=== PATIENT | female | born 1980 | race Hispanic/Latino ===

== ENCOUNTER 2019-08-31 03:28 | Emergency (ER) | payer SELFPAY ==
[2019-08-31] MEDS ORDERED: DiphenhydrAMINE HCL 50 MG/ML VIAL ONE (03:57)
[2019-08-31] MEDS ORDERED: KETOROLAC TROMETHAMINE 30MG/ML ONE (03:58)
[2019-08-31] MEDS ORDERED: ORPHENADRINE CITRATE 30 MG/ML ML ONE (03:58)
== END 2019-08-31 05:41 | disposition home or self-care (01) ==
LOC: EDH 03:28
DX: F45.8 Other somatoform disorders (principal); R25.2 Cramp and spasm; I10 Essential (primary) hypertension; F41.9 Anxiety disorder, unspecified; F32.9 Major depressive disorder, single episode, unspecified; Z88.1 Allergy status to other antibiotic agents; Z90.710 Acquired absence of both cervix and uterus
CPT/HCPCS: 96374; 96375; 99284; J1200; J1885; J2360

== ENCOUNTER 2021-02-21 10:03 | Inpatient (IN) | payer OTHER ==
[~2021-02-21] VITALS: Ht 157.5 cm; Wt 135.0 kg
[2021-02-21] MEDS ORDERED: 0.9%NACL 1000ML 1,000 ML IV SCH (10:30)
[2021-02-21 10:52] LABS: ALANINE AMINOTRANSFERASE 68 U/L (12-78); ALBUMIN 2.8 g/dL (3.5-5.0); ALCOHOL, BLOOD 6 mg/dL (0-10); ASPARTATE AMINOTRANSFERASE 100 U/L (10-37); BASOPHILS % (AUTO) 0.3 % (0.0-5.0); BILIRUBIN,TOTAL 0.2 mg/dL (0.2-1.0); CARBON DIOXIDE 29 mmol/L (21-32); CHLORIDE 95 mmol/L (101-111); CREATININE 1.6 mg/dL (0.5-1.5); GLOMERULAR FILTR. RATE CALC 38 mL/min (>60); GLUCOSE,RANDOM 124 mg/dL (70-105); HEMATOCRIT 43.2 % (36-48); LYMPHOCYTES % (AUTO) 9.7 % (21.0-51.0); MEAN CORPUSCULAR HEMOGLOBIN 25.7 pg (27.0-33.0); MEAN CORPUSCULAR HGB CONC 31.5 g/dL (32.0-36.0); MEAN CORPUSCULAR VOLUME 81.5 fL (79-99); MONOCYTES % (AUTO) 4.4 % (3.0-13.0); PLATELET COUNT (AUTO) 230 K/uL (130-400); RED CELL DISTRIBUTION WIDTH 20.2 % (11.0-15.5); SODIUM SERUM 135 mmol/L (136-145); TOTAL PROTEIN, SERUM 8.1 g/dL (6.0-8.3); UREA NITROGEN, BLOOD 27 mg/dL (7-18); WHITE BLOOD COUNT (AUTO) 8.6 K/uL (4.8-10.8)
[2021-02-21 10:55] LABS: AMMONIA < 10 umol/L (11-32)
[2021-02-21 10:56] LABS: ACETAMINOPHEN < 1 mcg/mL (10-30)
[2021-02-21] MEDS ORDERED: POTASSIUM CHLORIDE 10MEQ/100ML 10 MEQ/100 ML ML IV SCH (11:00)
[2021-02-21 11:05] LABS: ABG BASE EXCESS 1.7 mmol/L (-2.0-3.0); ABG HCO3 23.6 mmol/L (21.0-28.0); ABG OXYGEN SATURATION 96.1 % (95.0-99.0); ABG PCO2 30 mmHg (32-45)
[2021-02-21] MEDS ORDERED: FAMOTIDINE 20MG VIAL IV STA (11:33)
[2021-02-21] MEDS ORDERED: LORAZEPAM 2 MG/ML 1 ML VIAL ONE (11:34)
[2021-02-21 11:37] LABS: INR 1.05 (0.85-1.15); PROTHROMBIN TIME 11.4 SEC (9.6-11.6)
[2021-02-21 11:39] LABS: PARTIAL THROMBOPLASTIN TIME 29.9 SEC (26.3-35.5)
[2021-02-21 11:43] LABS: APPEARANCE,URINE Cloudy (CLEAR); BILIRUBIN,URINE Small (NEGATIVE); COLOR,URINE Dark Yellow (YELLOW); GLUCOSE, URINE (UA) Negative (NEGATIVE); KETONES,URINE Negative (NEGATIVE); LEUKOCYTE ESTERASE ,URINE Small (NEGATIVE); NITRATE,URINE Negative (NEGATIVE); OCCULT BLOOD,URINE Negative (NEGATIVE); PROTEIN,URINE POS 1+ mg/dL (NEGATIVE)
[2021-02-21 11:50] LABS: AMPHET/METH SCREEN,URINE NEGATIVE (NEGATIVE); BARBITURATE SCREEN, URINE NEGATIVE (NEGATIVE); BENZODIAZEPINES SCREEN,URINE NEGATIVE (NEGATIVE); CANNABINOID SCREEN,URINE NEGATIVE (NEGATIVE); COCAINE SCREEN,URINE NEGATIVE (NEGATIVE); OPIATE SCREEN,URINE NEGATIVE (NEGATIVE); PHENCYCLIDINE SCREEN,URINE NEGATIVE (NEGATIVE)
[2021-02-21] MEDS ORDERED: LORAZEPAM 2 MG/ML 1 ML VIAL IVP ONE (12:00)
[2021-02-21] MEDS ORDERED: SOLU-MEDROL 125MG VIAL IVP SCH (12:00)
[2021-02-21] MEDS ORDERED: AZITHROMYCIN 500MG+NS 250ML 250 ML IV ONE (12:00)
[2021-02-21] MEDS ORDERED: ALBUTEROL INHALER 90MCG/INH IH SCH (12:00)
[2021-02-21] MEDS ORDERED: CEFTRIAXONE 2GM VIAL IVP ONE (12:00)
[2021-02-21 12:09] LABS: RBC,URINE 0-1 /HPF (0-1)
[2021-02-21 12:10] LABS: BACTERIA,URINE Many /HPF (None Seen); MUCUS,URINE Few LPF (None Seen); SQUAMOUS EPITHELIAL CELL,UR Rare /HPF (0-2)
[2021-02-21] MEDS ORDERED: PROPOFOL 1000 MG/100 ML 100 ML IV ONE (12:22)
[2021-02-21] MEDS ORDERED: CACL 1GM SYG IVP ONE (12:42)
[2021-02-21] MEDS ORDERED: SODIUM BICARB 8.4% 50ML SYRINGE IVP ONE (12:42)
[2021-02-21] MEDS ORDERED: ATROPINE 1MG SYG IVP ONE ×2 (12:42→15:38)
[2021-02-21] MEDS ORDERED: EPINEPHRINE 1MG SYG 10ML IVP ONE (12:42)
[2021-02-21] MEDS ORDERED: FENTANYL 2500MCG+NS 250ML 250 ML IV ONE (12:49)
[2021-02-21 12:59] LABS: CRP QUANTITATIVE 343.6 mg/L (0.00-9.0)
[2021-02-21] MEDS ORDERED: DOXYCYCLINE 100MG+NS 250ML IV SCH (13:00)
[2021-02-21] MEDS ORDERED: VANCOMYCIN PROTOCOL PER PHARMACY IV SCH (13:00)
[2021-02-21] MEDS ORDERED: PROPOFOL 1000 MG/100 ML 100 ML IV SCH (13:00)
[2021-02-21] MEDS ORDERED: FENTANYL 2500MCG+NS 250ML IV.SOLN IV SCH (13:00)
[2021-02-21 13:03] LABS: CREATININE,URINE RANDOM 284 mg/dL (30-135); SODIUM,URINE RANDOM < 14 mmol/l (40-220)
[2021-02-21] MEDS ORDERED: NOREPINEPHRIN 4MG/NS 250ML 250 ML IV ONE ×2 (13:13→14:05)
[2021-02-21 13:16] LABS: CREATININE 1.5 mg/dL (0.5-1.5)
[2021-02-21 13:22] LABS: CRP QUANTITATIVE 290.3 mg/L (0.00-9.0); POTASSIUM 2.8 mmol/L (3.5-5.1)
[2021-02-21] MEDS ORDERED: MIDAZOLAM 50MG-0.9% NS 50ML 50 ML BAG IV SCH (13:30)
[2021-02-21] MEDS ORDERED: PHARMACY COMMUNICATION MISC SCH (13:30)
[2021-02-21] MEDS ORDERED: NOREPINEPHRIN 4MG/NS 250ML 250 ML IV SCH (13:30)
[2021-02-21] MEDS ORDERED: POTASSIUM CHLORIDE 10MEQ/100ML 100 ML IV SCH (13:30)
[2021-02-21 14:06] LABS: ABG HCO3 21.6 mmol/L (21.0-28.0); ABG OXYGEN SATURATION 95.8 % (95.0-99.0); ABG PCO2 38 mmHg (32-45)
[2021-02-21] MEDS ORDERED: COMPOUND IV REFRIGERATED 1 EACH IVSOLN MISC PRN ×2 (15:30→17:00)
[2021-02-21] MEDS ORDERED: VANCOMYCIN 2GM/500ML NS IV ONE ×2 (16:00)
[2021-02-21] MEDS: DEXAMETHASONE SOD PHOSPHATE 4 MG/ML 1ML VIAL IVP SCH ×2 (16:01→20:54)
[2021-02-21] MEDS ORDERED: IBUPROFEN 400 MG TABLET ONE (16:03)
[2021-02-21] MEDS ORDERED: REMDESIVIR (EUA) 520 200 MG in 0.9% NACL 250ML 250 ML IV ONE (17:00)
[2021-02-21] MEDS ORDERED: ACETYLCYSTEINE IV ONE ×5 (17:30→18:45)
[2021-02-21] MEDS ORDERED: DEXTROSE 5% IV ONE ×5 (17:30→18:45)
[2021-02-21] MEDS ORDERED: WATER IV ONE ×5 (17:30→18:45)
[2021-02-21] MEDS ORDERED: POTASSIUM CHLORIDE 10MEQ/100ML 100 ML IV ONE (18:33)
[2021-02-21 18:35] LABS: ALBUMIN 2.7 g/dL (3.5-5.0); BILIRUBIN,DIRECT 0.1 mg/dL (0.0-0.3); BILIRUBIN,TOTAL 0.3 mg/dL (0.2-1.0); TOTAL PROTEIN, SERUM 7.8 g/dL (6.0-8.3)
[2021-02-21 19:00] VITALS: BP 108/66
[2021-02-21] MEDS ORDERED: NOREPINEPHRINE BITARTRATE 1 MG/1 ML ML IV ONE (19:55)
[2021-02-21 20:00] VITALS: BP 108/78
[2021-02-21] MEDS: MIDAZOLAM 100MG-0.9% NS 100ML 100 ML IV SCH (20:26)
[2021-02-21] MEDS: VECURONIUM 10MG/10ML 50 MG in 0.9%NACL 50ML 50 ML IV SCH (20:39)
[2021-02-21 21:00] VITALS: BP 102/70
[2021-02-21] MEDS ORDERED: ENOXAPARIN SODIUM 40 MG/0.4 ML SYRINGE SQ SCH (21:00)
[2021-02-21] MEDS: HEPARIN 5,000 UNIT VIAL SQ SCH (21:00)
[2021-02-21] MEDS ORDERED: DOXYCYCLINE 100MG+NS 250ML 250 ML IV SCH (21:00)
[2021-02-21] MEDS: PHARMACY COMMUNICATION MISC SCH ×2 (21:30→21:35)
[2021-02-21 22:00] VITALS: BP 116/77
[2021-02-21 23:00] VITALS: BP 127/74
[2021-02-22] VITALS (21 sets, daily range): BP systolic 113–159; BP diastolic 59–97
[2021-02-22 04:12] LABS: ABG BASE EXCESS -10.9 mmol/L (-2.0-3.0); ABG HCO3 20.7 mmol/L (21.0-28.0); ABG OXYGEN SATURATION 87.1 % (95.0-99.0); ABG PCO2 76 mmHg (32-45)
[2021-02-22] MEDS ORDERED: SODIUM BICARB 50MEQ 50ML VIAL 150 ML ONE (04:45)
[2021-02-22] MEDS ORDERED: SODIUM BICARB 8.4% 50ML SYRINGE IVP SCH ×2 (05:00)
[2021-02-22] MEDS ORDERED: SODIUM BICARB 8.4% 50ML SYRING 150 MEQ in DEXTROSE 5%-WATER 1,000 ML IVP SCH (05:00)
[2021-02-22] MEDS: HEPARIN 5,000 UNIT VIAL SQ SCH ×3 (05:03→19:49)
[2021-02-22] MEDS ORDERED: REMDESIVIR LABS MISC SCH (06:00)
[2021-02-22] MEDS ORDERED: SODIUM BICARB 50MEQ 50ML VIAL 100 ML ONE (06:35)
[2021-02-22] MEDS ORDERED: SODIUM BICARB 50MEQ 50ML VIAL IV SCH (06:44)
[2021-02-22 07:33] LABS: ABG HCO3 20.5 mmol/L (21.0-28.0); ABG PCO2 49 mmHg (32-45)
[2021-02-22 07:44] LABS: BASOPHILS % (AUTO) 0.2 % (0.0-5.0); HEMATOCRIT 42.3 % (36-48); LYMPHOCYTES % (AUTO) 4.6 % (21.0-51.0); MEAN CORPUSCULAR HEMOGLOBIN 25.6 pg (27.0-33.0); MEAN CORPUSCULAR HGB CONC 30.3 g/dL (32.0-36.0); MEAN CORPUSCULAR VOLUME 84.6 fL (79-99); MONOCYTES % (AUTO) 2.2 % (3.0-13.0); NEUTROPHILS % (AUTO) 91.9 % (40.0-77.0); PLATELET COUNT (AUTO) 195 K/uL (130-400); RED CELL DISTRIBUTION WIDTH 20.2 % (11.0-15.5); WHITE BLOOD COUNT (AUTO) 10.1 K/uL (4.8-10.8)
[2021-02-22] MEDS: FUROSEMIDE 20MG VIAL IV SCH ×2 (07:51→07:59)
[2021-02-22 08:13] LABS: ALBUMIN 2.1 g/dL (3.5-5.0); BILIRUBIN,TOTAL 0.2 mg/dL (0.2-1.0); CREATININE 2.1 mg/dL (0.5-1.5); POTASSIUM 3.2 mmol/L (3.5-5.1); TOTAL PROTEIN, SERUM 7.2 g/dL (6.0-8.3)
[2021-02-22 08:37] LABS: CRP QUANTITATIVE 340.2 mg/L (0.00-9.0)
[2021-02-22] MEDS ORDERED: PHARMACY COMMUNICATION MISC SCH ×3 (09:00→09:30)
[2021-02-22] MEDS ORDERED: THIAMINE HCL 100 MG/ML 2ML VIAL IV SCH (09:00)
[2021-02-22 09:52] LABS: ABG BASE EXCESS -2.3 mmol/L (-2.0-3.0); ABG HCO3 25.3 mmol/L (21.0-28.0); ABG OXYGEN SATURATION 89.5 % (95.0-99.0); ABG PCO2 56 mmHg (32-45)
[2021-02-22 10:27] LABS: TRIGLYCERIDES 186 mg/dL (30-200)
[2021-02-22 10:28] LABS: AMMONIA < 10 umol/L (11-32)
[2021-02-22] MEDS: CEFEPIME HCL 2 GM VIAL IVP SCH (10:49)
[2021-02-22 10:51] LABS: ALANINE AMINOTRANSFERASE 64 U/L (12-78); ASPARTATE AMINOTRANSFERASE 78 U/L (10-37); BILIRUBIN,DIRECT 0.1 mg/dL (0.0-0.3); BILIRUBIN,TOTAL 0.2 mg/dL (0.2-1.0); TOTAL PROTEIN, SERUM 6.9 g/dL (6.0-8.3)
[2021-02-22 10:52] LABS: ACETAMINOPHEN < 1 mcg/mL (10-30)
[2021-02-22] MEDS: INSULIN HUMULIN R 100 UNIT/ML 3ML SQ SCH ×3 (12:00→23:46)
[2021-02-22] MEDS: METOPROLOL TARTRATE 25 MG TAB PO SCH ×2 (13:00→20:09)
[2021-02-22] MEDS ORDERED: DOXYCYCLINE 100MG+NS 250ML IV SCH (15:30)
[2021-02-22] MEDS ORDERED: DOXYCYCLINE 100MG+NS 250ML 250 ML IV SCH ×2 (15:30→20:00)
[2021-02-22] MEDS ORDERED: TOCILIZUMAB IV ONE (16:00)
[2021-02-22] MEDS ORDERED: [UNRECOGNIZED DRUG - OTHER] IV ONE (16:00)
[2021-02-22] MEDS ORDERED: VANCOMYCIN 1.25GM/NS 250ML IVPB SCH ×2 (16:00)
[2021-02-22] MEDS ORDERED: ALTEPLASE 2MG VIAL 2 MG/VIAL VIAL IVCATH ONE (17:00)
[2021-02-22] MEDS: VECURONIUM 10MG/10ML 50 MG in 0.9%NACL 50ML 50 ML IV SCH (17:13)
[2021-02-22] MEDS ORDERED: METHYLPREDNISOLONE SUCC IVP SCH (17:30)
[2021-02-22] MEDS ORDERED: [UNRECOGNIZED DRUG - OTHER] IVP SCH (17:30)
[2021-02-22] MEDS ORDERED: COMPOUND IV MISC 1 EACH IVSOLN MISC PRN (18:00)
[2021-02-22] MEDS: REMDESIVIR (EUA) 520 100 MG in 0.9% NACL 250ML 250 ML IV SCH (18:01)
[2021-02-22] MEDS: METHYLPREDNISOLONE SUCC IVP SCH (19:49)
[2021-02-22] MEDS: [UNRECOGNIZED DRUG - OTHER] IVP SCH (19:49)
[2021-02-22] MEDS: PROPOFOL 1000 MG/100 ML 100 ML IV PRN ×2 (19:55→23:37)
[2021-02-22] MEDS: ARTIFICIAL TEARS 3.5 GM OINTMENT OU SCH (20:10)
[2021-02-22 20:57] LABS: HEPATITIS A IGM ANTIBODY SEE SEPARATE REPORT (Negative); HEPATITIS B CORE IGM ANTIBODY SEE SEPARATE RESULT (Negative); HEPATITIS B SURFACE ANTIGEN SEE SEPARATE REPORT (Negative); HEPATITIS C ANTIBODY SEE SEPARATE REPORT (NEGATIVE)
[2021-02-23] VITALS (22 sets, daily range): BP systolic 124–175; BP diastolic 75–108
[2021-02-23] MEDS: HEPARIN 5,000 UNIT VIAL SQ SCH ×3 (03:18→20:06)
[2021-02-23] MEDS: PROPOFOL 1000 MG/100 ML 100 ML IV PRN ×7 (03:19→23:37)
[2021-02-23] MEDS: VECURONIUM 10MG/10ML 50 MG in 0.9%NACL 50ML 50 ML IV SCH ×2 (03:35→18:44)
[2021-02-23 04:22] LABS: ABG BASE EXCESS -0.2 mmol/L (-2.0-3.0); ABG HCO3 25.7 mmol/L (21.0-28.0); ABG OXYGEN SATURATION 91.1 % (95.0-99.0); ABG PCO2 47 mmHg (32-45)
[2021-02-23] MEDS: INSULIN HUMULIN R 100 UNIT/ML 3ML SQ SCH ×3 (05:23→17:58)
[2021-02-23 05:34] LABS: HEMATOCRIT 36.9 % (36-48); MEAN CORPUSCULAR HEMOGLOBIN 24.7 pg (27.0-33.0); MEAN CORPUSCULAR HGB CONC 30.9 g/dL (32.0-36.0); MEAN CORPUSCULAR VOLUME 79.9 fL (79-99); RED BLOOD CELL COUNT(AUTO) 4.62 MIL/uL (4.00-5.50); WHITE BLOOD COUNT (AUTO) 8.7 K/uL (4.8-10.8)
[2021-02-23 05:46] LABS: CARBON DIOXIDE 24 mmol/L (21-32); CHLORIDE 105 mmol/L (101-111); CREATINE KINASE, TOTAL 281 U/L (21-232); CREATININE 2.4 mg/dL (0.5-1.5); GLOMERULAR FILTR. RATE CALC 24 mL/min (>60); GLUCOSE,RANDOM 152 mg/dL (70-105); PHOSPHORUS 5.5 mg/dL (2.5-4.9); SODIUM SERUM 147 mmol/L (136-145); TRIGLYCERIDES 206 mg/dL (30-200); UREA NITROGEN, BLOOD 49 mg/dL (7-18)
[2021-02-23] MEDS ORDERED: DOXYCYCLINE 100MG+NS 250ML 250 ML IV SCH (06:00)
[2021-02-23 06:27] LABS: AMMONIA < 10 umol/L (11-32)
[2021-02-23 06:29] LABS: POTASSIUM 2.8 mmol/L (3.5-5.1)
[2021-02-23] MEDS ORDERED: MAGNESIUM 2GM PREMIX 50ML 50 ML IV SCH (08:30)
[2021-02-23] MEDS: POTASSIUM CHLORIDE 10MEQ/100ML 10 MEQ/100 ML ML IV SCH (09:06)
[2021-02-23] MEDS: CEFEPIME HCL 2 GM VIAL IVP SCH (09:08)
[2021-02-23] MEDS: POTASSIUM CHLORIDE 20MEQ/100ML 100 ML IV PRN (11:10)
[2021-02-23] MEDS: METHYLPREDNISOLONE SUCC IVP SCH (13:14)
[2021-02-23] MEDS: [UNRECOGNIZED DRUG - OTHER] IVP SCH (13:14)
[2021-02-23] MEDS: FENTANYL 2500MCG+NS 250ML 250 ML IV SCH (18:41)
[2021-02-23] MEDS ORDERED: SODIUM CHLORIDE IV SCH ×2 (19:30)
[2021-02-23] MEDS ORDERED: VECURONIUM IV SCH ×2 (19:30)
[2021-02-23] MEDS: ARTIFICIAL TEARS 3.5 GM OINTMENT OU SCH (20:07)
[2021-02-24] VITALS (57 sets, daily range): BP systolic 138–194; BP diastolic 82–119
[2021-02-24] MEDS: PROPOFOL 1000 MG/100 ML 100 ML IV PRN ×8 (02:43→23:45)
[2021-02-24] MEDS: HEPARIN 5,000 UNIT VIAL SQ SCH ×3 (04:26→21:04)
[2021-02-24 04:31] LABS: BASOPHILS % (AUTO) 0.1 % (0.0-5.0); HEMATOCRIT 36.6 % (36-48); LYMPHOCYTES % (AUTO) 5.3 % (21.0-51.0); MEAN CORPUSCULAR HEMOGLOBIN 25.3 pg (27.0-33.0); MEAN CORPUSCULAR HGB CONC 31.4 g/dL (32.0-36.0); MEAN CORPUSCULAR VOLUME 80.4 fL (79-99); MONOCYTES % (AUTO) 4.1 % (3.0-13.0); NEUTROPHILS % (AUTO) 89.6 % (40.0-77.0); PLATELET COUNT (AUTO) 247 K/uL (130-400); RED BLOOD CELL COUNT(AUTO) 4.55 MIL/uL (4.00-5.50); RED CELL DISTRIBUTION WIDTH 20.3 % (11.0-15.5); WHITE BLOOD COUNT (AUTO) 9.3 K/uL (4.8-10.8)
[2021-02-24 04:58] LABS: ALBUMIN 2.1 g/dL (3.5-5.0); BILIRUBIN,TOTAL 0.2 mg/dL (0.2-1.0); CREATININE 2.8 mg/dL (0.5-1.5); MAGNESIUM 2.6 mg/dL (1.80-2.40); POTASSIUM 3.1 mmol/L (3.5-5.1); TOTAL PROTEIN, SERUM 6.5 g/dL (6.0-8.3)
[2021-02-24] MEDS: INSULIN HUMULIN R 100 UNIT/ML 3ML SQ SCH ×5 (06:00→23:47)
[2021-02-24 08:24] LABS: ABG BASE EXCESS -0.3 mmol/L (-2.0-3.0); ABG HCO3 25.3 mmol/L (21.0-28.0); ABG OXYGEN SATURATION 90.8 % (95.0-99.0); ABG PCO2 45 mmHg (32-45)
[2021-02-24] MEDS: CEFEPIME HCL 2 GM VIAL IVP SCH (08:26)
[2021-02-24] MEDS: POTASSIUM CHLORIDE 10MEQ/100ML 10 MEQ/100 ML ML IV SCH (08:26)
[2021-02-24] MEDS: MIDAZOLAM 100MG-0.9% NS 100ML 100 ML IV SCH (08:30)
[2021-02-24] MEDS ORDERED: POTASSIUM CHLORIDE 10MEQ/100ML 10 MEQ/100 ML ML IV SCH (08:30)
[2021-02-24] MEDS ORDERED: POTASSIUM CHLORIDE 10MEQ/100ML 100 ML IV SCH (10:00)
[2021-02-24] MEDS: [UNRECOGNIZED DRUG - OTHER] IVP SCH (10:19)
[2021-02-24] MEDS: METHYLPREDNISOLONE SUCC IVP SCH (10:19)
[2021-02-24] MEDS: ARTIFICIAL TEARS 3.5 GM OINTMENT OU SCH (21:00)
[2021-02-25] VITALS (80 sets, daily range): BP systolic 110–184; BP diastolic 62–114
[2021-02-25] MEDS: PROPOFOL 1000 MG/100 ML 100 ML IV PRN ×8 (01:52→21:05)
[2021-02-25 04:18] LABS: BASOPHILS % (AUTO) 0.3 % (0.0-5.0); EOSINOPHILS % (AUTO) 0.1 % (0.0-8.0); HEMATOCRIT 37.3 % (36-48); LYMPHOCYTES % (AUTO) 6.5 % (21.0-51.0); MEAN CORPUSCULAR HGB CONC 30.8 g/dL (32.0-36.0); MEAN CORPUSCULAR VOLUME 81.1 fL (79-99); MONOCYTES % (AUTO) 5.1 % (3.0-13.0); NEUTROPHILS % (AUTO) 85.8 % (40.0-77.0); PLATELET COUNT (AUTO) 264 K/uL (130-400); RED CELL DISTRIBUTION WIDTH 20.3 % (11.0-15.5); WHITE BLOOD COUNT (AUTO) 10.9 K/uL (4.8-10.8)
[2021-02-25] MEDS: HEPARIN 5,000 UNIT VIAL SQ SCH ×3 (04:28→20:00)
[2021-02-25] MEDS: MIDAZOLAM 100MG-0.9% NS 100ML 100 ML IV SCH (05:14)
[2021-02-25 05:17] LABS: ALBUMIN 2.2 g/dL (3.5-5.0); BILIRUBIN,TOTAL 0.3 mg/dL (0.2-1.0); CREATININE 3.4 mg/dL (0.5-1.5); POTASSIUM 3.5 mmol/L (3.5-5.1); TOTAL PROTEIN, SERUM 6.6 g/dL (6.0-8.3)
[2021-02-25] MEDS: INSULIN HUMULIN R 100 UNIT/ML 3ML SQ SCH ×4 (05:23→23:39)
[2021-02-25 06:59] LABS: ABG BASE EXCESS -3.4 mmol/L (-2.0-3.0); ABG HCO3 22.8 mmol/L (21.0-28.0); ABG PCO2 45 mmHg (32-45)
[2021-02-25] MEDS ORDERED: ALTEPLASE 2MG VIAL 2 MG/VIAL VIAL IVCATH ONE (07:30)
[2021-02-25] MEDS: CEFEPIME HCL 2 GM VIAL IVP SCH (08:13)
[2021-02-25 11:41] LABS: ABG BASE EXCESS -5.1 mmol/L (-2.0-3.0); ABG HCO3 22.7 mmol/L (21.0-28.0); ABG OXYGEN SATURATION 96.2 % (95.0-99.0); ABG PCO2 54 mmHg (32-45)
[2021-02-25 14:10] LABS: ABG HCO3 23.1 mmol/L (21.0-28.0); ABG OXYGEN SATURATION 97.6 % (95.0-99.0); ABG PCO2 56 mmHg (32-45)
[2021-02-25 15:34] LABS: HEMATOCRIT 40.1 % (36-48)
[2021-02-25 15:42] LABS: ALBUMIN 2.3 g/dL (3.5-5.0); CREATININE 3.9 mg/dL (0.5-1.5)
[2021-02-25 15:46] LABS: HEMOGLOBIN A1C 6.1 % (4.0-6.0)
[2021-02-25 16:00] LABS: % IRON SATURATION 27.5 % (22-44)
[2021-02-25] MEDS: METHYLPREDNISOLONE SUCC IVP SCH (18:30)
[2021-02-25] MEDS: [UNRECOGNIZED DRUG - OTHER] IVP SCH (18:30)
[2021-02-25] MEDS: ARTIFICIAL TEARS 3.5 GM OINTMENT OU SCH (21:00)
[2021-02-26] VITALS (67 sets, daily range): BP systolic 85–163; BP diastolic 47–101
[2021-02-26 00:13] LABS: HEPATITIS B SURFACE ANTIGEN Non-Reactive (Negative)
[2021-02-26] MEDS: PROPOFOL 1000 MG/100 ML 100 ML IV PRN ×9 (00:30→23:58)
[2021-02-26] MEDS: MIDAZOLAM 100MG-0.9% NS 100ML 100 ML IV SCH ×2 (00:30→19:00)
[2021-02-26] MEDS: HEPARIN 5,000 UNIT VIAL SQ SCH ×3 (04:00→20:00)
[2021-02-26 04:54] LABS: BASOPHILS % (AUTO) 0.4 % (0.0-5.0); EOSINOPHILS % (AUTO) 0.1 % (0.0-8.0); HEMATOCRIT 39.3 % (36-48); LYMPHOCYTES % (AUTO) 6.5 % (21.0-51.0); MEAN CORPUSCULAR HEMOGLOBIN 25.2 pg (27.0-33.0); MEAN CORPUSCULAR HGB CONC 30.3 g/dL (32.0-36.0); MEAN CORPUSCULAR VOLUME 83.1 fL (79-99); MONOCYTES % (AUTO) 5.8 % (3.0-13.0); NEUTROPHILS % (AUTO) 80.8 % (40.0-77.0); NUCLEATED RED BLOOD CELLS 0.2 % (0.0-0.19); PLATELET COUNT (AUTO) 247 K/uL (130-400); RED BLOOD CELL COUNT(AUTO) 4.73 MIL/uL (4.00-5.50); RED CELL DISTRIBUTION WIDTH 20.2 % (11.0-15.5); WHITE BLOOD COUNT (AUTO) 14.5 K/uL (4.8-10.8)
[2021-02-26 05:14] LABS: ABG BASE EXCESS -4.6 mmol/L (-2.0-3.0); ABG HCO3 22.5 mmol/L (21.0-28.0); ABG OXYGEN SATURATION 95.7 % (95.0-99.0); ABG PCO2 50 mmHg (32-45)
[2021-02-26 05:17] LABS: ALBUMIN 2.3 g/dL (3.5-5.0); BILIRUBIN,TOTAL 0.3 mg/dL (0.2-1.0); CRP QUANTITATIVE 61.4 mg/L (0.00-9.0); MAGNESIUM 2.3 mg/dL (1.80-2.40); PHOSPHORUS 10.8 mg/dL (2.5-4.9); POTASSIUM 4.5 mmol/L (3.5-5.1); TOTAL PROTEIN, SERUM 6.8 g/dL (6.0-8.3)
[2021-02-26] MEDS: INSULIN HUMULIN R 100 UNIT/ML 3ML SQ SCH ×3 (06:00→17:17)
[2021-02-26] MEDS: FENTANYL 2500MCG+NS 250ML 250 ML IV SCH (06:35)
[2021-02-26 06:41] LABS: CREATININE 3.8 mg/dL (0.5-1.5)
[2021-02-26] MEDS: CEFEPIME HCL 2 GM VIAL IVP SCH (07:47)
[2021-02-26] MEDS ORDERED: TOCILIZUMAB 200MG VIAL 600 MG in 0.9%NACL 100ML 100 ML IV ONE (16:00)
[2021-02-26] MEDS: PHARMACY COMMUNICATION MISC SCH (17:00)
[2021-02-26] MEDS: METHYLPREDNISOLONE SUCC IVP SCH (18:30)
[2021-02-26] MEDS: [UNRECOGNIZED DRUG - OTHER] IVP SCH (18:30)
[2021-02-26] MEDS: ARTIFICIAL TEARS 3.5 GM OINTMENT OU SCH (20:18)
[2021-02-27] VITALS (39 sets, daily range): BP systolic 97–130; BP diastolic 46–78
[2021-02-27] MEDS: HEPARIN 5,000 UNIT VIAL SQ SCH ×3 (03:23→20:12)
[2021-02-27] MEDS: PROPOFOL 1000 MG/100 ML 100 ML IV PRN ×6 (03:23→20:44)
[2021-02-27 04:10] LABS: BASOPHILS % (AUTO) 0.8 % (0.0-5.0); EOSINOPHILS % (AUTO) 0.2 % (0.0-8.0); HEMATOCRIT 39.1 % (36-48); LYMPHOCYTES % (AUTO) 9.1 % (21.0-51.0); MEAN CORPUSCULAR HEMOGLOBIN 25.1 pg (27.0-33.0); MEAN CORPUSCULAR HGB CONC 30.7 g/dL (32.0-36.0); MEAN CORPUSCULAR VOLUME 81.6 fL (79-99); MONOCYTES % (AUTO) 6.4 % (3.0-13.0); NEUTROPHILS % (AUTO) 68.9 % (40.0-77.0); NUCLEATED RED BLOOD CELLS 0.3 % (0.0-0.19); PLATELET COUNT (AUTO) 278 K/uL (130-400); RED BLOOD CELL COUNT(AUTO) 4.79 MIL/uL (4.00-5.50); RED CELL DISTRIBUTION WIDTH 20.1 % (11.0-15.5); WHITE BLOOD COUNT (AUTO) 18.2 K/uL (4.8-10.8)
[2021-02-27 04:29] LABS: ALBUMIN 2.5 g/dL (3.5-5.0); BILIRUBIN,TOTAL 0.4 mg/dL (0.2-1.0); CREATININE 3.6 mg/dL (0.5-1.5); MAGNESIUM 2.3 mg/dL (1.80-2.40); PHOSPHORUS 8.5 mg/dL (2.5-4.9); POTASSIUM 4.1 mmol/L (3.5-5.1); TOTAL PROTEIN, SERUM 7.1 g/dL (6.0-8.3)
[2021-02-27] MEDS: INSULIN HUMULIN R 100 UNIT/ML 3ML SQ SCH ×4 (06:00→16:32)
[2021-02-27] MEDS: PHARMACY COMMUNICATION MISC SCH ×7 (07:00→22:30)
[2021-02-27] MEDS: CEFEPIME HCL 2 GM VIAL IVP SCH (08:28)
[2021-02-27] MEDS ORDERED: PANTOPRAZOLE 40 MG/VIAL IVP SCH (09:00)
[2021-02-27] MEDS: MIDAZOLAM 100MG-0.9% NS 100ML 100 ML IV SCH (13:02)
[2021-02-27] MEDS: METHYLPREDNISOLONE SUCC IVP SCH (15:51)
[2021-02-27] MEDS: [UNRECOGNIZED DRUG - OTHER] IVP SCH (15:51)
[2021-02-27] MEDS: REMDESIVIR (EUA) 520 100 MG in 0.9% NACL 250ML 250 ML IV SCH (17:00)
[2021-02-27] MEDS: DOCUSATE NA 100MG/10ML UDCUP PO SCH (20:11)
[2021-02-27] MEDS: ARTIFICIAL TEARS 3.5 GM OINTMENT OU SCH (20:20)
[2021-02-27] MEDS: FENTANYL 2500MCG+NS 250ML IV.SOLN IV SCH (23:21)
[2021-02-28] VITALS (36 sets, daily range): BP systolic 85–150; BP diastolic 48–99
[2021-02-28] MEDS: PROPOFOL 1000 MG/100 ML 100 ML IV PRN ×9 (00:17→20:47)
[2021-02-28] MEDS: PHARMACY COMMUNICATION MISC SCH (02:30)
[2021-02-28] MEDS: HEPARIN 5,000 UNIT VIAL SQ SCH ×3 (03:15→20:48)
[2021-02-28] MEDS: MIDAZOLAM 100MG-0.9% NS 100ML 100 ML IV SCH ×2 (03:16→12:12)
[2021-02-28 04:16] LABS: HEMATOCRIT 36.1 % (36-48); MEAN CORPUSCULAR HEMOGLOBIN 25.1 pg (27.0-33.0); MEAN CORPUSCULAR HGB CONC 31.3 g/dL (32.0-36.0); MEAN CORPUSCULAR VOLUME 80.2 fL (79-99); NUCLEATED RED BLOOD CELLS 0.3 % (0.0-0.19); RED BLOOD CELL COUNT(AUTO) 4.5 MIL/uL (4.00-5.50); RED CELL DISTRIBUTION WIDTH 20.2 % (11.0-15.5); WHITE BLOOD COUNT (AUTO) 17.2 K/uL (4.8-10.8)
[2021-02-28 04:39] LABS: ALBUMIN 2.4 g/dL (3.5-5.0); BILIRUBIN,TOTAL 0.4 mg/dL (0.2-1.0); CREATININE 5.2 mg/dL (0.5-1.5); CRP QUANTITATIVE 24.2 mg/L (0.00-9.0); PHOSPHORUS 11.6 mg/dL (2.5-4.9); POTASSIUM 4.7 mmol/L (3.5-5.1); TOTAL PROTEIN, SERUM 6.5 g/dL (6.0-8.3)
[2021-02-28] MEDS: INSULIN HUMULIN R 100 UNIT/ML 3ML SQ SCH ×4 (05:49→17:44)
[2021-02-28] MEDS: DOCUSATE NA 100MG/10ML UDCUP PO SCH ×2 (08:27→20:49)
[2021-02-28] MEDS: POLYETHYLENE GLYCOL 3350 17 GM POWD.PACK PO SCH (08:27)
[2021-02-28] MEDS: CEFEPIME HCL 2 GM VIAL IVP SCH (08:28)
[2021-02-28] MEDS: FAMOTIDINE 20MG VIAL IV SCH (08:28)
[2021-02-28] MEDS ORDERED: NOREPINEPHRIN 4MG/NS 250ML 250 ML IV ONE ×2 (11:06→17:39)
[2021-02-28] MEDS: HEPARIN 5,000 UNIT VIAL IV SCH (12:26)
[2021-02-28] MEDS: LACTULOSE 20 GM/30 ML UDCUP PO SCH ×2 (14:13→21:46)
[2021-02-28] MEDS: FENTANYL 2500MCG+NS 250ML IV.SOLN IV SCH (15:54)
[2021-02-28] MEDS: METHYLPREDNISOLONE SUCC IVP SCH (16:35)
[2021-02-28] MEDS: [UNRECOGNIZED DRUG - OTHER] IVP SCH (16:35)
[2021-02-28] MEDS: ARTIFICIAL TEARS 3.5 GM OINTMENT OU SCH (20:50)
[2021-03-01] VITALS (22 sets, daily range): BP systolic 112–158; BP diastolic 65–118
[2021-03-01] MEDS: MIDAZOLAM 100MG-0.9% NS 100ML 100 ML IV SCH ×2 (01:49→13:30)
[2021-03-01] MEDS: PROPOFOL 1000 MG/100 ML 100 ML IV PRN ×5 (01:51→22:00)
[2021-03-01 04:13] LABS: HEMATOCRIT 36.4 % (36-48); MEAN CORPUSCULAR HEMOGLOBIN 25.2 pg (27.0-33.0); MEAN CORPUSCULAR HGB CONC 31.3 g/dL (32.0-36.0); MEAN CORPUSCULAR VOLUME 80.5 fL (79-99); NUCLEATED RED BLOOD CELLS 0.4 % (0.0-0.19); PLATELET COUNT (AUTO) 272 K/uL (130-400); RED BLOOD CELL COUNT(AUTO) 4.52 MIL/uL (4.00-5.50); RED CELL DISTRIBUTION WIDTH 20.1 % (11.0-15.5); WHITE BLOOD COUNT (AUTO) 20.2 K/uL (4.8-10.8)
[2021-03-01 04:29] LABS: ALBUMIN 2.6 g/dL (3.5-5.0); BILIRUBIN,TOTAL 0.4 mg/dL (0.2-1.0); CREATININE 4.2 mg/dL (0.5-1.5); MAGNESIUM 2.5 mg/dL (1.80-2.40); PHOSPHORUS 8.7 mg/dL (2.5-4.9); POTASSIUM 3.9 mmol/L (3.5-5.1); TOTAL PROTEIN, SERUM 6.8 g/dL (6.0-8.3)
[2021-03-01] MEDS: HEPARIN 5,000 UNIT VIAL SQ SCH ×3 (04:47→20:22)
[2021-03-01] MEDS: INSULIN HUMULIN R 100 UNIT/ML 3ML SQ SCH ×4 (05:38→18:00)
[2021-03-01] MEDS: LACTULOSE 20 GM/30 ML UDCUP PO SCH (05:40)
[2021-03-01] MEDS: FAMOTIDINE 20MG VIAL IV SCH (08:47)
[2021-03-01] MEDS: DOCUSATE NA 100MG/10ML UDCUP PO SCH (08:47)
[2021-03-01] MEDS: CEFEPIME HCL 2 GM VIAL IVP SCH (08:47)
[2021-03-01] MEDS: POLYETHYLENE GLYCOL 3350 17 GM POWD.PACK PO SCH (08:48)
[2021-03-01] MEDS: FENTANYL 2500MCG+NS 250ML IV.SOLN IV SCH (13:31)
[2021-03-01] MEDS: SOLU-MEDROL 40MG VIAL IVP SCH (20:20)
[2021-03-01] MEDS: ARTIFICIAL TEARS 3.5 GM OINTMENT OU SCH (21:00)
[2021-03-02] VITALS (42 sets, daily range): BP systolic 81–140; BP diastolic 42–95
[2021-03-02] MEDS: PROPOFOL 1000 MG/100 ML 100 ML IV PRN ×2 (03:03→07:26)
[2021-03-02] MEDS: HEPARIN 5,000 UNIT VIAL SQ SCH ×3 (04:01→20:10)
[2021-03-02] MEDS: MIDAZOLAM 100MG-0.9% NS 100ML 100 ML IV SCH ×2 (04:06→14:44)
[2021-03-02] MEDS: INSULIN HUMULIN R 100 UNIT/ML 3ML SQ SCH ×4 (05:10→18:00)
[2021-03-02 06:34] LABS: BASOPHILS % (AUTO) 0.7 % (0.0-5.0); EOSINOPHILS % (AUTO) 0.6 % (0.0-8.0); HEMATOCRIT 35.6 % (36-48); LYMPHOCYTES % (AUTO) 9.3 % (21.0-51.0); MEAN CORPUSCULAR HEMOGLOBIN 25.1 pg (27.0-33.0); MEAN CORPUSCULAR HGB CONC 31.7 g/dL (32.0-36.0); MEAN CORPUSCULAR VOLUME 79.1 fL (79-99); MONOCYTES % (AUTO) 4.6 % (3.0-13.0); NEUTROPHILS % (AUTO) 61.6 % (40.0-77.0); NUCLEATED RED BLOOD CELLS 0.3 % (0.0-0.19); PLATELET COUNT (AUTO) 288 K/uL (130-400); RED CELL DISTRIBUTION WIDTH 21.1 % (11.0-15.5); WHITE BLOOD COUNT (AUTO) 22.4 K/uL (4.8-10.8)
[2021-03-02 06:57] LABS: ALBUMIN 2.6 g/dL (3.5-5.0); BILIRUBIN,TOTAL 0.4 mg/dL (0.2-1.0); CREATININE 5.6 mg/dL (0.5-1.5); MAGNESIUM 2.9 mg/dL (1.80-2.40); PHOSPHORUS 8.3 mg/dL (2.5-4.9); TOTAL PROTEIN, SERUM 6.7 g/dL (6.0-8.3)
[2021-03-02] MEDS ORDERED: DEXMEDETOMIDINE HCL 400 MCG in 0.9%NACL 100ML 96 ML IV PRN (09:30)
[2021-03-02] MEDS: FAMOTIDINE 20MG VIAL IV SCH (09:45)
[2021-03-02] MEDS: CEFEPIME HCL 2 GM VIAL IVP SCH (09:45)
[2021-03-02] MEDS: SOLU-MEDROL 40MG VIAL IVP SCH ×2 (09:45→20:10)
[2021-03-02] MEDS ORDERED: DEXMEDETOMIDINE 400MCG/NS100ML IV ONE (09:46)
[2021-03-02] MEDS: FENTANYL 2500MCG+NS 250ML IV.SOLN IV SCH (14:46)
[2021-03-02] MEDS: DEXMEDETOMIDINE 400MCG/NS100ML IV SCH ×2 (14:51→23:36)
[2021-03-02] MEDS ORDERED: ALBUMIN (HUMAN) 25% 100 ML IV ONE (14:53)
[2021-03-02] MEDS: ARTIFICIAL TEARS 3.5 GM OINTMENT OU SCH (20:11)
[2021-03-03] VITALS (29 sets, daily range): BP systolic 92–146; BP diastolic 48–96
[2021-03-03] MEDS: HEPARIN 5,000 UNIT VIAL SQ SCH ×3 (04:13→23:03)
[2021-03-03] MEDS: INSULIN HUMULIN R 100 UNIT/ML 3ML SQ SCH ×4 (06:00→17:24)
[2021-03-03 06:25] LABS: BASOPHILS % (AUTO) 0.1 % (0.0-5.0); EOSINOPHILS % (AUTO) 0.8 % (0.0-8.0); HEMATOCRIT 34.3 % (36-48); LYMPHOCYTES % (AUTO) 10.2 % (21.0-51.0); MEAN CORPUSCULAR HGB CONC 31.8 g/dL (32.0-36.0); MEAN CORPUSCULAR VOLUME 81.7 fL (79-99); MONOCYTES % (AUTO) 3.7 % (3.0-13.0); NEUTROPHILS % (AUTO) 68.6 % (40.0-77.0); NUCLEATED RED BLOOD CELLS 0.2 % (0.0-0.19); PLATELET COUNT (AUTO) 257 K/uL (130-400); RED CELL DISTRIBUTION WIDTH 21.3 % (11.0-15.5); WHITE BLOOD COUNT (AUTO) 19.9 K/uL (4.8-10.8)
[2021-03-03 06:44] LABS: BILIRUBIN,TOTAL 0.4 mg/dL (0.2-1.0); CREATININE 4.5 mg/dL (0.5-1.5); CRP QUANTITATIVE 11.3 mg/L (0.00-9.0); MAGNESIUM 2.6 mg/dL (1.80-2.40); POTASSIUM 3.3 mmol/L (3.5-5.1); TOTAL PROTEIN, SERUM 6.8 g/dL (6.0-8.3)
[2021-03-03] MEDS: SOLU-MEDROL 40MG VIAL IVP SCH ×2 (08:19→23:00)
[2021-03-03] MEDS: FAMOTIDINE 20MG VIAL IV SCH (08:19)
[2021-03-03] MEDS: CEFEPIME HCL 2 GM VIAL IVP SCH (08:19)
[2021-03-03] MEDS: DEXMEDETOMIDINE 400MCG/NS100ML IV SCH ×2 (08:20→16:25)
[2021-03-03] MEDS: FENTANYL 2500MCG+NS 250ML IV.SOLN IV SCH (12:59)
[2021-03-03] MEDS: MIDAZOLAM 100MG-0.9% NS 100ML 100 ML IV SCH (12:59)
[2021-03-03] MEDS: ARTIFICIAL TEARS 3.5 GM OINTMENT OU SCH (21:00)
[2021-03-04] VITALS (31 sets, daily range): BP systolic 87–144; BP diastolic 47–92
[2021-03-04] MEDS: DEXMEDETOMIDINE 400MCG/NS100ML IV SCH ×4 (00:41→22:53)
[2021-03-04 03:53] LABS: HEMATOCRIT 35.5 % (36-48); MEAN CORPUSCULAR HEMOGLOBIN 25.2 pg (27.0-33.0); MEAN CORPUSCULAR HGB CONC 32.1 g/dL (32.0-36.0); MEAN CORPUSCULAR VOLUME 78.5 fL (79-99); NUCLEATED RED BLOOD CELLS 0.2 % (0.0-0.19); RED BLOOD CELL COUNT(AUTO) 4.52 MIL/uL (4.00-5.50); RED CELL DISTRIBUTION WIDTH 21.4 % (11.0-15.5); WHITE BLOOD COUNT (AUTO) 18.7 K/uL (4.8-10.8)
[2021-03-04 04:09] LABS: BILIRUBIN,TOTAL 0.4 mg/dL (0.2-1.0); CREATININE 5.7 mg/dL (0.5-1.5); POTASSIUM 4.3 mmol/L (3.5-5.1); TOTAL PROTEIN, SERUM 7.2 g/dL (6.0-8.3)
[2021-03-04 04:17] LABS: ABG BASE EXCESS -3.8 mmol/L (-2.0-3.0); ABG HCO3 20.9 mmol/L (21.0-28.0); ABG OXYGEN SATURATION 94.9 % (95.0-99.0); ABG PCO2 36 mmHg (32-45)
[2021-03-04] MEDS: HEPARIN 5,000 UNIT VIAL SQ SCH ×3 (04:59→21:26)
[2021-03-04] MEDS: INSULIN HUMULIN R 100 UNIT/ML 3ML SQ SCH ×4 (05:28→17:46)
[2021-03-04 07:17] LABS: ABG BASE EXCESS -5.3 mmol/L (-2.0-3.0); ABG HCO3 22.1 mmol/L (21.0-28.0); ABG OXYGEN SATURATION 96.1 % (95.0-99.0); ABG PCO2 50 mmHg (32-45)
[2021-03-04 07:18] LABS: ABG BASE EXCESS -6.1 mmol/L (-2.0-3.0); ABG HCO3 19.1 mmol/L (21.0-28.0); ABG OXYGEN SATURATION 90.4 % (95.0-99.0); ABG PCO2 37 mmHg (32-45)
[2021-03-04] MEDS: CEFEPIME HCL 2 GM VIAL IVP SCH (08:15)
[2021-03-04] MEDS: FAMOTIDINE 20MG VIAL IV SCH (08:15)
[2021-03-04] MEDS: SOLU-MEDROL 40MG VIAL IVP SCH ×2 (08:15→21:23)
[2021-03-04] MEDS: MIDAZOLAM 100MG-0.9% NS 100ML 100 ML IV SCH (12:09)
[2021-03-04] MEDS: FENTANYL 2500MCG+NS 250ML IV.SOLN IV SCH (12:10)
[2021-03-04] MEDS ORDERED: PHARMACY COMMUNICATION MISC SCH (16:00)
[2021-03-04] MEDS: INSULIN REGULAR, HUMAN 3ML 100 UNIT in 0.9%NACL 100ML 99 ML IV PRN ×2 (17:37)
[2021-03-04] MEDS: DEXTROSE 10%-WATER 1,000 ML IV SCH (17:51)
[2021-03-04] MEDS: FENOFIBRATE NANOCRYSTALLIZED 145 MG TAB PO SCH (21:23)
[2021-03-04] MEDS: ARTIFICIAL TEARS 3.5 GM OINTMENT OU SCH (21:23)
[2021-03-05] VITALS (56 sets, daily range): BP systolic 81–185; BP diastolic 51–103
[2021-03-05] MEDS: HEPARIN 5,000 UNIT VIAL SQ SCH ×3 (04:00→18:36)
[2021-03-05 04:19] LABS: HEMATOCRIT 33.3 % (36-48); MEAN CORPUSCULAR HEMOGLOBIN 25.2 pg (27.0-33.0); MEAN CORPUSCULAR HGB CONC 32.1 g/dL (32.0-36.0); MEAN CORPUSCULAR VOLUME 78.5 fL (79-99); RED BLOOD CELL COUNT(AUTO) 4.24 MIL/uL (4.00-5.50); RED CELL DISTRIBUTION WIDTH 21.2 % (11.0-15.5); WHITE BLOOD COUNT (AUTO) 17.6 K/uL (4.8-10.8)
[2021-03-05 04:38] LABS: ALBUMIN 2.7 g/dL (3.5-5.0); BILIRUBIN,TOTAL 0.3 mg/dL (0.2-1.0); CREATININE 4.6 mg/dL (0.5-1.5); MAGNESIUM 2.6 mg/dL (1.80-2.40); PHOSPHORUS 7.2 mg/dL (2.5-4.9); POTASSIUM 3.8 mmol/L (3.5-5.1); TOTAL PROTEIN, SERUM 6.5 g/dL (6.0-8.3)
[2021-03-05] MEDS: DEXMEDETOMIDINE 400MCG/NS100ML IV SCH ×2 (05:55→12:28)
[2021-03-05] MEDS: INSULIN HUMULIN R 100 UNIT/ML 3ML SQ SCH ×4 (06:00→18:00)
[2021-03-05] MEDS: FENTANYL 2500MCG+NS 250ML IV.SOLN IV SCH (08:33)
[2021-03-05] MEDS: MIDAZOLAM 100MG-0.9% NS 100ML 100 ML IV SCH (09:36)
[2021-03-05] MEDS: CEFEPIME HCL 2 GM VIAL IVP SCH (10:07)
[2021-03-05] MEDS: SOLU-MEDROL 40MG VIAL IVP SCH ×2 (10:07→20:17)
[2021-03-05] MEDS: FAMOTIDINE 20MG VIAL IV SCH (10:07)
[2021-03-05] MEDS ORDERED: 0.9%NACL 1000ML 2,000 ML IV ONE (15:17)
[2021-03-05] MEDS ORDERED: PHARMACY COMMUNICATION MISC SCH (15:30)
[2021-03-05] MEDS: DEXTROSE 10%-WATER 1,000 ML IV SCH (17:59)
[2021-03-05] MEDS: FENOFIBRATE NANOCRYSTALLIZED 145 MG TAB PO SCH (20:17)
[2021-03-05] MEDS: BALSAM PERU/CASTOR OIL 60 GM TUBE TP SCH (20:19)
[2021-03-05] MEDS: ARTIFICIAL TEARS 3.5 GM OINTMENT OU SCH (20:20)
[2021-03-06] VITALS (24 sets, daily range): BP systolic 96–143; BP diastolic 53–93
[2021-03-06] MEDS: INSULIN REGULAR, HUMAN 3ML 100 UNIT in 0.9%NACL 100ML 99 ML IV PRN ×2
[2021-03-06] MEDS: DEXTROSE 10%-WATER 1,000 ML IV SCH (01:00)
[2021-03-06] MEDS: FENTANYL 2500MCG+NS 250ML IV.SOLN IV SCH ×2 (01:00→13:14)
[2021-03-06] MEDS: MIDAZOLAM 100MG-0.9% NS 100ML 100 ML IV SCH ×2 (02:00→13:14)
[2021-03-06] MEDS: HEPARIN 5,000 UNIT VIAL SQ SCH (03:18)
[2021-03-06 04:22] LABS: BASOPHILS % (AUTO) 0.4 % (0.0-5.0); EOSINOPHILS % (AUTO) 0.1 % (0.0-8.0); HEMATOCRIT 34.4 % (36-48); MEAN CORPUSCULAR HEMOGLOBIN 25.3 pg (27.0-33.0); MEAN CORPUSCULAR VOLUME 79.3 fL (79-99); MONOCYTES % (AUTO) 5.6 % (3.0-13.0); NEUTROPHILS % (AUTO) 80.8 % (40.0-77.0); PLATELET COUNT (AUTO) 223 K/uL (130-400); RED BLOOD CELL COUNT(AUTO) 4.34 MIL/uL (4.00-5.50); RED CELL DISTRIBUTION WIDTH 21.1 % (11.0-15.5); WHITE BLOOD COUNT (AUTO) 19.4 K/uL (4.8-10.8)
[2021-03-06 04:40] LABS: ALBUMIN 2.7 g/dL (3.5-5.0); BILIRUBIN,TOTAL 0.3 mg/dL (0.2-1.0); CREATININE 3.9 mg/dL (0.5-1.5); POTASSIUM 3.6 mmol/L (3.5-5.1); TOTAL PROTEIN, SERUM 6.7 g/dL (6.0-8.3)
[2021-03-06] MEDS: INSULIN HUMULIN R 100 UNIT/ML 3ML SQ SCH ×7 (05:35→23:38)
[2021-03-06] MEDS ORDERED: PHARMACY COMMUNICATION MISC SCH ×3 (09:00→12:30)
[2021-03-06] MEDS: LACTULOSE 20 GM/30 ML UDCUP PO SCH ×2 (09:00→10:26)
[2021-03-06] MEDS: CEFEPIME HCL 2 GM VIAL IVP SCH (10:26)
[2021-03-06] MEDS: FENOFIBRATE NANOCRYSTALLIZED 145 MG TAB PO SCH ×2 (10:27→20:01)
[2021-03-06] MEDS: FAMOTIDINE 20MG VIAL IV SCH (10:27)
[2021-03-06] MEDS: APIXABAN 2.5 MG TABLET PO SCH ×2 (10:27→20:00)
[2021-03-06] MEDS: METOPROLOL TARTRATE 25 MG TAB PO SCH ×3 (10:27→20:01)
[2021-03-06] MEDS: SOLU-MEDROL 40MG VIAL IVP SCH ×2 (10:27→20:00)
[2021-03-06] MEDS: BALSAM PERU/CASTOR OIL 60 GM TUBE TP SCH ×2 (10:28→20:01)
[2021-03-06] MEDS: INSULIN GLARGINE 100 UNITS/ML 10 ML VIAL SQ SCH (10:28)
[2021-03-06] MEDS ORDERED: INSULIN HUMULIN R 100 UNIT/ML 3ML SQ SCH (11:30)
[2021-03-06] MEDS: FISH OIL 1000 MG/CAP PO SCH ×2 (12:28→17:14)
[2021-03-06] MEDS: ARTIFICIAL TEARS 3.5 GM OINTMENT OU SCH (20:00)
[2021-03-07] VITALS (40 sets, daily range): BP systolic 113–168; BP diastolic 67–116
[2021-03-07] MEDS: MIDAZOLAM 100MG-0.9% NS 100ML 100 ML IV SCH ×2 (01:00→16:54)
[2021-03-07 04:28] LABS: BASOPHILS % (AUTO) 0.6 % (0.0-5.0); HEMATOCRIT 35.6 % (36-48); LYMPHOCYTES % (AUTO) 6.1 % (21.0-51.0); MEAN CORPUSCULAR HEMOGLOBIN 25.6 pg (27.0-33.0); MEAN CORPUSCULAR HGB CONC 31.7 g/dL (32.0-36.0); MEAN CORPUSCULAR VOLUME 80.7 fL (79-99); MONOCYTES % (AUTO) 6.5 % (3.0-13.0); PLATELET COUNT (AUTO) 224 K/uL (130-400); RED BLOOD CELL COUNT(AUTO) 4.41 MIL/uL (4.00-5.50); WHITE BLOOD COUNT (AUTO) 20.5 K/uL (4.8-10.8)
[2021-03-07] MEDS: INSULIN HUMULIN R 100 UNIT/ML 3ML SQ SCH ×6 (04:30→23:55)
[2021-03-07 04:47] LABS: ALBUMIN 2.8 g/dL (3.5-5.0); BILIRUBIN,DIRECT 0.1 mg/dL (0.0-0.3); BILIRUBIN,TOTAL 0.4 mg/dL (0.2-1.0); MAGNESIUM 2.6 mg/dL (1.80-2.40); PHOSPHORUS 8.5 mg/dL (2.5-4.9); POTASSIUM 3.9 mmol/L (3.5-5.1); TOTAL PROTEIN, SERUM 6.8 g/dL (6.0-8.3)
[2021-03-07] MEDS: FENTANYL 2500MCG+NS 250ML IV.SOLN IV SCH ×2 (06:30→22:00)
[2021-03-07] MEDS: LACTULOSE 20 GM/30 ML UDCUP PO SCH ×2 (07:16→09:46)
[2021-03-07] MEDS: METOPROLOL TARTRATE 25 MG TAB PO SCH ×3 (09:00→20:21)
[2021-03-07] MEDS: FAMOTIDINE 20MG VIAL IV SCH (09:46)
[2021-03-07] MEDS: SOLU-MEDROL 40MG VIAL IVP SCH ×2 (09:46→20:21)
[2021-03-07] MEDS: FISH OIL 1000 MG/CAP PO SCH ×3 (09:46→16:52)
[2021-03-07] MEDS: FENOFIBRATE NANOCRYSTALLIZED 145 MG TAB PO SCH ×2 (09:47→20:22)
[2021-03-07] MEDS: APIXABAN 2.5 MG TABLET PO SCH ×2 (09:47→20:21)
[2021-03-07] MEDS: CEFEPIME HCL 2 GM VIAL IVP SCH (09:47)
[2021-03-07] MEDS: BALSAM PERU/CASTOR OIL 60 GM TUBE TP SCH ×2 (09:48→20:22)
[2021-03-07] MEDS: INSULIN GLARGINE 100 UNITS/ML 10 ML VIAL SQ SCH (09:53)
[2021-03-07] MEDS: HEPARIN 5,000 UNIT VIAL IV SCH (15:23)
[2021-03-07] MEDS: ARTIFICIAL TEARS 3.5 GM OINTMENT OU SCH (20:20)
[2021-03-08] VITALS (28 sets, daily range): BP systolic 106–177; BP diastolic 60–112
[2021-03-08] MEDS: MIDAZOLAM 100MG-0.9% NS 100ML 100 ML IV SCH ×3 (02:53→22:01)
[2021-03-08] MEDS: INSULIN HUMULIN R 100 UNIT/ML 3ML SQ SCH ×6 (04:30→23:50)
[2021-03-08 04:31] LABS: HEMATOCRIT 35.3 % (36-48); MEAN CORPUSCULAR HEMOGLOBIN 25.9 pg (27.0-33.0); MEAN CORPUSCULAR HGB CONC 31.2 g/dL (32.0-36.0); MEAN CORPUSCULAR VOLUME 83.1 fL (79-99); PLATELET COUNT (AUTO) 220 K/uL (130-400); RED BLOOD CELL COUNT(AUTO) 4.25 MIL/uL (4.00-5.50); RED CELL DISTRIBUTION WIDTH 20.9 % (11.0-15.5); WHITE BLOOD COUNT (AUTO) 19.7 K/uL (4.8-10.8)
[2021-03-08 04:48] LABS: CREATININE 4.1 mg/dL (0.5-1.5); POTASSIUM 4.6 mmol/L (3.5-5.1)
[2021-03-08 04:56] LABS: LYMPHOCYTES % (MANUAL) 4 % (22-44); MAN.DIFF COMMENT-IMPRESSION MANUAL DIFFERENTIAL; MONOCYTES % (MANUAL) 7 % (2-9); SEGMENTED NEUTROPHILS % 89 % (40-70)
[2021-03-08] MEDS: FENTANYL 2500MCG+NS 250ML IV.SOLN IV SCH ×2 (06:58→22:03)
[2021-03-08] MEDS: FAMOTIDINE 20MG VIAL IV SCH (07:22)
[2021-03-08] MEDS: SOLU-MEDROL 40MG VIAL IVP SCH ×2 (07:22→19:54)
[2021-03-08] MEDS: METOPROLOL TARTRATE 25 MG TAB PO SCH ×3 (07:23→19:54)
[2021-03-08] MEDS: FENOFIBRATE NANOCRYSTALLIZED 145 MG TAB PO SCH ×2 (07:23→19:55)
[2021-03-08] MEDS: FISH OIL 1000 MG/CAP PO SCH ×3 (07:23→16:53)
[2021-03-08] MEDS: APIXABAN 2.5 MG TABLET PO SCH ×2 (07:23→19:54)
[2021-03-08] MEDS: LACTULOSE 20 GM/30 ML UDCUP PO SCH ×2 (07:24)
[2021-03-08] MEDS: BALSAM PERU/CASTOR OIL 60 GM TUBE TP SCH ×2 (07:25→19:56)
[2021-03-08] MEDS: INSULIN GLARGINE 100 UNITS/ML 10 ML VIAL SQ SCH (07:25)
[2021-03-08 09:01] LABS: ABG BASE EXCESS -4.8 mmol/L (-2.0-3.0); ABG HCO3 20.9 mmol/L (21.0-28.0); ABG OXYGEN SATURATION 93.5 % (95.0-99.0); ABG PCO2 41 mmHg (32-45)
[2021-03-08] MEDS ORDERED: LACTULOSE 20 GM/30 ML UDCUP PO PRN (09:30)
[2021-03-08] MEDS: DEXMEDETOMIDINE 400MCG/NS100ML IV SCH ×4 (16:53→23:53)
[2021-03-08] MEDS: ARTIFICIAL TEARS 3.5 GM OINTMENT OU SCH (20:01)
[2021-03-09] VITALS (63 sets, daily range): BP systolic 94–154; BP diastolic 47–107
[2021-03-09] MEDS: DEXMEDETOMIDINE 400MCG/NS100ML IV SCH ×5 (02:33→23:48)
[2021-03-09 04:02] LABS: HEMATOCRIT 32.1 % (36-48); MEAN CORPUSCULAR HEMOGLOBIN 25.9 pg (27.0-33.0); MEAN CORPUSCULAR HGB CONC 31.2 g/dL (32.0-36.0); MEAN CORPUSCULAR VOLUME 83.2 fL (79-99); RED BLOOD CELL COUNT(AUTO) 3.86 MIL/uL (4.00-5.50); RED CELL DISTRIBUTION WIDTH 20.4 % (11.0-15.5); WHITE BLOOD COUNT (AUTO) 12.5 K/uL (4.8-10.8)
[2021-03-09 04:30] LABS: ALBUMIN 2.7 g/dL (3.5-5.0); BILIRUBIN,TOTAL 0.3 mg/dL (0.2-1.0); CREATININE 4.8 mg/dL (0.5-1.5); MAGNESIUM 2.7 mg/dL (1.80-2.40); POTASSIUM 5.2 mmol/L (3.5-5.1); TOTAL PROTEIN, SERUM 6.4 g/dL (6.0-8.3)
[2021-03-09] MEDS: INSULIN HUMULIN R 100 UNIT/ML 3ML SQ SCH ×6 (04:30→23:43)
[2021-03-09] MEDS: FENOFIBRATE NANOCRYSTALLIZED 145 MG TAB PO SCH ×2 (08:19→20:37)
[2021-03-09] MEDS: FISH OIL 1000 MG/CAP PO SCH ×3 (08:19→17:50)
[2021-03-09] MEDS: FAMOTIDINE 20MG VIAL IV SCH (08:19)
[2021-03-09] MEDS: SOLU-MEDROL 40MG VIAL IVP SCH ×2 (08:19→20:38)
[2021-03-09] MEDS: SENNOSIDES 8.6 MG TABLET PO SCH (08:20)
[2021-03-09] MEDS: DOCUSATE SODIUM 100 MG CAP PO SCH ×2 (08:20→20:03)
[2021-03-09] MEDS: APIXABAN 2.5 MG TABLET PO SCH ×2 (08:20→20:38)
[2021-03-09] MEDS: METOPROLOL TARTRATE 25 MG TAB PO SCH ×3 (08:20→20:38)
[2021-03-09] MEDS: BALSAM PERU/CASTOR OIL 60 GM TUBE TP SCH ×2 (08:22→20:57)
[2021-03-09] MEDS: INSULIN GLARGINE 100 UNITS/ML 10 ML VIAL SQ SCH (08:22)
[2021-03-09] MEDS ORDERED: ATROPINE 1MG SYG IVP ONE (09:24)
[2021-03-09] MEDS: HEPARIN 5,000 UNIT VIAL IV SCH (11:53)
[2021-03-09] MEDS: MIDAZOLAM 100MG-0.9% NS 100ML 100 ML IV SCH (12:28)
[2021-03-09] MEDS: ARTIFICIAL TEARS 3.5 GM OINTMENT OU SCH (20:39)
[2021-03-10] VITALS (25 sets, daily range): BP systolic 92–162; BP diastolic 50–97
[2021-03-10] MEDS: DEXMEDETOMIDINE 400MCG/NS100ML IV SCH ×5 (03:43→22:16)
[2021-03-10] MEDS: MIDAZOLAM 100MG-0.9% NS 100ML 100 ML IV SCH (03:45)
[2021-03-10] MEDS: INSULIN HUMULIN R 100 UNIT/ML 3ML SQ SCH ×5 (04:30→20:30)
[2021-03-10 05:13] LABS: BASOPHILS % (AUTO) 0.3 % (0.0-5.0); EOSINOPHILS % (AUTO) 0.1 % (0.0-8.0); HEMATOCRIT 33.3 % (36-48); LYMPHOCYTES % (AUTO) 9.7 % (21.0-51.0); MEAN CORPUSCULAR HEMOGLOBIN 25.8 pg (27.0-33.0); MEAN CORPUSCULAR HGB CONC 31.5 g/dL (32.0-36.0); MEAN CORPUSCULAR VOLUME 81.8 fL (79-99); MONOCYTES % (AUTO) 6.1 % (3.0-13.0); NEUTROPHILS % (AUTO) 79.3 % (40.0-77.0); PLATELET COUNT (AUTO) 217 K/uL (130-400); RED BLOOD CELL COUNT(AUTO) 4.07 MIL/uL (4.00-5.50); RED CELL DISTRIBUTION WIDTH 20.4 % (11.0-15.5); WHITE BLOOD COUNT (AUTO) 12.3 K/uL (4.8-10.8)
[2021-03-10 05:26] LABS: ALBUMIN 2.9 g/dL (3.5-5.0); BILIRUBIN,TOTAL 0.3 mg/dL (0.2-1.0); CREATININE 4.1 mg/dL (0.5-1.5); POTASSIUM 4.6 mmol/L (3.5-5.1); TOTAL PROTEIN, SERUM 6.7 g/dL (6.0-8.3)
[2021-03-10 05:49] LABS: MAGNESIUM 2.4 mg/dL (1.80-2.40)
[2021-03-10] MEDS: FENOFIBRATE NANOCRYSTALLIZED 145 MG TAB PO SCH ×2 (08:17→20:13)
[2021-03-10] MEDS: DOCUSATE SODIUM 100 MG CAP PO SCH ×2 (08:18→20:11)
[2021-03-10] MEDS: FISH OIL 1000 MG/CAP PO SCH ×3 (08:18→16:55)
[2021-03-10] MEDS: APIXABAN 2.5 MG TABLET PO SCH ×2 (08:18→21:00)
[2021-03-10] MEDS: SENNOSIDES 8.6 MG TABLET PO SCH (08:18)
[2021-03-10] MEDS: FAMOTIDINE 20MG VIAL IV SCH (08:18)
[2021-03-10] MEDS: METOPROLOL TARTRATE 25 MG TAB PO SCH ×3 (08:18→20:13)
[2021-03-10] MEDS: INSULIN GLARGINE 100 UNITS/ML 10 ML VIAL SQ SCH (08:20)
[2021-03-10] MEDS ORDERED: PREDNISONE 20 MG TABLET PO SCH (09:00)
[2021-03-10] MEDS: BALSAM PERU/CASTOR OIL 60 GM TUBE TP SCH ×2 (09:01→20:14)
[2021-03-10] MEDS: METOCLOPRAMIDE 10MG/10ML UDCUP PO SCH ×2 (14:14→20:13)
[2021-03-10] MEDS ORDERED: FENTANYL 2500MCG+NS 250ML 250 ML IV ONE (19:24)
[2021-03-10] MEDS: ARTIFICIAL TEARS 3.5 GM OINTMENT OU SCH (20:14)
[2021-03-11] VITALS (25 sets, daily range): BP systolic 92–181; BP diastolic 47–110
[2021-03-11] MEDS: INSULIN HUMULIN R 100 UNIT/ML 3ML SQ SCH ×7 (00:30→23:51)
[2021-03-11] MEDS: DEXMEDETOMIDINE 400MCG/NS100ML IV SCH ×6 (03:30→21:58)
[2021-03-11 04:37] LABS: HEMATOCRIT 34.7 % (36-48); MEAN CORPUSCULAR HEMOGLOBIN 25.9 pg (27.0-33.0); MEAN CORPUSCULAR HGB CONC 31.4 g/dL (32.0-36.0); MEAN CORPUSCULAR VOLUME 82.4 fL (79-99); RED BLOOD CELL COUNT(AUTO) 4.21 MIL/uL (4.00-5.50); RED CELL DISTRIBUTION WIDTH 20.5 % (11.0-15.5); WHITE BLOOD COUNT (AUTO) 11.5 K/uL (4.8-10.8)
[2021-03-11 04:52] LABS: INR 1.04 (0.85-1.15); PROTHROMBIN TIME 11.3 SEC (9.6-11.6)
[2021-03-11 04:53] LABS: PARTIAL THROMBOPLASTIN TIME 22.5 SEC (26.3-35.5)
[2021-03-11 04:58] LABS: ALBUMIN 2.8 g/dL (3.5-5.0); BILIRUBIN,TOTAL 0.3 mg/dL (0.2-1.0); CREATININE 4.9 mg/dL (0.5-1.5); MAGNESIUM 2.6 mg/dL (1.80-2.40); PHOSPHORUS 9.3 mg/dL (2.5-4.9); POTASSIUM 4.7 mmol/L (3.5-5.1); TOTAL PROTEIN, SERUM 6.5 g/dL (6.0-8.3)
[2021-03-11] MEDS ORDERED: PREDNISONE 20 MG TABLET PO ONE ×2 (05:00)
[2021-03-11] MEDS: PREDNISONE 20 MG TABLET PO SCH (05:00)
[2021-03-11] MEDS ORDERED: DEXTROSE 50%-WATER 50 ML DISP.SYRIN IV ONE (06:57)
[2021-03-11] MEDS ORDERED: GLUCAGON 1MG KIT 1 MG ML IM PRN (07:00)
[2021-03-11] MEDS: MIDAZOLAM 100MG-0.9% NS 100ML 100 ML IV SCH (08:15)
[2021-03-11] MEDS: METOPROLOL TARTRATE 25 MG TAB PO SCH ×3 (09:00→19:53)
[2021-03-11] MEDS: INSULIN GLARGINE 100 UNITS/ML 10 ML VIAL SQ SCH (09:00)
[2021-03-11] MEDS: DOCUSATE SODIUM 100 MG CAP PO SCH ×2 (09:00→21:00)
[2021-03-11] MEDS: APIXABAN 2.5 MG TABLET PO SCH ×2 (09:00→21:00)
[2021-03-11] MEDS: FAMOTIDINE 20MG VIAL IV SCH (09:40)
[2021-03-11] MEDS: METOCLOPRAMIDE 10MG/10ML UDCUP PO SCH ×3 (09:42→19:53)
[2021-03-11] MEDS: FENOFIBRATE NANOCRYSTALLIZED 145 MG TAB PO SCH ×2 (09:42→19:53)
[2021-03-11] MEDS: SENNOSIDES 8.6 MG TABLET PO SCH (09:42)
[2021-03-11] MEDS: FISH OIL 1000 MG/CAP PO SCH ×3 (09:43→17:48)
[2021-03-11] MEDS: BALSAM PERU/CASTOR OIL 60 GM TUBE TP SCH ×2 (09:43→22:03)
[2021-03-11] MEDS: DEXTROSE 50%-WATER 50 ML DISP.SYRIN IV PRN (11:57)
[2021-03-11] MEDS: ARTIFICIAL TEARS 3.5 GM OINTMENT OU SCH (22:03)
[2021-03-12] VITALS (42 sets, daily range): BP systolic 91–148; BP diastolic 34–100
[2021-03-12] MEDS: DEXMEDETOMIDINE 400MCG/NS100ML IV SCH ×8 (01:54→23:38)
[2021-03-12] MEDS: INSULIN HUMULIN R 100 UNIT/ML 3ML SQ SCH ×5 (04:30→20:30)
[2021-03-12] MEDS ORDERED: FENTANYL 2500MCG+NS 250ML 250 ML IV ONE (04:44)
[2021-03-12] MEDS: MIDAZOLAM 100MG-0.9% NS 100ML 100 ML IV SCH ×2 (04:56→23:38)
[2021-03-12] MEDS: PREDNISONE 20 MG TABLET PO SCH (05:26)
[2021-03-12 05:44] LABS: BASOPHILS % (AUTO) 0.2 % (0.0-5.0); HEMATOCRIT 32.4 % (36-48); LYMPHOCYTES % (AUTO) 12.2 % (21.0-51.0); MEAN CORPUSCULAR HEMOGLOBIN 25.6 pg (27.0-33.0); MEAN CORPUSCULAR HGB CONC 31.2 g/dL (32.0-36.0); MONOCYTES % (AUTO) 6.7 % (3.0-13.0); NEUTROPHILS % (AUTO) 78.2 % (40.0-77.0); PLATELET COUNT (AUTO) 208 K/uL (130-400); RED BLOOD CELL COUNT(AUTO) 3.95 MIL/uL (4.00-5.50); WHITE BLOOD COUNT (AUTO) 12.1 K/uL (4.8-10.8)
[2021-03-12 05:57] LABS: INR 1.07 (0.85-1.15); PROTHROMBIN TIME 11.6 SEC (9.6-11.6)
[2021-03-12 06:17] LABS: ALBUMIN 2.6 g/dL (3.5-5.0); BILIRUBIN,TOTAL 0.3 mg/dL (0.2-1.0); CREATININE 5.7 mg/dL (0.5-1.5); POTASSIUM 5.2 mmol/L (3.5-5.1); TOTAL PROTEIN, SERUM 6.2 g/dL (6.0-8.3)
[2021-03-12] MEDS: BALSAM PERU/CASTOR OIL 60 GM TUBE TP SCH ×2 (07:56→20:55)
[2021-03-12] MEDS: INSULIN GLARGINE 100 UNITS/ML 10 ML VIAL SQ SCH (07:56)
[2021-03-12] MEDS: METOPROLOL TARTRATE 25 MG TAB PO SCH ×3 (07:56→20:53)
[2021-03-12] MEDS: FISH OIL 1000 MG/CAP PO SCH ×3 (07:59→17:00)
[2021-03-12] MEDS: SENNOSIDES 8.6 MG TABLET PO SCH (07:59)
[2021-03-12] MEDS: APIXABAN 2.5 MG TABLET PO SCH ×2 (07:59→20:52)
[2021-03-12] MEDS: FENOFIBRATE NANOCRYSTALLIZED 145 MG TAB PO SCH ×2 (07:59→20:54)
[2021-03-12] MEDS: METOCLOPRAMIDE 10MG/10ML UDCUP PO SCH ×3 (07:59→20:53)
[2021-03-12] MEDS: DOCUSATE SODIUM 100 MG CAP PO SCH ×2 (07:59→20:52)
[2021-03-12] MEDS: FAMOTIDINE 20MG VIAL IV SCH (08:06)
[2021-03-12] MEDS ORDERED: ROCURONIUM 10MG/1ML SYR 10 MG/ML ML ONE ×2 (10:22→11:57)
[2021-03-12] MEDS ORDERED: LIDOCAINE 1%-EPI 1:100,000 20 ML VIAL IJ ONE (10:39)
[2021-03-12] MEDS ORDERED: EPHEDRINE SULFATE 50 MG/ML AMPULE ONE (11:20)
[2021-03-12] MEDS ORDERED: FENTANYL CITRATE PF 50 MCG/1 ML 2ML VIAL ONE (11:21)
[2021-03-12] MEDS ORDERED: CEFTRIAXONE 1G VIAL IVP ONE (16:45)
[2021-03-12] MEDS: DEXTROSE 50%-WATER 50 ML DISP.SYRIN IV PRN ×2 (17:54→23:57)
[2021-03-12] MEDS: ARTIFICIAL TEARS 3.5 GM OINTMENT OU SCH (20:55)
[2021-03-12] MEDS ORDERED: DEXTROSE 10%-WATER 1,000 ML IV ONE (23:56)
[2021-03-13] VITALS (54 sets, daily range): BP systolic 62–200; BP diastolic 31–114
[2021-03-13] MEDS: INSULIN HUMULIN R 100 UNIT/ML 3ML SQ SCH ×7 (00:17→23:15)
[2021-03-13] MEDS: DEXMEDETOMIDINE 400MCG/NS100ML IV SCH ×4 (02:40→23:05)
[2021-03-13 05:48] LABS: BASOPHILS % (AUTO) 0.5 % (0.0-5.0); EOSINOPHILS % (AUTO) 1.3 % (0.0-8.0); LYMPHOCYTES % (AUTO) 13.3 % (21.0-51.0); MEAN CORPUSCULAR HEMOGLOBIN 26.4 pg (27.0-33.0); MEAN CORPUSCULAR HGB CONC 31.3 g/dL (32.0-36.0); MEAN CORPUSCULAR VOLUME 84.2 fL (79-99); MONOCYTES % (AUTO) 5.2 % (3.0-13.0); NEUTROPHILS % (AUTO) 78.2 % (40.0-77.0); PLATELET COUNT (AUTO) 174 K/uL (130-400); RED BLOOD CELL COUNT(AUTO) 3.68 MIL/uL (4.00-5.50); RED CELL DISTRIBUTION WIDTH 20.5 % (11.0-15.5)
[2021-03-13] MEDS: PREDNISONE 20 MG TABLET PO SCH (06:01)
[2021-03-13] MEDS ORDERED: NOREPINEPHRIN 4MG/NS 250ML 0 ML IV ONE (06:08)
[2021-03-13 06:16] LABS: ALBUMIN 2.3 g/dL (3.5-5.0); BILIRUBIN,TOTAL 0.3 mg/dL (0.2-1.0); CREATININE 4.6 mg/dL (0.5-1.5); MAGNESIUM 2.4 mg/dL (1.80-2.40); PHOSPHORUS 9.7 mg/dL (2.5-4.9); POTASSIUM 4.7 mmol/L (3.5-5.1); TOTAL PROTEIN, SERUM 5.8 g/dL (6.0-8.3)
[2021-03-13] MEDS: NOREPINEPHRINE BITARTRATE 32 MG in 0.9% NACL 250ML 250 ML IV SCH ×2 (07:27→22:10)
[2021-03-13] MEDS: INSULIN GLARGINE 100 UNITS/ML 10 ML VIAL SQ SCH (09:00)
[2021-03-13] MEDS: SENNOSIDES 8.6 MG TABLET PO SCH (09:18)
[2021-03-13] MEDS: METOCLOPRAMIDE 10MG/10ML UDCUP PO SCH ×3 (09:18→20:04)
[2021-03-13] MEDS: DOCUSATE SODIUM 100 MG CAP PO SCH (09:18)
[2021-03-13] MEDS: METOPROLOL TARTRATE 25 MG TAB PO SCH ×3 (09:18→20:04)
[2021-03-13] MEDS: FENOFIBRATE NANOCRYSTALLIZED 145 MG TAB PO SCH (09:18)
[2021-03-13] MEDS: FAMOTIDINE 20MG VIAL IV SCH (09:19)
[2021-03-13] MEDS: BALSAM PERU/CASTOR OIL 60 GM TUBE TP SCH ×2 (09:19→20:05)
[2021-03-13] MEDS: APIXABAN 2.5 MG TABLET PO SCH ×2 (09:19→20:04)
[2021-03-13] MEDS: FISH OIL 1000 MG/CAP PO SCH ×3 (09:30→17:33)
[2021-03-13] MEDS ORDERED: DIAZEPAM 2 MG TAB PO SCH (10:00)
[2021-03-13] MEDS ORDERED: PHARMACY COMMUNICATION MISC SCH (10:30)
[2021-03-13] MEDS ORDERED: FENTANYL 2500MCG+NS 250ML 250 ML IV ONE (10:58)
[2021-03-13] MEDS: CLONAZEPAM 1MG TAB PEG SCH ×2 (10:59→20:04)
[2021-03-13] MEDS: LINEZOLID 600 MG/ISO-OSM 300 ML IV SCH ×2 (10:59→23:04)
[2021-03-13] MEDS: ACETAMINOPHEN 325 MG TAB PO PRN (12:00)
[2021-03-13] MEDS ORDERED: CLONIDINE HCL 0.1 MG TABLET ONE (12:53)
[2021-03-13] MEDS ORDERED: CLONIDINE HCL 0.1 MG TABLET PEG SCH ×2 (13:00→21:00)
[2021-03-13] MEDS ORDERED: IBUPROFEN 600 MG TABLET PO PRN (13:30)
[2021-03-13] MEDS: ALBUTEROL 0.083% 2.5 MG/3 ML INH IH SCH ×2 (18:00→19:28)
[2021-03-13] MEDS: SODIUM CHLORIDE 3% FOR INHALATION 4 ML/AMP VIAL.NEB IH SCH ×2 (18:00→19:27)
[2021-03-13] MEDS: MIDAZOLAM 100MG-0.9% NS 100ML 100 ML IV SCH (18:35)
[2021-03-13] MEDS: FENOFIBRATE NANOCRYSTALLIZED 145 MG TAB PEG SCH (20:04)
[2021-03-13] MEDS: ARTIFICIAL TEARS 3.5 GM OINTMENT OU SCH (20:05)
[2021-03-13] MEDS ORDERED: CLONAZEPAM 1MG TAB PEG SCH (21:00)
[2021-03-13] MEDS: CLONIDINE HCL 0.2 MG TABLET PO SCH (21:00)
[2021-03-14] VITALS (93 sets, daily range): BP systolic 63–198; BP diastolic 39–127
[2021-03-14 04:13] LABS: ABG BASE EXCESS -6.1 mmol/L (-2.0-3.0); ABG HCO3 18.1 mmol/L (21.0-28.0); ABG OXYGEN SATURATION 97.6 % (95.0-99.0); ABG PCO2 32 mmHg (32-45)
[2021-03-14] MEDS: INSULIN HUMULIN R 100 UNIT/ML 3ML SQ SCH ×5 (04:30→20:30)
[2021-03-14 05:03] LABS: BASOPHILS % (AUTO) 0.6 % (0.0-5.0); HEMATOCRIT 33.7 % (36-48); MEAN CORPUSCULAR HEMOGLOBIN 25.7 pg (27.0-33.0); MEAN CORPUSCULAR HGB CONC 30.3 g/dL (32.0-36.0); MEAN CORPUSCULAR VOLUME 84.9 fL (79-99); MONOCYTES % (AUTO) 7.5 % (3.0-13.0); NEUTROPHILS % (AUTO) 75.5 % (40.0-77.0); PLATELET COUNT (AUTO) 205 K/uL (130-400); RED BLOOD CELL COUNT(AUTO) 3.97 MIL/uL (4.00-5.50); RED CELL DISTRIBUTION WIDTH 19.9 % (11.0-15.5); WHITE BLOOD COUNT (AUTO) 12.3 K/uL (4.8-10.8)
[2021-03-14] MEDS: DEXMEDETOMIDINE 400MCG/NS100ML IV SCH ×3 (05:24→15:30)
[2021-03-14] MEDS: PREDNISONE 20 MG TABLET PO SCH (05:25)
[2021-03-14 05:30] LABS: ALBUMIN 2.6 g/dL (3.5-5.0); BILIRUBIN,TOTAL 0.3 mg/dL (0.2-1.0); CREATININE 4.6 mg/dL (0.5-1.5); MAGNESIUM 2.4 mg/dL (1.80-2.40); PHOSPHORUS 8.9 mg/dL (2.5-4.9); POTASSIUM 4.5 mmol/L (3.5-5.1); THYROID STIMULATING HORMONE 0.42 uIU/mL (0.36-3.74); TOTAL PROTEIN, SERUM 5.8 g/dL (6.0-8.3)
[2021-03-14] MEDS: ALBUTEROL 0.083% 2.5 MG/3 ML INH IH SCH ×3 (06:40→18:57)
[2021-03-14] MEDS: APIXABAN 2.5 MG TABLET PO SCH ×2 (08:14→20:23)
[2021-03-14] MEDS: CLONAZEPAM 1MG TAB PEG SCH ×2 (08:14→20:23)
[2021-03-14] MEDS: METOCLOPRAMIDE 10MG/10ML UDCUP PO SCH ×3 (08:15→20:23)
[2021-03-14] MEDS: FAMOTIDINE 20MG VIAL IV SCH (08:15)
[2021-03-14] MEDS: FISH OIL 1000 MG/CAP PO SCH ×3 (08:15→18:09)
[2021-03-14] MEDS: SENNOSIDES 8.6 MG TABLET PO SCH (08:15)
[2021-03-14] MEDS: INSULIN GLARGINE 100 UNITS/ML 10 ML VIAL SQ SCH (08:19)
[2021-03-14] MEDS: BALSAM PERU/CASTOR OIL 60 GM TUBE TP SCH ×2 (08:19→20:24)
[2021-03-14] MEDS: CLONIDINE HCL 0.2 MG TABLET PO SCH ×2 (08:20→21:00)
[2021-03-14] MEDS: LINEZOLID 600 MG/ISO-OSM 300 ML IV SCH ×2 (08:37→20:24)
[2021-03-14] MEDS: METOPROLOL TARTRATE 25 MG TAB PO SCH ×4 (09:00→20:23)
[2021-03-14] MEDS ORDERED: 0.9%NACL 1000ML 2,000 ML IV ONE (10:17)
[2021-03-14] MEDS: MIDAZOLAM 100MG-0.9% NS 100ML 100 ML IV SCH (15:27)
[2021-03-14] MEDS: FENTANYL 2500MCG+NS 250ML IV.SOLN IV SCH (15:29)
[2021-03-14] MEDS: SODIUM CHLORIDE 3% FOR INHALATION 4 ML/AMP VIAL.NEB IH SCH ×2 (18:00)
[2021-03-14] MEDS: FENOFIBRATE NANOCRYSTALLIZED 145 MG TAB PEG SCH (20:23)
[2021-03-14] MEDS: ARTIFICIAL TEARS 3.5 GM OINTMENT OU SCH (20:24)
[2021-03-14] MEDS: ACETAMINOPHEN 325 MG TAB PO PRN (23:50)
[2021-03-15] VITALS (75 sets, daily range): BP systolic 62–183; BP diastolic 33–132
[2021-03-15] MEDS: INSULIN HUMULIN R 100 UNIT/ML 3ML SQ SCH ×6 (00:30→20:30)
[2021-03-15] MEDS: ALBUTEROL 0.083% 2.5 MG/3 ML INH IH SCH ×3 (00:54→23:47)
[2021-03-15] MEDS: PREDNISONE 20 MG TABLET PO SCH (05:32)
[2021-03-15] MEDS: SODIUM CHLORIDE 3% FOR INHALATION 4 ML/AMP VIAL.NEB IH SCH ×2 (06:00)
[2021-03-15 06:38] LABS: BASOPHILS % (AUTO) 0.7 % (0.0-5.0); EOSINOPHILS % (AUTO) 2.9 % (0.0-8.0); HEMATOCRIT 30.3 % (36-48); LYMPHOCYTES % (AUTO) 19.8 % (21.0-51.0); MEAN CORPUSCULAR HEMOGLOBIN 26.7 pg (27.0-33.0); MEAN CORPUSCULAR VOLUME 83.5 fL (79-99); MONOCYTES % (AUTO) 8.4 % (3.0-13.0); NEUTROPHILS % (AUTO) 66.7 % (40.0-77.0); PLATELET COUNT (AUTO) 174 K/uL (130-400); RED BLOOD CELL COUNT(AUTO) 3.63 MIL/uL (4.00-5.50); RED CELL DISTRIBUTION WIDTH 19.3 % (11.0-15.5); WHITE BLOOD COUNT (AUTO) 8.6 K/uL (4.8-10.8)
[2021-03-15] MEDS: DEXMEDETOMIDINE 400MCG/NS100ML IV SCH ×3 (07:07→22:14)
[2021-03-15 07:13] LABS: ALBUMIN 2.6 g/dL (3.5-5.0); BILIRUBIN,TOTAL 0.3 mg/dL (0.2-1.0); CREATININE 3.5 mg/dL (0.5-1.5); POTASSIUM 3.2 mmol/L (3.5-5.1); TOTAL PROTEIN, SERUM 6.1 g/dL (6.0-8.3)
[2021-03-15] MEDS: INSULIN GLARGINE 100 UNITS/ML 10 ML VIAL SQ SCH (09:00)
[2021-03-15] MEDS ORDERED: FENTANYL 75 MCG/HR PATCH TD SCH (09:00)
[2021-03-15] MEDS: FAMOTIDINE 20MG VIAL IV SCH (09:18)
[2021-03-15] MEDS: METOCLOPRAMIDE 10MG/10ML UDCUP PO SCH ×3 (09:18→20:10)
[2021-03-15] MEDS: SENNOSIDES 8.6 MG TABLET PO SCH (09:18)
[2021-03-15] MEDS: BUSPIRONE HCL 5 MG TABLET PO SCH ×2 (09:18→20:10)
[2021-03-15] MEDS: METOPROLOL TARTRATE 25 MG TAB PO SCH ×3 (09:19→20:10)
[2021-03-15] MEDS: CLONAZEPAM 1MG TAB PEG SCH ×2 (09:19→20:10)
[2021-03-15] MEDS: APIXABAN 2.5 MG TABLET PO SCH ×2 (09:19→20:10)
[2021-03-15] MEDS: LINEZOLID 600 MG/ISO-OSM 300 ML IV SCH ×2 (09:20→22:14)
[2021-03-15] MEDS: BALSAM PERU/CASTOR OIL 60 GM TUBE TP SCH ×2 (09:20→20:17)
[2021-03-15] MEDS: FISH OIL 1000 MG/CAP PO SCH ×3 (09:25→17:11)
[2021-03-15] MEDS: CLONIDINE HCL 0.2 MG TABLET PO SCH ×2 (09:38→20:17)
[2021-03-15] MEDS: MIDAZOLAM 100MG-0.9% NS 100ML 100 ML IV SCH (11:44)
[2021-03-15] MEDS: FENOFIBRATE NANOCRYSTALLIZED 145 MG TAB PEG SCH (20:10)
[2021-03-15] MEDS: ARTIFICIAL TEARS 3.5 GM OINTMENT OU SCH (20:18)
[2021-03-16] VITALS (49 sets, daily range): BP systolic 85–170; BP diastolic 31–134
[2021-03-16] MEDS: INSULIN HUMULIN R 100 UNIT/ML 3ML SQ SCH ×6 (00:30→20:27)
[2021-03-16] MEDS: FENTANYL 2500MCG+NS 250ML IV.SOLN IV SCH (00:39)
[2021-03-16] MEDS: PREDNISONE 20 MG TABLET PO SCH (05:11)
[2021-03-16] MEDS: ALBUTEROL 0.083% 2.5 MG/3 ML INH IH SCH (06:00)
[2021-03-16 06:46] LABS: BASOPHILS % (AUTO) 0.3 % (0.0-5.0); EOSINOPHILS % (AUTO) 7.8 % (0.0-8.0); HEMATOCRIT 30.2 % (36-48); LYMPHOCYTES % (AUTO) 16.6 % (21.0-51.0); MEAN CORPUSCULAR HEMOGLOBIN 26.6 pg (27.0-33.0); MEAN CORPUSCULAR HGB CONC 32.1 g/dL (32.0-36.0); MONOCYTES % (AUTO) 8.3 % (3.0-13.0); NEUTROPHILS % (AUTO) 66.1 % (40.0-77.0); PLATELET COUNT (AUTO) 164 K/uL (130-400); RED BLOOD CELL COUNT(AUTO) 3.64 MIL/uL (4.00-5.50); RED CELL DISTRIBUTION WIDTH 18.6 % (11.0-15.5); WHITE BLOOD COUNT (AUTO) 8.7 K/uL (4.8-10.8)
[2021-03-16 06:59] LABS: ALBUMIN 2.9 g/dL (3.5-5.0); BILIRUBIN,TOTAL 0.3 mg/dL (0.2-1.0); CREATININE 3.5 mg/dL (0.5-1.5); POTASSIUM 3.2 mmol/L (3.5-5.1); TOTAL PROTEIN, SERUM 6.2 g/dL (6.0-8.3)
[2021-03-16] MEDS: DEXMEDETOMIDINE 400MCG/NS100ML IV SCH (07:41)
[2021-03-16] MEDS: INSULIN GLARGINE 100 UNITS/ML 10 ML VIAL SQ SCH (08:10)
[2021-03-16] MEDS: FAMOTIDINE 20MG VIAL IV SCH (08:12)
[2021-03-16] MEDS: FISH OIL 1000 MG/CAP PO SCH ×3 (08:12→16:57)
[2021-03-16] MEDS: CLONAZEPAM 1MG TAB PEG SCH ×2 (08:13→19:59)
[2021-03-16] MEDS: SENNOSIDES 8.6 MG TABLET PO SCH (08:13)
[2021-03-16] MEDS: APIXABAN 2.5 MG TABLET PO SCH ×2 (08:13→19:58)
[2021-03-16] MEDS: BALSAM PERU/CASTOR OIL 60 GM TUBE TP SCH ×2 (08:14→20:06)
[2021-03-16] MEDS: METOCLOPRAMIDE 10MG/10ML UDCUP PO SCH ×3 (08:30→20:27)
[2021-03-16] MEDS: METOPROLOL TARTRATE 25 MG TAB PO SCH ×2 (08:30→19:58)
[2021-03-16] MEDS: LINEZOLID 600 MG/ISO-OSM 300 ML IV SCH ×2 (08:30→20:03)
[2021-03-16] MEDS: BUSPIRONE HCL 5 MG TABLET PO SCH ×2 (08:31→19:58)
[2021-03-16] MEDS: CLONIDINE HCL 0.2 MG TABLET PO SCH ×2 (08:35→20:04)
[2021-03-16] MEDS ORDERED: GABA300S PO (12:01)
[2021-03-16] MEDS ORDERED: ESCI20TA38 PO (12:01)
[2021-03-16] MEDS ORDERED: DULO60CA45 PO (12:01)
[2021-03-16] MEDS ORDERED: LISI30TA4 PO (12:01)
[2021-03-16] MEDS: METOPROLOL TARTRATE 1 MG/ML 5ML VIAL IV PRN ×2 (13:23→18:28)
[2021-03-16] MEDS ORDERED: 0.9%NACL 1000ML 1,000 ML IV ONE (15:25)
[2021-03-16] MEDS: LORAZEPAM 2 MG/ML 1 ML VIAL IVP PRN ×2 (16:57→18:28)
[2021-03-16] MEDS ORDERED: ALBUTEROL 0.083% 2.5 MG/3 ML INH IH SCH (18:00)
[2021-03-16] MEDS: ACETAMINOPHEN 325 MG TAB PO PRN (18:27)
[2021-03-16] MEDS: FENOFIBRATE NANOCRYSTALLIZED 145 MG TAB PEG SCH (19:58)
[2021-03-16] MEDS: ARTIFICIAL TEARS 3.5 GM OINTMENT OU SCH (20:05)
[2021-03-16] MEDS: ALBUTEROL 0.042% 1.25MG/3ML IH SCH ×2 (20:21→23:25)
[2021-03-16] MEDS: SODIUM CHLORIDE 3% FOR INHALATION 4 ML/AMP VIAL.NEB IH SCH ×2 (20:21→23:25)
[2021-03-16] MEDS: FUROSEMIDE 40MG VIAL IV SCH (20:26)
[2021-03-17] VITALS (30 sets, daily range): BP systolic 93–188; BP diastolic 47–124
[2021-03-17] MEDS: INSULIN HUMULIN R 100 UNIT/ML 3ML SQ SCH ×5 (00:01→16:30)
[2021-03-17] MEDS: LORAZEPAM 2 MG/ML 1 ML VIAL IVP PRN ×4 (00:06→13:30)
[2021-03-17] MEDS: METOPROLOL TARTRATE 1 MG/ML 5ML VIAL IV PRN ×3 (01:28→13:31)
[2021-03-17] MEDS: ACETAMINOPHEN 325 MG TAB PO PRN (01:29)
[2021-03-17] MEDS: PREDNISONE 20 MG TABLET PO SCH (05:39)
[2021-03-17] MEDS: ALBUTEROL 0.042% 1.25MG/3ML IH SCH ×3 (06:00→19:30)
[2021-03-17 06:11] LABS: CREATININE 2.4 mg/dL (0.5-1.5)
[2021-03-17 06:18] LABS: POTASSIUM 2.7 mmol/L (3.5-5.1)
[2021-03-17] MEDS: POTASSIUM CHLORIDE 20MEQ/100ML 100 ML IV PRN (06:24)
[2021-03-17] MEDS: SODIUM CHLORIDE 3% FOR INHALATION 4 ML/AMP VIAL.NEB IH SCH ×3 (07:34→19:36)
[2021-03-17] MEDS: FISH OIL 1000 MG/CAP PO SCH (08:17)
[2021-03-17] MEDS: CLONIDINE HCL 0.2 MG TABLET PO SCH ×2 (08:17→21:26)
[2021-03-17] MEDS: LINEZOLID 600 MG/ISO-OSM 300 ML IV SCH ×2 (08:18→20:23)
[2021-03-17] MEDS: APIXABAN 2.5 MG TABLET PO SCH ×2 (08:18→20:22)
[2021-03-17] MEDS: BUSPIRONE HCL 5 MG TABLET PO SCH ×2 (08:18→20:21)
[2021-03-17] MEDS: SENNOSIDES 8.6 MG TABLET PO SCH (08:18)
[2021-03-17] MEDS: METOPROLOL TARTRATE 25 MG TAB PO SCH (08:19)
[2021-03-17] MEDS: CLONAZEPAM 1MG TAB PEG SCH ×2 (08:19→20:21)
[2021-03-17] MEDS: FAMOTIDINE 20MG VIAL IV SCH (08:19)
[2021-03-17] MEDS: INSULIN GLARGINE 100 UNITS/ML 10 ML VIAL SQ SCH (08:22)
[2021-03-17] MEDS: BALSAM PERU/CASTOR OIL 60 GM TUBE TP SCH ×2 (08:23→20:24)
[2021-03-17] MEDS: METOCLOPRAMIDE 10MG/10ML UDCUP PO SCH ×3 (08:23→21:00)
[2021-03-17] MEDS: FUROSEMIDE 40MG VIAL IV SCH (09:00)
[2021-03-17] MEDS: MIDAZOLAM 100MG-0.9% NS 100ML 100 ML IV SCH (13:07)
[2021-03-17] MEDS: FENTANYL 2500MCG+NS 250ML IV.SOLN IV SCH (13:08)
[2021-03-17] MEDS: GABAPENTIN 300 MG CAPSULE PO SCH ×2 (13:30→20:22)
[2021-03-17] MEDS: FENOFIBRATE NANOCRYSTALLIZED 145 MG TAB PEG SCH (20:21)
[2021-03-17] MEDS: METOPROLOL TARTRATE 50 MG TAB PO SCH (20:22)
[2021-03-17] MEDS: ARTIFICIAL TEARS 3.5 GM OINTMENT OU SCH (20:23)
[2021-03-18] VITALS (65 sets, daily range): BP systolic 79–188; BP diastolic 37–110
[2021-03-18] MEDS: ALBUTEROL 0.042% 1.25MG/3ML IH SCH ×4 (01:34→18:41)
[2021-03-18] MEDS: SODIUM CHLORIDE 3% FOR INHALATION 4 ML/AMP VIAL.NEB IH SCH ×4 (01:35→18:43)
[2021-03-18 04:15] LABS: HEMATOCRIT 34.6 % (36-48); MEAN CORPUSCULAR HEMOGLOBIN 26.6 pg (27.0-33.0); MEAN CORPUSCULAR HGB CONC 31.2 g/dL (32.0-36.0); MEAN CORPUSCULAR VOLUME 85.2 fL (79-99); RED BLOOD CELL COUNT(AUTO) 4.06 MIL/uL (4.00-5.50); RED CELL DISTRIBUTION WIDTH 18.2 % (11.0-15.5); WHITE BLOOD COUNT (AUTO) 9.4 K/uL (4.8-10.8)
[2021-03-18 04:31] LABS: ALBUMIN 2.8 g/dL (3.5-5.0); BILIRUBIN,TOTAL 0.3 mg/dL (0.2-1.0); CREATININE 2.3 mg/dL (0.5-1.5); POTASSIUM 3.1 mmol/L (3.5-5.1); TOTAL PROTEIN, SERUM 5.9 g/dL (6.0-8.3)
[2021-03-18] MEDS: PREDNISONE 20 MG TABLET PO SCH (04:49)
[2021-03-18] MEDS: INSULIN HUMULIN R 100 UNIT/ML 3ML SQ SCH ×4 (06:00→17:35)
[2021-03-18] MEDS: BALSAM PERU/CASTOR OIL 60 GM TUBE TP SCH ×2 (07:57→23:00)
[2021-03-18] MEDS: GABAPENTIN 300 MG CAPSULE PO SCH ×3 (09:00→21:00)
[2021-03-18] MEDS: METOPROLOL TARTRATE 50 MG TAB PO SCH ×2 (09:00→21:00)
[2021-03-18] MEDS: APIXABAN 2.5 MG TABLET PO SCH ×2 (09:00→21:00)
[2021-03-18] MEDS: BUSPIRONE HCL 5 MG TABLET PO SCH ×2 (09:00→21:00)
[2021-03-18] MEDS: FENTANYL 50 MCG/HR PATCH TD SCH (09:00)
[2021-03-18] MEDS: CLONAZEPAM 1MG TAB PEG SCH ×2 (09:00→21:00)
[2021-03-18] MEDS ORDERED: NOREPINEPHRIN 4MG/NS 250ML 0 ML IV ONE (09:08)
[2021-03-18] MEDS ORDERED: ROCURONIUM BROMIDE 10MG/1ML 5ML VL ONE (09:15)
[2021-03-18] MEDS ORDERED: LIDOCAINE HCL-MPF 1% 2ML VIAL IV PRN (10:00)
[2021-03-18 11:12] LABS: ABG BASE EXCESS -23.9 mmol/L (-2.0-3.0); ABG HCO3 13.6 mmol/L (21.0-28.0); ABG OXYGEN SATURATION 88.3 % (95.0-99.0); ABG PCO2 115 mmHg (32-45)
[2021-03-18] MEDS ORDERED: SODIUM BICARB 50MEQ 50ML VIAL 150 ML ONE (11:13)
[2021-03-18 11:55] LABS: ABG BASE EXCESS 13.6 mmol/L (-2.0-3.0); ABG HCO3 45.9 mmol/L (21.0-28.0); ABG OXYGEN SATURATION 92.6 % (95.0-99.0); ABG PCO2 103 mmHg (32-45)
[2021-03-18] MEDS ORDERED: ROCURONIUM BROMIDE 10MG/1ML 5ML VL IV ONE (12:00)
[2021-03-18] MEDS ORDERED: SUCCINYLCHOLINE CHLORIDE 20 MG/ML 10 ML VIAL IVP ONE (12:00)
[2021-03-18] MEDS ORDERED: PHENYLEPHRINE 100 MG/NS 250ML IV SCH ×2 (12:00)
[2021-03-18] MEDS ORDERED: ETOMIDATE 20MG VIAL IVP ONE (12:00)
[2021-03-18] MEDS ORDERED: PHARMACY COMMUNICATION MISC SCH (12:00)
[2021-03-18] MEDS ORDERED: FENTANYL 2500MCG+NS 250ML 250 ML IV ONE (13:49)
[2021-03-18] MEDS: CLONIDINE HCL 0.2 MG TABLET PO SCH (13:58)
[2021-03-18] MEDS: METOCLOPRAMIDE 10MG/10ML UDCUP PO SCH ×3 (13:59→21:00)
[2021-03-18] MEDS: SENNOSIDES 8.6 MG TABLET PO SCH (13:59)
[2021-03-18] MEDS: LINEZOLID 600 MG/ISO-OSM 300 ML IV SCH ×2 (14:04→22:59)
[2021-03-18] MEDS: FAMOTIDINE 20MG VIAL IV SCH (14:04)
[2021-03-18] MEDS: MIDAZOLAM 100MG-0.9% NS 100ML 100 ML IV SCH (14:25)
[2021-03-18] MEDS ORDERED: SODIUM BICARB 50MEQ 50ML VIAL IV SCH (14:30)
[2021-03-18 17:17] LABS: ABG OXYGEN SATURATION 98.9 % (95.0-99.0); ABG PCO2 60 mmHg (32-45)
[2021-03-18] MEDS: FENOFIBRATE NANOCRYSTALLIZED 145 MG TAB PEG SCH (21:00)
[2021-03-18] MEDS: ARTIFICIAL TEARS 3.5 GM OINTMENT OU SCH (21:00)
[2021-03-18] MEDS: DEXTROSE 50%-WATER 50 ML DISP.SYRIN IV PRN (23:54)
[2021-03-19] VITALS (80 sets, daily range): BP systolic 90–136; BP diastolic 49–90
[2021-03-19] MEDS: SODIUM CHLORIDE 3% FOR INHALATION 4 ML/AMP VIAL.NEB IH SCH
[2021-03-19] MEDS ORDERED: FENTANYL 2500MCG+NS 250ML 250 ML IV ONE ×2 (01:23→14:45)
[2021-03-19 04:32] LABS: BASOPHILS % (AUTO) 0.5 % (0.0-5.0); EOSINOPHILS % (AUTO) 10.6 % (0.0-8.0); HEMATOCRIT 34.3 % (36-48); LYMPHOCYTES % (AUTO) 13.9 % (21.0-51.0); MEAN CORPUSCULAR HEMOGLOBIN 26.7 pg (27.0-33.0); MEAN CORPUSCULAR HGB CONC 30.6 g/dL (32.0-36.0); MEAN CORPUSCULAR VOLUME 87.3 fL (79-99); MONOCYTES % (AUTO) 4.6 % (3.0-13.0); NEUTROPHILS % (AUTO) 69.5 % (40.0-77.0); PLATELET COUNT (AUTO) 159 K/uL (130-400); RED BLOOD CELL COUNT(AUTO) 3.93 MIL/uL (4.00-5.50); RED CELL DISTRIBUTION WIDTH 17.9 % (11.0-15.5); WHITE BLOOD COUNT (AUTO) 10.9 K/uL (4.8-10.8)
[2021-03-19 04:43] LABS: INR 1.12 (0.85-1.15); PROTHROMBIN TIME 12.1 SEC (9.6-11.6)
[2021-03-19 04:45] LABS: PARTIAL THROMBOPLASTIN TIME 20.5 SEC (26.3-35.5)
[2021-03-19 04:57] LABS: ALBUMIN 2.9 g/dL (3.5-5.0); BILIRUBIN,TOTAL 0.3 mg/dL (0.2-1.0); CREATININE 3.1 mg/dL (0.5-1.5); PHOSPHORUS 6.8 mg/dL (2.5-4.9); POTASSIUM 3.3 mmol/L (3.5-5.1); TOTAL PROTEIN, SERUM 6.1 g/dL (6.0-8.3)
[2021-03-19] MEDS: INSULIN HUMULIN R 100 UNIT/ML 3ML SQ SCH ×4 (05:51→18:00)
[2021-03-19] MEDS: POTASSIUM CHLORIDE 20MEQ/100ML 100 ML IV PRN (06:49)
[2021-03-19] MEDS: ALBUTEROL 0.042% 1.25MG/3ML IH SCH ×4 (06:55→18:27)
[2021-03-19 07:45] LABS: ABG BASE EXCESS 6.4 mmol/L (-2.0-3.0); ABG HCO3 33.9 mmol/L (21.0-28.0); ABG OXYGEN SATURATION 92.4 % (95.0-99.0); ABG PCO2 61 mmHg (32-45)
[2021-03-19] MEDS: METOPROLOL TARTRATE 50 MG TAB PO SCH ×3 (09:00→21:27)
[2021-03-19] MEDS: FAMOTIDINE 20MG VIAL IV SCH (09:50)
[2021-03-19] MEDS: SENNOSIDES 8.6 MG TABLET PO SCH (09:50)
[2021-03-19] MEDS: APIXABAN 2.5 MG TABLET PO SCH ×2 (09:50→21:00)
[2021-03-19] MEDS: CLONAZEPAM 1MG TAB PEG SCH ×2 (09:50→20:33)
[2021-03-19] MEDS: GABAPENTIN 300 MG CAPSULE PO SCH ×3 (09:50→20:32)
[2021-03-19] MEDS: DEXAMETHASONE 4 MG TAB PO SCH (09:50)
[2021-03-19] MEDS: METOCLOPRAMIDE 10MG/10ML UDCUP PO SCH ×3 (09:50→21:00)
[2021-03-19] MEDS: BUSPIRONE HCL 5 MG TABLET PO SCH ×2 (09:50→20:33)
[2021-03-19] MEDS: LINEZOLID 600 MG/ISO-OSM 300 ML IV SCH ×2 (09:51→20:37)
[2021-03-19] MEDS: BALSAM PERU/CASTOR OIL 60 GM TUBE TP SCH ×2 (09:51→20:34)
[2021-03-19] MEDS: MIDAZOLAM 100MG-0.9% NS 100ML 100 ML IV SCH ×2 (09:52→21:47)
[2021-03-19] MEDS ORDERED: SODIUM CHLORIDE 7% INHALATION 4 ML VIAL.NEB IH ONE (11:46)
[2021-03-19] MEDS: SODIUM CHLORIDE 7% INHALATION 4 ML VIAL.NEB IH SCH ×2 (11:52→18:28)
[2021-03-19] MEDS: FENOFIBRATE NANOCRYSTALLIZED 145 MG TAB PEG SCH (20:32)
[2021-03-19] MEDS: ARTIFICIAL TEARS 3.5 GM OINTMENT OU SCH (20:34)
[2021-03-20] VITALS (34 sets, daily range): BP systolic 91–139; BP diastolic 49–69
[2021-03-20] MEDS: ALBUTEROL 0.042% 1.25MG/3ML IH SCH ×3 (00:41→18:36)
[2021-03-20] MEDS: SODIUM CHLORIDE 7% INHALATION 4 ML VIAL.NEB IH SCH ×3 (00:43→18:30)
[2021-03-20 03:59] LABS: ABG BASE EXCESS 4.5 mmol/L (-2.0-3.0); ABG HCO3 32.1 mmol/L (21.0-28.0); ABG OXYGEN SATURATION 96.4 % (95.0-99.0); ABG PCO2 60 mmHg (32-45)
[2021-03-20] MEDS ORDERED: FENTANYL 2500MCG+NS 250ML 250 ML IV ONE ×2 (04:42→21:24)
[2021-03-20 05:37] LABS: BASOPHILS % (AUTO) 0.3 % (0.0-5.0); EOSINOPHILS % (AUTO) 4.7 % (0.0-8.0); HEMATOCRIT 32.3 % (36-48); LYMPHOCYTES % (AUTO) 4.8 % (21.0-51.0); MEAN CORPUSCULAR HEMOGLOBIN 26.2 pg (27.0-33.0); MEAN CORPUSCULAR HGB CONC 29.4 g/dL (32.0-36.0); MEAN CORPUSCULAR VOLUME 89.2 fL (79-99); MONOCYTES % (AUTO) 3.6 % (3.0-13.0); NEUTROPHILS % (AUTO) 85.8 % (40.0-77.0); PLATELET COUNT (AUTO) 173 K/uL (130-400); RED BLOOD CELL COUNT(AUTO) 3.62 MIL/uL (4.00-5.50); RED CELL DISTRIBUTION WIDTH 18.6 % (11.0-15.5); WHITE BLOOD COUNT (AUTO) 10.2 K/uL (4.8-10.8)
[2021-03-20 05:52] LABS: ALBUMIN 2.6 g/dL (3.5-5.0); BILIRUBIN,TOTAL 0.3 mg/dL (0.2-1.0); CREATININE 3.6 mg/dL (0.5-1.5); POTASSIUM 4.1 mmol/L (3.5-5.1); TOTAL PROTEIN, SERUM 6.1 g/dL (6.0-8.3)
[2021-03-20] MEDS: INSULIN HUMULIN R 100 UNIT/ML 3ML SQ SCH ×5 (06:00→23:38)
[2021-03-20] MEDS: METOPROLOL TARTRATE 50 MG TAB PO SCH ×2 (08:54→21:10)
[2021-03-20] MEDS: FAMOTIDINE 20MG VIAL IV SCH (08:54)
[2021-03-20] MEDS: LINEZOLID 600 MG/ISO-OSM 300 ML IV SCH ×2 (08:54→21:10)
[2021-03-20] MEDS: DEXAMETHASONE 4 MG TAB PO SCH (08:54)
[2021-03-20] MEDS: BUSPIRONE HCL 5 MG TABLET PO SCH ×2 (08:54→21:09)
[2021-03-20] MEDS: GABAPENTIN 300 MG CAPSULE PO SCH ×3 (08:54→21:08)
[2021-03-20] MEDS: BALSAM PERU/CASTOR OIL 60 GM TUBE TP SCH ×2 (08:55→21:10)
[2021-03-20] MEDS: METOCLOPRAMIDE 10MG/10ML UDCUP PO SCH ×3 (08:55→21:10)
[2021-03-20] MEDS: CLONAZEPAM 1MG TAB PEG SCH ×2 (08:55→21:09)
[2021-03-20] MEDS: SENNOSIDES 8.6 MG TABLET PO SCH (08:55)
[2021-03-20] MEDS: APIXABAN 2.5 MG TABLET PO SCH ×3 (09:00→21:09)
[2021-03-20] MEDS: MIDAZOLAM 100MG-0.9% NS 100ML 100 ML IV SCH (10:21)
[2021-03-20] MEDS ORDERED: RENAL DOSE IV PRN (19:00)
[2021-03-20] MEDS: ARTIFICIAL TEARS 3.5 GM OINTMENT OU SCH (21:08)
[2021-03-20] MEDS: FENOFIBRATE NANOCRYSTALLIZED 145 MG TAB PEG SCH (21:09)
[2021-03-21] VITALS (25 sets, daily range): BP systolic 99–133; BP diastolic 50–92
[2021-03-21] MEDS: ALBUTEROL 0.042% 1.25MG/3ML IH SCH ×5 (00:50→23:54)
[2021-03-21] MEDS: SODIUM CHLORIDE 7% INHALATION 4 ML VIAL.NEB IH SCH ×5 (00:50→23:59)
[2021-03-21 04:05] LABS: ABG BASE EXCESS 6.5 mmol/L (-2.0-3.0); ABG HCO3 33.1 mmol/L (21.0-28.0); ABG PCO2 55 mmHg (32-45)
[2021-03-21 04:18] LABS: BASOPHILS % (AUTO) 0.4 % (0.0-5.0); EOSINOPHILS % (AUTO) 1.3 % (0.0-8.0); HEMATOCRIT 29.9 % (36-48); LYMPHOCYTES % (AUTO) 8.1 % (21.0-51.0); MEAN CORPUSCULAR HEMOGLOBIN 26.7 pg (27.0-33.0); MEAN CORPUSCULAR HGB CONC 30.1 g/dL (32.0-36.0); MEAN CORPUSCULAR VOLUME 88.7 fL (79-99); MONOCYTES % (AUTO) 5.7 % (3.0-13.0); NEUTROPHILS % (AUTO) 83.7 % (40.0-77.0); NUCLEATED RED BLOOD CELLS 0.4 % (0.0-0.19); PLATELET COUNT (AUTO) 219 K/uL (130-400); RED BLOOD CELL COUNT(AUTO) 3.37 MIL/uL (4.00-5.50); RED CELL DISTRIBUTION WIDTH 18.7 % (11.0-15.5); WHITE BLOOD COUNT (AUTO) 7.7 K/uL (4.8-10.8)
[2021-03-21 04:31] LABS: INR 1.06 (0.85-1.15); PROTHROMBIN TIME 11.5 SEC (9.6-11.6)
[2021-03-21 04:32] LABS: PARTIAL THROMBOPLASTIN TIME 21.9 SEC (26.3-35.5)
[2021-03-21 04:45] LABS: ALBUMIN 2.9 g/dL (3.5-5.0); BILIRUBIN,TOTAL 0.3 mg/dL (0.2-1.0); CREATININE 3.9 mg/dL (0.5-1.5); MAGNESIUM 2.2 mg/dL (1.80-2.40); PHOSPHORUS 4.2 mg/dL (2.5-4.9); POTASSIUM 4.1 mmol/L (3.5-5.1); TOTAL PROTEIN, SERUM 6.4 g/dL (6.0-8.3)
[2021-03-21] MEDS: MIDAZOLAM 100MG-0.9% NS 100ML 100 ML IV SCH ×2 (04:48→23:34)
[2021-03-21] MEDS: INSULIN HUMULIN R 100 UNIT/ML 3ML SQ SCH ×3 (05:19→17:40)
[2021-03-21] MEDS: SENNOSIDES 8.6 MG TABLET PO SCH (08:21)
[2021-03-21] MEDS: DEXAMETHASONE 4 MG TAB PO SCH (08:21)
[2021-03-21] MEDS: CLONAZEPAM 1MG TAB PEG SCH ×2 (08:21→21:32)
[2021-03-21] MEDS: METOCLOPRAMIDE 10MG/10ML UDCUP PO SCH ×3 (08:21→21:27)
[2021-03-21] MEDS: FAMOTIDINE 20MG VIAL IV SCH (08:22)
[2021-03-21] MEDS: GABAPENTIN 300 MG CAPSULE PO SCH ×3 (08:22→21:32)
[2021-03-21] MEDS: METOPROLOL TARTRATE 50 MG TAB PO SCH ×2 (08:22→21:33)
[2021-03-21] MEDS: BUSPIRONE HCL 5 MG TABLET PO SCH ×2 (08:22→21:32)
[2021-03-21] MEDS: LINEZOLID 600 MG/ISO-OSM 300 ML IV SCH ×2 (08:24→21:33)
[2021-03-21] MEDS: BALSAM PERU/CASTOR OIL 60 GM TUBE TP SCH ×2 (08:25→21:33)
[2021-03-21] MEDS: FENTANYL 50 MCG/HR PATCH TD SCH (08:25)
[2021-03-21] MEDS: APIXABAN 2.5 MG TABLET PO SCH ×2 (09:00→21:33)
[2021-03-21] MEDS ORDERED: PHARMACY COMMUNICATION MISC SCH ×3 (13:20→18:00)
[2021-03-21] MEDS: CEFAZOLIN SODIUM 1 GM VIAL IVP SCH (15:32)
[2021-03-21] MEDS ORDERED: FENTANYL 2500MCG+NS 250ML 250 ML IV ONE (17:47)
[2021-03-21] MEDS: FENTANYL 2500MCG+NS 250ML 250 ML IV SCH (18:18)
[2021-03-21] MEDS: ARTIFICIAL TEARS 3.5 GM OINTMENT OU SCH (21:26)
[2021-03-21] MEDS: FENOFIBRATE NANOCRYSTALLIZED 145 MG TAB PEG SCH (21:32)
[2021-03-22] VITALS (47 sets, daily range): BP systolic 99–168; BP diastolic 52–117
[2021-03-22] MEDS: CEFAZOLIN SODIUM 1 GM VIAL IVP SCH ×2 (03:10→13:54)
[2021-03-22 03:17] LABS: ABG HCO3 33.8 mmol/L (21.0-28.0); ABG OXYGEN SATURATION 94.3 % (95.0-99.0); ABG PCO2 47 mmHg (32-45)
[2021-03-22] MEDS: INSULIN HUMULIN R 100 UNIT/ML 3ML SQ SCH ×4 (06:00→16:21)
[2021-03-22 06:42] LABS: HEMATOCRIT 27.8 % (36-48); MEAN CORPUSCULAR HEMOGLOBIN 26.4 pg (27.0-33.0); MEAN CORPUSCULAR HGB CONC 30.2 g/dL (32.0-36.0); MEAN CORPUSCULAR VOLUME 87.4 fL (79-99); NUCLEATED RED BLOOD CELLS 0.2 % (0.0-0.19); PLATELET COUNT (AUTO) 199 K/uL (130-400); RED BLOOD CELL COUNT(AUTO) 3.18 MIL/uL (4.00-5.50); RED CELL DISTRIBUTION WIDTH 18.8 % (11.0-15.5); WHITE BLOOD COUNT (AUTO) 8.2 K/uL (4.8-10.8)
[2021-03-22] MEDS: SODIUM CHLORIDE 7% INHALATION 4 ML VIAL.NEB IH SCH ×3 (06:49→19:21)
[2021-03-22] MEDS: ALBUTEROL 0.042% 1.25MG/3ML IH SCH ×3 (06:50→19:20)
[2021-03-22 06:57] LABS: ALBUMIN 2.6 g/dL (3.5-5.0); BILIRUBIN,TOTAL 0.3 mg/dL (0.2-1.0); CREATININE 3.6 mg/dL (0.5-1.5); MAGNESIUM 2.1 mg/dL (1.80-2.40); PHOSPHORUS 3.6 mg/dL (2.5-4.9); POTASSIUM 4.1 mmol/L (3.5-5.1); TOTAL PROTEIN, SERUM 6.1 g/dL (6.0-8.3)
[2021-03-22 07:34] LABS: BAND NEUTROPHILS % (MANUAL) 4 % (0-2); EOSINOPHILS % (MANUAL) 2 % (1-6); LYMPHOCYTES % (MANUAL) 9 % (22-44); MAN.DIFF COMMENT-IMPRESSION MANUAL DIFFERENTIAL; MONOCYTES % (MANUAL) 6 % (2-9); PLATELET MORPHOLOGY COMMENT ADEQUATE; SEGMENTED NEUTROPHILS % 79 % (40-70)
[2021-03-22] MEDS: DEXAMETHASONE 4 MG TAB PO SCH (08:02)
[2021-03-22] MEDS: APIXABAN 2.5 MG TABLET PO SCH ×2 (08:03→20:45)
[2021-03-22] MEDS: BUSPIRONE HCL 5 MG TABLET PO SCH ×2 (08:03→20:44)
[2021-03-22] MEDS: CLONAZEPAM 1MG TAB PEG SCH ×2 (08:03→20:44)
[2021-03-22] MEDS: FAMOTIDINE 20MG VIAL IV SCH (08:03)
[2021-03-22] MEDS: SENNOSIDES 8.6 MG TABLET PO SCH (08:03)
[2021-03-22] MEDS: METOPROLOL TARTRATE 50 MG TAB PO SCH ×2 (08:03→20:44)
[2021-03-22] MEDS: LINEZOLID 600 MG/ISO-OSM 300 ML IV SCH ×2 (08:04→20:45)
[2021-03-22] MEDS: BALSAM PERU/CASTOR OIL 60 GM TUBE TP SCH ×2 (08:04→20:45)
[2021-03-22] MEDS: GABAPENTIN 300 MG CAPSULE PO SCH ×3 (08:05→20:45)
[2021-03-22] MEDS: METOCLOPRAMIDE 10MG/10ML UDCUP PO SCH ×3 (08:05→20:45)
[2021-03-22] MEDS: FENTANYL 2500MCG+NS 250ML 250 ML IV SCH (13:55)
[2021-03-22] MEDS: HEPARIN 5,000 UNIT VIAL IV SCH (17:12)
[2021-03-22] MEDS: FENOFIBRATE NANOCRYSTALLIZED 145 MG TAB PEG SCH (20:44)
[2021-03-22] MEDS: ARTIFICIAL TEARS 3.5 GM OINTMENT OU SCH (20:44)
[2021-03-22] MEDS: MIDAZOLAM 100MG-0.9% NS 100ML 100 ML IV SCH (20:49)
[2021-03-23] VITALS (57 sets, daily range): BP systolic 110–149; BP diastolic 64–105
[2021-03-23] MEDS: ALBUTEROL 0.042% 1.25MG/3ML IH SCH ×3 (00:51→11:29)
[2021-03-23] MEDS: SODIUM CHLORIDE 7% INHALATION 4 ML VIAL.NEB IH SCH ×4 (00:52→23:28)
[2021-03-23] MEDS: CEFAZOLIN SODIUM 1 GM VIAL IVP SCH ×2 (03:34→13:56)
[2021-03-23 04:26] LABS: ABG BASE EXCESS 7.6 mmol/L (-2.0-3.0); ABG HCO3 32.2 mmol/L (21.0-28.0); ABG OXYGEN SATURATION 97.2 % (95.0-99.0); ABG PCO2 45 mmHg (32-45)
[2021-03-23] MEDS: INSULIN HUMULIN R 100 UNIT/ML 3ML SQ SCH ×4 (05:46→18:00)
[2021-03-23 06:23] LABS: BASOPHILS % (AUTO) 0.5 % (0.0-5.0); EOSINOPHILS % (AUTO) 8.2 % (0.0-8.0); HEMATOCRIT 31.9 % (36-48); LYMPHOCYTES % (AUTO) 17.2 % (21.0-51.0); MEAN CORPUSCULAR HEMOGLOBIN 26.4 pg (27.0-33.0); MEAN CORPUSCULAR HGB CONC 30.4 g/dL (32.0-36.0); MEAN CORPUSCULAR VOLUME 86.9 fL (79-99); NEUTROPHILS % (AUTO) 62.2 % (40.0-77.0); NUCLEATED RED BLOOD CELLS 0.3 % (0.0-0.19); PLATELET COUNT (AUTO) 223 K/uL (130-400); RED BLOOD CELL COUNT(AUTO) 3.67 MIL/uL (4.00-5.50); RED CELL DISTRIBUTION WIDTH 18.6 % (11.0-15.5); WHITE BLOOD COUNT (AUTO) 10.3 K/uL (4.8-10.8)
[2021-03-23 06:50] LABS: ALBUMIN 2.8 g/dL (3.5-5.0); BILIRUBIN,TOTAL 0.3 mg/dL (0.2-1.0); CREATININE 1.9 mg/dL (0.5-1.5); POTASSIUM 3.2 mmol/L (3.5-5.1); TOTAL PROTEIN, SERUM 6.5 g/dL (6.0-8.3)
[2021-03-23] MEDS: BUSPIRONE HCL 5 MG TABLET PO SCH ×2 (08:39→20:13)
[2021-03-23] MEDS: FAMOTIDINE 20MG VIAL IV SCH (08:40)
[2021-03-23] MEDS: APIXABAN 2.5 MG TABLET PO SCH ×2 (08:40→20:14)
[2021-03-23] MEDS: GABAPENTIN 300 MG CAPSULE PO SCH ×3 (08:40→20:12)
[2021-03-23] MEDS: CLONAZEPAM 1MG TAB PEG SCH ×2 (08:40→20:10)
[2021-03-23] MEDS: METOPROLOL TARTRATE 50 MG TAB PO SCH ×2 (08:40→20:14)
[2021-03-23] MEDS: BALSAM PERU/CASTOR OIL 60 GM TUBE TP SCH ×2 (08:41→20:13)
[2021-03-23] MEDS: METOCLOPRAMIDE 10MG/10ML UDCUP PO SCH ×3 (08:41→20:13)
[2021-03-23] MEDS: SENNOSIDES 8.6 MG TABLET PO SCH (08:41)
[2021-03-23] MEDS: DEXAMETHASONE 4 MG TAB PO SCH (08:41)
[2021-03-23] MEDS ORDERED: SODIUM CHLORIDE 3% FOR INHALATION 4 ML/AMP VIAL.NEB IH SCH (12:00)
[2021-03-23] MEDS: ARTIFICIAL TEARS 3.5 GM OINTMENT OU SCH (20:11)
[2021-03-23] MEDS: FENOFIBRATE NANOCRYSTALLIZED 145 MG TAB PEG SCH (20:11)
[2021-03-23] MEDS: FENTANYL 2500MCG+NS 250ML 250 ML IV SCH (23:02)
[2021-03-24] VITALS (58 sets, daily range): BP systolic 106–163; BP diastolic 55–114
[2021-03-24] MEDS: CEFAZOLIN SODIUM 1 GM VIAL IVP SCH ×2 (03:33→14:42)
[2021-03-24] MEDS: INSULIN HUMULIN R 100 UNIT/ML 3ML SQ SCH ×4 (05:23→17:17)
[2021-03-24 05:36] LABS: ALBUMIN 2.8 g/dL (3.5-5.0); BILIRUBIN,TOTAL 0.3 mg/dL (0.2-1.0); CREATININE 1.5 mg/dL (0.5-1.5); MAGNESIUM 1.8 mg/dL (1.80-2.40); PHOSPHORUS 2.3 mg/dL (2.5-4.9); POTASSIUM 3.3 mmol/L (3.5-5.1); TOTAL PROTEIN, SERUM 6.6 g/dL (6.0-8.3)
[2021-03-24 05:37] LABS: BASOPHILS % (AUTO) 1.1 % (0.0-5.0); EOSINOPHILS % (AUTO) 6.5 % (0.0-8.0); HEMATOCRIT 35.6 % (36-48); LYMPHOCYTES % (AUTO) 21.3 % (21.0-51.0); MEAN CORPUSCULAR HEMOGLOBIN 26.9 pg (27.0-33.0); MEAN CORPUSCULAR HGB CONC 30.6 g/dL (32.0-36.0); MEAN CORPUSCULAR VOLUME 87.9 fL (79-99); MONOCYTES % (AUTO) 8.6 % (3.0-13.0); NEUTROPHILS % (AUTO) 56.6 % (40.0-77.0); NUCLEATED RED BLOOD CELLS 0.4 % (0.0-0.19); PLATELET COUNT (AUTO) 278 K/uL (130-400); RED BLOOD CELL COUNT(AUTO) 4.05 MIL/uL (4.00-5.50); RED CELL DISTRIBUTION WIDTH 19.3 % (11.0-15.5); WHITE BLOOD COUNT (AUTO) 13.9 K/uL (4.8-10.8)
[2021-03-24] MEDS: SODIUM CHLORIDE 7% INHALATION 4 ML VIAL.NEB IH SCH (07:00)
[2021-03-24] MEDS: BUSPIRONE HCL 5 MG TABLET PO SCH ×2 (09:28→21:33)
[2021-03-24] MEDS: SENNOSIDES 8.6 MG TABLET PO SCH (09:28)
[2021-03-24] MEDS: METOCLOPRAMIDE 10MG/10ML UDCUP PO SCH ×3 (09:28→21:33)
[2021-03-24] MEDS: GABAPENTIN 300 MG CAPSULE PO SCH ×3 (09:28→21:34)
[2021-03-24] MEDS: METOPROLOL TARTRATE 50 MG TAB PO SCH ×2 (09:29→21:33)
[2021-03-24] MEDS: DEXAMETHASONE 4 MG TAB PO SCH (09:29)
[2021-03-24] MEDS: APIXABAN 2.5 MG TABLET PO SCH ×2 (09:29→21:33)
[2021-03-24] MEDS: FAMOTIDINE 20MG VIAL IV SCH (09:29)
[2021-03-24] MEDS: BALSAM PERU/CASTOR OIL 60 GM TUBE TP SCH ×2 (09:30→21:34)
[2021-03-24] MEDS: FENOFIBRATE NANOCRYSTALLIZED 145 MG TAB PEG SCH (21:34)
[2021-03-25] VITALS (81 sets, daily range): BP systolic 84–176; BP diastolic 50–114
[2021-03-25] MEDS: METOPROLOL TARTRATE 1 MG/ML 5ML VIAL IV PRN ×2 (00:30→18:47)
[2021-03-25] MEDS: CEFAZOLIN SODIUM 1 GM VIAL IVP SCH (03:12)
[2021-03-25 03:17] LABS: ABG BASE EXCESS 8.6 mmol/L (-2.0-3.0); ABG HCO3 31.8 mmol/L (21.0-28.0); ABG OXYGEN SATURATION 96.2 % (95.0-99.0); ABG PCO2 39 mmHg (32-45)
[2021-03-25 04:14] LABS: BASOPHILS % (AUTO) 0.6 % (0.0-5.0); EOSINOPHILS % (AUTO) 3.7 % (0.0-8.0); MEAN CORPUSCULAR HEMOGLOBIN 26.3 pg (27.0-33.0); MEAN CORPUSCULAR VOLUME 87.7 fL (79-99); MONOCYTES % (AUTO) 7.3 % (3.0-13.0); NEUTROPHILS % (AUTO) 62.2 % (40.0-77.0); NUCLEATED RED BLOOD CELLS 0.4 % (0.0-0.19); PLATELET COUNT (AUTO) 234 K/uL (130-400); RED BLOOD CELL COUNT(AUTO) 3.65 MIL/uL (4.00-5.50); RED CELL DISTRIBUTION WIDTH 18.9 % (11.0-15.5)
[2021-03-25 04:26] LABS: ALBUMIN 2.5 g/dL (3.5-5.0); BILIRUBIN,TOTAL 0.3 mg/dL (0.2-1.0); CREATININE 1.1 mg/dL (0.5-1.5); PHOSPHORUS 2.2 mg/dL (2.5-4.9); POTASSIUM 3.2 mmol/L (3.5-5.1); TOTAL PROTEIN, SERUM 6.1 g/dL (6.0-8.3)
[2021-03-25] MEDS: INSULIN HUMULIN R 100 UNIT/ML 3ML SQ SCH ×5 (05:34→23:19)
[2021-03-25] MEDS: METOPROLOL TARTRATE 50 MG TAB PO SCH ×2 (08:01→21:20)
[2021-03-25] MEDS: FAMOTIDINE 20MG VIAL IV SCH (08:05)
[2021-03-25] MEDS: DEXAMETHASONE 4 MG TAB PO SCH (08:05)
[2021-03-25] MEDS: GABAPENTIN 300 MG CAPSULE PO SCH ×3 (08:06→21:19)
[2021-03-25] MEDS: BUSPIRONE HCL 5 MG TABLET PO SCH ×2 (08:06→21:19)
[2021-03-25] MEDS: SENNOSIDES 8.6 MG TABLET PO SCH (08:06)
[2021-03-25] MEDS: METOCLOPRAMIDE 10MG/10ML UDCUP PO SCH ×3 (08:07→21:19)
[2021-03-25] MEDS: APIXABAN 2.5 MG TABLET PO SCH ×2 (08:07→21:20)
[2021-03-25] MEDS: BALSAM PERU/CASTOR OIL 60 GM TUBE TP SCH ×2 (08:08→21:20)
[2021-03-25] MEDS: CEFTAZIDIME PENTAHYDRATE 1 GM/VIAL IVP SCH (13:30)
[2021-03-25] MEDS: HEPARIN 5,000 UNIT VIAL IV SCH (17:07)
[2021-03-25] MEDS: FENOFIBRATE NANOCRYSTALLIZED 145 MG TAB PEG SCH (21:19)
[2021-03-25] MEDS: FENTANYL 2500MCG+NS 250ML 250 ML IV SCH (21:24)
[2021-03-26] VITALS (87 sets, daily range): BP systolic 95–144; BP diastolic 50–95
[2021-03-26 05:24] LABS: BASOPHILS % (AUTO) 0.9 % (0.0-5.0); EOSINOPHILS % (AUTO) 5.6 % (0.0-8.0); HEMATOCRIT 31.8 % (36-48); LYMPHOCYTES % (AUTO) 20.8 % (21.0-51.0); MEAN CORPUSCULAR HEMOGLOBIN 27.1 pg (27.0-33.0); MEAN CORPUSCULAR HGB CONC 30.5 g/dL (32.0-36.0); MEAN CORPUSCULAR VOLUME 88.8 fL (79-99); MONOCYTES % (AUTO) 6.7 % (3.0-13.0); NEUTROPHILS % (AUTO) 54.9 % (40.0-77.0); NUCLEATED RED BLOOD CELLS 0.3 % (0.0-0.19); PLATELET COUNT (AUTO) 256 K/uL (130-400); RED BLOOD CELL COUNT(AUTO) 3.58 MIL/uL (4.00-5.50); RED CELL DISTRIBUTION WIDTH 18.7 % (11.0-15.5); WHITE BLOOD COUNT (AUTO) 13.9 K/uL (4.8-10.8)
[2021-03-26] MEDS: INSULIN HUMULIN R 100 UNIT/ML 3ML SQ SCH ×3 (05:32→17:18)
[2021-03-26 05:41] LABS: ALBUMIN 2.7 g/dL (3.5-5.0); BILIRUBIN,TOTAL 0.3 mg/dL (0.2-1.0); CREATININE 0.8 mg/dL (0.5-1.5); MAGNESIUM 1.8 mg/dL (1.80-2.40); PHOSPHORUS 2.3 mg/dL (2.5-4.9); TOTAL PROTEIN, SERUM 6.3 g/dL (6.0-8.3)
[2021-03-26] MEDS: GABAPENTIN 300 MG CAPSULE PO SCH ×3 (09:03→21:07)
[2021-03-26] MEDS: FAMOTIDINE 20MG VIAL IV SCH (09:03)
[2021-03-26] MEDS: SENNOSIDES 8.6 MG TABLET PO SCH (09:03)
[2021-03-26] MEDS: BUSPIRONE HCL 5 MG TABLET PO SCH ×2 (09:04→21:07)
[2021-03-26] MEDS: METOPROLOL TARTRATE 50 MG TAB PO SCH ×2 (09:04→21:08)
[2021-03-26] MEDS: APIXABAN 2.5 MG TABLET PO SCH ×2 (09:05→21:07)
[2021-03-26] MEDS: DEXAMETHASONE 4 MG TAB PO SCH (09:05)
[2021-03-26] MEDS: METOCLOPRAMIDE 10MG/10ML UDCUP PO SCH ×3 (09:05→21:07)
[2021-03-26] MEDS: BALSAM PERU/CASTOR OIL 60 GM TUBE TP SCH ×2 (09:06→21:09)
[2021-03-26] MEDS: CEFTAZIDIME PENTAHYDRATE 1 GM/VIAL IVP SCH (12:40)
[2021-03-26] MEDS: POTASSIUM CHLORIDE 10MEQ/100ML 100 ML IV PRN ×2 (12:40→13:47)
[2021-03-26 17:13] LABS: CREATININE 0.8 mg/dL (0.5-1.5); PHOSPHORUS 2.7 mg/dL (2.5-4.9)
[2021-03-26] MEDS: FENOFIBRATE NANOCRYSTALLIZED 145 MG TAB PEG SCH (21:07)
[2021-03-27] VITALS (57 sets, daily range): BP systolic 103–162; BP diastolic 47–104
[2021-03-27 03:56] LABS: HEMATOCRIT 31.7 % (36-48); MEAN CORPUSCULAR HGB CONC 30.3 g/dL (32.0-36.0); MEAN CORPUSCULAR VOLUME 89.3 fL (79-99); NUCLEATED RED BLOOD CELLS 0.2 % (0.0-0.19); RED BLOOD CELL COUNT(AUTO) 3.55 MIL/uL (4.00-5.50); WHITE BLOOD COUNT (AUTO) 12.4 K/uL (4.8-10.8)
[2021-03-27 04:15] LABS: ALBUMIN 2.7 g/dL (3.5-5.0); BILIRUBIN,TOTAL 0.3 mg/dL (0.2-1.0); CREATININE 0.8 mg/dL (0.5-1.5); POTASSIUM 3.5 mmol/L (3.5-5.1); TOTAL PROTEIN, SERUM 6.3 g/dL (6.0-8.3)
[2021-03-27] MEDS: MAGNESIUM 2GM PREMIX 50ML 50 ML IV PRN (05:50)
[2021-03-27] MEDS: INSULIN HUMULIN R 100 UNIT/ML 3ML SQ SCH ×4 (05:58→18:00)
[2021-03-27] MEDS ORDERED: FENTANYL 2500MCG+NS 250ML 250 ML IV ONE (08:16)
[2021-03-27] MEDS: METOCLOPRAMIDE 10MG/10ML UDCUP PO SCH ×3 (08:18→20:28)
[2021-03-27] MEDS: GABAPENTIN 300 MG CAPSULE PO SCH ×3 (08:19→20:29)
[2021-03-27] MEDS: METOPROLOL TARTRATE 50 MG TAB PO SCH ×2 (08:19→20:28)
[2021-03-27] MEDS: SENNOSIDES 8.6 MG TABLET PO SCH (08:20)
[2021-03-27] MEDS: APIXABAN 2.5 MG TABLET PO SCH ×2 (08:20→20:29)
[2021-03-27] MEDS: BUSPIRONE HCL 5 MG TABLET PO SCH ×2 (08:20→20:29)
[2021-03-27] MEDS: FAMOTIDINE 20MG VIAL IV SCH (08:21)
[2021-03-27] MEDS: DEXAMETHASONE 4 MG TAB PO SCH (08:21)
[2021-03-27] MEDS: BALSAM PERU/CASTOR OIL 60 GM TUBE TP SCH ×2 (09:03→20:30)
[2021-03-27] MEDS: CEFTAZIDIME PENTAHYDRATE 1 GM/VIAL IVP SCH (13:36)
[2021-03-27] MEDS: ACETAMINOPHEN 650 MG/20.3 ML UDCUP PEG PRN (13:39)
[2021-03-27] MEDS ORDERED: FENTANYL CITRATE PF 50 MCG/1 ML 2ML VIAL IVP ONE (17:30)
[2021-03-27] MEDS: HEPARIN 5,000 UNIT VIAL IV SCH (18:50)
[2021-03-27] MEDS: QUETIAPINE FUMARATE 25 MG TAB PO SCH (20:28)
[2021-03-27] MEDS: FENOFIBRATE NANOCRYSTALLIZED 145 MG TAB PEG SCH (20:29)
[2021-03-28] VITALS (24 sets, daily range): BP systolic 99–161; BP diastolic 59–108
[2021-03-28 04:22] LABS: BASOPHILS % (AUTO) 0.6 % (0.0-5.0); EOSINOPHILS % (AUTO) 5.6 % (0.0-8.0); HEMATOCRIT 32.5 % (36-48); MEAN CORPUSCULAR HEMOGLOBIN 26.7 pg (27.0-33.0); MEAN CORPUSCULAR HGB CONC 30.2 g/dL (32.0-36.0); MEAN CORPUSCULAR VOLUME 88.6 fL (79-99); MONOCYTES % (AUTO) 9.4 % (3.0-13.0); NEUTROPHILS % (AUTO) 53.8 % (40.0-77.0); PLATELET COUNT (AUTO) 277 K/uL (130-400); RED BLOOD CELL COUNT(AUTO) 3.67 MIL/uL (4.00-5.50); WHITE BLOOD COUNT (AUTO) 12.8 K/uL (4.8-10.8)
[2021-03-28 04:46] LABS: ALBUMIN 2.9 g/dL (3.5-5.0); BILIRUBIN,TOTAL 0.3 mg/dL (0.2-1.0); CREATININE 0.7 mg/dL (0.5-1.5); MAGNESIUM 1.9 mg/dL (1.80-2.40); PHOSPHORUS 2.7 mg/dL (2.5-4.9); POTASSIUM 3.8 mmol/L (3.5-5.1); TOTAL PROTEIN, SERUM 6.5 g/dL (6.0-8.3)
[2021-03-28] MEDS: INSULIN HUMULIN R 100 UNIT/ML 3ML SQ SCH ×3 (05:23→12:00)
[2021-03-28] MEDS: QUETIAPINE FUMARATE 25 MG TAB PO SCH ×2 (08:37→21:26)
[2021-03-28] MEDS: SENNOSIDES 8.6 MG TABLET PO SCH (08:37)
[2021-03-28] MEDS: APIXABAN 2.5 MG TABLET PO SCH ×2 (08:37→21:26)
[2021-03-28] MEDS: METOPROLOL TARTRATE 50 MG TAB PO SCH ×2 (08:37→21:26)
[2021-03-28] MEDS: BUSPIRONE HCL 5 MG TABLET PO SCH ×2 (08:38→21:37)
[2021-03-28] MEDS: GABAPENTIN 300 MG CAPSULE PO SCH ×3 (08:38→21:26)
[2021-03-28] MEDS: METOCLOPRAMIDE 10MG/10ML UDCUP PO SCH ×3 (08:39→21:26)
[2021-03-28] MEDS: DEXAMETHASONE 4 MG TAB PO SCH (08:41)
[2021-03-28] MEDS: FAMOTIDINE 20MG VIAL IV SCH (08:42)
[2021-03-28] MEDS: TRAMADOL /APAP 37.5MG/325MG TAB PO PRN ×2 (09:04→21:37)
[2021-03-28] MEDS: BALSAM PERU/CASTOR OIL 60 GM TUBE TP SCH ×2 (11:16→21:27)
[2021-03-28] MEDS: CEFTAZIDIME PENTAHYDRATE 1 GM/VIAL IVP SCH (13:10)
[2021-03-28] MEDS: FENTANYL CITRATE PF 50 MCG/1 ML 2ML VIAL IVP PRN (13:11)
[2021-03-28] MEDS ORDERED: POTASSIUM CHLORIDE 10% ELIXIR 20 MEQ/15 ML UDCUP PO ONE (18:00)
[2021-03-28] MEDS: ACETYLCYSTEINE 20% 200MG/ML 4ML VIAL IH SCH (19:26)
[2021-03-28] MEDS: IPRATROPIUM 0.5 MG/2.5 ML INH IH SCH (19:26)
[2021-03-28] MEDS: FENOFIBRATE NANOCRYSTALLIZED 145 MG TAB PEG SCH (21:26)
[2021-03-29] VITALS (11 sets, daily range): BP systolic 117–156; BP diastolic 64–114
[2021-03-29] MEDS: ACETYLCYSTEINE 20% 200MG/ML 4ML VIAL IH SCH ×6 (00:03→21:16)
[2021-03-29] MEDS: IPRATROPIUM 0.5 MG/2.5 ML INH IH SCH ×7 (00:03→21:16)
[2021-03-29 05:44] LABS: HEMATOCRIT 32.2 % (36-48); MEAN CORPUSCULAR HEMOGLOBIN 26.9 pg (27.0-33.0); MEAN CORPUSCULAR HGB CONC 30.1 g/dL (32.0-36.0); MEAN CORPUSCULAR VOLUME 89.2 fL (79-99); RED BLOOD CELL COUNT(AUTO) 3.61 MIL/uL (4.00-5.50); RED CELL DISTRIBUTION WIDTH 19.4 % (11.0-15.5); WHITE BLOOD COUNT (AUTO) 14.4 K/uL (4.8-10.8)
[2021-03-29 05:54] LABS: CREATININE 0.7 mg/dL (0.5-1.5); POTASSIUM 3.6 mmol/L (3.5-5.1)
[2021-03-29] MEDS: FAMOTIDINE 20MG VIAL IV SCH (08:27)
[2021-03-29] MEDS: DEXAMETHASONE 4 MG TAB PO SCH (08:28)
[2021-03-29] MEDS: BUSPIRONE HCL 5 MG TABLET PO SCH ×2 (08:28→20:57)
[2021-03-29] MEDS: APIXABAN 2.5 MG TABLET PO SCH ×2 (08:28→20:58)
[2021-03-29] MEDS: METOPROLOL TARTRATE 50 MG TAB PO SCH ×2 (08:28→20:57)
[2021-03-29] MEDS: GABAPENTIN 300 MG CAPSULE PO SCH ×3 (08:29→20:58)
[2021-03-29] MEDS: SENNOSIDES 8.6 MG TABLET PO SCH (09:00)
[2021-03-29] MEDS: QUETIAPINE FUMARATE 25 MG TAB PO SCH ×2 (09:20→21:02)
[2021-03-29] MEDS: METOCLOPRAMIDE 10MG/10ML UDCUP PO SCH ×3 (10:37→21:00)
[2021-03-29] MEDS: FENTANYL CITRATE PF 50 MCG/1 ML 2ML VIAL IVP PRN (12:15)
[2021-03-29] MEDS: BALSAM PERU/CASTOR OIL 60 GM TUBE TP SCH ×2 (12:27→21:03)
[2021-03-29] MEDS: CEFTAZIDIME PENTAHYDRATE 1 GM/VIAL IVP SCH (14:11)
[2021-03-29] MEDS ORDERED: POTASSIUM CHLORIDE 10% ELIXIR 20 MEQ/15 ML UDCUP PO ONE (15:30)
[2021-03-29] MEDS ORDERED: POTASSIUM CHLORIDE 10% ELIXIR 20 MEQ/15 ML UDCUP ONE (15:30)
[2021-03-29] MEDS: ZOLPIDEM TARTRATE 5 MG TAB PO SCH (20:57)
[2021-03-29] MEDS: TRAMADOL /APAP 37.5MG/325MG TAB PO PRN (20:58)
[2021-03-29] MEDS: FENOFIBRATE NANOCRYSTALLIZED 145 MG TAB PEG SCH (20:58)
[2021-03-30] VITALS (9 sets, daily range): BP systolic 100–135; BP diastolic 63–91
[2021-03-30] MEDS: IPRATROPIUM 0.5 MG/2.5 ML INH IH SCH ×6 (01:45→22:04)
[2021-03-30] MEDS: ACETYLCYSTEINE 20% 200MG/ML 4ML VIAL IH SCH ×6 (01:45→22:04)
[2021-03-30 06:38] LABS: HEMATOCRIT 32.1 % (36-48); MEAN CORPUSCULAR HGB CONC 29.9 g/dL (32.0-36.0); MEAN CORPUSCULAR VOLUME 90.4 fL (79-99); PLATELET COUNT (AUTO) 313 K/uL (130-400); RED BLOOD CELL COUNT(AUTO) 3.55 MIL/uL (4.00-5.50); RED CELL DISTRIBUTION WIDTH 19.9 % (11.0-15.5); WHITE BLOOD COUNT (AUTO) 13.3 K/uL (4.8-10.8)
[2021-03-30 07:01] LABS: CREATININE 0.6 mg/dL (0.5-1.5); MAGNESIUM 1.8 mg/dL (1.80-2.40); PHOSPHORUS 3.2 mg/dL (2.5-4.9); POTASSIUM 3.9 mmol/L (3.5-5.1)
[2021-03-30] MEDS: BUSPIRONE HCL 5 MG TABLET PO SCH ×2 (08:04→20:56)
[2021-03-30] MEDS: CITALOPRAM 20 MG TABLET PO SCH (08:05)
[2021-03-30] MEDS: QUETIAPINE FUMARATE 25 MG TAB PO SCH ×2 (08:05→20:56)
[2021-03-30] MEDS: SENNOSIDES 8.6 MG TABLET PO SCH (08:05)
[2021-03-30] MEDS: DEXAMETHASONE 4 MG TAB PO SCH (08:06)
[2021-03-30] MEDS: METOPROLOL TARTRATE 50 MG TAB PO SCH ×2 (08:07→20:57)
[2021-03-30] MEDS: APIXABAN 2.5 MG TABLET PO SCH ×2 (08:07→20:57)
[2021-03-30] MEDS: METOCLOPRAMIDE 10MG/10ML UDCUP PO SCH ×3 (08:08→21:00)
[2021-03-30] MEDS: BALSAM PERU/CASTOR OIL 60 GM TUBE TP SCH ×2 (08:08→21:05)
[2021-03-30] MEDS: GABAPENTIN 300 MG CAPSULE PO SCH ×3 (08:10→20:58)
[2021-03-30] MEDS: FENTANYL CITRATE PF 50 MCG/1 ML 2ML VIAL IVP PRN (10:28)
[2021-03-30] MEDS: CEFTAZIDIME PENTAHYDRATE 1 GM/VIAL IVP SCH (14:41)
[2021-03-30] MEDS: ZOLPIDEM TARTRATE 5 MG TAB PO SCH (20:56)
[2021-03-30] MEDS: FENOFIBRATE NANOCRYSTALLIZED 145 MG TAB PEG SCH (20:56)
[2021-03-31] MEDS: IPRATROPIUM 0.5 MG/2.5 ML INH IH SCH ×6 (02:22→20:59)
[2021-03-31] MEDS: ACETYLCYSTEINE 20% 200MG/ML 4ML VIAL IH SCH ×6 (02:22→20:59)
[2021-03-31 03:58] VITALS: BP 135/71
[2021-03-31 06:58] LABS: CREATININE 0.6 mg/dL (0.5-1.5); POTASSIUM 3.4 mmol/L (3.5-5.1)
[2021-03-31 07:00] VITALS: BP 135/85
[2021-03-31] MEDS: QUETIAPINE FUMARATE 25 MG TAB PO SCH ×2 (07:57→20:54)
[2021-03-31] MEDS: BUSPIRONE HCL 5 MG TABLET PO SCH ×2 (07:58→20:54)
[2021-03-31] MEDS: DEXAMETHASONE 4 MG TAB PO SCH (07:58)
[2021-03-31] MEDS: METOPROLOL TARTRATE 50 MG TAB PO SCH ×2 (07:59→20:54)
[2021-03-31] MEDS: APIXABAN 2.5 MG TABLET PO SCH ×2 (07:59→20:54)
[2021-03-31] MEDS: BALSAM PERU/CASTOR OIL 60 GM TUBE TP SCH ×2 (07:59→21:02)
[2021-03-31] MEDS: SENNOSIDES 8.6 MG TABLET PO SCH (07:59)
[2021-03-31] MEDS: CITALOPRAM 20 MG TABLET PO SCH (07:59)
[2021-03-31] MEDS: GABAPENTIN 300 MG CAPSULE PO SCH ×3 (08:03→20:54)
[2021-03-31] MEDS: METOCLOPRAMIDE 10MG/10ML UDCUP PO SCH ×3 (08:03→20:55)
[2021-03-31] MEDS ORDERED: DEXTROSE 5%-WATER 1,000 ML IV SCH (11:30)
[2021-03-31] MEDS ORDERED: POTASSIUM CHLORIDE 10% ELIXIR 20 MEQ/15 ML UDCUP PEG SCH (11:30)
[2021-03-31 11:46] VITALS: BP 127/93
[2021-03-31] MEDS: TRAMADOL /APAP 37.5MG/325MG TAB PO PRN (12:56)
[2021-03-31] MEDS: CEFTAZIDIME PENTAHYDRATE 1 GM/VIAL IVP SCH (12:56)
[2021-03-31 16:00] VITALS: BP 131/99
[2021-03-31 18:16] LABS: CREATININE 0.5 mg/dL (0.5-1.5)
[2021-03-31 19:32] VITALS: BP 119/72
[2021-03-31] MEDS: ZOLPIDEM TARTRATE 5 MG TAB PO SCH (20:55)
[2021-03-31] MEDS: FENOFIBRATE NANOCRYSTALLIZED 145 MG TAB PEG SCH (20:55)
[2021-03-31 23:38] VITALS: BP 118/59
[2021-04-01] MEDS: TRAMADOL /APAP 37.5MG/325MG TAB PO PRN ×2 (00:29→13:34)
[2021-04-01] MEDS: ACETYLCYSTEINE 20% 200MG/ML 4ML VIAL IH SCH ×6 (01:45→22:09)
[2021-04-01] MEDS: IPRATROPIUM 0.5 MG/2.5 ML INH IH SCH ×6 (01:45→22:09)
[2021-04-01 03:21] VITALS: BP 128/92
[2021-04-01 03:57] LABS: BASOPHILS % (AUTO) 0.8 % (0.0-5.0); EOSINOPHILS % (AUTO) 3.4 % (0.0-8.0); HEMATOCRIT 30.9 % (36-48); LYMPHOCYTES % (AUTO) 28.4 % (21.0-51.0); MEAN CORPUSCULAR HEMOGLOBIN 27.4 pg (27.0-33.0); MEAN CORPUSCULAR HGB CONC 30.1 g/dL (32.0-36.0); MEAN CORPUSCULAR VOLUME 90.9 fL (79-99); MONOCYTES % (AUTO) 8.6 % (3.0-13.0); NEUTROPHILS % (AUTO) 54.9 % (40.0-77.0); PLATELET COUNT (AUTO) 329 K/uL (130-400); RED CELL DISTRIBUTION WIDTH 19.9 % (11.0-15.5); WHITE BLOOD COUNT (AUTO) 10.6 K/uL (4.8-10.8)
[2021-04-01 04:13] LABS: CREATININE 0.5 mg/dL (0.5-1.5); POTASSIUM 3.3 mmol/L (3.5-5.1)
[2021-04-01] MEDS: METOPROLOL TARTRATE 50 MG TAB PO SCH ×2 (08:36→20:55)
[2021-04-01] MEDS: GABAPENTIN 300 MG CAPSULE PO SCH ×3 (08:36→20:54)
[2021-04-01] MEDS: BUSPIRONE HCL 5 MG TABLET PO SCH ×2 (08:36→20:55)
[2021-04-01] MEDS: CITALOPRAM 20 MG TABLET PO SCH (08:36)
[2021-04-01] MEDS: SENNOSIDES 8.6 MG TABLET PO SCH (08:36)
[2021-04-01] MEDS: DEXAMETHASONE 4 MG TAB PO SCH (08:37)
[2021-04-01] MEDS: QUETIAPINE FUMARATE 25 MG TAB PO SCH ×2 (08:37→20:55)
[2021-04-01] MEDS: APIXABAN 2.5 MG TABLET PO SCH ×2 (08:37→20:54)
[2021-04-01] MEDS: METOCLOPRAMIDE 10MG/10ML UDCUP PO SCH ×3 (08:40→20:54)
[2021-04-01] MEDS: BALSAM PERU/CASTOR OIL 60 GM TUBE TP SCH ×2 (08:41→20:57)
[2021-04-01 08:45] VITALS: BP 116/64
[2021-04-01 12:52] VITALS: BP 140/92
[2021-04-01] MEDS: CEFTAZIDIME PENTAHYDRATE 1 GM/VIAL IVP SCH (13:30)
[2021-04-01 16:54] VITALS: BP 146/85
[2021-04-01 20:00] VITALS: BP 137/78
[2021-04-01] MEDS: FENOFIBRATE NANOCRYSTALLIZED 145 MG TAB PEG SCH (20:54)
[2021-04-01] MEDS: ZOLPIDEM TARTRATE 5 MG TAB PO SCH (20:55)
[2021-04-02] VITALS: BP 134/91
[2021-04-02] MEDS: ACETYLCYSTEINE 20% 200MG/ML 4ML VIAL IH SCH ×6 (01:21→22:28)
[2021-04-02] MEDS: IPRATROPIUM 0.5 MG/2.5 ML INH IH SCH ×6 (01:21→22:28)
[2021-04-02] MEDS: ONDANSETRON 4MG INJ IVP PRN (03:42)
[2021-04-02 04:00] VITALS: BP 133/96
[2021-04-02 04:54] LABS: HEMATOCRIT 30.4 % (36-48); MEAN CORPUSCULAR HEMOGLOBIN 26.6 pg (27.0-33.0); MEAN CORPUSCULAR HGB CONC 29.6 g/dL (32.0-36.0); MEAN CORPUSCULAR VOLUME 89.9 fL (79-99); RED BLOOD CELL COUNT(AUTO) 3.38 MIL/uL (4.00-5.50); RED CELL DISTRIBUTION WIDTH 19.6 % (11.0-15.5); WHITE BLOOD COUNT (AUTO) 10.9 K/uL (4.8-10.8)
[2021-04-02 05:04] LABS: CREATININE 0.5 mg/dL (0.5-1.5); POTASSIUM 3.2 mmol/L (3.5-5.1)
[2021-04-02 07:44] VITALS: BP 130/77
[2021-04-02] MEDS: METOCLOPRAMIDE 10MG/10ML UDCUP PO SCH ×3 (08:06→20:57)
[2021-04-02] MEDS: APIXABAN 2.5 MG TABLET PO SCH ×2 (08:06→20:59)
[2021-04-02] MEDS: GABAPENTIN 300 MG CAPSULE PO SCH ×3 (08:06→20:58)
[2021-04-02] MEDS: BUSPIRONE HCL 5 MG TABLET PO SCH ×2 (08:06→20:59)
[2021-04-02] MEDS: QUETIAPINE FUMARATE 25 MG TAB PO SCH ×2 (08:07→20:59)
[2021-04-02] MEDS: SENNOSIDES 8.6 MG TABLET PO SCH (08:07)
[2021-04-02] MEDS: DEXAMETHASONE 4 MG TAB PO SCH (08:07)
[2021-04-02] MEDS: METOPROLOL TARTRATE 50 MG TAB PO SCH ×2 (08:19→20:58)
[2021-04-02] MEDS: BALSAM PERU/CASTOR OIL 60 GM TUBE TP SCH ×2 (08:20→21:22)
[2021-04-02] MEDS: CITALOPRAM 20 MG TABLET PO SCH (08:20)
[2021-04-02] MEDS: TRAMADOL /APAP 37.5MG/325MG TAB PO PRN ×2 (09:27→20:58)
[2021-04-02 12:00] VITALS: BP 126/86
[2021-04-02] MEDS: CEFTAZIDIME PENTAHYDRATE 1 GM/VIAL IVP SCH (13:11)
[2021-04-02] MEDS: POTASSIUM CHLORIDE 10% ELIXIR 20 MEQ/15 ML UDCUP PEG SCH ×2 (13:12→16:12)
[2021-04-02] MEDS: LANSOPRAZOLE 15 MG SOLU TAB PEG SCH (13:18)
[2021-04-02 16:00] VITALS: BP 141/91
[2021-04-02 20:00] VITALS: BP 129/98
[2021-04-02] MEDS ORDERED: POTASSIUM CHLORIDE 10% ELIXIR 20 MEQ/15 ML UDCUP PO ONE (20:00)
[2021-04-02] MEDS: FENOFIBRATE NANOCRYSTALLIZED 145 MG TAB PEG SCH (20:59)
[2021-04-02] MEDS: ZOLPIDEM TARTRATE 5 MG TAB PO SCH (21:01)
[2021-04-03] VITALS: BP 128/65
[2021-04-03] MEDS: ACETYLCYSTEINE 20% 200MG/ML 4ML VIAL IH SCH ×6 (03:06→22:01)
[2021-04-03] MEDS: IPRATROPIUM 0.5 MG/2.5 ML INH IH SCH ×6 (03:06→22:01)
[2021-04-03 04:00] VITALS: BP 125/78
[2021-04-03] MEDS: ACETAMINOPHEN 650 MG/20.3 ML UDCUP PEG PRN ×2 (04:42→18:00)
[2021-04-03 05:28] LABS: HEMATOCRIT 33.5 % (36-48); MEAN CORPUSCULAR HEMOGLOBIN 27.7 pg (27.0-33.0); MEAN CORPUSCULAR HGB CONC 29.6 g/dL (32.0-36.0); MEAN CORPUSCULAR VOLUME 93.8 fL (79-99); RED BLOOD CELL COUNT(AUTO) 3.57 MIL/uL (4.00-5.50); RED CELL DISTRIBUTION WIDTH 19.9 % (11.0-15.5); RETICULOCYTE % (AUTO) 3.07 % (0.42-2.23); WHITE BLOOD COUNT (AUTO) 11.8 K/uL (4.8-10.8)
[2021-04-03 05:50] LABS: ALANINE AMINOTRANSFERASE 31 U/L (12-78); ALBUMIN 3.1 g/dL (3.5-5.0); ASPARTATE AMINOTRANSFERASE 17 U/L (10-37); BILIRUBIN,TOTAL 0.3 mg/dL (0.2-1.0); CARBON DIOXIDE 29 mmol/L (21-32); CHLORIDE 107 mmol/L (101-111); CREATININE 0.6 mg/dL (0.5-1.5); GLOMERULAR FILTR. RATE CALC 117 mL/min (>60); GLUCOSE,RANDOM 88 mg/dL (70-105); PHOSPHORUS 3.6 mg/dL (2.5-4.9); POTASSIUM 3.5 mmol/L (3.5-5.1); SODIUM SERUM 143 mmol/L (136-145); TOTAL PROTEIN, SERUM 6.7 g/dL (6.0-8.3); UREA NITROGEN, BLOOD 21 mg/dL (7-18)
[2021-04-03 05:52] LABS: CRP QUANTITATIVE < 2.00 mg/L (0.00-9.0)
[2021-04-03 05:59] LABS: % IRON SATURATION 19.5 % (22-44)
[2021-04-03 07:27] LABS: THYROID STIMULATING HORMONE 3.13 uIU/mL (0.36-3.74)
[2021-04-03 08:00] VITALS: BP 138/81
[2021-04-03] MEDS ORDERED: TAMSULOSIN HCL 0.4 MG CAP.ER.24H PO SCH (09:00)
[2021-04-03] MEDS: ZINC SULFATE 220 CAPSULE PO SCH (09:48)
[2021-04-03] MEDS: QUETIAPINE FUMARATE 25 MG TAB PO SCH ×2 (09:49→20:01)
[2021-04-03] MEDS: METOPROLOL TARTRATE 50 MG TAB PO SCH ×2 (09:49→20:01)
[2021-04-03] MEDS: CITALOPRAM 20 MG TABLET PO SCH (09:49)
[2021-04-03] MEDS: SENNOSIDES 8.6 MG TABLET PO SCH (09:49)
[2021-04-03] MEDS: METOCLOPRAMIDE 10MG/10ML UDCUP PO SCH ×3 (09:50→20:01)
[2021-04-03] MEDS: GABAPENTIN 300 MG CAPSULE PO SCH ×3 (09:50→20:01)
[2021-04-03] MEDS: DEXAMETHASONE 4 MG TAB PO SCH (09:50)
[2021-04-03] MEDS: LANSOPRAZOLE 15 MG SOLU TAB PEG SCH (09:50)
[2021-04-03] MEDS: APIXABAN 2.5 MG TABLET PO SCH ×2 (09:50→20:01)
[2021-04-03] MEDS: BUSPIRONE HCL 5 MG TABLET PO SCH ×2 (09:51→20:01)
[2021-04-03] MEDS: BALSAM PERU/CASTOR OIL 60 GM TUBE TP SCH ×2 (09:51→20:01)
[2021-04-03] MEDS: ASCORBIC ACID 500 MG TAB PO SCH (09:51)
[2021-04-03] MEDS: MAGNESIUM 2GM PREMIX 50ML 50 ML IV PRN (09:51)
[2021-04-03] MEDS: TRAMADOL /APAP 37.5MG/325MG TAB PO PRN ×2 (10:04→20:01)
[2021-04-03 11:21] VITALS: BP 123/85
[2021-04-03] MEDS: CEFTAZIDIME PENTAHYDRATE 1 GM/VIAL IVP SCH (13:33)
[2021-04-03 16:00] VITALS: BP 137/92
[2021-04-03 20:00] VITALS: BP 128/74
[2021-04-03] MEDS: FENOFIBRATE NANOCRYSTALLIZED 145 MG TAB PEG SCH (20:01)
[2021-04-03] MEDS: ZOLPIDEM TARTRATE 5 MG TAB PO SCH (20:01)
[2021-04-04] VITALS: BP 136/79
[2021-04-04] MEDS: IPRATROPIUM 0.5 MG/2.5 ML INH IH SCH ×5 (03:07→18:34)
[2021-04-04] MEDS: ACETYLCYSTEINE 20% 200MG/ML 4ML VIAL IH SCH ×5 (03:07→18:33)
[2021-04-04 04:00] VITALS: BP 152/100
[2021-04-04] MEDS: TRAMADOL /APAP 37.5MG/325MG TAB PO PRN ×2 (05:00→20:00)
[2021-04-04 08:00] VITALS: BP 148/87
[2021-04-04] MEDS: GABAPENTIN 300 MG CAPSULE PO SCH ×2 (09:30→19:59)
[2021-04-04] MEDS: ZINC SULFATE 220 CAPSULE PO SCH (09:30)
[2021-04-04] MEDS: ASCORBIC ACID 500 MG TAB PO SCH (09:30)
[2021-04-04] MEDS: SENNOSIDES 8.6 MG TABLET PO SCH (09:30)
[2021-04-04] MEDS: LANSOPRAZOLE 15 MG SOLU TAB PEG SCH (09:30)
[2021-04-04] MEDS: METOPROLOL TARTRATE 50 MG TAB PO SCH ×2 (09:30→19:59)
[2021-04-04] MEDS: DEXAMETHASONE 4 MG TAB PO SCH (09:31)
[2021-04-04] MEDS: METOCLOPRAMIDE 10MG/10ML UDCUP PO SCH (09:31)
[2021-04-04] MEDS: BUSPIRONE HCL 5 MG TABLET PO SCH ×2 (09:31→19:59)
[2021-04-04] MEDS: QUETIAPINE FUMARATE 25 MG TAB PO SCH ×2 (09:31→19:58)
[2021-04-04] MEDS: CITALOPRAM 20 MG TABLET PO SCH (09:32)
[2021-04-04] MEDS: BALSAM PERU/CASTOR OIL 60 GM TUBE TP SCH (09:32)
[2021-04-04] MEDS: APIXABAN 2.5 MG TABLET PO SCH ×2 (09:32→19:59)
[2021-04-04] MEDS ORDERED: ERGOCALCIFEROL (VITAMIN D2) 50,000 UNIT CAPSULE PO SCH (10:00)
[2021-04-04 10:31] LABS: BASOPHILS % (AUTO) 0.8 % (0.0-5.0); LYMPHOCYTES % (AUTO) 20.8 % (21.0-51.0); MEAN CORPUSCULAR HEMOGLOBIN 28.2 pg (27.0-33.0); MEAN CORPUSCULAR VOLUME 91.2 fL (79-99); MONOCYTES % (AUTO) 7.6 % (3.0-13.0); NEUTROPHILS % (AUTO) 65.3 % (40.0-77.0); PLATELET COUNT (AUTO) 335 K/uL (130-400); RED CELL DISTRIBUTION WIDTH 19.7 % (11.0-15.5)
[2021-04-04 10:44] LABS: CREATININE 0.5 mg/dL (0.5-1.5); PHOSPHORUS 3.3 mg/dL (2.5-4.9); POTASSIUM 3.2 mmol/L (3.5-5.1)
[2021-04-04 10:46] LABS: BILIRUBIN,TOTAL 0.2 mg/dL (0.2-1.0); MAGNESIUM 1.7 mg/dL (1.80-2.40); TOTAL PROTEIN, SERUM 6.5 g/dL (6.0-8.3)
[2021-04-04] MEDS: ERGOCALCIFEROL (VITAMIN D2) 50,000 UNIT CAPSULE PO SCH (10:55)
[2021-04-04] MEDS: ACETAMINOPHEN 650 MG/20.3 ML UDCUP PEG PRN (11:05)
[2021-04-04] MEDS ORDERED: POTASSIUM CHLORIDE 10% ELIXIR 20 MEQ/15 ML UDCUP ONE (11:11)
[2021-04-04] MEDS: MAGNESIUM 2GM PREMIX 50ML 50 ML IV PRN (11:13)
[2021-04-04] MEDS ORDERED: POTASSIUM CHLORIDE 10% ELIXIR 20 MEQ/15 ML UDCUP PO PRN (11:30)
[2021-04-04 11:40] LABS: ERYTHROCYTE SEDIMENTATION RATE 23 MM/HR (0-20)
[2021-04-04 12:00] VITALS: BP 139/89
[2021-04-04] MEDS: ONDANSETRON 4MG INJ IVP PRN (12:44)
[2021-04-04] MEDS: CEFTAZIDIME PENTAHYDRATE 1 GM/VIAL IVP SCH (12:44)
[2021-04-04 16:24] VITALS: BP 140/93
[2021-04-04] MEDS: NIFEDIPINE 10 MG CAP PO SCH (19:58)
[2021-04-04] MEDS: FENOFIBRATE NANOCRYSTALLIZED 145 MG TAB PEG SCH (19:59)
[2021-04-04] MEDS: TAMSULOSIN HCL 0.4 MG CAP.ER.24H PO SCH (19:59)
[2021-04-04 20:00] VITALS: BP 144/101
[2021-04-04] MEDS ORDERED: MAGNESIUM OXIDE 400 MG TABLET PO SCH (21:00)
[2021-04-04] MEDS: TRAZODONE HCL 50 MG TAB PO SCH (21:00)
[2021-04-04] MEDS: CALCIUM CARBONATE 500 MG/5 ML PEG SCH (21:22)
[2021-04-04] MEDS: FAMOTIDINE 20MG TAB PO SCH (21:22)
[2021-04-04] MEDS: MAGNESIUM OXIDE 400 MG TABLET PO SCH (21:22)
[2021-04-05] VITALS: BP 120/76
[2021-04-05 04:00] VITALS: BP 148/97
[2021-04-05] MEDS: ACETAMINOPHEN 650 MG/20.3 ML UDCUP PEG PRN (05:27)
[2021-04-05 05:39] LABS: HEMATOCRIT 30.5 % (36-48); MEAN CORPUSCULAR HEMOGLOBIN 27.2 pg (27.0-33.0); MEAN CORPUSCULAR HGB CONC 29.8 g/dL (32.0-36.0); PLATELET COUNT (AUTO) 318 K/uL (130-400); RED BLOOD CELL COUNT(AUTO) 3.35 MIL/uL (4.00-5.50); RED CELL DISTRIBUTION WIDTH 19.4 % (11.0-15.5); WHITE BLOOD COUNT (AUTO) 12.1 K/uL (4.8-10.8)
[2021-04-05 06:00] LABS: BAND NEUTROPHILS % (MANUAL) 1 % (0-2); BASOPHILS % (MANUAL) 3 % (0-2); EOSINOPHILS % (MANUAL) 2 % (1-6); LYMPHOCYTES % (MANUAL) 37 % (22-44); MAN.DIFF COMMENT-IMPRESSION MANUAL DIFFERENTIAL; MONOCYTES % (MANUAL) 7 % (2-9); SEGMENTED NEUTROPHILS % 50 % (40-70)
[2021-04-05 06:03] LABS: ALBUMIN 2.9 g/dL (3.5-5.0); BILIRUBIN,TOTAL 0.3 mg/dL (0.2-1.0); CREATININE 0.5 mg/dL (0.5-1.5); MAGNESIUM 1.6 mg/dL (1.80-2.40); PHOSPHORUS 3.4 mg/dL (2.5-4.9); POTASSIUM 3.3 mmol/L (3.5-5.1); TOTAL PROTEIN, SERUM 6.3 g/dL (6.0-8.3)
[2021-04-05] MEDS: MAGNESIUM 2GM PREMIX 50ML 50 ML IV PRN (07:38)
[2021-04-05 08:00] VITALS: BP 141/96
[2021-04-05] MEDS: IPRATROPIUM 0.5 MG/2.5 ML INH IH PRN ×2 (10:31→18:46)
[2021-04-05] MEDS: NIFEDIPINE 10 MG CAP PO SCH ×3 (11:04→20:44)
[2021-04-05] MEDS: QUETIAPINE FUMARATE 25 MG TAB PO SCH ×2 (11:05→20:44)
[2021-04-05] MEDS: FAMOTIDINE 20MG TAB PO SCH ×2 (11:05→20:45)
[2021-04-05] MEDS: CITALOPRAM 20 MG TABLET PO SCH (11:06)
[2021-04-05] MEDS: MAGNESIUM OXIDE 400 MG TABLET PO SCH ×2 (11:06→20:44)
[2021-04-05] MEDS: DEXAMETHASONE 4 MG TAB PO SCH (11:07)
[2021-04-05 11:08] VITALS: BP 148/59
[2021-04-05] MEDS: ZINC SULFATE 220 CAPSULE PO SCH (11:08)
[2021-04-05] MEDS: CYANOCOBALAMIN (VITAMIN B-12) 1,000 MCG TABLET PO SCH (11:08)
[2021-04-05] MEDS: METOPROLOL TARTRATE 50 MG TAB PO SCH ×2 (11:09→20:45)
[2021-04-05] MEDS: SENNOSIDES 8.6 MG TABLET PO SCH (11:09)
[2021-04-05] MEDS: GABAPENTIN 300 MG CAPSULE PO SCH ×3 (11:10→20:45)
[2021-04-05] MEDS: BUSPIRONE HCL 5 MG TABLET PO SCH ×2 (11:10→20:44)
[2021-04-05] MEDS: TRAMADOL /APAP 37.5MG/325MG TAB PO PRN ×2 (11:11→20:46)
[2021-04-05] MEDS: CALCIUM CARBONATE 500 MG/5 ML PEG SCH (11:21)
[2021-04-05] MEDS: ASCORBIC ACID 500 MG TAB PO SCH (11:22)
[2021-04-05] MEDS: CEFTAZIDIME PENTAHYDRATE 1 GM/VIAL IVP SCH (13:15)
[2021-04-05] MEDS: METOCLOPRAMIDE 10MG/10ML UDCUP PO SCH (15:34)
[2021-04-05 15:58] VITALS: BP 136/93
[2021-04-05] MEDS: ALBUTEROL 0.042% 1.25MG/3ML IH PRN (18:46)
[2021-04-05 20:34] VITALS: BP 152/86
[2021-04-05] MEDS: TRAZODONE HCL 50 MG TAB PO SCH (20:44)
[2021-04-05] MEDS: TAMSULOSIN HCL 0.4 MG CAP.ER.24H PO SCH (20:44)
[2021-04-05] MEDS: FENOFIBRATE NANOCRYSTALLIZED 145 MG TAB PEG SCH (20:45)
[2021-04-06] MEDS: IPRATROPIUM 0.5 MG/2.5 ML INH IH PRN ×4 (00:48→18:53)
[2021-04-06] MEDS ORDERED: ONDANSETRON 4MG INJ ONE (01:18)
[2021-04-06] MEDS: ONDANSETRON 4MG INJ IVP PRN ×2 (01:40→10:40)
[2021-04-06 04:01] VITALS: BP 146/76
[2021-04-06] MEDS: ALBUTEROL 0.042% 1.25MG/3ML IH PRN ×3 (06:15→18:53)
[2021-04-06] MEDS: ACETAMINOPHEN 650 MG/20.3 ML UDCUP PEG PRN ×2 (06:56→17:09)
[2021-04-06 08:00] VITALS: BP 135/96
[2021-04-06] MEDS: FAMOTIDINE 20MG TAB PO SCH ×2 (10:25→21:02)
[2021-04-06] MEDS: METOPROLOL TARTRATE 50 MG TAB PO SCH ×2 (10:25→21:01)
[2021-04-06] MEDS: QUETIAPINE FUMARATE 25 MG TAB PO SCH ×2 (10:25→21:02)
[2021-04-06] MEDS: BUSPIRONE HCL 5 MG TABLET PO SCH ×2 (10:25→21:01)
[2021-04-06] MEDS: CITALOPRAM 20 MG TABLET PO SCH (10:26)
[2021-04-06] MEDS: CYANOCOBALAMIN (VITAMIN B-12) 1,000 MCG TABLET PO SCH (10:26)
[2021-04-06] MEDS: CALCIUM CARBONATE 500 MG/5 ML PEG SCH (10:26)
[2021-04-06] MEDS: ZINC SULFATE 220 CAPSULE PO SCH (10:26)
[2021-04-06] MEDS: MAGNESIUM OXIDE 400 MG TABLET PO SCH ×2 (10:26→21:00)
[2021-04-06] MEDS: NIFEDIPINE 10 MG CAP PO SCH ×3 (10:26→21:00)
[2021-04-06] MEDS: DEXAMETHASONE 4 MG TAB PO SCH (10:26)
[2021-04-06] MEDS: ASCORBIC ACID 500 MG TAB PO SCH (10:27)
[2021-04-06] MEDS: SENNOSIDES 8.6 MG TABLET PO SCH (10:27)
[2021-04-06] MEDS: METOCLOPRAMIDE 10MG/10ML UDCUP PO SCH ×2 (10:27→16:53)
[2021-04-06] MEDS: GABAPENTIN 300 MG CAPSULE PO SCH ×3 (10:29→21:01)
[2021-04-06] MEDS: TRAMADOL /APAP 37.5MG/325MG TAB PO PRN ×2 (10:40→21:02)
[2021-04-06 12:00] VITALS: BP 135/91
[2021-04-06] MEDS: CEFTAZIDIME PENTAHYDRATE 1 GM/VIAL IVP SCH (13:46)
[2021-04-06 16:00] VITALS: BP 124/71
[2021-04-06 20:12] VITALS: BP 126/84
[2021-04-06] MEDS: FENOFIBRATE NANOCRYSTALLIZED 145 MG TAB PEG SCH (21:00)
[2021-04-06] MEDS: TRAZODONE HCL 50 MG TAB PO SCH (21:01)
[2021-04-06] MEDS: TAMSULOSIN HCL 0.4 MG CAP.ER.24H PO SCH (21:01)
[2021-04-07] VITALS (7 sets, daily range): BP systolic 108–144; BP diastolic 67–94
[2021-04-07] MEDS: IPRATROPIUM 0.5 MG/2.5 ML INH IH PRN (00:10)
[2021-04-07] MEDS: ALBUTEROL 0.042% 1.25MG/3ML IH PRN (00:10)
[2021-04-07 09:03] LABS: HEMATOCRIT 32.3 % (36-48); MEAN CORPUSCULAR HEMOGLOBIN 27.9 pg (27.0-33.0); MEAN CORPUSCULAR HGB CONC 30.7 g/dL (32.0-36.0); PLATELET COUNT (AUTO) 334 K/uL (130-400); RED BLOOD CELL COUNT(AUTO) 3.55 MIL/uL (4.00-5.50); RED CELL DISTRIBUTION WIDTH 18.4 % (11.0-15.5); WHITE BLOOD COUNT (AUTO) 13.9 K/uL (4.8-10.8)
[2021-04-07 09:12] LABS: CREATININE 0.7 mg/dL (0.5-1.5)
[2021-04-07] MEDS: QUETIAPINE FUMARATE 25 MG TAB PO SCH ×2 (09:18→21:49)
[2021-04-07] MEDS: BUSPIRONE HCL 5 MG TABLET PO SCH ×2 (09:18→21:48)
[2021-04-07] MEDS: CALCIUM CARBONATE 500 MG/5 ML PEG SCH (09:18)
[2021-04-07] MEDS: NIFEDIPINE 10 MG CAP PO SCH ×3 (09:19→21:49)
[2021-04-07] MEDS: MAGNESIUM OXIDE 400 MG TABLET PO SCH ×2 (09:19→21:49)
[2021-04-07] MEDS: CITALOPRAM 20 MG TABLET PO SCH (09:19)
[2021-04-07] MEDS: DEXAMETHASONE 4 MG TAB PO SCH (09:19)
[2021-04-07] MEDS: SENNOSIDES 8.6 MG TABLET PO SCH (09:19)
[2021-04-07] MEDS: ASCORBIC ACID 500 MG TAB PO SCH (09:20)
[2021-04-07] MEDS: CYANOCOBALAMIN (VITAMIN B-12) 1,000 MCG TABLET PO SCH (09:20)
[2021-04-07] MEDS: METOPROLOL TARTRATE 50 MG TAB PO SCH ×2 (09:20→21:48)
[2021-04-07] MEDS: ZINC SULFATE 220 CAPSULE PO SCH (09:20)
[2021-04-07] MEDS: ACETAMINOPHEN 650 MG/20.3 ML UDCUP PEG PRN (09:22)
[2021-04-07] MEDS: GABAPENTIN 300 MG CAPSULE PO SCH ×3 (09:23→21:49)
[2021-04-07] MEDS: FAMOTIDINE 20MG TAB PO SCH ×2 (09:24→21:49)
[2021-04-07 09:51] LABS: LYMPHOCYTES % (MANUAL) 14 % (22-44); MAN.DIFF COMMENT-IMPRESSION MANUAL DIFFERENTIAL; MONOCYTES % (MANUAL) 7 % (2-9); PLATELET MORPHOLOGY COMMENT ADEQUATE; SEGMENTED NEUTROPHILS % 79 % (40-70)
[2021-04-07] MEDS: MAGNESIUM 2GM PREMIX 50ML 50 ML IV PRN (10:42)
[2021-04-07] MEDS: TRAMADOL /APAP 37.5MG/325MG TAB PO PRN ×2 (12:48→21:58)
[2021-04-07] MEDS: KCL 20 MEQ ERTAB PO PRN ×3 (13:02→21:50)
[2021-04-07] MEDS: METOCLOPRAMIDE 10MG/10ML UDCUP PO SCH (16:21)
[2021-04-07] MEDS: TRAZODONE HCL 50 MG TAB PO SCH (21:48)
[2021-04-07] MEDS: FENOFIBRATE NANOCRYSTALLIZED 145 MG TAB PEG SCH (21:48)
[2021-04-07] MEDS: TAMSULOSIN HCL 0.4 MG CAP.ER.24H PO SCH (21:48)
[2021-04-08] MEDS: ACETAMINOPHEN 650 MG/20.3 ML UDCUP PEG PRN (03:28)
[2021-04-08 04:32] VITALS: BP 119/85
[2021-04-08 05:25] LABS: BASOPHILS % (AUTO) 0.3 % (0.0-5.0); EOSINOPHILS % (AUTO) 2.3 % (0.0-8.0); HEMATOCRIT 29.3 % (36-48); LYMPHOCYTES % (AUTO) 14.6 % (21.0-51.0); MEAN CORPUSCULAR HEMOGLOBIN 27.2 pg (27.0-33.0); MEAN CORPUSCULAR VOLUME 90.4 fL (79-99); MONOCYTES % (AUTO) 8.6 % (3.0-13.0); NEUTROPHILS % (AUTO) 69.5 % (40.0-77.0); PLATELET COUNT (AUTO) 309 K/uL (130-400); RED BLOOD CELL COUNT(AUTO) 3.24 MIL/uL (4.00-5.50); RED CELL DISTRIBUTION WIDTH 18.6 % (11.0-15.5); WHITE BLOOD COUNT (AUTO) 9.8 K/uL (4.8-10.8)
[2021-04-08 05:33] LABS: ALBUMIN 2.7 g/dL (3.5-5.0)
[2021-04-08] MEDS: METOCLOPRAMIDE 10MG/10ML UDCUP PO SCH ×2 (07:02→15:14)
[2021-04-08 07:45] VITALS: BP 123/76
[2021-04-08] MEDS: CALCIUM CARBONATE 500 MG/5 ML PEG SCH (08:55)
[2021-04-08] MEDS: BUSPIRONE HCL 5 MG TABLET PO SCH ×2 (08:55→20:53)
[2021-04-08] MEDS: NIFEDIPINE 10 MG CAP PO SCH ×3 (08:55→20:53)
[2021-04-08] MEDS: ZINC SULFATE 220 CAPSULE PO SCH (08:55)
[2021-04-08] MEDS: ALBUTEROL 0.042% 1.25MG/3ML IH PRN (08:55)
[2021-04-08] MEDS: FAMOTIDINE 20MG TAB PO SCH ×2 (08:55→20:53)
[2021-04-08] MEDS: GABAPENTIN 300 MG CAPSULE PO SCH ×3 (08:55→21:17)
[2021-04-08] MEDS: METOPROLOL TARTRATE 50 MG TAB PO SCH ×2 (08:56→20:53)
[2021-04-08] MEDS: ASCORBIC ACID 500 MG TAB PO SCH (08:56)
[2021-04-08] MEDS: CYANOCOBALAMIN (VITAMIN B-12) 1,000 MCG TABLET PO SCH (08:56)
[2021-04-08] MEDS: MAGNESIUM OXIDE 400 MG TABLET PO SCH ×2 (08:56→20:53)
[2021-04-08] MEDS: QUETIAPINE FUMARATE 25 MG TAB PO SCH ×2 (08:56→20:53)
[2021-04-08] MEDS: BALSAM PERU/CASTOR OIL 60 GM TUBE TP SCH ×2 (08:56→20:54)
[2021-04-08] MEDS: CITALOPRAM 20 MG TABLET PO SCH (08:56)
[2021-04-08] MEDS: TRAMADOL /APAP 37.5MG/325MG TAB PO PRN ×2 (09:04→20:54)
[2021-04-08] MEDS: MAGNESIUM 2GM PREMIX 50ML 50 ML IV PRN (10:29)
[2021-04-08 11:15] VITALS: BP 107/69
[2021-04-08] MEDS: ONDANSETRON 4MG INJ IVP PRN (11:25)
[2021-04-08] MEDS: ENOXAPARIN SODIUM 40 MG/0.4 ML SYRINGE SQ SCH (15:15)
[2021-04-08 15:40] VITALS: BP 132/68
[2021-04-08 20:20] VITALS: BP 119/69
[2021-04-08] MEDS: TAMSULOSIN HCL 0.4 MG CAP.ER.24H PO SCH (20:53)
[2021-04-08] MEDS: TRAZODONE HCL 50 MG TAB PO SCH (20:53)
[2021-04-08] MEDS: FENOFIBRATE NANOCRYSTALLIZED 145 MG TAB PEG SCH (20:53)
[2021-04-08] MEDS ORDERED: GENTAMICIN 15 GM CREAM TP ONE (21:00)
[2021-04-08 23:49] VITALS: BP 119/75
[2021-04-09 04:20] VITALS: BP 118/66
[2021-04-09] MEDS: ACETAMINOPHEN 650 MG/20.3 ML UDCUP PEG PRN (05:44)
[2021-04-09] MEDS: ALBUTEROL 0.042% 1.25MG/3ML IH PRN ×4 (06:07→23:38)
[2021-04-09] MEDS: METOCLOPRAMIDE 10MG/10ML UDCUP PO SCH (06:35)
[2021-04-09 07:51] VITALS: BP 115/69
[2021-04-09 08:07] LABS: BASOPHILS % (AUTO) 0.6 % (0.0-5.0); EOSINOPHILS % (AUTO) 5.8 % (0.0-8.0); HEMATOCRIT 30.1 % (36-48); LYMPHOCYTES % (AUTO) 18.8 % (21.0-51.0); MEAN CORPUSCULAR HEMOGLOBIN 27.7 pg (27.0-33.0); MEAN CORPUSCULAR HGB CONC 30.2 g/dL (32.0-36.0); MEAN CORPUSCULAR VOLUME 91.5 fL (79-99); MONOCYTES % (AUTO) 7.9 % (3.0-13.0); NEUTROPHILS % (AUTO) 61.8 % (40.0-77.0); PLATELET COUNT (AUTO) 284 K/uL (130-400); RED BLOOD CELL COUNT(AUTO) 3.29 MIL/uL (4.00-5.50); RED CELL DISTRIBUTION WIDTH 18.6 % (11.0-15.5); WHITE BLOOD COUNT (AUTO) 8.5 K/uL (4.8-10.8)
[2021-04-09 08:27] LABS: % IRON SATURATION 6.3 % (22-44)
[2021-04-09] MEDS: GABAPENTIN 300 MG CAPSULE PO SCH ×3 (08:44→20:41)
[2021-04-09] MEDS: MAGNESIUM OXIDE 400 MG TABLET PO SCH ×2 (08:44→20:42)
[2021-04-09] MEDS: ASCORBIC ACID 500 MG TAB PO SCH (08:44)
[2021-04-09] MEDS: NIFEDIPINE ER 30 MG TAB PO SCH (08:44)
[2021-04-09] MEDS: BUSPIRONE HCL 5 MG TABLET PO SCH ×2 (08:45→20:40)
[2021-04-09] MEDS: ZINC SULFATE 220 CAPSULE PO SCH (08:45)
[2021-04-09] MEDS: FAMOTIDINE 20MG TAB PO SCH ×2 (08:45→20:41)
[2021-04-09 08:46] LABS: PHOSPHORUS 3.2 mg/dL (2.5-4.9)
[2021-04-09] MEDS: CITALOPRAM 20 MG TABLET PO SCH (08:46)
[2021-04-09] MEDS: QUETIAPINE FUMARATE 25 MG TAB PO SCH ×2 (08:46→20:42)
[2021-04-09] MEDS: CYANOCOBALAMIN (VITAMIN B-12) 1,000 MCG TABLET PO SCH (08:46)
[2021-04-09] MEDS: CALCIUM CARBONATE 500 MG/5 ML PEG SCH (08:47)
[2021-04-09] MEDS: METOPROLOL TARTRATE 50 MG TAB PO SCH ×2 (08:47→20:42)
[2021-04-09] MEDS: ENOXAPARIN SODIUM 40 MG/0.4 ML SYRINGE SQ SCH (08:47)
[2021-04-09 08:48] LABS: B-TYPE NATRIURETIC PEPTIDE 10 pg/mL (0-100)
[2021-04-09] MEDS: TRAMADOL /APAP 37.5MG/325MG TAB PO PRN ×2 (09:09→20:48)
[2021-04-09] MEDS: BALSAM PERU/CASTOR OIL 60 GM TUBE TP SCH ×2 (09:23→20:43)
[2021-04-09 10:31] VITALS: BP 124/66
[2021-04-09 16:21] VITALS: BP 115/70
[2021-04-09 20:12] VITALS: BP 114/74
[2021-04-09] MEDS: FENOFIBRATE NANOCRYSTALLIZED 145 MG TAB PEG SCH (20:40)
[2021-04-09] MEDS: TAMSULOSIN HCL 0.4 MG CAP.ER.24H PO SCH (20:41)
[2021-04-09] MEDS: TRAZODONE HCL 50 MG TAB PO SCH (20:42)
[2021-04-10 00:16] VITALS: BP 109/57
[2021-04-10 04:16] VITALS: BP 97/51
[2021-04-10] MEDS: ACETAMINOPHEN 650 MG/20.3 ML UDCUP PEG PRN (04:40)
[2021-04-10 05:09] LABS: HEMATOCRIT 28.7 % (36-48); MEAN CORPUSCULAR HEMOGLOBIN 27.9 pg (27.0-33.0); MEAN CORPUSCULAR HGB CONC 30.3 g/dL (32.0-36.0); RED BLOOD CELL COUNT(AUTO) 3.12 MIL/uL (4.00-5.50); RED CELL DISTRIBUTION WIDTH 18.6 % (11.0-15.5); WHITE BLOOD COUNT (AUTO) 8.7 K/uL (4.8-10.8)
[2021-04-10 05:20] LABS: INR 1.06 (0.85-1.15); PROTHROMBIN TIME 11.5 SEC (9.6-11.6)
[2021-04-10 05:21] LABS: PARTIAL THROMBOPLASTIN TIME 28.1 SEC (26.3-35.5)
[2021-04-10 05:32] LABS: CREATININE 0.8 mg/dL (0.5-1.5); POTASSIUM 4.2 mmol/L (3.5-5.1)
[2021-04-10] MEDS: ALBUTEROL 0.042% 1.25MG/3ML IH PRN ×3 (06:11→18:18)
[2021-04-10] MEDS: IPRATROPIUM 0.5 MG/2.5 ML INH IH PRN ×3 (06:11→18:18)
[2021-04-10 08:00] VITALS: BP 105/67
[2021-04-10] MEDS: ASCORBIC ACID 500 MG TAB PO SCH (09:42)
[2021-04-10] MEDS: QUETIAPINE FUMARATE 25 MG TAB PO SCH ×2 (09:42→21:28)
[2021-04-10] MEDS: ZINC SULFATE 220 CAPSULE PO SCH (09:43)
[2021-04-10] MEDS: CYANOCOBALAMIN (VITAMIN B-12) 1,000 MCG TABLET PO SCH (09:43)
[2021-04-10] MEDS: CALCIUM CARBONATE 500 MG/5 ML PEG SCH (09:43)
[2021-04-10] MEDS: METOPROLOL TARTRATE 50 MG TAB PO SCH ×3 (09:43→21:27)
[2021-04-10] MEDS: MAGNESIUM OXIDE 400 MG TABLET PO SCH (09:43)
[2021-04-10] MEDS: BUSPIRONE HCL 5 MG TABLET PO SCH ×2 (09:43→21:28)
[2021-04-10] MEDS: TRAMADOL /APAP 37.5MG/325MG TAB PO PRN ×2 (09:43→21:30)
[2021-04-10] MEDS: FAMOTIDINE 20MG TAB PO SCH ×2 (09:43→21:27)
[2021-04-10] MEDS: NIFEDIPINE ER 30 MG TAB PO SCH (09:44)
[2021-04-10] MEDS: GABAPENTIN 300 MG CAPSULE PO SCH ×3 (09:44→21:29)
[2021-04-10] MEDS: ENOXAPARIN SODIUM 40 MG/0.4 ML SYRINGE SQ SCH (09:45)
[2021-04-10] MEDS: CITALOPRAM 20 MG TABLET PO SCH (09:45)
[2021-04-10] MEDS: BALSAM PERU/CASTOR OIL 60 GM TUBE TP SCH ×2 (09:49→21:29)
[2021-04-10] MEDS ORDERED: COMPOUND IV MISC 1 EACH IVSOLN MISC PRN (12:00)
[2021-04-10] MEDS: IRON SUCROSE COMPLEX 300 MG in 0.9%NACL 50ML 50 ML IV SCH (12:42)
[2021-04-10 16:00] VITALS: BP 88/53
[2021-04-10 19:52] VITALS: BP 108/61
[2021-04-10] MEDS: TRAZODONE HCL 50 MG TAB PO SCH (21:27)
[2021-04-10] MEDS: FENOFIBRATE NANOCRYSTALLIZED 145 MG TAB PEG SCH (21:29)
[2021-04-10] MEDS: TAMSULOSIN HCL 0.4 MG CAP.ER.24H PO SCH (21:29)
[2021-04-10 23:39] VITALS: BP 93/52
[2021-04-11] MEDS: IPRATROPIUM 0.5 MG/2.5 ML INH IH PRN (00:03)
[2021-04-11] MEDS: ALBUTEROL 0.042% 1.25MG/3ML IH PRN (00:03)
[2021-04-11 04:54] VITALS: BP 122/61
[2021-04-11] MEDS: ACETAMINOPHEN 650 MG/20.3 ML UDCUP PEG PRN (06:19)
[2021-04-11 08:00] VITALS: BP 100/76
[2021-04-11] MEDS: CITALOPRAM 20 MG TABLET PO SCH (09:33)
[2021-04-11] MEDS: FAMOTIDINE 20MG TAB PO SCH ×2 (09:33→20:44)
[2021-04-11] MEDS: METOPROLOL TARTRATE 50 MG TAB PO SCH ×3 (09:34→20:44)
[2021-04-11] MEDS: GABAPENTIN 300 MG CAPSULE PO SCH ×3 (09:34→20:46)
[2021-04-11] MEDS: CALCIUM CARBONATE 500 MG/5 ML PEG SCH (09:34)
[2021-04-11] MEDS: CYANOCOBALAMIN (VITAMIN B-12) 1,000 MCG TABLET PO SCH (09:34)
[2021-04-11] MEDS: BUSPIRONE HCL 5 MG TABLET PO SCH ×2 (09:34→20:45)
[2021-04-11] MEDS: ASCORBIC ACID 500 MG TAB PO SCH (09:34)
[2021-04-11] MEDS: QUETIAPINE FUMARATE 25 MG TAB PO SCH ×2 (09:34→20:46)
[2021-04-11] MEDS: ZINC SULFATE 220 CAPSULE PO SCH (09:34)
[2021-04-11] MEDS: ENOXAPARIN SODIUM 40 MG/0.4 ML SYRINGE SQ SCH (09:35)
[2021-04-11] MEDS: TRAMADOL /APAP 37.5MG/325MG TAB PO PRN ×2 (09:35→20:45)
[2021-04-11] MEDS: IRON SUCROSE COMPLEX 300 MG in 0.9%NACL 50ML 50 ML IV SCH (09:35)
[2021-04-11] MEDS: BALSAM PERU/CASTOR OIL 60 GM TUBE TP SCH ×2 (09:36→20:47)
[2021-04-11] MEDS ORDERED: EPOETIN ALFA-EPBX (NON-ESRD) 10,000 UNIT/ML VIAL SQ SCH (10:00)
[2021-04-11 12:00] VITALS: BP 98/54
[2021-04-11] MEDS: ERGOCALCIFEROL (VITAMIN D2) 50,000 UNIT CAPSULE PO SCH (13:49)
[2021-04-11 16:00] VITALS: BP 112/69
[2021-04-11 20:16] VITALS: BP 106/66
[2021-04-11] MEDS: TAMSULOSIN HCL 0.4 MG CAP.ER.24H PO SCH (20:45)
[2021-04-11] MEDS: TRAZODONE HCL 50 MG TAB PO SCH (20:45)
[2021-04-11] MEDS: FENOFIBRATE NANOCRYSTALLIZED 145 MG TAB PEG SCH (20:46)
[2021-04-11 23:47] VITALS: BP 113/65
[2021-04-12 03:41] LABS: HEMATOCRIT 29.8 % (36-48); MEAN CORPUSCULAR HEMOGLOBIN 27.9 pg (27.0-33.0); MEAN CORPUSCULAR HGB CONC 30.2 g/dL (32.0-36.0); MEAN CORPUSCULAR VOLUME 92.3 fL (79-99); NUCLEATED RED BLOOD CELLS 0.3 % (0.0-0.19); RED BLOOD CELL COUNT(AUTO) 3.23 MIL/uL (4.00-5.50); RED CELL DISTRIBUTION WIDTH 18.5 % (11.0-15.5); WHITE BLOOD COUNT (AUTO) 9.4 K/uL (4.8-10.8)
[2021-04-12 04:01] LABS: CREATININE 0.6 mg/dL (0.5-1.5); MAGNESIUM 1.6 mg/dL (1.80-2.40); PHOSPHORUS 3.9 mg/dL (2.5-4.9)
[2021-04-12 04:05] LABS: % IRON SATURATION 44.6 % (22-44)
[2021-04-12 04:14] VITALS: BP 115/68
[2021-04-12 07:26] VITALS: BP 113/62
[2021-04-12] MEDS: FAMOTIDINE 20MG TAB PO SCH ×2 (08:20→21:10)
[2021-04-12] MEDS: ZINC SULFATE 220 CAPSULE PO SCH (08:20)
[2021-04-12] MEDS: QUETIAPINE FUMARATE 25 MG TAB PO SCH ×2 (08:20→21:10)
[2021-04-12] MEDS: GABAPENTIN 300 MG CAPSULE PO SCH ×3 (08:21→21:10)
[2021-04-12] MEDS: CYANOCOBALAMIN (VITAMIN B-12) 1,000 MCG TABLET PO SCH (08:21)
[2021-04-12] MEDS: BUSPIRONE HCL 5 MG TABLET PO SCH ×2 (08:21→21:09)
[2021-04-12] MEDS: METOPROLOL TARTRATE 50 MG TAB PO SCH ×3 (08:22→21:10)
[2021-04-12] MEDS: TRAMADOL /APAP 37.5MG/325MG TAB PO PRN (08:22)
[2021-04-12] MEDS: ASCORBIC ACID 500 MG TAB PO SCH (08:24)
[2021-04-12] MEDS: CITALOPRAM 20 MG TABLET PO SCH (08:24)
[2021-04-12] MEDS: ENOXAPARIN SODIUM 40 MG/0.4 ML SYRINGE SQ SCH (08:24)
[2021-04-12] MEDS: IRON SUCROSE COMPLEX 300 MG in 0.9%NACL 50ML 50 ML IV SCH (08:25)
[2021-04-12] MEDS: MAGNESIUM 2GM PREMIX 50ML 50 ML IV PRN (08:27)
[2021-04-12] MEDS: CALCIUM CARBONATE 500 MG/5 ML PEG SCH (08:32)
[2021-04-12] MEDS: BALSAM PERU/CASTOR OIL 60 GM TUBE TP SCH ×2 (08:36→21:12)
[2021-04-12 11:09] VITALS: BP 115/67
[2021-04-12] MEDS ORDERED: MAG/ALUM/SIMETH 30 ML UDCUP ONE (15:10)
[2021-04-12] MEDS: ONDANSETRON 4MG INJ IVP PRN (15:17)
[2021-04-12] MEDS: MAGNESIUM HYDROXIDE 30 ML/UDCUP PO SCH (15:29)
[2021-04-12 16:35] VITALS: BP 112/68
[2021-04-12 20:30] VITALS: BP 105/52
[2021-04-12] MEDS: TAMSULOSIN HCL 0.4 MG CAP.ER.24H PO SCH (21:09)
[2021-04-12] MEDS: TRAZODONE HCL 50 MG TAB PO SCH (21:09)
[2021-04-12 23:52] VITALS: BP 106/57
[2021-04-13] MEDS: ACETAMINOPHEN 650 MG/20.3 ML UDCUP PEG PRN (02:32)
[2021-04-13] MEDS: ALBUTEROL 0.042% 1.25MG/3ML IH PRN ×2 (02:33→23:48)
[2021-04-13 03:59] VITALS: BP 106/54
[2021-04-13 04:12] LABS: HEMATOCRIT 28.3 % (36-48); MEAN CORPUSCULAR HEMOGLOBIN 27.1 pg (27.0-33.0); MEAN CORPUSCULAR HGB CONC 29.7 g/dL (32.0-36.0); MEAN CORPUSCULAR VOLUME 91.3 fL (79-99); NUCLEATED RED BLOOD CELLS 0.4 % (0.0-0.19); RED BLOOD CELL COUNT(AUTO) 3.1 MIL/uL (4.00-5.50); RED CELL DISTRIBUTION WIDTH 18.6 % (11.0-15.5); WHITE BLOOD COUNT (AUTO) 9.8 K/uL (4.8-10.8)
[2021-04-13 04:32] LABS: ALBUMIN 2.1 g/dL (3.5-5.0); BILIRUBIN,TOTAL 0.3 mg/dL (0.2-1.0); CREATININE 0.7 mg/dL (0.5-1.5); POTASSIUM 3.8 mmol/L (3.5-5.1); TOTAL PROTEIN, SERUM 5.4 g/dL (6.0-8.3)
[2021-04-13] MEDS: MAGNESIUM 2GM PREMIX 50ML 50 ML IV PRN (05:12)
[2021-04-13 08:02] VITALS: BP 108/59
[2021-04-13] MEDS: BALSAM PERU/CASTOR OIL 60 GM TUBE TP SCH ×2 (09:00→21:11)
[2021-04-13] MEDS: FAMOTIDINE 20MG TAB PO SCH ×2 (09:38→21:11)
[2021-04-13] MEDS: BUSPIRONE HCL 5 MG TABLET PO SCH ×2 (09:39→21:10)
[2021-04-13] MEDS: CITALOPRAM 20 MG TABLET PO SCH (09:39)
[2021-04-13] MEDS: ASCORBIC ACID 500 MG TAB PO SCH (09:39)
[2021-04-13] MEDS: CYANOCOBALAMIN (VITAMIN B-12) 1,000 MCG TABLET PO SCH (09:39)
[2021-04-13] MEDS: GABAPENTIN 300 MG CAPSULE PO SCH ×3 (09:40→21:11)
[2021-04-13] MEDS: QUETIAPINE FUMARATE 25 MG TAB PO SCH ×2 (09:40→21:10)
[2021-04-13] MEDS: ZINC SULFATE 220 CAPSULE PO SCH (09:40)
[2021-04-13] MEDS: METOPROLOL TARTRATE 50 MG TAB PO SCH ×3 (09:40→21:10)
[2021-04-13] MEDS: ENOXAPARIN SODIUM 40 MG/0.4 ML SYRINGE SQ SCH (09:41)
[2021-04-13] MEDS: CALCIUM CARBONATE 500 MG/5 ML PEG SCH (09:41)
[2021-04-13] MEDS: IRON SUCROSE COMPLEX 300 MG in 0.9%NACL 50ML 50 ML IV SCH (09:45)
[2021-04-13] MEDS ORDERED: MAG/ALUM/SIMETH 30 ML UDCUP PO SCH (10:30)
[2021-04-13 11:06] VITALS: BP 111/61
[2021-04-13] MEDS: TRAMADOL /APAP 37.5MG/325MG TAB PO PRN (11:06)
[2021-04-13] MEDS: MAGNESIUM HYDROXIDE 30 ML/UDCUP PO SCH (13:50)
[2021-04-13 16:09] VITALS: BP 99/54
[2021-04-13 20:10] VITALS: BP 113/66
[2021-04-13] MEDS: TRAZODONE HCL 50 MG TAB PO SCH (21:10)
[2021-04-13] MEDS: TAMSULOSIN HCL 0.4 MG CAP.ER.24H PO SCH (21:11)
[2021-04-13 23:17] VITALS: BP 110/69
[2021-04-14 04:13] VITALS: BP 112/72
[2021-04-14 04:16] LABS: MEAN CORPUSCULAR HGB CONC 30.3 g/dL (32.0-36.0); MEAN CORPUSCULAR VOLUME 92.3 fL (79-99); NUCLEATED RED BLOOD CELLS 0.5 % (0.0-0.19); PLATELET COUNT (AUTO) 374 K/uL (130-400); RED BLOOD CELL COUNT(AUTO) 3.25 MIL/uL (4.00-5.50); RED CELL DISTRIBUTION WIDTH 18.9 % (11.0-15.5); WHITE BLOOD COUNT (AUTO) 10.4 K/uL (4.8-10.8)
[2021-04-14 04:29] LABS: CREATININE 0.6 mg/dL (0.5-1.5); MAGNESIUM 1.9 mg/dL (1.80-2.40); POTASSIUM 3.9 mmol/L (3.5-5.1)
[2021-04-14 05:17] LABS: BAND NEUTROPHILS % (MANUAL) 2 % (0-2); EOSINOPHILS % (MANUAL) 3 % (1-6); LYMPHOCYTES % (MANUAL) 9 % (22-44); MONOCYTES % (MANUAL) 12 % (2-9); SEGMENTED NEUTROPHILS % 74 % (40-70)
[2021-04-14 05:18] LABS: MAN.DIFF COMMENT-IMPRESSION MANUAL DIFFERENTIAL; PLATELET MORPHOLOGY COMMENT ADEQUATE
[2021-04-14 07:53] VITALS: BP 103/60
[2021-04-14] MEDS: ZINC SULFATE 220 CAPSULE PO SCH (09:34)
[2021-04-14] MEDS: IRON SUCROSE COMPLEX 300 MG in 0.9%NACL 50ML 50 ML IV SCH (09:34)
[2021-04-14] MEDS: METOPROLOL TARTRATE 50 MG TAB PO SCH ×3 (09:34→21:00)
[2021-04-14] MEDS: GABAPENTIN 300 MG CAPSULE PO SCH ×3 (09:34→21:18)
[2021-04-14] MEDS: CYANOCOBALAMIN (VITAMIN B-12) 1,000 MCG TABLET PO SCH (09:35)
[2021-04-14] MEDS: BUSPIRONE HCL 5 MG TABLET PO SCH ×2 (09:35→21:18)
[2021-04-14] MEDS: CALCIUM CARBONATE 500 MG/5 ML PEG SCH (09:36)
[2021-04-14] MEDS: QUETIAPINE FUMARATE 25 MG TAB PO SCH ×2 (09:36→21:18)
[2021-04-14] MEDS: FAMOTIDINE 20MG TAB PO SCH ×2 (09:36→21:18)
[2021-04-14] MEDS: ENOXAPARIN SODIUM 40 MG/0.4 ML SYRINGE SQ SCH (09:36)
[2021-04-14] MEDS: CITALOPRAM 20 MG TABLET PO SCH (09:36)
[2021-04-14] MEDS: ASCORBIC ACID 500 MG TAB PO SCH (09:36)
[2021-04-14] MEDS: BALSAM PERU/CASTOR OIL 60 GM TUBE TP SCH ×2 (09:38→21:22)
[2021-04-14] MEDS: TRAMADOL /APAP 37.5MG/325MG TAB PO PRN ×2 (10:02→21:19)
[2021-04-14 11:27] VITALS: BP 110/65
[2021-04-14 16:25] VITALS: BP 101/57
[2021-04-14 20:50] VITALS: BP 93/57
[2021-04-14] MEDS: TRAZODONE HCL 50 MG TAB PO SCH (21:17)
[2021-04-14] MEDS: TAMSULOSIN HCL 0.4 MG CAP.ER.24H PO SCH (21:18)
[2021-04-14 23:45] VITALS: BP 115/58
[2021-04-15] MEDS: METOPROLOL TARTRATE 50 MG TAB PO SCH ×4 (00:26→21:00)
[2021-04-15 04:00] VITALS: BP 130/70
[2021-04-15 08:00] VITALS: BP 121/67
[2021-04-15 09:17] LABS: HEMATOCRIT 29.1 % (36-48); MEAN CORPUSCULAR HEMOGLOBIN 28.1 pg (27.0-33.0); MEAN CORPUSCULAR HGB CONC 30.2 g/dL (32.0-36.0); NUCLEATED RED BLOOD CELLS 0.2 % (0.0-0.19); PLATELET COUNT (AUTO) 293 K/uL (130-400); RED BLOOD CELL COUNT(AUTO) 3.13 MIL/uL (4.00-5.50); RED CELL DISTRIBUTION WIDTH 19.2 % (11.0-15.5); WHITE BLOOD COUNT (AUTO) 9.1 K/uL (4.8-10.8)
[2021-04-15] MEDS: CITALOPRAM 20 MG TABLET PO SCH (09:23)
[2021-04-15] MEDS: GABAPENTIN 300 MG CAPSULE PO SCH ×3 (09:23→21:46)
[2021-04-15] MEDS: QUETIAPINE FUMARATE 25 MG TAB PO SCH ×2 (09:23→21:46)
[2021-04-15] MEDS: CYANOCOBALAMIN (VITAMIN B-12) 1,000 MCG TABLET PO SCH (09:23)
[2021-04-15] MEDS: CALCIUM CARBONATE 500 MG/5 ML PEG SCH (09:23)
[2021-04-15] MEDS: ZINC SULFATE 220 CAPSULE PO SCH (09:23)
[2021-04-15] MEDS: BUSPIRONE HCL 5 MG TABLET PO SCH ×2 (09:23→21:45)
[2021-04-15] MEDS: FAMOTIDINE 20MG TAB PO SCH ×2 (09:24→21:46)
[2021-04-15] MEDS: ASCORBIC ACID 500 MG TAB PO SCH (09:24)
[2021-04-15 09:25] LABS: CREATININE 0.6 mg/dL (0.5-1.5); MAGNESIUM 1.6 mg/dL (1.80-2.40); POTASSIUM 3.9 mmol/L (3.5-5.1)
[2021-04-15] MEDS: ENOXAPARIN SODIUM 40 MG/0.4 ML SYRINGE SQ SCH (09:29)
[2021-04-15] MEDS: BALSAM PERU/CASTOR OIL 60 GM TUBE TP SCH ×2 (09:29→21:00)
[2021-04-15] MEDS: TRAMADOL /APAP 37.5MG/325MG TAB PO PRN ×2 (09:38→21:45)
[2021-04-15 10:08] LABS: EOSINOPHILS % (MANUAL) 6 % (1-6); LYMPHOCYTES % (MANUAL) 19 % (22-44); MAN.DIFF COMMENT-IMPRESSION MANUAL DIFFERENTIAL; MONOCYTES % (MANUAL) 11 % (2-9); PLATELET MORPHOLOGY COMMENT ADEQUATE; SEGMENTED NEUTROPHILS % 64 % (40-70)
[2021-04-15] MEDS: ONDANSETRON 4MG INJ IVP PRN (10:32)
[2021-04-15 12:00] VITALS: BP 93/54
[2021-04-15] MEDS: MAGNESIUM 2GM PREMIX 50ML 50 ML IV PRN (14:44)
[2021-04-15 16:00] VITALS: BP 102/53
[2021-04-15] MEDS: IPRATROPIUM 0.5 MG/2.5 ML INH IH PRN (16:27)
[2021-04-15] MEDS: ALBUTEROL 0.042% 1.25MG/3ML IH PRN (16:27)
[2021-04-15 20:00] VITALS: BP 90/56
[2021-04-15] MEDS: TAMSULOSIN HCL 0.4 MG CAP.ER.24H PO SCH (21:44)
[2021-04-15] MEDS: TRAZODONE HCL 50 MG TAB PO SCH (21:45)
[2021-04-16] VITALS: BP 105/53
[2021-04-16 04:00] VITALS: BP_SYST 112; BP_SYST 95; BP_DIAS 59; BP_DIAS 64
[2021-04-16 04:31] LABS: HEMATOCRIT 30.8 % (36-48); MEAN CORPUSCULAR HEMOGLOBIN 27.8 pg (27.0-33.0); MEAN CORPUSCULAR HGB CONC 29.2 g/dL (32.0-36.0); MEAN CORPUSCULAR VOLUME 95.1 fL (79-99); NUCLEATED RED BLOOD CELLS 0.5 % (0.0-0.19); PLATELET COUNT (AUTO) 419 K/uL (130-400); RED BLOOD CELL COUNT(AUTO) 3.24 MIL/uL (4.00-5.50); RED CELL DISTRIBUTION WIDTH 19.2 % (11.0-15.5); WHITE BLOOD COUNT (AUTO) 9.6 K/uL (4.8-10.8)
[2021-04-16 04:43] LABS: CREATININE 0.8 mg/dL (0.5-1.5); POTASSIUM 3.6 mmol/L (3.5-5.1)
[2021-04-16 04:53] LABS: BAND NEUTROPHILS % (MANUAL) 2 % (0-2); EOSINOPHILS % (MANUAL) 9 % (1-6); LYMPHOCYTES % (MANUAL) 15 % (22-44); MAN.DIFF COMMENT-IMPRESSION MANUAL DIFFERENTIAL; MONOCYTES % (MANUAL) 15 % (2-9); SEGMENTED NEUTROPHILS % 59 % (40-70)
[2021-04-16 04:54] LABS: PLATELET MORPHOLOGY COMMENT ADEQUATE
[2021-04-16] MEDS: KCL 20 MEQ ERTAB PO PRN ×2 (06:41→09:52)
[2021-04-16 08:04] VITALS: BP 111/71
[2021-04-16] MEDS: CALCIUM CARBONATE 500 MG/5 ML PEG SCH (09:35)
[2021-04-16] MEDS: QUETIAPINE FUMARATE 25 MG TAB PO SCH ×2 (09:35→20:28)
[2021-04-16] MEDS: ASCORBIC ACID 500 MG TAB PO SCH (09:35)
[2021-04-16] MEDS: ZINC SULFATE 220 CAPSULE PO SCH (09:35)
[2021-04-16] MEDS: CITALOPRAM 20 MG TABLET PO SCH (09:36)
[2021-04-16] MEDS: METOPROLOL TARTRATE 50 MG TAB PO SCH ×3 (09:36→20:30)
[2021-04-16] MEDS: CYANOCOBALAMIN (VITAMIN B-12) 1,000 MCG TABLET PO SCH (09:36)
[2021-04-16] MEDS: BUSPIRONE HCL 5 MG TABLET PO SCH ×2 (09:36→20:24)
[2021-04-16] MEDS: FAMOTIDINE 20MG TAB PO SCH ×2 (09:36→20:23)
[2021-04-16] MEDS: GABAPENTIN 300 MG CAPSULE PO SCH ×2 (09:36→20:28)
[2021-04-16] MEDS: ENOXAPARIN SODIUM 40 MG/0.4 ML SYRINGE SQ SCH (09:37)
[2021-04-16] MEDS: BALSAM PERU/CASTOR OIL 60 GM TUBE TP SCH ×2 (09:38→20:29)
[2021-04-16] MEDS: TRAMADOL /APAP 37.5MG/325MG TAB PO PRN ×2 (09:51→17:32)
[2021-04-16 12:05] VITALS: BP 94/56
[2021-04-16 16:42] VITALS: BP 106/61
[2021-04-16 20:00] VITALS: BP_SYST 147; BP_SYST 99; BP_DIAS 54; BP_DIAS 82
[2021-04-16] MEDS: TAMSULOSIN HCL 0.4 MG CAP.ER.24H PO SCH (20:23)
[2021-04-16] MEDS: TRAZODONE HCL 50 MG TAB PO SCH (20:25)
[2021-04-17] VITALS (9 sets, daily range): BP systolic 81–116; BP diastolic 45–78
[2021-04-17] MEDS: METOPROLOL TARTRATE 50 MG TAB PO SCH ×5 (02:54→21:00)
[2021-04-17] MEDS: ACETAMINOPHEN 650 MG/20.3 ML UDCUP PEG PRN (04:52)
[2021-04-17 08:02] LABS: HEMATOCRIT 30.8 % (36-48); MEAN CORPUSCULAR HGB CONC 29.2 g/dL (32.0-36.0); NUCLEATED RED BLOOD CELLS 0.3 % (0.0-0.19); PLATELET COUNT (AUTO) 417 K/uL (130-400); RED BLOOD CELL COUNT(AUTO) 3.21 MIL/uL (4.00-5.50); RED CELL DISTRIBUTION WIDTH 19.4 % (11.0-15.5); WHITE BLOOD COUNT (AUTO) 9.4 K/uL (4.8-10.8)
[2021-04-17 08:25] LABS: CREATININE 0.8 mg/dL (0.5-1.5); MAGNESIUM 1.6 mg/dL (1.80-2.40); PHOSPHORUS 4.2 mg/dL (2.5-4.9); POTASSIUM 4.4 mmol/L (3.5-5.1)
[2021-04-17 08:27] LABS: EOSINOPHILS % (MANUAL) 8 % (1-6); LYMPHOCYTES % (MANUAL) 23 % (22-44); MAN.DIFF COMMENT-IMPRESSION MANUAL DIFFERENTIAL; MONOCYTES % (MANUAL) 11 % (2-9); PLATELET MORPHOLOGY COMMENT SLIGHT INCREASED; SEGMENTED NEUTROPHILS % 58 % (40-70)
[2021-04-17] MEDS: ENOXAPARIN SODIUM 40 MG/0.4 ML SYRINGE SQ SCH (09:09)
[2021-04-17] MEDS: MAGNESIUM 2GM PREMIX 50ML 50 ML IV PRN (09:09)
[2021-04-17] MEDS: ZINC SULFATE 220 CAPSULE PO SCH (09:10)
[2021-04-17] MEDS: QUETIAPINE FUMARATE 25 MG TAB PO SCH ×2 (09:10→20:23)
[2021-04-17] MEDS: FAMOTIDINE 20MG TAB PO SCH ×2 (09:10→20:22)
[2021-04-17] MEDS: CYANOCOBALAMIN (VITAMIN B-12) 1,000 MCG TABLET PO SCH (09:10)
[2021-04-17] MEDS: CALCIUM CARBONATE 500 MG/5 ML PEG SCH (09:10)
[2021-04-17] MEDS: CITALOPRAM 20 MG TABLET PO SCH (09:10)
[2021-04-17] MEDS: ASCORBIC ACID 500 MG TAB PO SCH (09:11)
[2021-04-17] MEDS: GABAPENTIN 300 MG CAPSULE PO SCH ×3 (09:11→20:31)
[2021-04-17] MEDS: BUSPIRONE HCL 5 MG TABLET PO SCH ×2 (09:11→20:22)
[2021-04-17] MEDS: BALSAM PERU/CASTOR OIL 60 GM TUBE TP SCH ×2 (09:18→20:31)
[2021-04-17] MEDS: ONDANSETRON 4MG INJ IVP PRN (09:24)
[2021-04-17] MEDS: TRAMADOL /APAP 37.5MG/325MG TAB PO PRN (11:42)
[2021-04-17] MEDS: TRAZODONE HCL 50 MG TAB PO SCH (20:22)
[2021-04-17] MEDS: TAMSULOSIN HCL 0.4 MG CAP.ER.24H PO SCH (20:23)
[2021-04-17] MEDS: ALBUTEROL 0.042% 1.25MG/3ML IH PRN (23:05)
[2021-04-18] MEDS: ACETAMINOPHEN 650 MG/20.3 ML UDCUP PEG PRN (02:17)
[2021-04-18 03:31] VITALS: BP 112/78
[2021-04-18] MEDS: METOPROLOL TARTRATE 50 MG TAB PO SCH ×4 (03:44→20:57)
[2021-04-18 04:57] LABS: ABG BASE EXCESS -2.7 mmol/L (-2.0-3.0); ABG HCO3 25.2 mmol/L (21.0-28.0); ABG OXYGEN SATURATION 96.3 % (95.0-99.0); ABG PCO2 56 mmHg (32-45)
[2021-04-18] MEDS: ENOXAPARIN SODIUM 40 MG/0.4 ML SYRINGE SQ SCH (08:34)
[2021-04-18] MEDS: GABAPENTIN 300 MG CAPSULE PO SCH ×3 (08:34→20:56)
[2021-04-18] MEDS: ZINC SULFATE 220 CAPSULE PO SCH (08:34)
[2021-04-18] MEDS: QUETIAPINE FUMARATE 25 MG TAB PO SCH ×2 (08:35→21:00)
[2021-04-18] MEDS: FAMOTIDINE 20MG TAB PO SCH ×2 (08:35→20:56)
[2021-04-18] MEDS: ASCORBIC ACID 500 MG TAB PO SCH (08:35)
[2021-04-18] MEDS: BUSPIRONE HCL 5 MG TABLET PO SCH ×2 (08:36→21:00)
[2021-04-18] MEDS: ERGOCALCIFEROL (VITAMIN D2) 50,000 UNIT CAPSULE PO SCH (08:36)
[2021-04-18] MEDS: CITALOPRAM 20 MG TABLET PO SCH (08:36)
[2021-04-18] MEDS: CYANOCOBALAMIN (VITAMIN B-12) 1,000 MCG TABLET PO SCH (08:37)
[2021-04-18] MEDS: BALSAM PERU/CASTOR OIL 60 GM TUBE TP SCH ×2 (08:39→20:58)
[2021-04-18 08:45] VITALS: BP 106/66
[2021-04-18] MEDS: CALCIUM CARBONATE 500 MG/5 ML PEG SCH (09:00)
[2021-04-18 12:00] VITALS: BP 98/66
[2021-04-18 16:14] VITALS: BP 115/79
[2021-04-18 19:10] VITALS: BP 102/58
[2021-04-18] MEDS: TAMSULOSIN HCL 0.4 MG CAP.ER.24H PO SCH (20:55)
[2021-04-18] MEDS: TRAZODONE HCL 50 MG TAB PO SCH (21:00)
[2021-04-18 23:47] VITALS: BP 143/61
[2021-04-19] MEDS: METOPROLOL TARTRATE 50 MG TAB PO SCH ×4 (00:07→19:52)
[2021-04-19 03:44] VITALS: BP 107/69
[2021-04-19 08:19] VITALS: BP 98/58
[2021-04-19] MEDS: TRAMADOL /APAP 37.5MG/325MG TAB PO PRN (08:53)
[2021-04-19] MEDS: ZINC SULFATE 220 CAPSULE PO SCH (08:54)
[2021-04-19] MEDS: QUETIAPINE FUMARATE 25 MG TAB PO SCH ×2 (08:54→19:46)
[2021-04-19] MEDS: ENOXAPARIN SODIUM 40 MG/0.4 ML SYRINGE SQ SCH (08:54)
[2021-04-19] MEDS: FAMOTIDINE 20MG TAB PO SCH ×2 (08:55→19:46)
[2021-04-19] MEDS: CYANOCOBALAMIN (VITAMIN B-12) 1,000 MCG TABLET PO SCH (08:55)
[2021-04-19] MEDS: CITALOPRAM 20 MG TABLET PO SCH (08:55)
[2021-04-19] MEDS: ASCORBIC ACID 500 MG TAB PO SCH (08:55)
[2021-04-19] MEDS: BUSPIRONE HCL 5 MG TABLET PO SCH ×2 (08:56→19:46)
[2021-04-19] MEDS: CALCIUM CARBONATE 500 MG/5 ML PEG SCH (08:57)
[2021-04-19] MEDS: BALSAM PERU/CASTOR OIL 60 GM TUBE TP SCH ×2 (09:35→19:53)
[2021-04-19] MEDS: GABAPENTIN 300 MG CAPSULE PO SCH ×3 (09:53→19:49)
[2021-04-19 11:51] VITALS: BP 94/51
[2021-04-19] MEDS: ACETAMINOPHEN 650 MG/20.3 ML UDCUP PEG PRN (14:08)
[2021-04-19] MEDS: ALBUTEROL 0.042% 1.25MG/3ML IH PRN (14:28)
[2021-04-19 16:36] VITALS: BP 91/48
[2021-04-19] MEDS: TAMSULOSIN HCL 0.4 MG CAP.ER.24H PO SCH (19:45)
[2021-04-19] MEDS: TRAZODONE HCL 50 MG TAB PO SCH (19:45)
[2021-04-19 20:00] VITALS: BP 93/61
[2021-04-20] VITALS: BP 99/48
[2021-04-20 04:00] VITALS: BP 119/76
[2021-04-20 08:20] VITALS: BP 127/86
[2021-04-20] MEDS: CALCIUM CARBONATE 500 MG/5 ML PEG SCH (08:50)
[2021-04-20] MEDS: CYANOCOBALAMIN (VITAMIN B-12) 1,000 MCG TABLET PO SCH (08:50)
[2021-04-20] MEDS: CITALOPRAM 20 MG TABLET PO SCH (08:51)
[2021-04-20] MEDS: QUETIAPINE FUMARATE 25 MG TAB PO SCH ×2 (08:52→21:31)
[2021-04-20] MEDS: METOPROLOL TARTRATE 50 MG TAB PO SCH ×3 (08:52→21:31)
[2021-04-20] MEDS: ASCORBIC ACID 500 MG TAB PO SCH (08:53)
[2021-04-20] MEDS: FAMOTIDINE 20MG TAB PO SCH ×2 (08:53→21:31)
[2021-04-20] MEDS: BUSPIRONE HCL 5 MG TABLET PO SCH ×2 (08:53→21:31)
[2021-04-20] MEDS: ZINC SULFATE 220 CAPSULE PO SCH (08:53)
[2021-04-20] MEDS: ENOXAPARIN SODIUM 40 MG/0.4 ML SYRINGE SQ SCH (08:54)
[2021-04-20] MEDS: GABAPENTIN 300 MG CAPSULE PO SCH ×3 (09:06→21:31)
[2021-04-20] MEDS: BALSAM PERU/CASTOR OIL 60 GM TUBE TP SCH ×2 (09:06→21:33)
[2021-04-20 11:47] VITALS: BP 90/60
[2021-04-20] MEDS: TRAMADOL /APAP 37.5MG/325MG TAB PO PRN (13:03)
[2021-04-20 15:54] VITALS: BP 113/66
[2021-04-20 16:58] LABS: APPEARANCE,URINE CLOUDY (CLEAR); BILIRUBIN,URINE NEGATIVE (NEGATIVE); COLOR,URINE YELLOW (YELLOW); GLUCOSE, URINE (UA) NEGATIVE (NEGATIVE); KETONES,URINE NEGATIVE (NEGATIVE); LEUKOCYTE ESTERASE ,URINE SMALL (NEGATIVE); NITRATE,URINE POSITIVE (NEGATIVE); OCCULT BLOOD,URINE NEGATIVE (NEGATIVE); PROTEIN,URINE 30 mg/dL (NEGATIVE); UROBILINOGEN,URINE 0.2 mg/dL (0.2-1.0)
[2021-04-20 17:25] LABS: RBC,URINE 0-1 /HPF (0-1)
[2021-04-20 17:26] LABS: BACTERIA,URINE Moderate /HPF (None Seen); SQUAMOUS EPITHELIAL CELL,UR Rare /HPF (0-2); WBC,URINE 26-50 /HPF (0-1); YEAST,URINE BUDDING Rare /HPF (None Seen)
[2021-04-20] MEDS: CEFTRIAXONE 2GM VIAL IVP SCH (18:22)
[2021-04-20] MEDS ORDERED: METOPROLOL TARTRATE 50 MG TAB ONE (19:48)
[2021-04-20 20:24] VITALS: BP 156/83
[2021-04-20] MEDS: TRAZODONE HCL 50 MG TAB PO SCH (21:31)
[2021-04-20] MEDS: TAMSULOSIN HCL 0.4 MG CAP.ER.24H PO SCH (21:31)
[2021-04-21 00:28] VITALS: BP 121/67
[2021-04-21 04:28] VITALS: BP 116/71
[2021-04-21] MEDS: ACETAMINOPHEN 650 MG/20.3 ML UDCUP PEG PRN (05:03)
[2021-04-21 07:35] VITALS: BP 94/50
[2021-04-21 07:58] LABS: BASOPHILS % (AUTO) 0.5 % (0.0-5.0); EOSINOPHILS % (AUTO) 3.4 % (0.0-8.0); HEMATOCRIT 29.9 % (36-48); LYMPHOCYTES % (AUTO) 13.7 % (21.0-51.0); MEAN CORPUSCULAR HEMOGLOBIN 27.7 pg (27.0-33.0); MEAN CORPUSCULAR HGB CONC 29.4 g/dL (32.0-36.0); MONOCYTES % (AUTO) 8.2 % (3.0-13.0); NEUTROPHILS % (AUTO) 69.9 % (40.0-77.0); PLATELET COUNT (AUTO) 446 K/uL (130-400); RED BLOOD CELL COUNT(AUTO) 3.18 MIL/uL (4.00-5.50); RED CELL DISTRIBUTION WIDTH 18.7 % (11.0-15.5); WHITE BLOOD COUNT (AUTO) 10.8 K/uL (4.8-10.8)
[2021-04-21 08:14] LABS: CREATININE 0.8 mg/dL (0.5-1.5); MAGNESIUM 1.3 mg/dL (1.80-2.40); POTASSIUM 4.4 mmol/L (3.5-5.1)
[2021-04-21] MEDS: CALCIUM CARBONATE 500 MG/5 ML PEG SCH (09:25)
[2021-04-21] MEDS: ZINC SULFATE 220 CAPSULE PO SCH (09:26)
[2021-04-21] MEDS: CYANOCOBALAMIN (VITAMIN B-12) 1,000 MCG TABLET PO SCH (09:26)
[2021-04-21] MEDS: ASCORBIC ACID 500 MG TAB PO SCH (09:26)
[2021-04-21] MEDS: CITALOPRAM 20 MG TABLET PO SCH (09:27)
[2021-04-21] MEDS: FAMOTIDINE 20MG TAB PO SCH ×2 (09:27→20:48)
[2021-04-21] MEDS: QUETIAPINE FUMARATE 25 MG TAB PO SCH ×2 (09:27→20:48)
[2021-04-21] MEDS: BUSPIRONE HCL 5 MG TABLET PO SCH ×2 (09:27→20:48)
[2021-04-21] MEDS: METOPROLOL TARTRATE 50 MG TAB PO SCH ×3 (09:28→20:49)
[2021-04-21] MEDS: ACETAMINOPHEN 325 MG TAB PO PRN (09:30)
[2021-04-21] MEDS: GABAPENTIN 300 MG CAPSULE PO SCH ×3 (09:32→20:47)
[2021-04-21] MEDS: BALSAM PERU/CASTOR OIL 60 GM TUBE TP SCH ×2 (09:33→20:50)
[2021-04-21] MEDS: ENOXAPARIN SODIUM 40 MG/0.4 ML SYRINGE SQ SCH (09:33)
[2021-04-21 11:35] VITALS: BP 106/53
[2021-04-21] MEDS: TRAMADOL /APAP 37.5MG/325MG TAB PO PRN (13:17)
[2021-04-21 15:45] VITALS: BP 128/72
[2021-04-21] MEDS: CEFTRIAXONE 2GM VIAL IVP SCH (17:40)
[2021-04-21] MEDS: ONDANSETRON 4MG INJ IVP PRN (19:34)
[2021-04-21 20:24] VITALS: BP 116/72
[2021-04-21] MEDS: TRAZODONE HCL 50 MG TAB PO SCH (20:48)
[2021-04-21] MEDS: TAMSULOSIN HCL 0.4 MG CAP.ER.24H PO SCH (20:48)
[2021-04-21] MEDS: MAGNESIUM 2GM PREMIX 50ML 50 ML IV PRN (21:02)
[2021-04-22] VITALS (7 sets, daily range): BP systolic 90–130; BP diastolic 56–96
[2021-04-22] MEDS: MAGNESIUM 2GM PREMIX 50ML 50 ML IV PRN ×2 (04:36→22:38)
[2021-04-22] MEDS: ONDANSETRON 4MG INJ IVP PRN (04:37)
[2021-04-22] MEDS: BUSPIRONE HCL 5 MG TABLET PO SCH ×2 (09:20→21:03)
[2021-04-22] MEDS: CALCIUM CARBONATE 500 MG/5 ML PEG SCH (09:21)
[2021-04-22] MEDS: CYANOCOBALAMIN (VITAMIN B-12) 1,000 MCG TABLET PO SCH (09:21)
[2021-04-22] MEDS: CITALOPRAM 20 MG TABLET PO SCH (09:21)
[2021-04-22] MEDS: FAMOTIDINE 20MG TAB PO SCH ×2 (09:21→21:03)
[2021-04-22] MEDS: ZINC SULFATE 220 CAPSULE PO SCH (09:21)
[2021-04-22] MEDS: QUETIAPINE FUMARATE 25 MG TAB PO SCH ×2 (09:22→21:04)
[2021-04-22] MEDS: ASCORBIC ACID 500 MG TAB PO SCH (09:22)
[2021-04-22] MEDS: METOPROLOL TARTRATE 50 MG TAB PO SCH ×3 (09:23→21:02)
[2021-04-22] MEDS: GABAPENTIN 300 MG CAPSULE PO SCH ×3 (09:23→21:02)
[2021-04-22] MEDS: TRAMADOL /APAP 37.5MG/325MG TAB PO PRN ×2 (09:24→21:03)
[2021-04-22] MEDS: ENOXAPARIN SODIUM 40 MG/0.4 ML SYRINGE SQ SCH (09:24)
[2021-04-22] MEDS: BALSAM PERU/CASTOR OIL 60 GM TUBE TP SCH ×2 (09:25→21:04)
[2021-04-22] MEDS: ACETAMINOPHEN 325 MG TAB PO PRN (14:50)
[2021-04-22] MEDS: CEFTRIAXONE 2GM VIAL IVP SCH (18:05)
[2021-04-22] MEDS: TAMSULOSIN HCL 0.4 MG CAP.ER.24H PO SCH (21:03)
[2021-04-22] MEDS: TRAZODONE HCL 50 MG TAB PO SCH (21:03)
[2021-04-23 04:11] VITALS: BP 102/60
[2021-04-23 04:39] LABS: HEMATOCRIT 29.3 % (36-48); MEAN CORPUSCULAR HEMOGLOBIN 27.7 pg (27.0-33.0); MEAN CORPUSCULAR HGB CONC 29.4 g/dL (32.0-36.0); MEAN CORPUSCULAR VOLUME 94.5 fL (79-99); RED BLOOD CELL COUNT(AUTO) 3.1 MIL/uL (4.00-5.50); RED CELL DISTRIBUTION WIDTH 18.4 % (11.0-15.5); RETICULOCYTE % (AUTO) 3.68 % (0.42-2.23); WHITE BLOOD COUNT (AUTO) 6.6 K/uL (4.8-10.8)
[2021-04-23 04:56] LABS: CREATININE 0.6 mg/dL (0.5-1.5); POTASSIUM 3.9 mmol/L (3.5-5.1)
[2021-04-23 05:08] LABS: ALBUMIN 1.9 g/dL (3.5-5.0); BILIRUBIN,TOTAL 0.2 mg/dL (0.2-1.0); MAGNESIUM 2.1 mg/dL (1.80-2.40); PHOSPHORUS 4.4 mg/dL (2.5-4.9); TOTAL PROTEIN, SERUM 5.3 g/dL (6.0-8.3)
[2021-04-23 05:15] LABS: % IRON SATURATION 40.9 % (22-44)
[2021-04-23 07:25] VITALS: BP 99/69
[2021-04-23] MEDS: ENOXAPARIN SODIUM 40 MG/0.4 ML SYRINGE SQ SCH (08:17)
[2021-04-23] MEDS: QUETIAPINE FUMARATE 25 MG TAB PO SCH ×2 (08:18→21:19)
[2021-04-23] MEDS: CITALOPRAM 20 MG TABLET PO SCH (08:18)
[2021-04-23] MEDS: CYANOCOBALAMIN (VITAMIN B-12) 1,000 MCG TABLET PO SCH (08:18)
[2021-04-23] MEDS: MAGNESIUM CHLORIDE 70 MG TABLET.SA PO SCH (08:18)
[2021-04-23] MEDS: ASCORBIC ACID 500 MG TAB PO SCH (08:18)
[2021-04-23] MEDS: METOPROLOL TARTRATE 50 MG TAB PO SCH ×3 (08:18→21:18)
[2021-04-23] MEDS: GABAPENTIN 300 MG CAPSULE PO SCH ×3 (08:19→21:18)
[2021-04-23] MEDS: FAMOTIDINE 20MG TAB PO SCH ×2 (08:19→21:18)
[2021-04-23] MEDS: BUSPIRONE HCL 5 MG TABLET PO SCH ×2 (08:19→21:18)
[2021-04-23] MEDS: ZINC SULFATE 220 CAPSULE PO SCH (08:19)
[2021-04-23] MEDS: TRAMADOL /APAP 37.5MG/325MG TAB PO PRN (11:08)
[2021-04-23 11:25] VITALS: BP 106/57
[2021-04-23 16:11] VITALS: BP 116/65
[2021-04-23] MEDS: CEFTRIAXONE 2GM VIAL IVP SCH (18:43)
[2021-04-23] MEDS: BALSAM PERU/CASTOR OIL 60 GM TUBE TP SCH ×2 (18:58→21:27)
[2021-04-23 20:00] VITALS: BP 117/69
[2021-04-23] MEDS: TRAZODONE HCL 50 MG TAB PO SCH (21:18)
[2021-04-23] MEDS: TAMSULOSIN HCL 0.4 MG CAP.ER.24H PO SCH (21:18)
[2021-04-24] VITALS: BP 109/64
[2021-04-24 04:00] VITALS: BP 105/52
[2021-04-24] MEDS: TRAMADOL HCL 50 MG TABLET PO PRN ×2 (06:03→17:33)
[2021-04-24 07:51] VITALS: BP 99/55
[2021-04-24] MEDS: BUSPIRONE HCL 5 MG TABLET PO SCH ×2 (08:48→20:51)
[2021-04-24] MEDS: QUETIAPINE FUMARATE 25 MG TAB PO SCH ×2 (08:48→20:51)
[2021-04-24] MEDS: FAMOTIDINE 20MG TAB PO SCH ×2 (08:48→20:51)
[2021-04-24] MEDS: CITALOPRAM 20 MG TABLET PO SCH (08:48)
[2021-04-24] MEDS: GABAPENTIN 300 MG CAPSULE PO SCH ×3 (08:48→20:51)
[2021-04-24] MEDS: METOPROLOL TARTRATE 50 MG TAB PO SCH ×3 (08:48→20:51)
[2021-04-24] MEDS: ZINC SULFATE 220 CAPSULE PO SCH (08:48)
[2021-04-24] MEDS: MAGNESIUM CHLORIDE 70 MG TABLET.SA PO SCH (08:51)
[2021-04-24] MEDS: ASCORBIC ACID 500 MG TAB PO SCH (08:51)
[2021-04-24] MEDS: CYANOCOBALAMIN (VITAMIN B-12) 1,000 MCG TABLET PO SCH (08:54)
[2021-04-24] MEDS: ENOXAPARIN SODIUM 40 MG/0.4 ML SYRINGE SQ SCH (08:54)
[2021-04-24] MEDS: BALSAM PERU/CASTOR OIL 60 GM TUBE TP SCH ×2 (08:56→21:01)
[2021-04-24 11:55] VITALS: BP 110/67
[2021-04-24] MEDS: ONDANSETRON 4MG INJ IVP PRN (12:57)
[2021-04-24] MEDS: ACETAMINOPHEN 325 MG TAB PO PRN (12:58)
[2021-04-24 16:00] VITALS: BP 116/56
[2021-04-24] MEDS: CEFTRIAXONE 2GM VIAL IVP SCH (17:33)
[2021-04-24] MEDS: TAMSULOSIN HCL 0.4 MG CAP.ER.24H PO SCH (20:51)
[2021-04-24] MEDS: TRAZODONE HCL 50 MG TAB PO SCH (20:56)
[2021-04-24 21:24] VITALS: BP 112/63
[2021-04-25 02:26] VITALS: BP 116/70
[2021-04-25 04:46] VITALS: BP 107/53
[2021-04-25] MEDS: ACETAMINOPHEN 325 MG TAB PO PRN ×2 (05:41→15:12)
[2021-04-25 07:11] LABS: BASOPHILS % (AUTO) 0.5 % (0.0-5.0); EOSINOPHILS % (AUTO) 4.4 % (0.0-8.0); HEMATOCRIT 27.8 % (36-48); LYMPHOCYTES % (AUTO) 25.4 % (21.0-51.0); MEAN CORPUSCULAR HEMOGLOBIN 27.5 pg (27.0-33.0); MEAN CORPUSCULAR HGB CONC 29.1 g/dL (32.0-36.0); MEAN CORPUSCULAR VOLUME 94.2 fL (79-99); MONOCYTES % (AUTO) 8.2 % (3.0-13.0); NEUTROPHILS % (AUTO) 56.5 % (40.0-77.0); PLATELET COUNT (AUTO) 400 K/uL (130-400); RED BLOOD CELL COUNT(AUTO) 2.95 MIL/uL (4.00-5.50); WHITE BLOOD COUNT (AUTO) 6.4 K/uL (4.8-10.8)
[2021-04-25 07:21] LABS: CREATININE 0.6 mg/dL (0.5-1.5); POTASSIUM 3.7 mmol/L (3.5-5.1)
[2021-04-25 08:00] VITALS: BP 93/61
[2021-04-25] MEDS: ERGOCALCIFEROL (VITAMIN D2) 50,000 UNIT CAPSULE PO SCH (08:36)
[2021-04-25] MEDS: CYANOCOBALAMIN (VITAMIN B-12) 1,000 MCG TABLET PO SCH (08:36)
[2021-04-25] MEDS: CITALOPRAM 20 MG TABLET PO SCH (08:36)
[2021-04-25] MEDS: ZINC SULFATE 220 CAPSULE PO SCH (08:37)
[2021-04-25] MEDS: QUETIAPINE FUMARATE 25 MG TAB PO SCH ×2 (08:37→21:19)
[2021-04-25] MEDS: GABAPENTIN 300 MG CAPSULE PO SCH ×3 (08:37→21:19)
[2021-04-25] MEDS: ASCORBIC ACID 500 MG TAB PO SCH (08:37)
[2021-04-25] MEDS: FAMOTIDINE 20MG TAB PO SCH ×2 (08:37→21:18)
[2021-04-25] MEDS: BUSPIRONE HCL 5 MG TABLET PO SCH ×2 (08:37→21:19)
[2021-04-25] MEDS: MAGNESIUM CHLORIDE 70 MG TABLET.SA PO SCH (08:38)
[2021-04-25] MEDS: ENOXAPARIN SODIUM 40 MG/0.4 ML SYRINGE SQ SCH (08:39)
[2021-04-25] MEDS: BALSAM PERU/CASTOR OIL 60 GM TUBE TP SCH ×2 (08:39→21:00)
[2021-04-25] MEDS: METOPROLOL TARTRATE 50 MG TAB PO SCH ×3 (08:39→21:19)
[2021-04-25] MEDS: TRAMADOL HCL 50 MG TABLET PO PRN (08:48)
[2021-04-25 11:46] VITALS: BP 112/65
[2021-04-25 16:00] VITALS: BP 102/57
[2021-04-25] MEDS: CEFTRIAXONE 2GM VIAL IVP SCH (18:29)
[2021-04-25 20:43] VITALS: BP 104/50
[2021-04-25] MEDS: TAMSULOSIN HCL 0.4 MG CAP.ER.24H PO SCH (21:19)
[2021-04-25] MEDS: TRAZODONE HCL 50 MG TAB PO SCH (21:19)
[2021-04-26 00:06] VITALS: BP 116/51
[2021-04-26 04:26] VITALS: BP 113/54
[2021-04-26 04:32] LABS: HEMATOCRIT 28.3 % (36-48); MEAN CORPUSCULAR HEMOGLOBIN 28.4 pg (27.0-33.0); MEAN CORPUSCULAR HGB CONC 29.7 g/dL (32.0-36.0); MEAN CORPUSCULAR VOLUME 95.6 fL (79-99); PLATELET COUNT (AUTO) 418 K/uL (130-400); RED BLOOD CELL COUNT(AUTO) 2.96 MIL/uL (4.00-5.50); RED CELL DISTRIBUTION WIDTH 18.4 % (11.0-15.5); WHITE BLOOD COUNT (AUTO) 6.5 K/uL (4.8-10.8)
[2021-04-26 04:47] LABS: CREATININE 0.6 mg/dL (0.5-1.5); POTASSIUM 3.6 mmol/L (3.5-5.1)
[2021-04-26 04:57] LABS: LYMPHOCYTES % (MANUAL) 14 % (22-44); MAN.DIFF COMMENT-IMPRESSION MANUAL DIFFERENTIAL; MONOCYTES % (MANUAL) 10 % (2-9); PLATELET MORPHOLOGY COMMENT ADEQUATE; SEGMENTED NEUTROPHILS % 76 % (40-70)
[2021-04-26 07:00] VITALS: BP 131/64
[2021-04-26] MEDS: ZINC SULFATE 220 CAPSULE PO SCH (09:15)
[2021-04-26] MEDS: TRAMADOL HCL 50 MG TABLET PO PRN (09:15)
[2021-04-26] MEDS: BUSPIRONE HCL 5 MG TABLET PO SCH ×2 (09:15→20:47)
[2021-04-26] MEDS: MAGNESIUM CHLORIDE 70 MG TABLET.SA PO SCH (09:16)
[2021-04-26] MEDS: ASCORBIC ACID 500 MG TAB PO SCH (09:16)
[2021-04-26] MEDS: GABAPENTIN 300 MG CAPSULE PO SCH ×3 (09:16→20:47)
[2021-04-26] MEDS: METOPROLOL TARTRATE 50 MG TAB PO SCH ×3 (09:16→20:48)
[2021-04-26] MEDS: CYANOCOBALAMIN (VITAMIN B-12) 1,000 MCG TABLET PO SCH (09:16)
[2021-04-26] MEDS: QUETIAPINE FUMARATE 25 MG TAB PO SCH ×2 (09:16→20:47)
[2021-04-26] MEDS: CITALOPRAM 20 MG TABLET PO SCH (09:16)
[2021-04-26] MEDS: FAMOTIDINE 20MG TAB PO SCH ×2 (09:16→20:47)
[2021-04-26] MEDS: ENOXAPARIN SODIUM 40 MG/0.4 ML SYRINGE SQ SCH (09:17)
[2021-04-26] MEDS: BALSAM PERU/CASTOR OIL 60 GM TUBE TP SCH ×2 (09:42→21:00)
[2021-04-26] MEDS: ONDANSETRON 4MG INJ IVP PRN (10:55)
[2021-04-26 11:00] VITALS: BP 122/71
[2021-04-26 15:59] LABS: APPEARANCE,URINE Cloudy (CLEAR); BILIRUBIN,URINE Negative (NEGATIVE); COLOR,URINE Yellow (YELLOW); GLUCOSE, URINE (UA) Negative (NEGATIVE); KETONES,URINE Trace mg/dL (NEGATIVE); LEUKOCYTE ESTERASE ,URINE Moderate (NEGATIVE); NITRATE,URINE Negative (NEGATIVE); OCCULT BLOOD,URINE Negative (NEGATIVE); PH,URINE 5.5 (5.0-8.0); PROTEIN,URINE Trace mg/dL (NEGATIVE)
[2021-04-26 16:05] VITALS: BP 99/60
[2021-04-26 16:14] LABS: BACTERIA,URINE Few /HPF (None Seen); YEAST,URINE BUDDING Few /HPF (None Seen)
[2021-04-26 16:15] LABS: AMORPHOUS SEDIMENT,UR Few /LPF (None Seen); SQUAMOUS EPITHELIAL CELL,UR Few /HPF (0-2)
[2021-04-26] MEDS: ACETAMINOPHEN 325 MG TAB PO PRN (17:07)
[2021-04-26] MEDS: CEFTRIAXONE 2GM VIAL IVP SCH (17:35)
[2021-04-26 19:58] VITALS: BP 97/60
[2021-04-26] MEDS: TAMSULOSIN HCL 0.4 MG CAP.ER.24H PO SCH (20:47)
[2021-04-26] MEDS: TRAZODONE HCL 50 MG TAB PO SCH (20:48)
[2021-04-27] VITALS (7 sets, daily range): BP systolic 90–115; BP diastolic 48–73
[2021-04-27 03:57] LABS: BASOPHILS % (AUTO) 0.6 % (0.0-5.0); EOSINOPHILS % (AUTO) 3.5 % (0.0-8.0); HEMATOCRIT 28.2 % (36-48); LYMPHOCYTES % (AUTO) 26.3 % (21.0-51.0); MEAN CORPUSCULAR HEMOGLOBIN 27.6 pg (27.0-33.0); MEAN CORPUSCULAR HGB CONC 29.1 g/dL (32.0-36.0); MEAN CORPUSCULAR VOLUME 94.9 fL (79-99); MONOCYTES % (AUTO) 8.6 % (3.0-13.0); NEUTROPHILS % (AUTO) 56.4 % (40.0-77.0); PLATELET COUNT (AUTO) 426 K/uL (130-400); RED BLOOD CELL COUNT(AUTO) 2.97 MIL/uL (4.00-5.50); RED CELL DISTRIBUTION WIDTH 18.6 % (11.0-15.5); WHITE BLOOD COUNT (AUTO) 6.3 K/uL (4.8-10.8)
[2021-04-27 04:18] LABS: BILIRUBIN,TOTAL 0.2 mg/dL (0.2-1.0); CREATININE 0.7 mg/dL (0.5-1.5); POTASSIUM 3.6 mmol/L (3.5-5.1); TOTAL PROTEIN, SERUM 5.1 g/dL (6.0-8.3)
[2021-04-27] MEDS: METOPROLOL TARTRATE 50 MG TAB PO SCH ×3 (08:23→20:45)
[2021-04-27] MEDS: GABAPENTIN 300 MG CAPSULE PO SCH ×3 (10:38→20:44)
[2021-04-27] MEDS: ASCORBIC ACID 500 MG TAB PO SCH (10:38)
[2021-04-27] MEDS: FAMOTIDINE 20MG TAB PO SCH ×2 (10:38→20:44)
[2021-04-27] MEDS: ENOXAPARIN SODIUM 40 MG/0.4 ML SYRINGE SQ SCH (10:38)
[2021-04-27] MEDS: CITALOPRAM 20 MG TABLET PO SCH (10:38)
[2021-04-27] MEDS: QUETIAPINE FUMARATE 25 MG TAB PO SCH ×2 (10:38→20:44)
[2021-04-27] MEDS: BUSPIRONE HCL 5 MG TABLET PO SCH ×2 (10:38→20:44)
[2021-04-27] MEDS: MAGNESIUM CHLORIDE 70 MG TABLET.SA PO SCH (10:38)
[2021-04-27] MEDS: TRAMADOL HCL 50 MG TABLET PO PRN ×2 (10:39→20:45)
[2021-04-27] MEDS: BALSAM PERU/CASTOR OIL 60 GM TUBE TP SCH ×2 (10:42→21:00)
[2021-04-27 14:31] LABS: ABG BASE EXCESS 0.7 mmol/L (-2.0-3.0); ABG HCO3 26.1 mmol/L (21.0-28.0); ABG OXYGEN SATURATION 96.1 % (95.0-99.0); ABG PCO2 46 mmHg (32-45)
[2021-04-27] MEDS: CEFTRIAXONE 2GM VIAL IVP SCH (18:30)
[2021-04-27] MEDS: TAMSULOSIN HCL 0.4 MG CAP.ER.24H PO SCH (20:44)
[2021-04-27] MEDS: DOCUSATE SODIUM 100 MG CAP PO SCH (20:45)
[2021-04-27] MEDS: TRAZODONE HCL 50 MG TAB PO SCH (20:45)
[2021-04-27] MEDS: ONDANSETRON 4MG INJ IVP PRN (21:03)
[2021-04-28] VITALS: BP 90/57
[2021-04-28 03:11] VITALS: BP 100/62
[2021-04-28 07:15] VITALS: BP 114/65
[2021-04-28] MEDS: TRAMADOL HCL 50 MG TABLET PO PRN ×2 (08:08→18:07)
[2021-04-28] MEDS: BUSPIRONE HCL 5 MG TABLET PO SCH ×2 (08:08→21:41)
[2021-04-28] MEDS: FAMOTIDINE 20MG TAB PO SCH ×2 (08:08→21:41)
[2021-04-28] MEDS: DOCUSATE SODIUM 100 MG CAP PO SCH ×2 (08:08→21:41)
[2021-04-28] MEDS: CITALOPRAM 20 MG TABLET PO SCH (08:08)
[2021-04-28] MEDS: MAGNESIUM CHLORIDE 70 MG TABLET.SA PO SCH (08:09)
[2021-04-28] MEDS: ASCORBIC ACID 500 MG TAB PO SCH (08:09)
[2021-04-28] MEDS: QUETIAPINE FUMARATE 25 MG TAB PO SCH ×2 (08:12→21:41)
[2021-04-28] MEDS: METOPROLOL TARTRATE 50 MG TAB PO SCH ×3 (08:12→21:41)
[2021-04-28] MEDS: GABAPENTIN 300 MG CAPSULE PO SCH ×3 (08:12→21:42)
[2021-04-28] MEDS: ENOXAPARIN SODIUM 40 MG/0.4 ML SYRINGE SQ SCH (08:21)
[2021-04-28] MEDS: BALSAM PERU/CASTOR OIL 60 GM TUBE TP SCH ×2 (08:49→21:00)
[2021-04-28 11:30] VITALS: BP 97/66
[2021-04-28] MEDS: ACETAMINOPHEN 325 MG TAB PO PRN (14:24)
[2021-04-28 16:00] VITALS: BP 126/80
[2021-04-28 20:30] VITALS: BP 120/75
[2021-04-28] MEDS: TAMSULOSIN HCL 0.4 MG CAP.ER.24H PO SCH (21:41)
[2021-04-28] MEDS: TRAZODONE HCL 50 MG TAB PO SCH (21:42)
[2021-04-29] VITALS: BP 111/61
[2021-04-29 04:51] VITALS: BP 108/63
[2021-04-29 08:00] VITALS: BP 133/76
[2021-04-29] MEDS: POLYETHYLENE GLYCOL 3350 17 GM POWD.PACK PO SCH (08:54)
[2021-04-29] MEDS: ENOXAPARIN SODIUM 40 MG/0.4 ML SYRINGE SQ SCH (08:54)
[2021-04-29] MEDS: METOPROLOL TARTRATE 50 MG TAB PO SCH ×3 (08:55→20:24)
[2021-04-29] MEDS: GABAPENTIN 300 MG CAPSULE PO SCH ×3 (08:55→20:17)
[2021-04-29] MEDS: DOCUSATE SODIUM 100 MG CAP PO SCH ×2 (08:55→20:16)
[2021-04-29] MEDS: QUETIAPINE FUMARATE 25 MG TAB PO SCH ×2 (08:55→20:16)
[2021-04-29] MEDS: FAMOTIDINE 20MG TAB PO SCH ×2 (08:55→20:16)
[2021-04-29] MEDS: CITALOPRAM 20 MG TABLET PO SCH (08:55)
[2021-04-29] MEDS: BUSPIRONE HCL 5 MG TABLET PO SCH ×2 (08:55→20:16)
[2021-04-29] MEDS: MAGNESIUM CHLORIDE 70 MG TABLET.SA PO SCH (08:55)
[2021-04-29] MEDS: ASCORBIC ACID 500 MG TAB PO SCH (08:55)
[2021-04-29] MEDS: BALSAM PERU/CASTOR OIL 60 GM TUBE TP SCH ×2 (08:55→20:15)
[2021-04-29 12:00] VITALS: BP 106/57
[2021-04-29 16:00] VITALS: BP 107/69
[2021-04-29 20:00] VITALS: BP 101/63
[2021-04-29] MEDS: TRAZODONE HCL 50 MG TAB PO SCH (20:16)
[2021-04-29] MEDS: TAMSULOSIN HCL 0.4 MG CAP.ER.24H PO SCH (20:16)
[2021-04-30] VITALS: BP 113/67
[2021-04-30 04:00] VITALS: BP 100/52
[2021-04-30 08:00] VITALS: BP 116/70
[2021-04-30] MEDS: ASCORBIC ACID 500 MG TAB PO SCH (08:56)
[2021-04-30] MEDS: METOPROLOL TARTRATE 50 MG TAB PO SCH ×3 (08:56→20:33)
[2021-04-30] MEDS: CITALOPRAM 20 MG TABLET PO SCH (08:56)
[2021-04-30] MEDS: FAMOTIDINE 20MG TAB PO SCH ×2 (08:56→20:33)
[2021-04-30] MEDS: QUETIAPINE FUMARATE 25 MG TAB PO SCH ×2 (08:57→20:35)
[2021-04-30] MEDS: MAGNESIUM CHLORIDE 70 MG TABLET.SA PO SCH (08:57)
[2021-04-30] MEDS: GABAPENTIN 300 MG CAPSULE PO SCH ×3 (08:57→20:34)
[2021-04-30] MEDS: POLYETHYLENE GLYCOL 3350 17 GM POWD.PACK PO SCH (08:57)
[2021-04-30] MEDS: DOCUSATE SODIUM 100 MG CAP PO SCH ×2 (08:57→20:33)
[2021-04-30] MEDS: BUSPIRONE HCL 5 MG TABLET PO SCH ×2 (08:57→20:34)
[2021-04-30] MEDS: BALSAM PERU/CASTOR OIL 60 GM TUBE TP SCH ×2 (08:59→20:36)
[2021-04-30] MEDS: ENOXAPARIN SODIUM 40 MG/0.4 ML SYRINGE SQ SCH (09:01)
[2021-04-30] MEDS: ACETAMINOPHEN 325 MG TAB PO PRN (09:08)
[2021-04-30 12:00] VITALS: BP 104/61
[2021-04-30 16:00] VITALS: BP 115/73
[2021-04-30 20:00] VITALS: BP 100/48
[2021-04-30] MEDS: TAMSULOSIN HCL 0.4 MG CAP.ER.24H PO SCH (20:33)
[2021-04-30] MEDS: TRAZODONE HCL 50 MG TAB PO SCH (20:34)
[2021-05-01] VITALS (8 sets, daily range): BP systolic 87–137; BP diastolic 48–80
[2021-05-01] MEDS: POLYETHYLENE GLYCOL 3350 17 GM POWD.PACK PO SCH (09:15)
[2021-05-01] MEDS: CITALOPRAM 20 MG TABLET PO SCH (09:16)
[2021-05-01] MEDS: ENOXAPARIN SODIUM 40 MG/0.4 ML SYRINGE SQ SCH (09:16)
[2021-05-01] MEDS: FAMOTIDINE 20MG TAB PO SCH ×2 (09:16→21:19)
[2021-05-01] MEDS: GABAPENTIN 300 MG CAPSULE PO SCH ×3 (09:17→21:18)
[2021-05-01] MEDS: MAGNESIUM CHLORIDE 70 MG TABLET.SA PO SCH (09:17)
[2021-05-01] MEDS: ASCORBIC ACID 500 MG TAB PO SCH (09:17)
[2021-05-01] MEDS: QUETIAPINE FUMARATE 25 MG TAB PO SCH ×2 (09:17→21:18)
[2021-05-01] MEDS: BUSPIRONE HCL 5 MG TABLET PO SCH ×2 (09:17→21:18)
[2021-05-01] MEDS: METOPROLOL TARTRATE 50 MG TAB PO SCH ×3 (09:17→21:19)
[2021-05-01] MEDS: DOCUSATE SODIUM 100 MG CAP PO SCH ×2 (09:18→21:19)
[2021-05-01] MEDS: BALSAM PERU/CASTOR OIL 60 GM TUBE TP SCH ×2 (09:21→21:21)
[2021-05-01] MEDS: TAMSULOSIN HCL 0.4 MG CAP.ER.24H PO SCH (21:17)
[2021-05-01] MEDS: TRAZODONE HCL 50 MG TAB PO SCH (21:18)
[2021-05-02 03:34] VITALS: BP 110/69
[2021-05-02 06:50] VITALS: BP 106/65
[2021-05-02] MEDS: ENOXAPARIN SODIUM 40 MG/0.4 ML SYRINGE SQ SCH (08:06)
[2021-05-02] MEDS: MAGNESIUM CHLORIDE 70 MG TABLET.SA PO SCH (08:06)
[2021-05-02] MEDS: BALSAM PERU/CASTOR OIL 60 GM TUBE TP SCH ×2 (08:06→20:52)
[2021-05-02] MEDS: DOCUSATE SODIUM 100 MG CAP PO SCH ×2 (08:07→20:49)
[2021-05-02] MEDS: FAMOTIDINE 20MG TAB PO SCH ×2 (08:07→20:50)
[2021-05-02] MEDS: ASCORBIC ACID 500 MG TAB PO SCH (08:07)
[2021-05-02] MEDS: BUSPIRONE HCL 5 MG TABLET PO SCH ×2 (08:07→20:50)
[2021-05-02] MEDS: CITALOPRAM 20 MG TABLET PO SCH (08:07)
[2021-05-02] MEDS: ACETAMINOPHEN 325 MG TAB PO PRN ×2 (08:08→14:49)
[2021-05-02] MEDS: POLYETHYLENE GLYCOL 3350 17 GM POWD.PACK PO SCH (08:08)
[2021-05-02] MEDS: GABAPENTIN 300 MG CAPSULE PO SCH ×3 (08:13→20:50)
[2021-05-02] MEDS: METOPROLOL TARTRATE 50 MG TAB PO SCH ×3 (08:13→20:51)
[2021-05-02] MEDS: ONDANSETRON 4MG INJ IVP PRN (10:53)
[2021-05-02 11:20] VITALS: BP 125/67
[2021-05-02] MEDS: ERGOCALCIFEROL (VITAMIN D2) 50,000 UNIT CAPSULE PO SCH (14:41)
[2021-05-02 15:25] VITALS: BP 123/77
[2021-05-02 20:10] VITALS: BP 115/70
[2021-05-02] MEDS: TAMSULOSIN HCL 0.4 MG CAP.ER.24H PO SCH (20:50)
[2021-05-02] MEDS: TRAZODONE HCL 50 MG TAB PO SCH (20:51)
[2021-05-02] MEDS: QUETIAPINE FUMARATE 25 MG TAB PO SCH (20:52)
[2021-05-02 23:29] VITALS: BP 113/67
[2021-05-03 04:03] VITALS: BP 111/56
[2021-05-03 04:08] LABS: BASOPHILS % (AUTO) 0.7 % (0.0-5.0); EOSINOPHILS % (AUTO) 3.6 % (0.0-8.0); HEMATOCRIT 28.2 % (36-48); LYMPHOCYTES % (AUTO) 25.3 % (21.0-51.0); MEAN CORPUSCULAR HEMOGLOBIN 28.5 pg (27.0-33.0); MEAN CORPUSCULAR HGB CONC 29.4 g/dL (32.0-36.0); MEAN CORPUSCULAR VOLUME 96.9 fL (79-99); MONOCYTES % (AUTO) 8.9 % (3.0-13.0); NEUTROPHILS % (AUTO) 58.2 % (40.0-77.0); PLATELET COUNT (AUTO) 391 K/uL (130-400); RED BLOOD CELL COUNT(AUTO) 2.91 MIL/uL (4.00-5.50); RED CELL DISTRIBUTION WIDTH 18.6 % (11.0-15.5); WHITE BLOOD COUNT (AUTO) 7.3 K/uL (4.8-10.8)
[2021-05-03 04:14] LABS: CREATININE 0.7 mg/dL (0.5-1.5); POTASSIUM 3.5 mmol/L (3.5-5.1)
[2021-05-03] MEDS: KCL 20 MEQ ERTAB PO PRN ×2 (05:48→09:17)
[2021-05-03 08:00] VITALS: BP 115/62
[2021-05-03] MEDS: CITALOPRAM 20 MG TABLET PO SCH (08:53)
[2021-05-03] MEDS: DOCUSATE SODIUM 100 MG CAP PO SCH ×2 (08:54→21:42)
[2021-05-03] MEDS: GABAPENTIN 300 MG CAPSULE PO SCH ×3 (08:54→21:43)
[2021-05-03] MEDS: MAGNESIUM CHLORIDE 70 MG TABLET.SA PO SCH (08:54)
[2021-05-03] MEDS: BUSPIRONE HCL 5 MG TABLET PO SCH ×2 (08:54→21:41)
[2021-05-03] MEDS: METOPROLOL TARTRATE 50 MG TAB PO SCH ×3 (08:54→21:41)
[2021-05-03] MEDS: FAMOTIDINE 20MG TAB PO SCH ×2 (08:54→21:42)
[2021-05-03] MEDS: POLYETHYLENE GLYCOL 3350 17 GM POWD.PACK PO SCH (08:54)
[2021-05-03] MEDS: ENOXAPARIN SODIUM 40 MG/0.4 ML SYRINGE SQ SCH (08:55)
[2021-05-03] MEDS: BALSAM PERU/CASTOR OIL 60 GM TUBE TP SCH ×2 (09:04→21:00)
[2021-05-03 12:00] VITALS: BP_SYST 127; BP_DIAS 52; BP_DIAS 73
[2021-05-03 16:00] VITALS: BP 130/76
[2021-05-03 20:17] VITALS: BP 125/82
[2021-05-03] MEDS: TRAZODONE HCL 50 MG TAB PO SCH (21:41)
[2021-05-03] MEDS: TAMSULOSIN HCL 0.4 MG CAP.ER.24H PO SCH (21:42)
[2021-05-03] MEDS: QUETIAPINE FUMARATE 25 MG TAB PO SCH (21:42)
[2021-05-03 23:56] VITALS: BP 117/65
[2021-05-04 03:54] VITALS: BP 120/64
[2021-05-04 07:50] VITALS: BP 120/57
[2021-05-04] MEDS: FAMOTIDINE 20MG TAB PO SCH (08:47)
[2021-05-04] MEDS: MAGNESIUM CHLORIDE 70 MG TABLET.SA PO SCH (08:47)
[2021-05-04] MEDS: METOPROLOL TARTRATE 50 MG TAB PO SCH ×3 (08:47→21:19)
[2021-05-04] MEDS: DOCUSATE SODIUM 100 MG CAP PO SCH ×2 (08:47→21:19)
[2021-05-04] MEDS: BUSPIRONE HCL 5 MG TABLET PO SCH ×2 (08:47→21:18)
[2021-05-04] MEDS: GABAPENTIN 300 MG CAPSULE PO SCH ×3 (08:47→21:19)
[2021-05-04] MEDS: CITALOPRAM 20 MG TABLET PO SCH (08:47)
[2021-05-04] MEDS: ENOXAPARIN SODIUM 40 MG/0.4 ML SYRINGE SQ SCH (08:48)
[2021-05-04] MEDS: POLYETHYLENE GLYCOL 3350 17 GM POWD.PACK PO SCH (08:48)
[2021-05-04] MEDS: BALSAM PERU/CASTOR OIL 60 GM TUBE TP SCH ×2 (08:48→21:00)
[2021-05-04 11:05] VITALS: BP 116/59
[2021-05-04 16:20] VITALS: BP 112/64
[2021-05-04] MEDS: QUETIAPINE FUMARATE 25 MG TAB PO SCH (21:19)
[2021-05-04] MEDS: TRAZODONE HCL 50 MG TAB PO SCH (21:19)
[2021-05-04 21:21] VITALS: BP 134/75
[2021-05-04] MEDS ORDERED: MONTELUKAST SODIUM 10 MG TAB ONE (23:24)
[2021-05-04] MEDS ORDERED: MONTELUKAST SODIUM 10 MG TAB PO SCH (23:30)
[2021-05-05 00:28] VITALS: BP 128/69
[2021-05-05 05:03] VITALS: BP 137/84
[2021-05-05 08:00] VITALS: BP 128/80
[2021-05-05] MEDS: ACETAMINOPHEN 325 MG TAB PO PRN ×2 (08:51→21:08)
[2021-05-05] MEDS: METOPROLOL TARTRATE 50 MG TAB PO SCH ×3 (08:51→21:07)
[2021-05-05] MEDS: BUSPIRONE HCL 5 MG TABLET PO SCH ×2 (08:52→21:08)
[2021-05-05] MEDS: MAGNESIUM CHLORIDE 70 MG TABLET.SA PO SCH (08:53)
[2021-05-05] MEDS: CITALOPRAM 20 MG TABLET PO SCH (08:53)
[2021-05-05] MEDS: MONTELUKAST SODIUM 10 MG TAB PO SCH (08:54)
[2021-05-05] MEDS: GABAPENTIN 300 MG CAPSULE PO SCH ×3 (08:54→21:08)
[2021-05-05] MEDS: DOCUSATE SODIUM 100 MG CAP PO SCH ×2 (08:54→21:08)
[2021-05-05] MEDS: POLYETHYLENE GLYCOL 3350 17 GM POWD.PACK PO SCH (08:55)
[2021-05-05] MEDS: ENOXAPARIN SODIUM 40 MG/0.4 ML SYRINGE SQ SCH (08:56)
[2021-05-05 11:59] VITALS: BP 117/68
[2021-05-05 16:00] VITALS: BP 150/82
[2021-05-05 20:40] VITALS: BP 140/86
[2021-05-05] MEDS: QUETIAPINE FUMARATE 25 MG TAB PO SCH (21:07)
[2021-05-05] MEDS: TRAZODONE HCL 50 MG TAB PO SCH (21:07)
[2021-05-05] MEDS: BALSAM PERU/CASTOR OIL 60 GM TUBE TP SCH (21:18)
[2021-05-06 00:24] VITALS: BP 125/78
[2021-05-06 03:58] VITALS: BP 128/76
[2021-05-06] MEDS: ACETAMINOPHEN 325 MG TAB PO PRN ×2 (06:16→21:31)
[2021-05-06 08:00] VITALS: BP 115/67
[2021-05-06] MEDS: POLYETHYLENE GLYCOL 3350 17 GM POWD.PACK PO SCH ×2 (09:00→10:28)
[2021-05-06] MEDS: MONTELUKAST SODIUM 10 MG TAB PO SCH (10:28)
[2021-05-06] MEDS: GABAPENTIN 300 MG CAPSULE PO SCH ×3 (10:29→21:29)
[2021-05-06] MEDS: MAGNESIUM CHLORIDE 70 MG TABLET.SA PO SCH (10:29)
[2021-05-06] MEDS: CITALOPRAM 20 MG TABLET PO SCH (10:29)
[2021-05-06] MEDS: METOPROLOL TARTRATE 50 MG TAB PO SCH ×3 (10:29→21:28)
[2021-05-06] MEDS: BUSPIRONE HCL 5 MG TABLET PO SCH ×2 (10:29→21:29)
[2021-05-06] MEDS: DOCUSATE SODIUM 100 MG CAP PO SCH ×2 (10:29→21:29)
[2021-05-06] MEDS: BALSAM PERU/CASTOR OIL 60 GM TUBE TP SCH ×2 (10:30→21:29)
[2021-05-06] MEDS: ENOXAPARIN SODIUM 40 MG/0.4 ML SYRINGE SQ SCH (10:30)
[2021-05-06 11:00] VITALS: BP 131/82
[2021-05-06 16:00] VITALS: BP 139/88
[2021-05-06 20:45] VITALS: BP 151/87
[2021-05-06] MEDS: QUETIAPINE FUMARATE 25 MG TAB PO SCH (21:28)
[2021-05-06] MEDS: TRAZODONE HCL 50 MG TAB PO SCH (21:28)
[2021-05-06] MEDS ORDERED: DIPHENHYDRAMINE HCL 25 MG CAPSULE PO ONE (22:30)
[2021-05-06] MEDS ORDERED: GUAIFENESIN-CODEINE 5 ML SYRUP PO ONE (22:30)
[2021-05-06] MEDS ORDERED: IPRATROPIUM/ALBUTEROL SULFATE 3 ML SOLUTION IH ONE (22:30)
[2021-05-07] VITALS (7 sets, daily range): BP systolic 106–149; BP diastolic 57–85
[2021-05-07] MEDS: BUSPIRONE HCL 5 MG TABLET PO SCH ×2 (09:12→21:32)
[2021-05-07] MEDS: POLYETHYLENE GLYCOL 3350 17 GM POWD.PACK PO SCH (09:12)
[2021-05-07] MEDS: METOPROLOL TARTRATE 50 MG TAB PO SCH ×3 (09:12→21:33)
[2021-05-07] MEDS: GABAPENTIN 300 MG CAPSULE PO SCH ×3 (09:13→21:32)
[2021-05-07] MEDS: DOCUSATE SODIUM 100 MG CAP PO SCH ×2 (09:13→21:32)
[2021-05-07] MEDS: MONTELUKAST SODIUM 10 MG TAB PO SCH (09:13)
[2021-05-07] MEDS: CITALOPRAM 20 MG TABLET PO SCH (09:13)
[2021-05-07] MEDS: MAGNESIUM CHLORIDE 70 MG TABLET.SA PO SCH (09:13)
[2021-05-07] MEDS: ENOXAPARIN SODIUM 40 MG/0.4 ML SYRINGE SQ SCH (09:14)
[2021-05-07] MEDS: BALSAM PERU/CASTOR OIL 60 GM TUBE TP SCH ×2 (09:15→21:39)
[2021-05-07] MEDS: TRAZODONE HCL 50 MG TAB PO SCH (21:32)
[2021-05-07] MEDS: QUETIAPINE FUMARATE 25 MG TAB PO SCH (21:33)
[2021-05-08 04:35] VITALS: BP 123/71
[2021-05-08 04:56] LABS: HEMATOCRIT 29.9 % (36-48); MEAN CORPUSCULAR HEMOGLOBIN 28.5 pg (27.0-33.0); MEAN CORPUSCULAR HGB CONC 30.1 g/dL (32.0-36.0); MEAN CORPUSCULAR VOLUME 94.6 fL (79-99); PLATELET COUNT (AUTO) 316 K/uL (130-400); RED BLOOD CELL COUNT(AUTO) 3.16 MIL/uL (4.00-5.50); WHITE BLOOD COUNT (AUTO) 6.7 K/uL (4.8-10.8)
[2021-05-08 05:08] LABS: ALBUMIN 2.1 g/dL (3.5-5.0); BILIRUBIN,TOTAL 0.3 mg/dL (0.2-1.0); CREATININE 0.5 mg/dL (0.5-1.5); POTASSIUM 3.2 mmol/L (3.5-5.1); TOTAL PROTEIN, SERUM 5.4 g/dL (6.0-8.3)
[2021-05-08 08:00] VITALS: BP 134/86
[2021-05-08] MEDS: POLYETHYLENE GLYCOL 3350 17 GM POWD.PACK PO SCH (08:25)
[2021-05-08] MEDS: BUSPIRONE HCL 5 MG TABLET PO SCH ×2 (08:26→21:31)
[2021-05-08] MEDS: MONTELUKAST SODIUM 10 MG TAB PO SCH (08:26)
[2021-05-08] MEDS: DOCUSATE SODIUM 100 MG CAP PO SCH ×2 (08:26→21:31)
[2021-05-08] MEDS: CITALOPRAM 20 MG TABLET PO SCH (08:26)
[2021-05-08] MEDS: MAGNESIUM CHLORIDE 70 MG TABLET.SA PO SCH (08:26)
[2021-05-08] MEDS: GABAPENTIN 300 MG CAPSULE PO SCH ×3 (08:26→21:31)
[2021-05-08] MEDS: METOPROLOL TARTRATE 50 MG TAB PO SCH ×3 (08:27→21:31)
[2021-05-08] MEDS: ENOXAPARIN SODIUM 40 MG/0.4 ML SYRINGE SQ SCH (08:27)
[2021-05-08 12:00] VITALS: BP 125/76
[2021-05-08 16:00] VITALS: BP 134/76
[2021-05-08 21:01] VITALS: BP 135/60
[2021-05-08] MEDS: TRAZODONE HCL 50 MG TAB PO SCH (21:31)
[2021-05-08] MEDS: QUETIAPINE FUMARATE 25 MG TAB PO SCH (21:31)
[2021-05-09] VITALS (7 sets, daily range): BP systolic 107–142; BP diastolic 54–84
[2021-05-09] MEDS ORDERED: KCL 20 MEQ ERTAB PO SCH (08:30)
[2021-05-09] MEDS: POLYETHYLENE GLYCOL 3350 17 GM POWD.PACK PO SCH ×2 (09:00→09:33)
[2021-05-09] MEDS: MONTELUKAST SODIUM 10 MG TAB PO SCH (09:32)
[2021-05-09] MEDS: GABAPENTIN 300 MG CAPSULE PO SCH ×3 (09:32→19:54)
[2021-05-09] MEDS: METOPROLOL TARTRATE 50 MG TAB PO SCH ×3 (09:32→19:53)
[2021-05-09] MEDS: BUSPIRONE HCL 5 MG TABLET PO SCH ×2 (09:32→19:55)
[2021-05-09] MEDS: DOCUSATE SODIUM 100 MG CAP PO SCH ×2 (09:32→19:54)
[2021-05-09] MEDS: MAGNESIUM CHLORIDE 70 MG TABLET.SA PO SCH (09:32)
[2021-05-09] MEDS: CITALOPRAM 20 MG TABLET PO SCH (09:32)
[2021-05-09] MEDS: ACETAMINOPHEN 325 MG TAB PO PRN (09:41)
[2021-05-09] MEDS ORDERED: ENOXAPARIN SODIUM 40 MG/0.4 ML SYRINGE SQ SCH (16:30)
[2021-05-09] MEDS: QUETIAPINE FUMARATE 25 MG TAB PO SCH (19:54)
[2021-05-09] MEDS: TRAZODONE HCL 50 MG TAB PO SCH (19:55)
[2021-05-10] VITALS (7 sets, daily range): BP systolic 108–159; BP diastolic 69–91
[2021-05-10] MEDS: CITALOPRAM 20 MG TABLET PO SCH (07:42)
[2021-05-10] MEDS: DOCUSATE SODIUM 100 MG CAP PO SCH ×2 (07:42→21:00)
[2021-05-10] MEDS: ACETAMINOPHEN 325 MG TAB PO PRN (07:43)
[2021-05-10] MEDS: BUSPIRONE HCL 5 MG TABLET PO SCH ×2 (07:44→21:10)
[2021-05-10] MEDS: MAGNESIUM CHLORIDE 70 MG TABLET.SA PO SCH (07:44)
[2021-05-10] MEDS: MONTELUKAST SODIUM 10 MG TAB PO SCH (07:44)
[2021-05-10] MEDS: ENOXAPARIN SODIUM 40 MG/0.4 ML SYRINGE SQ SCH (07:45)
[2021-05-10] MEDS: GABAPENTIN 300 MG CAPSULE PO SCH ×3 (07:46→21:10)
[2021-05-10] MEDS: METOPROLOL TARTRATE 50 MG TAB PO SCH ×2 (07:46→21:10)
[2021-05-10] MEDS: POLYETHYLENE GLYCOL 3350 17 GM POWD.PACK PO SCH (09:00)
[2021-05-10] MEDS: TRAZODONE HCL 50 MG TAB PO SCH (21:10)
[2021-05-10] MEDS: QUETIAPINE FUMARATE 25 MG TAB PO SCH (21:10)
[2021-05-11 03:43] VITALS: BP 124/57
[2021-05-11 08:19] VITALS: BP 116/72
[2021-05-11] MEDS: POLYETHYLENE GLYCOL 3350 17 GM POWD.PACK PO SCH (09:00)
[2021-05-11] MEDS: DOCUSATE SODIUM 100 MG CAP PO SCH ×2 (09:00→20:23)
[2021-05-11] MEDS: CITALOPRAM 20 MG TABLET PO SCH (10:16)
[2021-05-11] MEDS: BUSPIRONE HCL 5 MG TABLET PO SCH ×2 (10:16→20:17)
[2021-05-11] MEDS: METOPROLOL TARTRATE 50 MG TAB PO SCH ×2 (10:16→20:17)
[2021-05-11] MEDS: MAGNESIUM CHLORIDE 70 MG TABLET.SA PO SCH (10:16)
[2021-05-11] MEDS: MONTELUKAST SODIUM 10 MG TAB PO SCH (10:16)
[2021-05-11] MEDS: GABAPENTIN 300 MG CAPSULE PO SCH ×3 (10:16→20:23)
[2021-05-11] MEDS: ENOXAPARIN SODIUM 40 MG/0.4 ML SYRINGE SQ SCH (10:17)
[2021-05-11 11:38] VITALS: BP 118/76
[2021-05-11 16:00] VITALS: BP 124/71
[2021-05-11 18:29] LABS: APPEARANCE,URINE Cloudy (CLEAR); BILIRUBIN,URINE Negative (NEGATIVE); COLOR,URINE Yellow (YELLOW); GLUCOSE, URINE (UA) Negative (NEGATIVE); KETONES,URINE Negative (NEGATIVE); LEUKOCYTE ESTERASE ,URINE Moderate (NEGATIVE); NITRATE,URINE Negative (NEGATIVE); OCCULT BLOOD,URINE Negative (NEGATIVE); PH,URINE 5.5 (5.0-8.0); PROTEIN,URINE Negative (NEGATIVE)
[2021-05-11 18:42] LABS: BACTERIA,URINE Few /HPF (None Seen); RBC,URINE 0-1 /HPF (0-1); YEAST,URINE BUDDING Moderate /HPF (None Seen)
[2021-05-11 18:43] LABS: MUCUS,URINE Few LPF (None Seen); SQUAMOUS EPITHELIAL CELL,UR 0-2 /HPF (0-2)
[2021-05-11 20:00] VITALS: BP 148/83
[2021-05-11] MEDS: TRAZODONE HCL 50 MG TAB PO SCH (20:17)
[2021-05-11] MEDS: QUETIAPINE FUMARATE 25 MG TAB PO SCH (20:17)
[2021-05-11] MEDS: ACETAMINOPHEN 325 MG TAB PO PRN (20:19)
[2021-05-12] VITALS (7 sets, daily range): BP systolic 114–143; BP diastolic 60–88
[2021-05-12] MEDS: ACETAMINOPHEN 325 MG TAB PO PRN (06:00)
[2021-05-12] MEDS: ONDANSETRON 4MG INJ IVP PRN (06:55)
[2021-05-12] MEDS: DOCUSATE SODIUM 100 MG CAP PO SCH ×2 (09:00→20:33)
[2021-05-12] MEDS: POLYETHYLENE GLYCOL 3350 17 GM POWD.PACK PO SCH (09:00)
[2021-05-12] MEDS: METOPROLOL TARTRATE 50 MG TAB PO SCH ×2 (09:54→20:34)
[2021-05-12] MEDS: MONTELUKAST SODIUM 10 MG TAB PO SCH (09:54)
[2021-05-12] MEDS: CITALOPRAM 20 MG TABLET PO SCH (09:54)
[2021-05-12] MEDS: MAGNESIUM CHLORIDE 70 MG TABLET.SA PO SCH (09:54)
[2021-05-12] MEDS: BUSPIRONE HCL 5 MG TABLET PO SCH ×2 (09:55→20:34)
[2021-05-12] MEDS: GABAPENTIN 300 MG CAPSULE PO SCH ×3 (09:55→20:34)
[2021-05-12] MEDS: ENOXAPARIN SODIUM 40 MG/0.4 ML SYRINGE SQ SCH (09:56)
[2021-05-12] MEDS ORDERED: SUMATRIPTAN SUCCINATE 25 MG TABLET PO SCH (13:30)
[2021-05-12] MEDS: QUETIAPINE FUMARATE 25 MG TAB PO SCH (20:33)
[2021-05-12] MEDS: TRAZODONE HCL 50 MG TAB PO SCH (20:36)
[2021-05-13 04:19] VITALS: BP 122/69
[2021-05-13 04:43] LABS: HEMATOCRIT 35.1 % (36-48); MEAN CORPUSCULAR HEMOGLOBIN 29.3 pg (27.0-33.0); MEAN CORPUSCULAR HGB CONC 29.3 g/dL (32.0-36.0); MEAN CORPUSCULAR VOLUME 99.7 fL (79-99); RED BLOOD CELL COUNT(AUTO) 3.52 MIL/uL (4.00-5.50); RED CELL DISTRIBUTION WIDTH 17.4 % (11.0-15.5); WHITE BLOOD COUNT (AUTO) 6.7 K/uL (4.8-10.8)
[2021-05-13 05:02] LABS: ALBUMIN 2.4 g/dL (3.5-5.0); BILIRUBIN,TOTAL 0.3 mg/dL (0.2-1.0); CREATININE 0.5 mg/dL (0.5-1.5); POTASSIUM 3.1 mmol/L (3.5-5.1); TOTAL PROTEIN, SERUM 5.8 g/dL (6.0-8.3)
[2021-05-13 08:00] VITALS: BP 123/69
[2021-05-13] MEDS: POLYETHYLENE GLYCOL 3350 17 GM POWD.PACK PO SCH (08:49)
[2021-05-13] MEDS: BUSPIRONE HCL 5 MG TABLET PO SCH ×2 (08:50→18:00)
[2021-05-13] MEDS: GABAPENTIN 300 MG CAPSULE PO SCH ×3 (08:50→20:58)
[2021-05-13] MEDS: MONTELUKAST SODIUM 10 MG TAB PO SCH (08:50)
[2021-05-13] MEDS: DOCUSATE SODIUM 100 MG CAP PO SCH ×2 (08:50→20:58)
[2021-05-13] MEDS: MAGNESIUM CHLORIDE 70 MG TABLET.SA PO SCH (08:50)
[2021-05-13] MEDS: CITALOPRAM 20 MG TABLET PO SCH (08:50)
[2021-05-13] MEDS: ENOXAPARIN SODIUM 40 MG/0.4 ML SYRINGE SQ SCH (08:51)
[2021-05-13] MEDS: METOPROLOL TARTRATE 50 MG TAB PO SCH ×2 (08:51→20:59)
[2021-05-13] MEDS: ACETAMINOPHEN 325 MG TAB PO PRN (08:58)
[2021-05-13 12:00] VITALS: BP 112/61
[2021-05-13 16:00] VITALS: BP 128/79
[2021-05-13] MEDS: POTASSIUM CHLORIDE 10% ELIXIR 20 MEQ/15 ML UDCUP PO PRN (16:00)
[2021-05-13 20:00] VITALS: BP 140/85
[2021-05-13] MEDS: QUETIAPINE FUMARATE 25 MG TAB PO SCH (20:58)
[2021-05-13] MEDS: TRAZODONE HCL 50 MG TAB PO SCH (20:58)
[2021-05-13] MEDS: KCL 20 MEQ ERTAB PO PRN (21:08)
[2021-05-14] VITALS: BP 116/58
[2021-05-14 03:41] LABS: HEMATOCRIT 30.2 % (36-48); MEAN CORPUSCULAR HEMOGLOBIN 29.4 pg (27.0-33.0); MEAN CORPUSCULAR HGB CONC 30.5 g/dL (32.0-36.0); MEAN CORPUSCULAR VOLUME 96.5 fL (79-99); PLATELET COUNT (AUTO) 290 K/uL (130-400); RED BLOOD CELL COUNT(AUTO) 3.13 MIL/uL (4.00-5.50); RED CELL DISTRIBUTION WIDTH 17.3 % (11.0-15.5); WHITE BLOOD COUNT (AUTO) 6.9 K/uL (4.8-10.8)
[2021-05-14 03:56] LABS: CREATININE 0.6 mg/dL (0.5-1.5); MAGNESIUM 1.4 mg/dL (1.80-2.40); PHOSPHORUS 4.1 mg/dL (2.5-4.9); POTASSIUM 3.7 mmol/L (3.5-5.1)
[2021-05-14 04:00] VITALS: BP 121/73
[2021-05-14 04:18] LABS: EOSINOPHILS % (MANUAL) 10 % (1-6); LYMPHOCYTES % (MANUAL) 26 % (22-44); MAN.DIFF COMMENT-IMPRESSION MANUAL DIFFERENTIAL; MONOCYTES % (MANUAL) 6 % (2-9); SEGMENTED NEUTROPHILS % 58 % (40-70)
[2021-05-14 07:45] VITALS: BP 140/73
[2021-05-14] MEDS: POLYETHYLENE GLYCOL 3350 17 GM POWD.PACK PO SCH (08:41)
[2021-05-14] MEDS: CITALOPRAM 20 MG TABLET PO SCH (08:41)
[2021-05-14] MEDS: ENOXAPARIN SODIUM 40 MG/0.4 ML SYRINGE SQ SCH (08:41)
[2021-05-14] MEDS: DOCUSATE SODIUM 100 MG CAP PO SCH ×2 (08:42→21:07)
[2021-05-14] MEDS: MAGNESIUM CHLORIDE 70 MG TABLET.SA PO SCH ×2 (08:42→21:07)
[2021-05-14] MEDS: MONTELUKAST SODIUM 10 MG TAB PO SCH (08:42)
[2021-05-14] MEDS: GABAPENTIN 300 MG CAPSULE PO SCH ×3 (08:43→21:08)
[2021-05-14] MEDS: METOPROLOL TARTRATE 50 MG TAB PO SCH ×2 (08:43→21:09)
[2021-05-14] MEDS: BUSPIRONE HCL 5 MG TABLET PO SCH ×2 (08:43→21:09)
[2021-05-14 11:40] VITALS: BP 126/75
[2021-05-14 15:50] VITALS: BP 137/84
[2021-05-14 20:00] VITALS: BP 141/87
[2021-05-14] MEDS: QUETIAPINE FUMARATE 25 MG TAB PO SCH (21:07)
[2021-05-14] MEDS: TRAZODONE HCL 50 MG TAB PO SCH (21:09)
[2021-05-15] VITALS (7 sets, daily range): BP systolic 116–162; BP diastolic 81–98
[2021-05-15] MEDS: ACETAMINOPHEN 325 MG TAB PO PRN (04:48)
[2021-05-15] MEDS: ENOXAPARIN SODIUM 40 MG/0.4 ML SYRINGE SQ SCH (08:40)
[2021-05-15] MEDS: POLYETHYLENE GLYCOL 3350 17 GM POWD.PACK PO SCH (08:41)
[2021-05-15] MEDS: MAGNESIUM 2GM PREMIX 50ML 50 ML IV PRN (08:41)
[2021-05-15] MEDS: METOPROLOL TARTRATE 50 MG TAB PO SCH ×2 (08:42→20:45)
[2021-05-15] MEDS: CITALOPRAM 20 MG TABLET PO SCH (08:42)
[2021-05-15] MEDS: MAGNESIUM CHLORIDE 70 MG TABLET.SA PO SCH ×2 (08:42→20:45)
[2021-05-15] MEDS: GABAPENTIN 300 MG CAPSULE PO SCH ×3 (08:42→20:46)
[2021-05-15] MEDS: BUSPIRONE HCL 5 MG TABLET PO SCH ×2 (08:42→20:46)
[2021-05-15] MEDS: MONTELUKAST SODIUM 10 MG TAB PO SCH (08:42)
[2021-05-15] MEDS: DOCUSATE SODIUM 100 MG CAP PO SCH ×2 (08:43→20:44)
[2021-05-15] MEDS: TRAZODONE HCL 50 MG TAB PO SCH (20:46)
[2021-05-15] MEDS: QUETIAPINE FUMARATE 25 MG TAB PO SCH (20:52)
[2021-05-16 03:23] VITALS: BP 136/84
[2021-05-16 04:17] LABS: ALBUMIN 2.4 g/dL (3.5-5.0); BILIRUBIN,TOTAL 0.3 mg/dL (0.2-1.0); CREATININE 0.5 mg/dL (0.5-1.5); POTASSIUM 3.5 mmol/L (3.5-5.1); TOTAL PROTEIN, SERUM 6.1 g/dL (6.0-8.3)
[2021-05-16 04:41] LABS: BASOPHILS % (AUTO) 0.4 % (0.0-5.0); EOSINOPHILS % (AUTO) 7.4 % (0.0-8.0); HEMATOCRIT 29.9 % (36-48); LYMPHOCYTES % (AUTO) 19.4 % (21.0-51.0); MEAN CORPUSCULAR HEMOGLOBIN 29.7 pg (27.0-33.0); MEAN CORPUSCULAR HGB CONC 30.8 g/dL (32.0-36.0); MEAN CORPUSCULAR VOLUME 96.5 fL (79-99); MONOCYTES % (AUTO) 9.5 % (3.0-13.0); NEUTROPHILS % (AUTO) 61.9 % (40.0-77.0); PLATELET COUNT (AUTO) 271 K/uL (130-400); RED CELL DISTRIBUTION WIDTH 17.1 % (11.0-15.5); WHITE BLOOD COUNT (AUTO) 7.3 K/uL (4.8-10.8)
[2021-05-16] MEDS: ACETAMINOPHEN 325 MG TAB PO PRN (06:10)
[2021-05-16 07:30] VITALS: BP 121/89
[2021-05-16] MEDS: POLYETHYLENE GLYCOL 3350 17 GM POWD.PACK PO SCH (09:00)
[2021-05-16] MEDS: MONTELUKAST SODIUM 10 MG TAB PO SCH (09:28)
[2021-05-16] MEDS: METOPROLOL TARTRATE 50 MG TAB PO SCH ×2 (09:28→21:14)
[2021-05-16] MEDS: GABAPENTIN 300 MG CAPSULE PO SCH ×2 (09:29→13:33)
[2021-05-16] MEDS: ENOXAPARIN SODIUM 40 MG/0.4 ML SYRINGE SQ SCH (09:29)
[2021-05-16] MEDS: DOCUSATE SODIUM 100 MG CAP PO SCH ×2 (09:29→21:00)
[2021-05-16] MEDS: MAGNESIUM CHLORIDE 70 MG TABLET.SA PO SCH (09:29)
[2021-05-16] MEDS: BUSPIRONE HCL 5 MG TABLET PO SCH ×2 (09:30→21:14)
[2021-05-16] MEDS: CITALOPRAM 20 MG TABLET PO SCH (09:30)
[2021-05-16] MEDS: KCL 20 MEQ ERTAB PO PRN (09:30)
[2021-05-16] MEDS: MAGNESIUM 2GM PREMIX 50ML 50 ML IV PRN (09:32)
[2021-05-16] MEDS: HYDROCODONE/ACETAMINOPHEN 5/325 MG TAB PO PRN (09:36)
[2021-05-16] MEDS: ONDANSETRON 4MG INJ IVP PRN (09:36)
[2021-05-16 12:00] VITALS: BP 134/80
[2021-05-16 16:00] VITALS: BP 117/75
[2021-05-16 19:46] VITALS: BP 135/90
[2021-05-16] MEDS: QUETIAPINE FUMARATE 25 MG TAB PO SCH (21:14)
[2021-05-16] MEDS: TRAZODONE HCL 50 MG TAB PO SCH (21:14)
[2021-05-16 23:33] VITALS: BP 137/76
[2021-05-17 03:45] VITALS: BP 131/82
[2021-05-17] MEDS: ONDANSETRON 4MG INJ IVP PRN (04:55)
[2021-05-17] MEDS: ACETAMINOPHEN 325 MG TAB PO PRN (04:56)
[2021-05-17 07:30] VITALS: BP 118/76
[2021-05-17] MEDS: DOCUSATE SODIUM 100 MG CAP PO SCH ×2 (09:00→21:00)
[2021-05-17] MEDS: POLYETHYLENE GLYCOL 3350 17 GM POWD.PACK PO SCH (09:00)
[2021-05-17] MEDS: BUSPIRONE HCL 5 MG TABLET PO SCH ×2 (10:05→22:04)
[2021-05-17] MEDS: CITALOPRAM 20 MG TABLET PO SCH (10:05)
[2021-05-17] MEDS: METOPROLOL TARTRATE 50 MG TAB PO SCH ×2 (10:05→22:06)
[2021-05-17] MEDS: ENOXAPARIN SODIUM 40 MG/0.4 ML SYRINGE SQ SCH (10:05)
[2021-05-17] MEDS: HYDROCODONE/ACETAMINOPHEN 5/325 MG TAB PO PRN (10:06)
[2021-05-17] MEDS: MONTELUKAST SODIUM 10 MG TAB PO SCH (10:06)
[2021-05-17 11:00] VITALS: BP 135/83
[2021-05-17] MEDS: GABAPENTIN 300 MG CAPSULE PO SCH ×2 (14:15→22:04)
[2021-05-17 16:00] VITALS: BP 114/78
[2021-05-17 20:04] VITALS: BP 142/78
[2021-05-17] MEDS ORDERED: GABAPENTIN 300 MG CAPSULE PO SCH (21:00)
[2021-05-17] MEDS: QUETIAPINE FUMARATE 25 MG TAB PO SCH (22:05)
[2021-05-17] MEDS: TRAZODONE HCL 50 MG TAB PO SCH (22:05)
[2021-05-18 00:04] VITALS: BP 134/77
[2021-05-18 04:04] VITALS: BP 126/67
[2021-05-18] MEDS: GABAPENTIN 300 MG CAPSULE PO SCH ×3 (05:07→22:22)
[2021-05-18] MEDS: ACETAMINOPHEN 325 MG TAB PO PRN (05:09)
[2021-05-18 08:00] VITALS: BP 145/87
[2021-05-18] MEDS: ENOXAPARIN SODIUM 40 MG/0.4 ML SYRINGE SQ SCH (08:36)
[2021-05-18] MEDS: CITALOPRAM 20 MG TABLET PO SCH (08:37)
[2021-05-18] MEDS: METOPROLOL TARTRATE 50 MG TAB PO SCH ×2 (08:37→22:21)
[2021-05-18] MEDS: MONTELUKAST SODIUM 10 MG TAB PO SCH (08:37)
[2021-05-18] MEDS: HYDROCODONE/ACETAMINOPHEN 5/325 MG TAB PO PRN (08:37)
[2021-05-18] MEDS: BUSPIRONE HCL 5 MG TABLET PO SCH ×2 (08:37→22:21)
[2021-05-18] MEDS: POLYETHYLENE GLYCOL 3350 17 GM POWD.PACK PO SCH (08:38)
[2021-05-18] MEDS: DOCUSATE SODIUM 100 MG CAP PO SCH ×2 (08:38→22:21)
[2021-05-18 12:03] VITALS: BP 129/72
[2021-05-18 16:00] VITALS: BP 137/86
[2021-05-18 20:20] VITALS: BP 151/89
[2021-05-18] MEDS: TRAZODONE HCL 50 MG TAB PO SCH (22:22)
[2021-05-18] MEDS: QUETIAPINE FUMARATE 25 MG TAB PO SCH (22:22)
[2021-05-19 00:20] VITALS: BP 96/54
[2021-05-19 04:28] VITALS: BP 121/69
[2021-05-19 04:48] LABS: BASOPHILS % (AUTO) 0.4 % (0.0-5.0); EOSINOPHILS % (AUTO) 7.6 % (0.0-8.0); HEMATOCRIT 30.6 % (36-48); LYMPHOCYTES % (AUTO) 20.4 % (21.0-51.0); MEAN CORPUSCULAR HEMOGLOBIN 28.9 pg (27.0-33.0); MEAN CORPUSCULAR HGB CONC 30.1 g/dL (32.0-36.0); MEAN CORPUSCULAR VOLUME 96.2 fL (79-99); MONOCYTES % (AUTO) 9.6 % (3.0-13.0); NEUTROPHILS % (AUTO) 60.4 % (40.0-77.0); PLATELET COUNT (AUTO) 251 K/uL (130-400); RED BLOOD CELL COUNT(AUTO) 3.18 MIL/uL (4.00-5.50); RED CELL DISTRIBUTION WIDTH 16.8 % (11.0-15.5); WHITE BLOOD COUNT (AUTO) 6.9 K/uL (4.8-10.8)
[2021-05-19 05:00] LABS: CREATININE 0.5 mg/dL (0.5-1.5); MAGNESIUM 1.4 mg/dL (1.80-2.40); POTASSIUM 3.4 mmol/L (3.5-5.1)
[2021-05-19] MEDS: GABAPENTIN 300 MG CAPSULE PO SCH ×3 (05:55→20:25)
[2021-05-19] MEDS: KCL 20 MEQ ERTAB PO PRN ×2 (06:19→12:40)
[2021-05-19] MEDS: MAGNESIUM 2GM PREMIX 50ML 50 ML IV PRN (06:22)
[2021-05-19 08:00] VITALS: BP 127/81
[2021-05-19] MEDS: MONTELUKAST SODIUM 10 MG TAB PO SCH (09:33)
[2021-05-19] MEDS: DOCUSATE SODIUM 100 MG CAP PO SCH ×3 (09:33→20:32)
[2021-05-19] MEDS: METOPROLOL TARTRATE 50 MG TAB PO SCH ×2 (09:33→20:26)
[2021-05-19] MEDS: CITALOPRAM 20 MG TABLET PO SCH (09:33)
[2021-05-19] MEDS: POLYETHYLENE GLYCOL 3350 17 GM POWD.PACK PO SCH (09:33)
[2021-05-19] MEDS: BUSPIRONE HCL 5 MG TABLET PO SCH ×2 (09:33→20:25)
[2021-05-19] MEDS: POTASSIUM CHLORIDE 10% ELIXIR 20 MEQ/15 ML UDCUP PO PRN (09:34)
[2021-05-19] MEDS: ENOXAPARIN SODIUM 40 MG/0.4 ML SYRINGE SQ SCH (09:36)
[2021-05-19 12:00] VITALS: BP 130/75
[2021-05-19] MEDS: ONDANSETRON 4MG INJ IVP PRN (15:31)
[2021-05-19 16:00] VITALS: BP 139/92
[2021-05-19] MEDS: QUETIAPINE FUMARATE 25 MG TAB PO SCH (20:25)
[2021-05-19] MEDS: TRAZODONE HCL 50 MG TAB PO SCH (20:25)
[2021-05-19 20:32] VITALS: BP 153/87
[2021-05-20] VITALS (7 sets, daily range): BP systolic 110–160; BP diastolic 61–98
[2021-05-20 05:04] LABS: BASOPHILS % (AUTO) 0.4 % (0.0-5.0); HEMATOCRIT 32.7 % (36-48); LYMPHOCYTES % (AUTO) 20.3 % (21.0-51.0); MEAN CORPUSCULAR HEMOGLOBIN 28.7 pg (27.0-33.0); MEAN CORPUSCULAR HGB CONC 29.7 g/dL (32.0-36.0); MEAN CORPUSCULAR VOLUME 96.7 fL (79-99); MONOCYTES % (AUTO) 9.9 % (3.0-13.0); NEUTROPHILS % (AUTO) 61.1 % (40.0-77.0); PLATELET COUNT (AUTO) 280 K/uL (130-400); RED BLOOD CELL COUNT(AUTO) 3.38 MIL/uL (4.00-5.50); RED CELL DISTRIBUTION WIDTH 16.8 % (11.0-15.5); WHITE BLOOD COUNT (AUTO) 6.7 K/uL (4.8-10.8)
[2021-05-20 05:15] LABS: CREATININE 0.5 mg/dL (0.5-1.5); MAGNESIUM 1.1 mg/dL (1.80-2.40); POTASSIUM 3.4 mmol/L (3.5-5.1)
[2021-05-20] MEDS: GABAPENTIN 300 MG CAPSULE PO SCH ×3 (05:23→21:27)
[2021-05-20] MEDS: POTASSIUM CHLORIDE 10% ELIXIR 20 MEQ/15 ML UDCUP PO PRN (05:23)
[2021-05-20] MEDS: MAGNESIUM 2GM PREMIX 50ML 50 ML IV PRN (05:23)
[2021-05-20] MEDS: MAGNESIUM 2GM PREMIX 50ML 50 ML IV SCH (09:07)
[2021-05-20] MEDS: MONTELUKAST SODIUM 10 MG TAB PO SCH (09:08)
[2021-05-20] MEDS: DOCUSATE SODIUM 100 MG CAP PO SCH ×2 (09:08→21:27)
[2021-05-20] MEDS: CITALOPRAM 20 MG TABLET PO SCH (09:08)
[2021-05-20] MEDS: BUSPIRONE HCL 5 MG TABLET PO SCH ×2 (09:08→21:27)
[2021-05-20] MEDS: METOPROLOL TARTRATE 50 MG TAB PO SCH ×2 (09:08→21:27)
[2021-05-20] MEDS: POLYETHYLENE GLYCOL 3350 17 GM POWD.PACK PO SCH (09:08)
[2021-05-20] MEDS: ACETAMINOPHEN 325 MG TAB PO PRN ×2 (09:09→17:33)
[2021-05-20] MEDS: ENOXAPARIN SODIUM 40 MG/0.4 ML SYRINGE SQ SCH (09:11)
[2021-05-20] MEDS: KCL 20 MEQ ERTAB PO PRN (14:30)
[2021-05-20] MEDS: TRAZODONE HCL 50 MG TAB PO SCH (21:27)
[2021-05-20] MEDS: QUETIAPINE FUMARATE 25 MG TAB PO SCH (21:28)
[2021-05-21 03:28] VITALS: BP 122/68
[2021-05-21 04:48] LABS: BASOPHILS % (AUTO) 0.3 % (0.0-5.0); HEMATOCRIT 30.2 % (36-48); LYMPHOCYTES % (AUTO) 19.9 % (21.0-51.0); MEAN CORPUSCULAR HEMOGLOBIN 28.8 pg (27.0-33.0); MEAN CORPUSCULAR HGB CONC 29.8 g/dL (32.0-36.0); MEAN CORPUSCULAR VOLUME 96.5 fL (79-99); MONOCYTES % (AUTO) 10.4 % (3.0-13.0); NEUTROPHILS % (AUTO) 58.9 % (40.0-77.0); PLATELET COUNT (AUTO) 267 K/uL (130-400); RED BLOOD CELL COUNT(AUTO) 3.13 MIL/uL (4.00-5.50); RED CELL DISTRIBUTION WIDTH 17.1 % (11.0-15.5)
[2021-05-21 04:56] LABS: CREATININE 0.6 mg/dL (0.5-1.5); MAGNESIUM 1.9 mg/dL (1.80-2.40); PHOSPHORUS 5.1 mg/dL (2.5-4.9); POTASSIUM 3.8 mmol/L (3.5-5.1)
[2021-05-21] MEDS: GABAPENTIN 300 MG CAPSULE PO SCH ×3 (06:19→21:49)
[2021-05-21 07:25] VITALS: BP 111/60
[2021-05-21] MEDS: POLYETHYLENE GLYCOL 3350 17 GM POWD.PACK PO SCH (09:00)
[2021-05-21] MEDS: CITALOPRAM 20 MG TABLET PO SCH (09:37)
[2021-05-21] MEDS: DOCUSATE SODIUM 100 MG CAP PO SCH ×2 (09:37→21:50)
[2021-05-21] MEDS: BUSPIRONE HCL 5 MG TABLET PO SCH ×2 (09:37→21:48)
[2021-05-21] MEDS: METOPROLOL TARTRATE 50 MG TAB PO SCH ×2 (09:37→21:47)
[2021-05-21] MEDS: MONTELUKAST SODIUM 10 MG TAB PO SCH (09:37)
[2021-05-21] MEDS: ENOXAPARIN SODIUM 40 MG/0.4 ML SYRINGE SQ SCH (09:38)
[2021-05-21 11:25] VITALS: BP 112/69
[2021-05-21] MEDS: ACETAMINOPHEN 325 MG TAB PO PRN (13:20)
[2021-05-21 15:25] VITALS: BP 107/64
[2021-05-21 20:03] VITALS: BP 136/76
[2021-05-21] MEDS: QUETIAPINE FUMARATE 25 MG TAB PO SCH (21:46)
[2021-05-21] MEDS: TRAZODONE HCL 50 MG TAB PO SCH (21:46)
[2021-05-21] MEDS: FAMOTIDINE 20MG TAB PO SCH (21:49)
[2021-05-21 22:53] VITALS: BP 142/69
[2021-05-22] MEDS: ACETAMINOPHEN 325 MG TAB PO PRN (00:22)
[2021-05-22 03:32] VITALS: BP 128/62
[2021-05-22] MEDS: GABAPENTIN 300 MG CAPSULE PO SCH ×3 (06:11→22:32)
[2021-05-22 07:26] LABS: HEMATOCRIT 30.1 % (36-48); MEAN CORPUSCULAR HEMOGLOBIN 30.2 pg (27.0-33.0); MEAN CORPUSCULAR HGB CONC 31.6 g/dL (32.0-36.0); MEAN CORPUSCULAR VOLUME 95.6 fL (79-99); RED BLOOD CELL COUNT(AUTO) 3.15 MIL/uL (4.00-5.50); RED CELL DISTRIBUTION WIDTH 16.8 % (11.0-15.5); WHITE BLOOD COUNT (AUTO) 6.2 K/uL (4.8-10.8)
[2021-05-22 07:37] LABS: CREATININE 0.6 mg/dL (0.5-1.5); POTASSIUM 3.6 mmol/L (3.5-5.1)
[2021-05-22 08:00] VITALS: BP 130/65
[2021-05-22] MEDS: POLYETHYLENE GLYCOL 3350 17 GM POWD.PACK PO SCH (09:10)
[2021-05-22] MEDS: ENOXAPARIN SODIUM 40 MG/0.4 ML SYRINGE SQ SCH (09:11)
[2021-05-22] MEDS: BUSPIRONE HCL 5 MG TABLET PO SCH (09:12)
[2021-05-22] MEDS: MONTELUKAST SODIUM 10 MG TAB PO SCH (09:12)
[2021-05-22] MEDS: FAMOTIDINE 20MG TAB PO SCH ×2 (09:13→22:32)
[2021-05-22] MEDS: METOPROLOL TARTRATE 50 MG TAB PO SCH ×2 (09:13→22:33)
[2021-05-22] MEDS: DOCUSATE SODIUM 100 MG CAP PO SCH ×2 (09:13→22:32)
[2021-05-22] MEDS: CITALOPRAM 20 MG TABLET PO SCH (09:15)
[2021-05-22 11:32] VITALS: BP 119/78
[2021-05-22] MEDS: GUAIFENESIN-DM 200/20 MG 10 ML PO PRN (15:45)
[2021-05-22] MEDS ORDERED: IPRATROPIUM/ALBUTEROL SULFATE 3 ML SOLUTION IH ONE (15:46)
[2021-05-22 16:00] VITALS: BP 129/94
[2021-05-22] MEDS ORDERED: IPRATROPIUM/ALBUTEROL SULFATE 3 ML SOLUTION IH SCH (17:30)
[2021-05-22 20:00] VITALS: BP 130/88
[2021-05-22] MEDS: KCL 20 MEQ ERTAB PO PRN (22:43)
[2021-05-22] MEDS: MAGNESIUM 2GM PREMIX 50ML 50 ML IV PRN (22:45)
[2021-05-23] VITALS: BP 143/89
[2021-05-23] MEDS: KCL 20 MEQ ERTAB PO PRN (02:56)
[2021-05-23 04:00] VITALS: BP 121/70
[2021-05-23 05:04] LABS: MEAN CORPUSCULAR HEMOGLOBIN 28.8 pg (27.0-33.0); MEAN CORPUSCULAR VOLUME 95.8 fL (79-99); RED BLOOD CELL COUNT(AUTO) 3.13 MIL/uL (4.00-5.50); RED CELL DISTRIBUTION WIDTH 16.4 % (11.0-15.5); WHITE BLOOD COUNT (AUTO) 6.1 K/uL (4.8-10.8)
[2021-05-23 05:07] LABS: CREATININE 0.5 mg/dL (0.5-1.5); POTASSIUM 3.5 mmol/L (3.5-5.1)
[2021-05-23] MEDS: ONDANSETRON 4MG INJ IVP PRN (06:33)
[2021-05-23] MEDS: GABAPENTIN 300 MG CAPSULE PO SCH ×3 (07:11→22:03)
[2021-05-23 07:30] VITALS: BP 143/85
[2021-05-23] MEDS: GUAIFENESIN-DM 200/20 MG 10 ML PO PRN ×2 (08:33→10:52)
[2021-05-23] MEDS: MONTELUKAST SODIUM 10 MG TAB PO SCH (09:12)
[2021-05-23] MEDS: DOCUSATE SODIUM 100 MG CAP PO SCH ×2 (09:12→20:11)
[2021-05-23] MEDS: POLYETHYLENE GLYCOL 3350 17 GM POWD.PACK PO SCH (09:12)
[2021-05-23] MEDS: METOPROLOL TARTRATE 50 MG TAB PO SCH ×2 (09:12→20:11)
[2021-05-23] MEDS: FAMOTIDINE 20MG TAB PO SCH ×2 (09:12→20:14)
[2021-05-23] MEDS: ENOXAPARIN SODIUM 40 MG/0.4 ML SYRINGE SQ SCH (09:13)
[2021-05-23] MEDS: ONDANSETRON 4MG TABLET PO PRN ×2 (10:51→20:10)
[2021-05-23 11:00] VITALS: BP 164/90
[2021-05-23 16:00] VITALS: BP 132/71
[2021-05-23] MEDS: ACETAMINOPHEN 325 MG TAB PO PRN (18:36)
[2021-05-23 20:00] VITALS: BP 142/96
[2021-05-23] MEDS: QUETIAPINE FUMARATE 25 MG TAB PO SCH (22:03)
[2021-05-23] MEDS: BUSPIRONE HCL 5 MG TABLET PO SCH (22:03)
[2021-05-23] MEDS: TRAZODONE HCL 50 MG TAB PO SCH (22:03)
[2021-05-24] VITALS (7 sets, daily range): BP systolic 107–151; BP diastolic 58–89
[2021-05-24 04:19] LABS: HEMATOCRIT 29.6 % (36-48); MEAN CORPUSCULAR HEMOGLOBIN 29.7 pg (27.0-33.0); MEAN CORPUSCULAR HGB CONC 31.1 g/dL (32.0-36.0); MEAN CORPUSCULAR VOLUME 95.5 fL (79-99); RED BLOOD CELL COUNT(AUTO) 3.1 MIL/uL (4.00-5.50); RED CELL DISTRIBUTION WIDTH 16.2 % (11.0-15.5); WHITE BLOOD COUNT (AUTO) 6.3 K/uL (4.8-10.8)
[2021-05-24 04:27] LABS: CREATININE 0.7 mg/dL (0.5-1.5); POTASSIUM 3.6 mmol/L (3.5-5.1)
[2021-05-24] MEDS: GABAPENTIN 300 MG CAPSULE PO SCH ×3 (05:53→21:19)
[2021-05-24] MEDS: POLYETHYLENE GLYCOL 3350 17 GM POWD.PACK PO SCH (09:24)
[2021-05-24] MEDS: ENOXAPARIN SODIUM 40 MG/0.4 ML SYRINGE SQ SCH (09:27)
[2021-05-24] MEDS: CITALOPRAM 20 MG TABLET PO SCH (09:28)
[2021-05-24] MEDS: MONTELUKAST SODIUM 10 MG TAB PO SCH (09:28)
[2021-05-24] MEDS: ACETAMINOPHEN 325 MG TAB PO PRN (09:28)
[2021-05-24] MEDS: DOCUSATE SODIUM 100 MG CAP PO SCH ×2 (09:28→21:18)
[2021-05-24] MEDS: BUSPIRONE HCL 5 MG TABLET PO SCH ×2 (09:28→21:19)
[2021-05-24] MEDS: FAMOTIDINE 20MG TAB PO SCH ×2 (09:28→21:18)
[2021-05-24] MEDS: METOPROLOL TARTRATE 50 MG TAB PO SCH ×2 (09:29→21:19)
[2021-05-24] MEDS: QUETIAPINE FUMARATE 25 MG TAB PO SCH (21:19)
[2021-05-24] MEDS: TRAZODONE HCL 50 MG TAB PO SCH (21:20)
[2021-05-25 03:32] VITALS: BP 110/62
[2021-05-25 04:14] LABS: HEMATOCRIT 31.2 % (36-48); MEAN CORPUSCULAR HEMOGLOBIN 28.8 pg (27.0-33.0); MEAN CORPUSCULAR HGB CONC 29.8 g/dL (32.0-36.0); MEAN CORPUSCULAR VOLUME 96.6 fL (79-99); RED BLOOD CELL COUNT(AUTO) 3.23 MIL/uL (4.00-5.50); WHITE BLOOD COUNT (AUTO) 6.4 K/uL (4.8-10.8)
[2021-05-25 04:33] LABS: CREATININE 0.6 mg/dL (0.5-1.5); POTASSIUM 3.4 mmol/L (3.5-5.1)
[2021-05-25] MEDS: GABAPENTIN 300 MG CAPSULE PO SCH ×3 (06:48→22:10)
[2021-05-25 08:00] VITALS: BP 124/74
[2021-05-25] MEDS: POLYETHYLENE GLYCOL 3350 17 GM POWD.PACK PO SCH ×2 (09:00→10:54)
[2021-05-25] MEDS: ENOXAPARIN SODIUM 40 MG/0.4 ML SYRINGE SQ SCH (10:54)
[2021-05-25] MEDS: MONTELUKAST SODIUM 10 MG TAB PO SCH (10:54)
[2021-05-25] MEDS: FAMOTIDINE 20MG TAB PO SCH ×2 (10:54→21:04)
[2021-05-25] MEDS: METOPROLOL TARTRATE 50 MG TAB PO SCH ×2 (10:54→21:05)
[2021-05-25] MEDS: DOCUSATE SODIUM 100 MG CAP PO SCH ×2 (10:54→21:04)
[2021-05-25] MEDS: BUSPIRONE HCL 5 MG TABLET PO SCH ×2 (10:54→21:04)
[2021-05-25] MEDS: CITALOPRAM 20 MG TABLET PO SCH (10:54)
[2021-05-25 11:45] VITALS: BP 123/71
[2021-05-25] MEDS ORDERED: ZYVOX 600 MG TAB PO SCH (16:00)
[2021-05-25 16:47] VITALS: BP 154/88
[2021-05-25] MEDS: KCL 20 MEQ ERTAB PO PRN ×2 (17:26→18:49)
[2021-05-25 20:22] VITALS: BP 138/88
[2021-05-25] MEDS: TRAZODONE HCL 50 MG TAB PO SCH (21:05)
[2021-05-25] MEDS: QUETIAPINE FUMARATE 25 MG TAB PO SCH (21:05)
[2021-05-26] VITALS (7 sets, daily range): BP systolic 93–132; BP diastolic 56–74
[2021-05-26 04:29] LABS: HEMATOCRIT 28.5 % (36-48); MEAN CORPUSCULAR HEMOGLOBIN 29.3 pg (27.0-33.0); MEAN CORPUSCULAR HGB CONC 30.5 g/dL (32.0-36.0); RED BLOOD CELL COUNT(AUTO) 2.97 MIL/uL (4.00-5.50); RED CELL DISTRIBUTION WIDTH 15.9 % (11.0-15.5); WHITE BLOOD COUNT (AUTO) 6.2 K/uL (4.8-10.8)
[2021-05-26 04:35] LABS: CREATININE 0.5 mg/dL (0.5-1.5); POTASSIUM 3.6 mmol/L (3.5-5.1)
[2021-05-26] MEDS: GABAPENTIN 300 MG CAPSULE PO SCH ×3 (06:54→21:06)
[2021-05-26] MEDS: KCL 20 MEQ ERTAB PO PRN ×2 (06:54→16:38)
[2021-05-26] MEDS: ONDANSETRON 4MG TABLET PO PRN (10:13)
[2021-05-26] MEDS: METOPROLOL TARTRATE 50 MG TAB PO SCH ×2 (10:13→21:07)
[2021-05-26] MEDS: DOCUSATE SODIUM 100 MG CAP PO SCH ×2 (10:13→21:00)
[2021-05-26] MEDS: FAMOTIDINE 20MG TAB PO SCH ×2 (10:14→21:06)
[2021-05-26] MEDS: MONTELUKAST SODIUM 10 MG TAB PO SCH (10:14)
[2021-05-26] MEDS: BUSPIRONE HCL 5 MG TABLET PO SCH ×2 (10:14→21:06)
[2021-05-26] MEDS: CITALOPRAM 20 MG TABLET PO SCH (10:14)
[2021-05-26] MEDS: ZYVOX 600 MG TAB PO SCH ×2 (10:14→21:06)
[2021-05-26] MEDS: POLYETHYLENE GLYCOL 3350 17 GM POWD.PACK PO SCH (10:18)
[2021-05-26] MEDS: ENOXAPARIN SODIUM 40 MG/0.4 ML SYRINGE SQ SCH (10:20)
[2021-05-26] MEDS ORDERED: MAGNESIUM 2GM PREMIX 50ML 50 ML IV PRN (12:00)
[2021-05-26] MEDS ORDERED: IPRATROPIUM/ALBUTEROL SULFATE 3 ML SOLUTION IH ONE (13:57)
[2021-05-26] MEDS: ACETAMINOPHEN 325 MG TAB PO PRN (15:30)
[2021-05-26] MEDS ORDERED: MAGNESIUM OXIDE 400 MG TABLET PO SCH (16:00)
[2021-05-26] MEDS: QUETIAPINE FUMARATE 25 MG TAB PO SCH (21:06)
[2021-05-26] MEDS: MAGNESIUM OXIDE 400 MG TABLET PO SCH (21:06)
[2021-05-26] MEDS: TRAZODONE HCL 50 MG TAB PO SCH (21:06)
[2021-05-27 03:27] VITALS: BP 129/72
[2021-05-27] MEDS: GABAPENTIN 300 MG CAPSULE PO SCH ×3 (05:39→21:49)
[2021-05-27] MEDS: IPRATROPIUM/ALBUTEROL SULFATE 3 ML SOLUTION IH PRN (06:06)
[2021-05-27 08:00] VITALS: BP 116/68
[2021-05-27] MEDS: POLYETHYLENE GLYCOL 3350 17 GM POWD.PACK PO SCH (08:55)
[2021-05-27] MEDS: CITALOPRAM 20 MG TABLET PO SCH (08:56)
[2021-05-27] MEDS: ENOXAPARIN SODIUM 40 MG/0.4 ML SYRINGE SQ SCH (08:56)
[2021-05-27] MEDS: DOCUSATE SODIUM 100 MG CAP PO SCH (08:56)
[2021-05-27] MEDS: MONTELUKAST SODIUM 10 MG TAB PO SCH (08:56)
[2021-05-27] MEDS: BUSPIRONE HCL 5 MG TABLET PO SCH ×2 (08:56→21:41)
[2021-05-27] MEDS: MAGNESIUM OXIDE 400 MG TABLET PO SCH ×2 (08:56→21:43)
[2021-05-27] MEDS: FAMOTIDINE 20MG TAB PO SCH ×2 (08:56→21:41)
[2021-05-27] MEDS: ZYVOX 600 MG TAB PO SCH ×2 (08:56→21:43)
[2021-05-27] MEDS: METOPROLOL TARTRATE 50 MG TAB PO SCH ×2 (08:57→21:44)
[2021-05-27 12:00] VITALS: BP 117/73
[2021-05-27] MEDS: ACETAMINOPHEN 325 MG TAB PO PRN (12:58)
[2021-05-27 16:00] VITALS: BP 133/81
[2021-05-27 20:00] VITALS: BP 127/81
[2021-05-27] MEDS: TRAZODONE HCL 50 MG TAB PO SCH (21:42)
[2021-05-27] MEDS: QUETIAPINE FUMARATE 25 MG TAB PO SCH (21:43)
[2021-05-28] VITALS: BP 108/61
[2021-05-28 04:00] VITALS: BP 102/59
[2021-05-28 05:28] LABS: HEMATOCRIT 29.5 % (36-48); MEAN CORPUSCULAR HEMOGLOBIN 29.1 pg (27.0-33.0); MEAN CORPUSCULAR HGB CONC 30.2 g/dL (32.0-36.0); MEAN CORPUSCULAR VOLUME 96.4 fL (79-99); PLATELET COUNT (AUTO) 280 K/uL (130-400); RED BLOOD CELL COUNT(AUTO) 3.06 MIL/uL (4.00-5.50); RED CELL DISTRIBUTION WIDTH 15.5 % (11.0-15.5); WHITE BLOOD COUNT (AUTO) 5.8 K/uL (4.8-10.8)
[2021-05-28 06:04] LABS: ALBUMIN 2.1 g/dL (3.5-5.0); BILIRUBIN,TOTAL 0.2 mg/dL (0.2-1.0); CREATININE 0.7 mg/dL (0.5-1.5); POTASSIUM 3.5 mmol/L (3.5-5.1); TOTAL PROTEIN, SERUM 5.5 g/dL (6.0-8.3)
[2021-05-28] MEDS: GABAPENTIN 300 MG CAPSULE PO SCH ×3 (06:43→21:13)
[2021-05-28 08:00] VITALS: BP 110/70
[2021-05-28] MEDS: POLYETHYLENE GLYCOL 3350 17 GM POWD.PACK PO SCH (09:00)
[2021-05-28] MEDS: CITALOPRAM 20 MG TABLET PO SCH (09:55)
[2021-05-28] MEDS: MONTELUKAST SODIUM 10 MG TAB PO SCH (09:55)
[2021-05-28] MEDS: METOPROLOL TARTRATE 50 MG TAB PO SCH ×2 (09:55→21:11)
[2021-05-28] MEDS: FAMOTIDINE 20MG TAB PO SCH ×2 (09:55→21:12)
[2021-05-28] MEDS: BUSPIRONE HCL 5 MG TABLET PO SCH ×2 (09:55→21:12)
[2021-05-28] MEDS: ZYVOX 600 MG TAB PO SCH ×2 (09:55→21:10)
[2021-05-28] MEDS: MAGNESIUM OXIDE 400 MG TABLET PO SCH ×2 (09:55→21:11)
[2021-05-28] MEDS: ENOXAPARIN SODIUM 40 MG/0.4 ML SYRINGE SQ SCH (09:56)
[2021-05-28] MEDS: ACETAMINOPHEN 325 MG TAB PO PRN (11:50)
[2021-05-28] MEDS: ONDANSETRON 4MG TABLET PO PRN (11:50)
[2021-05-28 12:00] VITALS: BP 124/80
[2021-05-28] MEDS: GUAIFENESIN-DM 200/20 MG 10 ML PO PRN (16:21)
[2021-05-28] MEDS: IPRATROPIUM/ALBUTEROL SULFATE 3 ML SOLUTION IH PRN (19:10)
[2021-05-28 20:00] VITALS: BP 133/84
[2021-05-28] MEDS: QUETIAPINE FUMARATE 25 MG TAB PO SCH (21:12)
[2021-05-28] MEDS: TRAZODONE HCL 50 MG TAB PO SCH (21:13)
[2021-05-29] VITALS: BP 106/58
[2021-05-29 03:54] VITALS: BP 109/60
[2021-05-29 04:37] LABS: ALBUMIN 2.1 g/dL (3.5-5.0); BILIRUBIN,TOTAL 0.2 mg/dL (0.2-1.0); CREATININE 0.8 mg/dL (0.5-1.5); MAGNESIUM 1.4 mg/dL (1.80-2.40); POTASSIUM 3.5 mmol/L (3.5-5.1); TOTAL PROTEIN, SERUM 5.4 g/dL (6.0-8.3)
[2021-05-29] MEDS: GABAPENTIN 300 MG CAPSULE PO SCH ×3 (05:01→20:37)
[2021-05-29 07:10] VITALS: BP 116/74
[2021-05-29] MEDS: POLYETHYLENE GLYCOL 3350 17 GM POWD.PACK PO SCH ×2 (08:47→09:00)
[2021-05-29] MEDS: METOPROLOL TARTRATE 50 MG TAB PO SCH ×2 (08:47→20:06)
[2021-05-29] MEDS: BUSPIRONE HCL 5 MG TABLET PO SCH ×2 (08:47→20:06)
[2021-05-29] MEDS: CITALOPRAM 20 MG TABLET PO SCH (08:47)
[2021-05-29] MEDS: MAGNESIUM OXIDE 400 MG TABLET PO SCH ×2 (08:47→20:36)
[2021-05-29] MEDS: MONTELUKAST SODIUM 10 MG TAB PO SCH (08:47)
[2021-05-29] MEDS: ZYVOX 600 MG TAB PO SCH ×2 (08:48→20:06)
[2021-05-29] MEDS: ENOXAPARIN SODIUM 40 MG/0.4 ML SYRINGE SQ SCH (08:50)
[2021-05-29] MEDS: FAMOTIDINE 20MG TAB PO SCH ×2 (08:51→20:06)
[2021-05-29 11:25] VITALS: BP 124/77
[2021-05-29] MEDS: IPRATROPIUM/ALBUTEROL SULFATE 3 ML SOLUTION IH PRN (14:00)
[2021-05-29 15:20] VITALS: BP 128/75
[2021-05-29] MEDS: KCL 20 MEQ ERTAB PO PRN (16:14)
[2021-05-29 16:26] LABS: HEMATOCRIT 31.1 % (36-48); MEAN CORPUSCULAR HEMOGLOBIN 29.8 pg (27.0-33.0); MEAN CORPUSCULAR HGB CONC 30.2 g/dL (32.0-36.0); MEAN CORPUSCULAR VOLUME 98.7 fL (79-99); PLATELET COUNT (AUTO) 154 K/uL (130-400); RED BLOOD CELL COUNT(AUTO) 3.15 MIL/uL (4.00-5.50); RED CELL DISTRIBUTION WIDTH 15.5 % (11.0-15.5); WHITE BLOOD COUNT (AUTO) 6.5 K/uL (4.8-10.8)
[2021-05-29 16:35] LABS: CREATININE 0.7 mg/dL (0.5-1.5); MAGNESIUM 1.2 mg/dL (1.80-2.40); PHOSPHORUS 4.8 mg/dL (2.5-4.9); POTASSIUM 3.9 mmol/L (3.5-5.1)
[2021-05-29 16:52] LABS: BAND NEUTROPHILS % (MANUAL) 1 % (0-2); EOSINOPHILS % (MANUAL) 1 % (1-6); LYMPHOCYTES % (MANUAL) 15 % (22-44); MAN.DIFF COMMENT-IMPRESSION MANUAL DIFFERENTIAL; MONOCYTES % (MANUAL) 11 % (2-9); REACTIVE LYMPHOCYTES 2 % (0-0); SEGMENTED NEUTROPHILS % 70 % (40-70)
[2021-05-29 19:00] VITALS: BP 147/82
[2021-05-29] MEDS: QUETIAPINE FUMARATE 25 MG TAB PO SCH (20:06)
[2021-05-29] MEDS: TRAZODONE HCL 50 MG TAB PO SCH (20:07)
[2021-05-29] MEDS: GUAIFENESIN-DM 200/20 MG 10 ML PO PRN (20:37)
[2021-05-30] VITALS: BP 98/58
[2021-05-30 04:00] VITALS: BP 131/66
[2021-05-30] MEDS: GABAPENTIN 300 MG CAPSULE PO SCH ×3 (04:42→21:00)
[2021-05-30 05:06] LABS: BASOPHILS % (AUTO) 0.5 % (0.0-5.0); EOSINOPHILS % (AUTO) 6.3 % (0.0-8.0); HEMATOCRIT 28.2 % (36-48); LYMPHOCYTES % (AUTO) 23.8 % (21.0-51.0); MEAN CORPUSCULAR HEMOGLOBIN 28.7 pg (27.0-33.0); MEAN CORPUSCULAR HGB CONC 29.8 g/dL (32.0-36.0); MEAN CORPUSCULAR VOLUME 96.2 fL (79-99); MONOCYTES % (AUTO) 9.5 % (3.0-13.0); PLATELET COUNT (AUTO) 279 K/uL (130-400); RED BLOOD CELL COUNT(AUTO) 2.93 MIL/uL (4.00-5.50); RED CELL DISTRIBUTION WIDTH 15.5 % (11.0-15.5); WHITE BLOOD COUNT (AUTO) 5.7 K/uL (4.8-10.8)
[2021-05-30 05:24] LABS: ALBUMIN 2.1 g/dL (3.5-5.0); BILIRUBIN,TOTAL 0.3 mg/dL (0.2-1.0); CREATININE 0.8 mg/dL (0.5-1.5); POTASSIUM 3.5 mmol/L (3.5-5.1); TOTAL PROTEIN, SERUM 5.3 g/dL (6.0-8.3)
[2021-05-30 07:30] VITALS: BP 109/67
[2021-05-30] MEDS: ENOXAPARIN SODIUM 40 MG/0.4 ML SYRINGE SQ SCH (08:27)
[2021-05-30] MEDS: POLYETHYLENE GLYCOL 3350 17 GM POWD.PACK PO SCH (08:27)
[2021-05-30] MEDS: ZYVOX 600 MG TAB PO SCH ×2 (08:27→21:00)
[2021-05-30] MEDS: MAGNESIUM OXIDE 400 MG TABLET PO SCH ×3 (08:28→21:01)
[2021-05-30] MEDS: CITALOPRAM 20 MG TABLET PO SCH (08:28)
[2021-05-30] MEDS: BUSPIRONE HCL 5 MG TABLET PO SCH ×2 (08:28→21:01)
[2021-05-30] MEDS: METOPROLOL TARTRATE 50 MG TAB PO SCH ×2 (08:28→21:00)
[2021-05-30] MEDS: FAMOTIDINE 20MG TAB PO SCH ×2 (08:28→21:00)
[2021-05-30] MEDS: MONTELUKAST SODIUM 10 MG TAB PO SCH (08:28)
[2021-05-30] MEDS: KCL 20 MEQ ERTAB PO PRN ×2 (08:38→14:26)
[2021-05-30 11:00] VITALS: BP 104/52
[2021-05-30] MEDS: ACETAMINOPHEN 325 MG TAB PO PRN ×2 (14:29→21:02)
[2021-05-30 16:00] VITALS: BP 133/79
[2021-05-30 19:00] VITALS: BP 146/86
[2021-05-30] MEDS: GUAIFENESIN-DM 200/20 MG 10 ML PO PRN (20:59)
[2021-05-30] MEDS: QUETIAPINE FUMARATE 25 MG TAB PO SCH (21:01)
[2021-05-30] MEDS: TRAZODONE HCL 50 MG TAB PO SCH (21:01)
[2021-05-31] VITALS: BP 98/57
[2021-05-31 04:00] VITALS: BP 110/71
[2021-05-31 05:10] LABS: MAGNESIUM 1.3 mg/dL (1.80-2.40); POTASSIUM 3.9 mmol/L (3.5-5.1)
[2021-05-31] MEDS: GABAPENTIN 300 MG CAPSULE PO SCH ×3 (05:38→21:09)
[2021-05-31 08:00] VITALS: BP 126/81
[2021-05-31] MEDS: POLYETHYLENE GLYCOL 3350 17 GM POWD.PACK PO SCH (09:00)
[2021-05-31] MEDS: FAMOTIDINE 20MG TAB PO SCH ×2 (09:40→21:01)
[2021-05-31] MEDS: MONTELUKAST SODIUM 10 MG TAB PO SCH (09:40)
[2021-05-31] MEDS: BUSPIRONE HCL 5 MG TABLET PO SCH ×2 (09:40→21:04)
[2021-05-31] MEDS: ENOXAPARIN SODIUM 40 MG/0.4 ML SYRINGE SQ SCH (09:40)
[2021-05-31] MEDS: METOPROLOL TARTRATE 50 MG TAB PO SCH ×2 (09:40→21:00)
[2021-05-31] MEDS: ZYVOX 600 MG TAB PO SCH ×2 (09:41→21:03)
[2021-05-31] MEDS: MAGNESIUM OXIDE 400 MG TABLET PO SCH ×3 (09:41→21:05)
[2021-05-31] MEDS: CITALOPRAM 20 MG TABLET PO SCH (09:41)
[2021-05-31] MEDS: ACETAMINOPHEN 325 MG TAB PO PRN ×2 (11:04→21:18)
[2021-05-31 11:54] VITALS: BP 122/77
[2021-05-31 16:00] VITALS: BP 135/80
[2021-05-31 19:45] LABS: APPEARANCE,URINE SL CLOUDY (CLEAR); BILIRUBIN,URINE NEGATIVE (NEGATIVE); COLOR,URINE YELLOW (YELLOW); GLUCOSE, URINE (UA) NEGATIVE (NEGATIVE); KETONES,URINE NEGATIVE (NEGATIVE); LEUKOCYTE ESTERASE ,URINE SMALL (NEGATIVE); NITRATE,URINE POSITIVE (NEGATIVE); OCCULT BLOOD,URINE NEGATIVE (NEGATIVE); PROTEIN,URINE TRACE mg/dL (NEGATIVE); UROBILINOGEN,URINE 0.2 mg/dL (0.2-1.0)
[2021-05-31 20:00] VITALS: BP 154/94
[2021-05-31 20:02] LABS: BACTERIA,URINE Moderate /HPF (None Seen); MUCUS,URINE Few LPF (None Seen); SQUAMOUS EPITHELIAL CELL,UR Few /HPF (0-2)
[2021-05-31] MEDS: QUETIAPINE FUMARATE 25 MG TAB PO SCH (21:01)
[2021-05-31] MEDS: TRAZODONE HCL 50 MG TAB PO SCH (21:03)
[2021-06-01] VITALS: BP 91/51
[2021-06-01 04:00] VITALS: BP 92/51
[2021-06-01] MEDS: GABAPENTIN 300 MG CAPSULE PO SCH ×3 (06:25→20:41)
[2021-06-01 08:00] VITALS: BP 93/58
[2021-06-01] MEDS: ZYVOX 600 MG TAB PO SCH ×2 (08:43→20:40)
[2021-06-01] MEDS: MONTELUKAST SODIUM 10 MG TAB PO SCH (08:43)
[2021-06-01] MEDS: CITALOPRAM 20 MG TABLET PO SCH (08:43)
[2021-06-01] MEDS: MAGNESIUM OXIDE 400 MG TABLET PO SCH ×2 (08:43→20:39)
[2021-06-01] MEDS: FAMOTIDINE 20MG TAB PO SCH ×2 (08:43→20:41)
[2021-06-01] MEDS: BUSPIRONE HCL 5 MG TABLET PO SCH ×2 (08:43→20:41)
[2021-06-01] MEDS: POLYETHYLENE GLYCOL 3350 17 GM POWD.PACK PO SCH (08:49)
[2021-06-01] MEDS: METOPROLOL TARTRATE 50 MG TAB PO SCH ×2 (08:49→20:39)
[2021-06-01] MEDS: ENOXAPARIN SODIUM 40 MG/0.4 ML SYRINGE SQ SCH (08:53)
[2021-06-01 12:00] VITALS: BP 138/69
[2021-06-01 16:00] VITALS: BP 124/72
[2021-06-01 20:00] VITALS: BP 137/78
[2021-06-01] MEDS: TRAZODONE HCL 50 MG TAB PO SCH (20:39)
[2021-06-01] MEDS: QUETIAPINE FUMARATE 25 MG TAB PO SCH (20:40)
[2021-06-01] MEDS: ACETAMINOPHEN 325 MG TAB PO PRN (20:56)
[2021-06-02] VITALS: BP 106/53
[2021-06-02 04:00] VITALS: BP 109/60
[2021-06-02 04:46] LABS: BASOPHILS % (AUTO) 0.4 % (0.0-5.0); EOSINOPHILS % (AUTO) 6.4 % (0.0-8.0); HEMATOCRIT 28.9 % (36-48); LYMPHOCYTES % (AUTO) 26.4 % (21.0-51.0); MEAN CORPUSCULAR HEMOGLOBIN 29.3 pg (27.0-33.0); MEAN CORPUSCULAR HGB CONC 30.1 g/dL (32.0-36.0); MEAN CORPUSCULAR VOLUME 97.3 fL (79-99); MONOCYTES % (AUTO) 8.9 % (3.0-13.0); NEUTROPHILS % (AUTO) 57.1 % (40.0-77.0); PLATELET COUNT (AUTO) 281 K/uL (130-400); RED BLOOD CELL COUNT(AUTO) 2.97 MIL/uL (4.00-5.50)
[2021-06-02 05:19] LABS: ALBUMIN 2.1 g/dL (3.5-5.0); BILIRUBIN,TOTAL 0.2 mg/dL (0.2-1.0); CREATININE 0.7 mg/dL (0.5-1.5); POTASSIUM 3.6 mmol/L (3.5-5.1); TOTAL PROTEIN, SERUM 5.5 g/dL (6.0-8.3)
[2021-06-02] MEDS: POTASSIUM CHLORIDE 10% ELIXIR 20 MEQ/15 ML UDCUP PO PRN (05:28)
[2021-06-02] MEDS: GABAPENTIN 300 MG CAPSULE PO SCH ×3 (05:28→21:00)
[2021-06-02 08:00] VITALS: BP 157/88
[2021-06-02] MEDS: MAGNESIUM OXIDE 400 MG TABLET PO SCH ×2 (08:11→21:00)
[2021-06-02] MEDS: ZYVOX 600 MG TAB PO SCH ×2 (08:11→21:01)
[2021-06-02] MEDS: CITALOPRAM 20 MG TABLET PO SCH (08:12)
[2021-06-02] MEDS: METOPROLOL TARTRATE 50 MG TAB PO SCH ×2 (08:12→21:01)
[2021-06-02] MEDS: FAMOTIDINE 20MG TAB PO SCH ×2 (08:14→20:59)
[2021-06-02] MEDS: BUSPIRONE HCL 5 MG TABLET PO SCH ×2 (08:14→20:59)
[2021-06-02] MEDS: KCL 20 MEQ ERTAB PO PRN ×2 (08:14→14:01)
[2021-06-02] MEDS: MONTELUKAST SODIUM 10 MG TAB PO SCH (08:14)
[2021-06-02] MEDS: POLYETHYLENE GLYCOL 3350 17 GM POWD.PACK PO SCH (08:14)
[2021-06-02] MEDS: ENOXAPARIN SODIUM 40 MG/0.4 ML SYRINGE SQ SCH (08:16)
[2021-06-02] MEDS: ONDANSETRON 4MG TABLET PO PRN (10:26)
[2021-06-02 11:53] VITALS: BP 129/80
[2021-06-02 16:00] VITALS: BP 150/83
[2021-06-02 20:00] VITALS: BP 145/82
[2021-06-02] MEDS: TRAZODONE HCL 50 MG TAB PO SCH (21:00)
[2021-06-02] MEDS: QUETIAPINE FUMARATE 25 MG TAB PO SCH (21:02)
[2021-06-03] VITALS (7 sets, daily range): BP systolic 90–128; BP diastolic 46–79
[2021-06-03 04:58] LABS: BASOPHILS % (AUTO) 0.4 % (0.0-5.0); EOSINOPHILS % (AUTO) 6.6 % (0.0-8.0); HEMATOCRIT 28.1 % (36-48); LYMPHOCYTES % (AUTO) 24.4 % (21.0-51.0); MEAN CORPUSCULAR HEMOGLOBIN 29.8 pg (27.0-33.0); MEAN CORPUSCULAR VOLUME 96.2 fL (79-99); PLATELET COUNT (AUTO) 245 K/uL (130-400); RED BLOOD CELL COUNT(AUTO) 2.92 MIL/uL (4.00-5.50); RED CELL DISTRIBUTION WIDTH 14.9 % (11.0-15.5)
[2021-06-03 05:16] LABS: ALBUMIN 2.1 g/dL (3.5-5.0); BILIRUBIN,TOTAL 0.3 mg/dL (0.2-1.0); CREATININE 0.6 mg/dL (0.5-1.5); POTASSIUM 3.7 mmol/L (3.5-5.1); TOTAL PROTEIN, SERUM 5.5 g/dL (6.0-8.3)
[2021-06-03] MEDS: GABAPENTIN 300 MG CAPSULE PO SCH ×3 (05:46→21:07)
[2021-06-03] MEDS: MAGNESIUM OXIDE 400 MG TABLET PO SCH ×2 (08:13→20:15)
[2021-06-03] MEDS: METOPROLOL TARTRATE 50 MG TAB PO SCH ×2 (08:13→20:18)
[2021-06-03] MEDS: ZYVOX 600 MG TAB PO SCH ×2 (08:14→20:16)
[2021-06-03] MEDS: BUSPIRONE HCL 5 MG TABLET PO SCH ×2 (08:15→20:16)
[2021-06-03] MEDS: MONTELUKAST SODIUM 10 MG TAB PO SCH (08:15)
[2021-06-03] MEDS: FAMOTIDINE 20MG TAB PO SCH ×2 (08:15→20:16)
[2021-06-03] MEDS: CITALOPRAM 20 MG TABLET PO SCH (08:15)
[2021-06-03] MEDS: POLYETHYLENE GLYCOL 3350 17 GM POWD.PACK PO SCH (08:16)
[2021-06-03] MEDS: ENOXAPARIN SODIUM 40 MG/0.4 ML SYRINGE SQ SCH (08:16)
[2021-06-03] MEDS: ACETAMINOPHEN 325 MG TAB PO PRN (09:36)
[2021-06-03] MEDS: QUETIAPINE FUMARATE 25 MG TAB PO SCH (20:16)
[2021-06-03] MEDS: TRAZODONE HCL 50 MG TAB PO SCH (20:17)
[2021-06-04 03:56] VITALS: BP 97/54
[2021-06-04 03:57] LABS: HEMATOCRIT 28.6 % (36-48); MEAN CORPUSCULAR HEMOGLOBIN 29.4 pg (27.0-33.0); MEAN CORPUSCULAR HGB CONC 30.1 g/dL (32.0-36.0); MEAN CORPUSCULAR VOLUME 97.6 fL (79-99); PLATELET COUNT (AUTO) 238 K/uL (130-400); RED BLOOD CELL COUNT(AUTO) 2.93 MIL/uL (4.00-5.50); RED CELL DISTRIBUTION WIDTH 14.6 % (11.0-15.5); WHITE BLOOD COUNT (AUTO) 4.8 K/uL (4.8-10.8)
[2021-06-04 04:09] LABS: CREATININE 0.7 mg/dL (0.5-1.5); MAGNESIUM 1.4 mg/dL (1.80-2.40); POTASSIUM 3.7 mmol/L (3.5-5.1)
[2021-06-04 05:34] LABS: BAND NEUTROPHILS % (MANUAL) 1 % (0-2); BASOPHILS % (MANUAL) 1 % (0-2); EOSINOPHILS % (MANUAL) 3 % (1-6); LYMPHOCYTES % (MANUAL) 27 % (22-44); MAN.DIFF COMMENT-IMPRESSION MANUAL DIFFERENTIAL; MONOCYTES % (MANUAL) 2 % (2-9); REACTIVE LYMPHOCYTES 3 % (0-0); SEGMENTED NEUTROPHILS % 63 % (40-70)
[2021-06-04 05:45] LABS: PLATELET MORPHOLOGY COMMENT ADEQUATE
[2021-06-04] MEDS: GABAPENTIN 300 MG CAPSULE PO SCH ×3 (06:37→20:53)
[2021-06-04 07:25] VITALS: BP 104/62
[2021-06-04] MEDS: POLYETHYLENE GLYCOL 3350 17 GM POWD.PACK PO SCH (09:00)
[2021-06-04] MEDS: METOPROLOL TARTRATE 50 MG TAB PO SCH ×2 (09:41→20:54)
[2021-06-04] MEDS: ENOXAPARIN SODIUM 40 MG/0.4 ML SYRINGE SQ SCH (09:41)
[2021-06-04] MEDS: CITALOPRAM 20 MG TABLET PO SCH (09:41)
[2021-06-04] MEDS: FAMOTIDINE 20MG TAB PO SCH ×2 (09:42→20:51)
[2021-06-04] MEDS: BUSPIRONE HCL 5 MG TABLET PO SCH ×2 (09:42→20:51)
[2021-06-04] MEDS: MAGNESIUM OXIDE 400 MG TABLET PO SCH ×2 (09:42→20:51)
[2021-06-04] MEDS: ZYVOX 600 MG TAB PO SCH ×2 (09:42→20:51)
[2021-06-04 11:15] VITALS: BP 140/85
[2021-06-04] MEDS: ACETAMINOPHEN 325 MG TAB PO PRN (11:20)
[2021-06-04 15:20] VITALS: BP 125/77
[2021-06-04 19:57] VITALS: BP 141/78
[2021-06-04] MEDS: QUETIAPINE FUMARATE 25 MG TAB PO SCH (20:51)
[2021-06-04] MEDS: TRAZODONE HCL 50 MG TAB PO SCH (20:52)
[2021-06-04 22:50] VITALS: BP 119/68
[2021-06-05 03:11] VITALS: BP 94/53
[2021-06-05 04:40] LABS: HEMATOCRIT 27.6 % (36-48); MEAN CORPUSCULAR HEMOGLOBIN 29.9 pg (27.0-33.0); MEAN CORPUSCULAR HGB CONC 30.8 g/dL (32.0-36.0); MEAN CORPUSCULAR VOLUME 97.2 fL (79-99); RED BLOOD CELL COUNT(AUTO) 2.84 MIL/uL (4.00-5.50); RED CELL DISTRIBUTION WIDTH 14.5 % (11.0-15.5); WHITE BLOOD COUNT (AUTO) 4.3 K/uL (4.8-10.8)
[2021-06-05 04:51] LABS: CREATININE 0.7 mg/dL (0.5-1.5); MAGNESIUM 1.4 mg/dL (1.80-2.40); POTASSIUM 3.4 mmol/L (3.5-5.1)
[2021-06-05] MEDS: GABAPENTIN 300 MG CAPSULE PO SCH ×3 (06:20→21:05)
[2021-06-05] MEDS: KCL 20 MEQ ERTAB PO PRN ×2 (06:21→08:04)
[2021-06-05] MEDS: MAGNESIUM OXIDE 400 MG TABLET PO SCH ×3 (08:02→21:06)
[2021-06-05] MEDS: ENOXAPARIN SODIUM 40 MG/0.4 ML SYRINGE SQ SCH (08:02)
[2021-06-05] MEDS: MONTELUKAST SODIUM 10 MG TAB PO SCH (08:03)
[2021-06-05] MEDS: CITALOPRAM 20 MG TABLET PO SCH (08:03)
[2021-06-05] MEDS: METOPROLOL TARTRATE 50 MG TAB PO SCH ×2 (08:03→21:06)
[2021-06-05] MEDS: BUSPIRONE HCL 5 MG TABLET PO SCH ×2 (08:03→21:05)
[2021-06-05] MEDS: POLYETHYLENE GLYCOL 3350 17 GM POWD.PACK PO SCH (08:04)
[2021-06-05] MEDS: FAMOTIDINE 20MG TAB PO SCH ×2 (08:04→21:05)
[2021-06-05] MEDS: ZYVOX 600 MG TAB PO SCH (08:11)
[2021-06-05 08:19] VITALS: BP 138/79
[2021-06-05] MEDS: ONDANSETRON ODT 4MG TAB PO PRN ×2 (11:52→13:39)
[2021-06-05 12:30] VITALS: BP 121/69
[2021-06-05 17:17] VITALS: BP 142/75
[2021-06-05 20:00] VITALS: BP 146/83
[2021-06-05] MEDS: TRAZODONE HCL 50 MG TAB PO SCH (21:05)
[2021-06-05] MEDS: QUETIAPINE FUMARATE 25 MG TAB PO SCH (21:06)
[2021-06-05] MEDS: LOPERAMIDE 1 MG/7.5 ML UDCUP PO PRN (21:22)
[2021-06-05] MEDS: ACETAMINOPHEN 325 MG TAB PO PRN (21:22)
[2021-06-06] VITALS: BP 131/71
[2021-06-06 04:00] VITALS: BP 104/49
[2021-06-06 05:01] LABS: HEMATOCRIT 26.3 % (36-48); MEAN CORPUSCULAR HEMOGLOBIN 29.3 pg (27.0-33.0); MEAN CORPUSCULAR HGB CONC 31.2 g/dL (32.0-36.0); MEAN CORPUSCULAR VOLUME 93.9 fL (79-99); RED BLOOD CELL COUNT(AUTO) 2.8 MIL/uL (4.00-5.50); RED CELL DISTRIBUTION WIDTH 14.3 % (11.0-15.5); WHITE BLOOD COUNT (AUTO) 4.4 K/uL (4.8-10.8)
[2021-06-06 05:09] LABS: CREATININE 0.7 mg/dL (0.5-1.5); POTASSIUM 3.6 mmol/L (3.5-5.1)
[2021-06-06] MEDS: GABAPENTIN 300 MG CAPSULE PO SCH ×3 (05:43→20:16)
[2021-06-06] MEDS: KCL 20 MEQ ERTAB PO PRN ×2 (05:44→13:36)
[2021-06-06 08:40] VITALS: BP 136/85
[2021-06-06] MEDS: BUSPIRONE HCL 5 MG TABLET PO SCH ×2 (09:29→20:15)
[2021-06-06] MEDS: CITALOPRAM 20 MG TABLET PO SCH (09:29)
[2021-06-06] MEDS: POLYETHYLENE GLYCOL 3350 17 GM POWD.PACK PO SCH (09:30)
[2021-06-06] MEDS: MONTELUKAST SODIUM 10 MG TAB PO SCH (09:30)
[2021-06-06] MEDS: METOPROLOL TARTRATE 50 MG TAB PO SCH ×2 (09:30→20:16)
[2021-06-06] MEDS: MAGNESIUM OXIDE 400 MG TABLET PO SCH ×3 (09:30→20:13)
[2021-06-06] MEDS: FAMOTIDINE 20MG TAB PO SCH ×2 (09:30→20:13)
[2021-06-06] MEDS: ENOXAPARIN SODIUM 40 MG/0.4 ML SYRINGE SQ SCH (09:31)
[2021-06-06 11:35] VITALS: BP 149/96
[2021-06-06 16:05] VITALS: BP 137/84
[2021-06-06 20:00] VITALS: BP 149/87
[2021-06-06] MEDS: QUETIAPINE FUMARATE 25 MG TAB PO SCH (20:15)
[2021-06-06] MEDS: TRAZODONE HCL 50 MG TAB PO SCH (20:16)
[2021-06-06] MEDS: ACETAMINOPHEN 325 MG TAB PO PRN (20:17)
[2021-06-07] VITALS: BP 92/43
[2021-06-07 04:00] VITALS: BP 90/45
[2021-06-07 05:16] LABS: HEMATOCRIT 27.1 % (36-48); MEAN CORPUSCULAR HEMOGLOBIN 29.8 pg (27.0-33.0); MEAN CORPUSCULAR HGB CONC 31.4 g/dL (32.0-36.0); MEAN CORPUSCULAR VOLUME 95.1 fL (79-99); PLATELET COUNT (AUTO) 160 K/uL (130-400); RED BLOOD CELL COUNT(AUTO) 2.85 MIL/uL (4.00-5.50); RED CELL DISTRIBUTION WIDTH 14.4 % (11.0-15.5); WHITE BLOOD COUNT (AUTO) 4.5 K/uL (4.8-10.8)
[2021-06-07 05:39] LABS: CREATININE 0.6 mg/dL (0.5-1.5); MAGNESIUM 1.4 mg/dL (1.80-2.40); POTASSIUM 3.7 mmol/L (3.5-5.1)
[2021-06-07] MEDS: GABAPENTIN 300 MG CAPSULE PO SCH ×3 (05:52→21:12)
[2021-06-07] MEDS: KCL 20 MEQ ERTAB PO PRN (05:53)
[2021-06-07 06:17] LABS: BAND NEUTROPHILS % (MANUAL) 1 % (0-2); EOSINOPHILS % (MANUAL) 2 % (1-6); LYMPHOCYTES % (MANUAL) 24 % (22-44); MAN.DIFF COMMENT-IMPRESSION MANUAL DIFFERENTIAL; MONOCYTES % (MANUAL) 7 % (2-9); PLATELET MORPHOLOGY COMMENT ADEQUATE; REACTIVE LYMPHOCYTES 5 % (0-0); SEGMENTED NEUTROPHILS % 61 % (40-70)
[2021-06-07 08:00] VITALS: BP 118/73
[2021-06-07] MEDS: ENOXAPARIN SODIUM 40 MG/0.4 ML SYRINGE SQ SCH (08:46)
[2021-06-07] MEDS: FAMOTIDINE 20MG TAB PO SCH ×2 (08:47→19:56)
[2021-06-07] MEDS: CITALOPRAM 20 MG TABLET PO SCH (08:47)
[2021-06-07] MEDS: METOPROLOL TARTRATE 50 MG TAB PO SCH ×2 (08:47→19:55)
[2021-06-07] MEDS: POLYETHYLENE GLYCOL 3350 17 GM POWD.PACK PO SCH (08:47)
[2021-06-07] MEDS: BUSPIRONE HCL 5 MG TABLET PO SCH ×2 (08:47→19:55)
[2021-06-07] MEDS: MONTELUKAST SODIUM 10 MG TAB PO SCH (08:50)
[2021-06-07] MEDS: MAGNESIUM OXIDE 400 MG TABLET PO SCH ×3 (08:50→19:58)
[2021-06-07 12:00] VITALS: BP 118/74
[2021-06-07] MEDS: ONDANSETRON ODT 4MG TAB PO PRN (12:32)
[2021-06-07 15:10] VITALS: BP 149/97
[2021-06-07] MEDS: ACETAMINOPHEN 325 MG TAB PO PRN (15:26)
[2021-06-07] MEDS: LOPERAMIDE 1 MG/7.5 ML UDCUP PO PRN (15:26)
[2021-06-07] MEDS: QUETIAPINE FUMARATE 25 MG TAB PO SCH (19:55)
[2021-06-07] MEDS: TRAZODONE HCL 50 MG TAB PO SCH (19:56)
[2021-06-07 20:00] VITALS: BP 142/91
[2021-06-08] VITALS: BP 104/56
[2021-06-08 04:00] VITALS: BP 121/70
[2021-06-08 05:07] LABS: HEMATOCRIT 27.3 % (36-48); MEAN CORPUSCULAR HEMOGLOBIN 29.3 pg (27.0-33.0); MEAN CORPUSCULAR HGB CONC 30.8 g/dL (32.0-36.0); MEAN CORPUSCULAR VOLUME 95.1 fL (79-99); RED BLOOD CELL COUNT(AUTO) 2.87 MIL/uL (4.00-5.50); RED CELL DISTRIBUTION WIDTH 14.3 % (11.0-15.5); WHITE BLOOD COUNT (AUTO) 4.5 K/uL (4.8-10.8)
[2021-06-08 05:18] LABS: CREATININE 0.6 mg/dL (0.5-1.5); POTASSIUM 3.7 mmol/L (3.5-5.1)
[2021-06-08] MEDS: GABAPENTIN 300 MG CAPSULE PO SCH ×3 (05:41→21:13)
[2021-06-08 08:00] VITALS: BP 132/77
[2021-06-08] MEDS: MAGNESIUM OXIDE 400 MG TABLET PO SCH ×3 (08:43→20:37)
[2021-06-08] MEDS: POLYETHYLENE GLYCOL 3350 17 GM POWD.PACK PO SCH ×2 (08:43→09:00)
[2021-06-08] MEDS: FAMOTIDINE 20MG TAB PO SCH ×2 (08:44→20:37)
[2021-06-08] MEDS: KCL 20 MEQ ERTAB PO PRN (08:44)
[2021-06-08] MEDS: BUSPIRONE HCL 5 MG TABLET PO SCH ×2 (08:44→20:37)
[2021-06-08] MEDS: METOPROLOL TARTRATE 50 MG TAB PO SCH ×2 (08:44→20:37)
[2021-06-08] MEDS: MONTELUKAST SODIUM 10 MG TAB PO SCH (08:44)
[2021-06-08] MEDS: CITALOPRAM 20 MG TABLET PO SCH (08:45)
[2021-06-08] MEDS: ENOXAPARIN SODIUM 40 MG/0.4 ML SYRINGE SQ SCH (08:46)
[2021-06-08 12:00] VITALS: BP 144/88
[2021-06-08] MEDS: ONDANSETRON ODT 4MG TAB PO PRN (14:49)
[2021-06-08] MEDS: ACETAMINOPHEN 325 MG TAB PO PRN (14:50)
[2021-06-08 16:00] VITALS: BP 161/93
[2021-06-08 20:07] VITALS: BP 136/80
[2021-06-08] MEDS: QUETIAPINE FUMARATE 25 MG TAB PO SCH (20:37)
[2021-06-08] MEDS: TRAZODONE HCL 50 MG TAB PO SCH (20:37)
[2021-06-08] MEDS ORDERED: DIPHENHYDRAMINE HCL 25 MG CAPSULE ONE (20:52)
[2021-06-08] MEDS ORDERED: DIPHENHYDRAMINE HCL 25 MG CAPSULE PO ONE (21:00)
[2021-06-09 00:02] VITALS: BP 109/57
[2021-06-09 04:00] VITALS: BP 94/50
[2021-06-09 04:56] LABS: HEMATOCRIT 27.7 % (36-48); MEAN CORPUSCULAR HEMOGLOBIN 29.3 pg (27.0-33.0); MEAN CORPUSCULAR HGB CONC 31.4 g/dL (32.0-36.0); MEAN CORPUSCULAR VOLUME 93.3 fL (79-99); RED BLOOD CELL COUNT(AUTO) 2.97 MIL/uL (4.00-5.50); RED CELL DISTRIBUTION WIDTH 14.2 % (11.0-15.5); WHITE BLOOD COUNT (AUTO) 5.4 K/uL (4.8-10.8)
[2021-06-09 05:08] LABS: CREATININE 0.5 mg/dL (0.5-1.5); POTASSIUM 3.5 mmol/L (3.5-5.1)
[2021-06-09] MEDS: GABAPENTIN 300 MG CAPSULE PO SCH ×3 (06:14→20:57)
[2021-06-09 07:00] VITALS: BP 136/83
[2021-06-09] MEDS: POLYETHYLENE GLYCOL 3350 17 GM POWD.PACK PO SCH (09:00)
[2021-06-09] MEDS: MAGNESIUM OXIDE 400 MG TABLET PO SCH ×3 (09:39→20:56)
[2021-06-09] MEDS: CITALOPRAM 20 MG TABLET PO SCH (09:39)
[2021-06-09] MEDS: MONTELUKAST SODIUM 10 MG TAB PO SCH (09:40)
[2021-06-09] MEDS: BUSPIRONE HCL 5 MG TABLET PO SCH ×2 (09:40→20:58)
[2021-06-09] MEDS: METOPROLOL TARTRATE 50 MG TAB PO SCH (09:40)
[2021-06-09] MEDS: FAMOTIDINE 20MG TAB PO SCH ×2 (09:40→20:57)
[2021-06-09 11:00] VITALS: BP 147/82
[2021-06-09] MEDS: MAGNESIUM 2GM PREMIX 50ML 50 ML IV SCH (13:53)
[2021-06-09] MEDS: ACETAMINOPHEN 325 MG TAB PO PRN ×2 (14:49→20:58)
[2021-06-09 15:00] VITALS: BP 143/79
[2021-06-09] MEDS: QUETIAPINE FUMARATE 25 MG TAB PO SCH (20:56)
[2021-06-09] MEDS: TRAZODONE HCL 50 MG TAB PO SCH (20:57)
[2021-06-09 23:11] VITALS: BP 159/91
[2021-06-10] VITALS (7 sets, daily range): BP systolic 107–171; BP diastolic 51–96
[2021-06-10] MEDS: GABAPENTIN 300 MG CAPSULE PO SCH ×3 (05:42→22:27)
[2021-06-10] MEDS: FAMOTIDINE 20MG TAB PO SCH ×2 (08:27→20:09)
[2021-06-10] MEDS: MONTELUKAST SODIUM 10 MG TAB PO SCH (08:27)
[2021-06-10] MEDS: BUSPIRONE HCL 5 MG TABLET PO SCH ×2 (08:27→20:09)
[2021-06-10] MEDS: MAGNESIUM OXIDE 400 MG TABLET PO SCH ×3 (08:28→20:09)
[2021-06-10] MEDS: POLYETHYLENE GLYCOL 3350 17 GM POWD.PACK PO SCH (08:30)
[2021-06-10] MEDS: ACETAMINOPHEN 325 MG TAB PO PRN ×2 (08:36→20:10)
[2021-06-10] MEDS: CITALOPRAM 20 MG TABLET PO SCH (09:23)
[2021-06-10] MEDS: MAGNESIUM 2GM PREMIX 50ML 50 ML IV SCH (11:11)
[2021-06-10] MEDS: KCL 20 MEQ ERTAB PO PRN ×2 (11:29→13:35)
[2021-06-10] MEDS: TRAZODONE HCL 50 MG TAB PO SCH (20:09)
[2021-06-10] MEDS: METOPROLOL TARTRATE 50 MG TAB PO SCH (20:10)
[2021-06-10] MEDS: QUETIAPINE FUMARATE 25 MG TAB PO SCH (20:10)
[2021-06-11] VITALS: BP 103/58
[2021-06-11 04:00] VITALS: BP 128/73
[2021-06-11 05:42] LABS: % IRON SATURATION 26.1 % (22-44)
[2021-06-11] MEDS: GABAPENTIN 300 MG CAPSULE PO SCH ×3 (06:25→21:02)
[2021-06-11 07:30] VITALS: BP 131/82
[2021-06-11] MEDS: POLYETHYLENE GLYCOL 3350 17 GM POWD.PACK PO SCH (09:00)
[2021-06-11] MEDS: CITALOPRAM 20 MG TABLET PO SCH (09:35)
[2021-06-11] MEDS: METOPROLOL TARTRATE 50 MG TAB PO SCH ×2 (09:36→21:03)
[2021-06-11] MEDS: MONTELUKAST SODIUM 10 MG TAB PO SCH (09:36)
[2021-06-11] MEDS: BUSPIRONE HCL 5 MG TABLET PO SCH ×2 (09:36→21:03)
[2021-06-11] MEDS: FAMOTIDINE 20MG TAB PO SCH ×2 (09:36→21:03)
[2021-06-11] MEDS: MAGNESIUM OXIDE 400 MG TABLET PO SCH ×3 (09:36→21:02)
[2021-06-11] MEDS: ACETAMINOPHEN 325 MG TAB PO PRN (10:36)
[2021-06-11 11:00] VITALS: BP 128/77
[2021-06-11 16:00] VITALS: BP 143/78
[2021-06-11 20:00] VITALS: BP 156/96
[2021-06-11] MEDS: QUETIAPINE FUMARATE 25 MG TAB PO SCH (21:02)
[2021-06-11] MEDS: TRAZODONE HCL 50 MG TAB PO SCH (21:03)
[2021-06-12] VITALS: BP 144/78
[2021-06-12 04:00] VITALS: BP 131/76
[2021-06-12 05:31] LABS: BASOPHILS % (AUTO) 0.3 % (0.0-5.0); EOSINOPHILS % (AUTO) 3.5 % (0.0-8.0); HEMATOCRIT 27.2 % (36-48); LYMPHOCYTES % (AUTO) 13.6 % (21.0-51.0); MEAN CORPUSCULAR HEMOGLOBIN 29.8 pg (27.0-33.0); MEAN CORPUSCULAR HGB CONC 31.6 g/dL (32.0-36.0); MEAN CORPUSCULAR VOLUME 94.1 fL (79-99); MONOCYTES % (AUTO) 9.4 % (3.0-13.0); NEUTROPHILS % (AUTO) 69.5 % (40.0-77.0); NUCLEATED RED BLOOD CELLS 0.3 % (0.0-0.19); PLATELET COUNT (AUTO) 228 K/uL (130-400); RED BLOOD CELL COUNT(AUTO) 2.89 MIL/uL (4.00-5.50); RED CELL DISTRIBUTION WIDTH 14.7 % (11.0-15.5); WHITE BLOOD COUNT (AUTO) 10.4 K/uL (4.8-10.8)
[2021-06-12 05:48] LABS: CREATININE 0.5 mg/dL (0.5-1.5); POTASSIUM 3.3 mmol/L (3.5-5.1)
[2021-06-12] MEDS: GABAPENTIN 300 MG CAPSULE PO SCH ×3 (06:45→22:06)
[2021-06-12] MEDS: KCL 20 MEQ ERTAB PO PRN (06:46)
[2021-06-12 08:00] VITALS: BP 133/75
[2021-06-12] MEDS: POLYETHYLENE GLYCOL 3350 17 GM POWD.PACK PO SCH ×2 (09:00→09:47)
[2021-06-12] MEDS: MONTELUKAST SODIUM 10 MG TAB PO SCH (09:45)
[2021-06-12] MEDS: MAGNESIUM OXIDE 400 MG TABLET PO SCH ×3 (09:45→22:06)
[2021-06-12] MEDS: BUSPIRONE HCL 5 MG TABLET PO SCH ×2 (09:45→22:06)
[2021-06-12] MEDS: CITALOPRAM 20 MG TABLET PO SCH (09:45)
[2021-06-12] MEDS: METOPROLOL TARTRATE 50 MG TAB PO SCH ×2 (09:45→22:06)
[2021-06-12] MEDS: FAMOTIDINE 20MG TAB PO SCH ×2 (09:45→22:06)
[2021-06-12] MEDS: ACETAMINOPHEN 325 MG TAB PO PRN ×3 (09:47→22:05)
[2021-06-12 12:00] VITALS: BP 118/74
[2021-06-12 16:00] VITALS: BP 155/84
[2021-06-12] MEDS ORDERED: KCL 20 MEQ ERTAB PO ONE (19:18)
[2021-06-12 19:30] VITALS: BP 139/82
[2021-06-12] MEDS ORDERED: POTASSIUM CHLORIDE 10% ELIXIR 20 MEQ/15 ML UDCUP PO PRN (19:30)
[2021-06-12] MEDS ORDERED: LIDOCAINE HCL-MPF 1% 2ML VIAL IV PRN (19:30)
[2021-06-12] MEDS ORDERED: POTASSIUM CHLORIDE 20MEQ/100ML 100 ML IV PRN (19:30)
[2021-06-12] MEDS: QUETIAPINE FUMARATE 25 MG TAB PO SCH (22:06)
[2021-06-12] MEDS: TRAZODONE HCL 50 MG TAB PO SCH (22:06)
[2021-06-12] MEDS: ONDANSETRON ODT 4MG TAB PO PRN (22:10)
[2021-06-13 00:49] VITALS: BP 118/63
[2021-06-13 04:00] VITALS: BP 103/54
[2021-06-13] MEDS: GABAPENTIN 300 MG CAPSULE PO SCH ×3 (05:19→22:27)
[2021-06-13 05:24] LABS: CREATININE 0.5 mg/dL (0.5-1.5); MAGNESIUM 1.6 mg/dL (1.80-2.40)
[2021-06-13 08:30] VITALS: BP 134/62
[2021-06-13] MEDS: POLYETHYLENE GLYCOL 3350 17 GM POWD.PACK PO SCH (08:57)
[2021-06-13] MEDS: MAGNESIUM OXIDE 400 MG TABLET PO SCH ×3 (09:00→20:31)
[2021-06-13] MEDS: ACETAMINOPHEN 325 MG TAB PO PRN (09:00)
[2021-06-13] MEDS: CITALOPRAM 20 MG TABLET PO SCH (09:01)
[2021-06-13] MEDS: BUSPIRONE HCL 5 MG TABLET PO SCH ×2 (09:01→20:32)
[2021-06-13] MEDS: MONTELUKAST SODIUM 10 MG TAB PO SCH (09:01)
[2021-06-13] MEDS: MAGNESIUM 2GM PREMIX 50ML 50 ML IV SCH (09:01)
[2021-06-13] MEDS: FAMOTIDINE 20MG TAB PO SCH ×2 (09:01→20:32)
[2021-06-13] MEDS: METOPROLOL TARTRATE 50 MG TAB PO SCH ×2 (09:01→20:32)
[2021-06-13 12:08] VITALS: BP 126/75
[2021-06-13 16:35] VITALS: BP 130/84
[2021-06-13] MEDS ORDERED: SUMATRIPTAN SUCCINATE 25 MG TABLET PO SCH (17:35)
[2021-06-13] MEDS: IPRATROPIUM/ALBUTEROL SULFATE 3 ML SOLUTION IH PRN (18:54)
[2021-06-13 20:00] VITALS: BP 138/88
[2021-06-13] MEDS: TRAZODONE HCL 50 MG TAB PO SCH (20:31)
[2021-06-13] MEDS: QUETIAPINE FUMARATE 25 MG TAB PO SCH (20:32)
[2021-06-14] VITALS: BP 122/62
[2021-06-14 04:00] VITALS: BP 103/59
[2021-06-14] MEDS: GABAPENTIN 300 MG CAPSULE PO SCH ×3 (05:57→20:38)
[2021-06-14] MEDS: POLYETHYLENE GLYCOL 3350 17 GM POWD.PACK PO SCH (09:00)
[2021-06-14] MEDS: METOPROLOL TARTRATE 50 MG TAB PO SCH ×2 (10:42→20:39)
[2021-06-14] MEDS: CITALOPRAM 20 MG TABLET PO SCH (10:42)
[2021-06-14] MEDS: MAGNESIUM OXIDE 400 MG TABLET PO SCH ×3 (10:42→20:39)
[2021-06-14] MEDS: BUSPIRONE HCL 5 MG TABLET PO SCH ×2 (10:42→20:39)
[2021-06-14] MEDS: MONTELUKAST SODIUM 10 MG TAB PO SCH (10:42)
[2021-06-14] MEDS: FAMOTIDINE 20MG TAB PO SCH ×2 (10:42→20:39)
[2021-06-14 12:00] VITALS: BP 159/83
[2021-06-14] MEDS: FLUTICASONE PROPIONATE 50MCG/SPRAY 16 GM BOTTLE EN SCH ×2 (15:30→20:40)
[2021-06-14 16:00] VITALS: BP 127/83
[2021-06-14 20:00] VITALS: BP 144/85
[2021-06-14] MEDS: TRAZODONE HCL 50 MG TAB PO SCH (20:39)
[2021-06-14] MEDS: QUETIAPINE FUMARATE 25 MG TAB PO SCH (20:39)
[2021-06-15] VITALS: BP 113/58
[2021-06-15 04:00] VITALS: BP 113/61
[2021-06-15] MEDS: GABAPENTIN 300 MG CAPSULE PO SCH ×3 (06:44→20:14)
[2021-06-15 08:00] VITALS: BP 143/85
[2021-06-15] MEDS: FAMOTIDINE 20MG TAB PO SCH ×2 (11:15→20:14)
[2021-06-15] MEDS: MAGNESIUM OXIDE 400 MG TABLET PO SCH ×3 (11:15→20:14)
[2021-06-15] MEDS: MONTELUKAST SODIUM 10 MG TAB PO SCH (11:16)
[2021-06-15] MEDS: METOPROLOL TARTRATE 50 MG TAB PO SCH ×2 (11:16→20:13)
[2021-06-15] MEDS: POLYETHYLENE GLYCOL 3350 17 GM POWD.PACK PO SCH (11:16)
[2021-06-15] MEDS: FLUTICASONE PROPIONATE 50MCG/SPRAY 16 GM BOTTLE EN SCH ×2 (11:17→20:16)
[2021-06-15] MEDS: CITALOPRAM 20 MG TABLET PO SCH (11:17)
[2021-06-15] MEDS: BUSPIRONE HCL 5 MG TABLET PO SCH ×2 (11:17→20:13)
[2021-06-15 12:00] VITALS: BP 154/104
[2021-06-15 16:00] VITALS: BP 141/89
[2021-06-15 20:00] VITALS: BP 177/97
[2021-06-15] MEDS: TRAZODONE HCL 50 MG TAB PO SCH (20:13)
[2021-06-15] MEDS: QUETIAPINE FUMARATE 25 MG TAB PO SCH (20:13)
[2021-06-16] VITALS: BP 137/63
[2021-06-16 04:00] VITALS: BP 103/58
[2021-06-16] MEDS: GABAPENTIN 300 MG CAPSULE PO SCH ×2 (06:13→14:17)
[2021-06-16 08:00] VITALS: BP 105/57
[2021-06-16] MEDS: POLYETHYLENE GLYCOL 3350 17 GM POWD.PACK PO SCH (09:00)
[2021-06-16] MEDS: IPRATROPIUM/ALBUTEROL SULFATE 3 ML SOLUTION IH PRN ×3 (09:30→19:38)
[2021-06-16] MEDS: MAGNESIUM OXIDE 400 MG TABLET PO SCH ×3 (10:01→20:10)
[2021-06-16] MEDS: MONTELUKAST SODIUM 10 MG TAB PO SCH (10:01)
[2021-06-16] MEDS: FAMOTIDINE 20MG TAB PO SCH ×2 (10:01→20:09)
[2021-06-16] MEDS: METOPROLOL TARTRATE 50 MG TAB PO SCH ×2 (10:01→20:09)
[2021-06-16] MEDS: ACETAMINOPHEN 325 MG TAB PO PRN (10:01)
[2021-06-16] MEDS: CITALOPRAM 20 MG TABLET PO SCH (10:01)
[2021-06-16] MEDS: BUSPIRONE HCL 5 MG TABLET PO SCH ×2 (10:02→20:09)
[2021-06-16] MEDS: FLUTICASONE PROPIONATE 50MCG/SPRAY 16 GM BOTTLE EN SCH ×2 (10:06→20:48)
[2021-06-16 12:00] VITALS: BP 143/87
[2021-06-16 16:00] VITALS: BP 143/78
[2021-06-16 20:00] VITALS: BP 149/87
[2021-06-16] MEDS: TRAZODONE HCL 50 MG TAB PO SCH (20:09)
[2021-06-16] MEDS: QUETIAPINE FUMARATE 25 MG TAB PO SCH (20:09)
[2021-06-17] VITALS: BP 116/72
[2021-06-17 04:00] VITALS: BP 119/68
[2021-06-17 05:12] LABS: BASOPHILS % (AUTO) 0.5 % (0.0-5.0); EOSINOPHILS % (AUTO) 7.6 % (0.0-8.0); HEMATOCRIT 30.7 % (36-48); LYMPHOCYTES % (AUTO) 22.4 % (21.0-51.0); MEAN CORPUSCULAR HEMOGLOBIN 29.4 pg (27.0-33.0); MEAN CORPUSCULAR VOLUME 98.1 fL (79-99); MONOCYTES % (AUTO) 9.9 % (3.0-13.0); NEUTROPHILS % (AUTO) 59.1 % (40.0-77.0); PLATELET COUNT (AUTO) 212 K/uL (130-400); RED BLOOD CELL COUNT(AUTO) 3.13 MIL/uL (4.00-5.50); RED CELL DISTRIBUTION WIDTH 15.5 % (11.0-15.5); WHITE BLOOD COUNT (AUTO) 5.8 K/uL (4.8-10.8)
[2021-06-17 05:37] LABS: ALBUMIN 2.4 g/dL (3.5-5.0); BILIRUBIN,TOTAL 0.3 mg/dL (0.2-1.0); CREATININE 0.6 mg/dL (0.5-1.5); MAGNESIUM 1.6 mg/dL (1.80-2.40); POTASSIUM 3.7 mmol/L (3.5-5.1); TOTAL PROTEIN, SERUM 6.6 g/dL (6.0-8.3)
[2021-06-17] MEDS: KCL 20 MEQ ERTAB PO PRN (06:10)
[2021-06-17] MEDS: MAGNESIUM 2GM PREMIX 50ML 50 ML IV SCH (06:11)
[2021-06-17 07:30] VITALS: BP 144/70
[2021-06-17] MEDS: POLYETHYLENE GLYCOL 3350 17 GM POWD.PACK PO SCH (09:00)
[2021-06-17] MEDS: METOPROLOL TARTRATE 50 MG TAB PO SCH ×2 (09:26→22:24)
[2021-06-17] MEDS: CITALOPRAM 20 MG TABLET PO SCH (09:26)
[2021-06-17] MEDS: MAGNESIUM OXIDE 400 MG TABLET PO SCH ×4 (09:26→22:47)
[2021-06-17] MEDS: BUSPIRONE HCL 5 MG TABLET PO SCH ×2 (09:27→22:23)
[2021-06-17] MEDS: MONTELUKAST SODIUM 10 MG TAB PO SCH (09:27)
[2021-06-17] MEDS: FAMOTIDINE 20MG TAB PO SCH ×2 (09:27→22:23)
[2021-06-17] MEDS: FLUTICASONE PROPIONATE 50MCG/SPRAY 16 GM BOTTLE EN SCH ×2 (09:35→22:25)
[2021-06-17 11:00] VITALS: BP 138/92
[2021-06-17 16:00] VITALS: BP 155/91
[2021-06-17] MEDS: IPRATROPIUM/ALBUTEROL SULFATE 3 ML SOLUTION IH PRN (16:54)
[2021-06-17 19:30] VITALS: BP 171/108
[2021-06-17] MEDS: QUETIAPINE FUMARATE 25 MG TAB PO SCH (22:23)
[2021-06-17] MEDS: TRAZODONE HCL 50 MG TAB PO SCH (22:23)
[2021-06-18] VITALS: BP 143/81
[2021-06-18 04:00] VITALS: BP 136/78
[2021-06-18] MEDS: MAGNESIUM 2GM PREMIX 50ML 50 ML IV SCH (06:29)
[2021-06-18] MEDS: CITALOPRAM 20 MG TABLET PO SCH (08:25)
[2021-06-18] MEDS: METOPROLOL TARTRATE 50 MG TAB PO SCH ×2 (08:25→22:00)
[2021-06-18] MEDS: FAMOTIDINE 20MG TAB PO SCH ×2 (08:26→22:00)
[2021-06-18] MEDS: MAGNESIUM OXIDE 400 MG TABLET PO SCH ×3 (08:26→21:59)
[2021-06-18] MEDS: MONTELUKAST SODIUM 10 MG TAB PO SCH (08:26)
[2021-06-18] MEDS: BUSPIRONE HCL 5 MG TABLET PO SCH ×2 (08:26→22:00)
[2021-06-18] MEDS: POLYETHYLENE GLYCOL 3350 17 GM POWD.PACK PO SCH (08:31)
[2021-06-18] MEDS: FLUTICASONE PROPIONATE 50MCG/SPRAY 16 GM BOTTLE EN SCH ×2 (08:31→22:01)
[2021-06-18 08:33] VITALS: BP 175/108
[2021-06-18] MEDS ORDERED: LABETALOL 20MG VIAL IV ONE (11:30)
[2021-06-18 12:03] VITALS: BP 155/102
[2021-06-18] MEDS ORDERED: NIFEDIPINE 10 MG CAP PO SCH (17:00)
[2021-06-18 18:13] VITALS: BP 181/103
[2021-06-18 20:00] VITALS: BP 143/78
[2021-06-18] MEDS: NIFEDIPINE 10 MG CAP PO SCH (21:59)
[2021-06-18] MEDS: TRAZODONE HCL 50 MG TAB PO SCH (22:00)
[2021-06-18] MEDS: QUETIAPINE FUMARATE 25 MG TAB PO SCH (22:00)
[2021-06-19] VITALS (7 sets, daily range): BP systolic 106–159; BP diastolic 65–93
[2021-06-19 04:54] LABS: CREATININE 0.5 mg/dL (0.5-1.5); MAGNESIUM 1.5 mg/dL (1.80-2.40)
[2021-06-19] MEDS: KCL 20 MEQ ERTAB PO PRN ×5 (05:24→18:36)
[2021-06-19] MEDS: FLUTICASONE PROPIONATE 50MCG/SPRAY 16 GM BOTTLE EN SCH ×2 (08:21→20:38)
[2021-06-19] MEDS: METOPROLOL TARTRATE 50 MG TAB PO SCH ×2 (08:21→20:36)
[2021-06-19] MEDS: CITALOPRAM 20 MG TABLET PO SCH (08:21)
[2021-06-19] MEDS: FAMOTIDINE 20MG TAB PO SCH ×2 (08:21→20:36)
[2021-06-19] MEDS: BUSPIRONE HCL 5 MG TABLET PO SCH ×2 (08:21→20:37)
[2021-06-19] MEDS: MONTELUKAST SODIUM 10 MG TAB PO SCH (08:21)
[2021-06-19] MEDS: NIFEDIPINE 10 MG CAP PO SCH ×3 (08:22→20:36)
[2021-06-19] MEDS: POLYETHYLENE GLYCOL 3350 17 GM POWD.PACK PO SCH (09:00)
[2021-06-19] MEDS: MAGNESIUM OXIDE 400 MG TABLET PO SCH ×3 (09:00→20:37)
[2021-06-19] MEDS: ACETAMINOPHEN 325 MG TAB PO PRN (14:04)
[2021-06-19] MEDS: MAGNESIUM 2GM PREMIX 50ML 50 ML IV PRN (18:36)
[2021-06-19] MEDS: QUETIAPINE FUMARATE 25 MG TAB PO SCH (20:37)
[2021-06-19] MEDS: TRAZODONE HCL 50 MG TAB PO SCH (20:37)
[2021-06-20 04:55] VITALS: BP 150/69
[2021-06-20 05:21] LABS: HEMATOCRIT 30.8 % (36-48); MEAN CORPUSCULAR HEMOGLOBIN 29.1 pg (27.0-33.0); MEAN CORPUSCULAR HGB CONC 31.5 g/dL (32.0-36.0); MEAN CORPUSCULAR VOLUME 92.5 fL (79-99); RED BLOOD CELL COUNT(AUTO) 3.33 MIL/uL (4.00-5.50); RED CELL DISTRIBUTION WIDTH 15.3 % (11.0-15.5); WHITE BLOOD COUNT (AUTO) 5.6 K/uL (4.8-10.8)
[2021-06-20 05:45] LABS: CREATININE 0.5 mg/dL (0.5-1.5); MAGNESIUM 1.9 mg/dL (1.80-2.40); POTASSIUM 3.9 mmol/L (3.5-5.1)
[2021-06-20 07:25] VITALS: BP 129/76
[2021-06-20] MEDS: MAGNESIUM OXIDE 400 MG TABLET PO SCH ×2 (07:53→13:57)
[2021-06-20] MEDS: FAMOTIDINE 20MG TAB PO SCH (07:53)
[2021-06-20] MEDS: NIFEDIPINE 10 MG CAP PO SCH ×2 (07:53→13:57)
[2021-06-20] MEDS: METOPROLOL TARTRATE 50 MG TAB PO SCH (07:53)
[2021-06-20] MEDS: MONTELUKAST SODIUM 10 MG TAB PO SCH (07:53)
[2021-06-20] MEDS: CITALOPRAM 20 MG TABLET PO SCH (07:53)
[2021-06-20] MEDS: BUSPIRONE HCL 5 MG TABLET PO SCH (07:53)
[2021-06-20] MEDS: FLUTICASONE PROPIONATE 50MCG/SPRAY 16 GM BOTTLE EN SCH (07:54)
[2021-06-20] MEDS: MAGNESIUM 2GM PREMIX 50ML 50 ML IV PRN (08:02)
[2021-06-20] MEDS: POLYETHYLENE GLYCOL 3350 17 GM POWD.PACK PO SCH (09:00)
[2021-06-20] MEDS ORDERED: NIFE60TA81 PO (10:06)
[2021-06-20] MEDS ORDERED: BUSP5TAB3 PO (10:06)
[2021-06-20] MEDS ORDERED: FLUT16H NS (10:06)
[2021-06-20] MEDS ORDERED: ALBU8.5H8 IH (10:06)
[2021-06-20] MEDS ORDERED: TRAZ-185 PO (10:06)
[2021-06-20] MEDS ORDERED: FAMO20TA8 PO (10:06)
[2021-06-20] MEDS ORDERED: CITA-107 PO (10:06)
[2021-06-20] MEDS ORDERED: MAGN400T40 PO (10:06)
[2021-06-20] MEDS ORDERED: METO50TA18 PO (10:06)
[2021-06-20] MEDS ORDERED: QUET50TA PO (10:06)
[2021-06-20] MEDS ORDERED: POLY17PO4 PO (10:06)
[2021-06-20 11:20] VITALS: BP 123/76
[2021-06-20 15:20] VITALS: BP 135/85
== END 2021-06-20 20:27 | disposition home or self-care (01) | DRG 4 ==
LOC: EDH 10:03 → EDHIP 10:04 → 2BH 02-22 13:56 → 2AH 03-30 17:30 → 4BH 04-04 14:26 → 3DH 05-25 05:16
PROVIDERS: ADMIT Hospitalist; ATTEND Hospitalist
PROC: 5A1955Z Respiratory Ventilation, Greater than 96 Consecutive Hours (ICD-10-PCS; 2021-02-21)
PROC: XW033E5 Introduction of Remdesivir Anti-infective into Peripheral Vein, Percutaneous Approach, New Technology Group 5 (ICD-10-PCS; 2021-02-21)
PROC: 0BH17EZ Insertion of Endotracheal Airway into Trachea, Via Natural or Artificial Opening (ICD-10-PCS; 2021-02-21)
PROC: XW033H5 Introduction of Tocilizumab into Peripheral Vein, Percutaneous Approach, New Technology Group 5 (ICD-10-PCS; 2021-02-22)
PROC: 02H633Z Insertion of Infusion Device into Right Atrium, Percutaneous Approach (ICD-10-PCS; 2021-02-25)
PROC: B548ZZA Ultrasonography of Superior Vena Cava, Guidance (ICD-10-PCS; 2021-02-25)
PROC: 5A1D70Z Performance of Urinary Filtration, Intermittent, Less than 6 Hours Per Day (ICD-10-PCS; 2021-02-25)
PROC: 5A1D70Z Performance of Urinary Filtration, Intermittent, Less than 6 Hours Per Day (ICD-10-PCS; 2021-02-26)
PROC: 5A1D70Z Performance of Urinary Filtration, Intermittent, Less than 6 Hours Per Day (ICD-10-PCS; 2021-02-28)
PROC: 5A1D70Z Performance of Urinary Filtration, Intermittent, Less than 6 Hours Per Day (ICD-10-PCS; 2021-03-02)
PROC: 5A1D70Z Performance of Urinary Filtration, Intermittent, Less than 6 Hours Per Day (ICD-10-PCS; 2021-03-04)
PROC: 5A1D70Z Performance of Urinary Filtration, Intermittent, Less than 6 Hours Per Day (ICD-10-PCS; 2021-03-05)
PROC: 5A1D70Z Performance of Urinary Filtration, Intermittent, Less than 6 Hours Per Day (ICD-10-PCS; 2021-03-07)
PROC: 5A1D70Z Performance of Urinary Filtration, Intermittent, Less than 6 Hours Per Day (ICD-10-PCS; 2021-03-09)
PROC: 0DH63UZ Insertion of Feeding Device into Stomach, Percutaneous Approach (ICD-10-PCS; 2021-03-12)
PROC: 5A1D70Z Performance of Urinary Filtration, Intermittent, Less than 6 Hours Per Day (ICD-10-PCS; 2021-03-12)
PROC: 0B110F4 Bypass Trachea to Cutaneous with Tracheostomy Device, Open Approach (ICD-10-PCS; principal; 2021-03-12 11:00)
PROC: 5A1D70Z Performance of Urinary Filtration, Intermittent, Less than 6 Hours Per Day (ICD-10-PCS; 2021-03-14)
PROC: 5A1D70Z Performance of Urinary Filtration, Intermittent, Less than 6 Hours Per Day (ICD-10-PCS; 2021-03-16)
PROC: 0W9B30Z Drainage of Left Pleural Cavity with Drainage Device, Percutaneous Approach (ICD-10-PCS; 2021-03-18)
PROC: 0W9930Z Drainage of Right Pleural Cavity with Drainage Device, Percutaneous Approach (ICD-10-PCS; 2021-03-18)
PROC: 02HV33Z Insertion of Infusion Device into Superior Vena Cava, Percutaneous Approach (ICD-10-PCS; 2021-03-21)
PROC: 5A1D70Z Performance of Urinary Filtration, Intermittent, Less than 6 Hours Per Day (ICD-10-PCS; 2021-03-22)
PROC: 5A1D70Z Performance of Urinary Filtration, Intermittent, Less than 6 Hours Per Day (ICD-10-PCS; 2021-03-25)
PROC: 5A1D70Z Performance of Urinary Filtration, Intermittent, Less than 6 Hours Per Day (ICD-10-PCS; 2021-03-27)
DX: A41.89 Other specified sepsis (principal); U07.1 COVID-19; E43 Unspecified severe protein-calorie malnutrition; I21.A1 Myocardial infarction type 2; J12.82 Pneumonia due to coronavirus disease 2019; N17.0 Acute kidney failure with tubular necrosis; R65.21 Severe sepsis with septic shock; I46.9 Cardiac arrest, cause unspecified; N18.6 End stage renal disease; J80 Acute respiratory distress syndrome; K85.90 Acute pancreatitis without necrosis or infection, unspecified; J15.1 Pneumonia due to Pseudomonas; J15.212 Pneumonia due to Methicillin resistant Staphylococcus aureus; J93.0 Spontaneous tension pneumothorax; J69.0 Pneumonitis due to inhalation of food and vomit; G92.8 Other toxic encephalopathy; M62.82 Rhabdomyolysis; N39.0 Urinary tract infection, site not specified; R45.851 Suicidal ideations; Z68.43 Body mass index [BMI] 50.0-59.9, adult; E66.2 Morbid (severe) obesity with alveolar hypoventilation; E87.1 Hypo-osmolality and hyponatremia; I12.0 Hypertensive chronic kidney disease with stage 5 chronic kidney disease or end stage renal disease; J95.851 Ventilator associated pneumonia; K75.9 Inflammatory liver disease, unspecified; B96.20 Unspecified Escherichia coli [E. coli] as the cause of diseases classified elsewhere; E87.6 Hypokalemia; F31.9 Bipolar disorder, unspecified; E83.42 Hypomagnesemia; E11.22 Type 2 diabetes mellitus with diabetic chronic kidney disease; R13.12 Dysphagia, oropharyngeal phase; B96.89 Other specified bacterial agents as the cause of diseases classified elsewhere; F41.9 Anxiety disorder, unspecified; K59.00 Constipation, unspecified; D50.9 Iron deficiency anemia, unspecified; E83.52 Hypercalcemia; E87.5 Hyperkalemia; G43.909 Migraine, unspecified, not intractable, without status migrainosus; Z99.2 Dependence on renal dialysis; I48.91 Unspecified atrial fibrillation; K74.60 Unspecified cirrhosis of liver; L89.312 Pressure ulcer of right buttock, stage 2; Z79.899 Other long term (current) drug therapy; Z74.01 Bed confinement status; L89.152 Pressure ulcer of sacral region, stage 2
CPT/HCPCS: 31500; 31502; 36415; 36600; 43246; 71045; 73600; 74230; 76700; 76770; 80048; 80053; 80061; 80074; 80076; 80305; 81001; 82040; 82085; 82140; 82248; 82270; 82306; 82435; 82550; 82565; 82570; 82607; 82728; 82746; 82803; 82947; 82948; 83036; 83540; 83550; 83605; 83615; 83630; 83690; 83735; 83874; 83880; 84100; 84132; 84145; 84295; 84300; 84425; 84443; 84478; 84484; 84520; 84630; 84703; 85014; 85018; 85025; 85027; 85045; 85378; 85610; 85651; 85730; 86140; 86701; 86704; 86706; 87040; 87046; 87070; 87071; 87076; 87077; 87088; 87177; 87186; 87205; 87340; 87390; 87635; 87804; 90935; 92507; 92522; 92597; 92610; 92611; 92950; 93005; 93306; 93356; 93970; 93971; 94002; 94003; 94640; 94660; 94664; 94760; 97039; 99291; C9113; C9803; G0378; G0481; J0132; J0171; J0330; J0461; J0690; J0692; J0696; J0713; J1100; J1644; J1650; J1756; J1815; J1940; J2020; J2060; J2370; J2405; J2704; J2920; J2930; J2997; J3010; J3370; J3475; J3480; J3490; J7030; J7040; J7050; J7060; J7070; J7608; J8540; P9046; Q0162; Q0163

== ENCOUNTER 2021-12-10 11:12 | Emergency (ER) | payer OTHER ==
[~2021-12-10] VITALS: Ht 157.5 cm; Wt 121.1 kg
[~2021-12-10 11:12] MED LIST: ALBU8.5H8 IH; BUSP5TAB3 PO; CITA-107 PO; FAMO20TA8 PO; FLUT16H NS; MAGN400T40 PO; METO50TA18 PO; NIFE60TA81 PO; POLY17PO4 PO; QUET50TA PO; TRAZ-185 PO
[2021-12-10 11:21] VITALS: BP 119/76
[2021-12-10] MEDS ORDERED: ACETAMINOPHEN WITH CODEINE 1 TAB TAB PO ONE (12:00)
[2021-12-10 12:20] LABS: BASOPHILS % (AUTO) 0.4 % (0.0-5.0); EOSINOPHILS % (AUTO) 1.2 % (0.0-8.0); HEMATOCRIT 38.8 % (36-48); LYMPHOCYTES % (AUTO) 26.6 % (21.0-51.0); MEAN CORPUSCULAR HEMOGLOBIN 28.8 pg (27.0-33.0); MEAN CORPUSCULAR HGB CONC 31.7 g/dL (32.0-36.0); MEAN CORPUSCULAR VOLUME 90.9 fL (79-99); MONOCYTES % (AUTO) 5.3 % (3.0-13.0); NEUTROPHILS % (AUTO) 65.8 % (40.0-77.0); PLATELET COUNT (AUTO) 254 K/uL (130-400); RED BLOOD CELL COUNT(AUTO) 4.27 MIL/uL (4.00-5.50); RED CELL DISTRIBUTION WIDTH 13.3 % (11.0-15.5); WHITE BLOOD COUNT (AUTO) 8.2 K/uL (4.8-10.8)
[2021-12-10 12:28] LABS: CREATININE 0.8 mg/dL (0.5-1.5); POTASSIUM 3.7 mmol/L (3.5-5.1)
[2021-12-10 12:32] LABS: ALBUMIN 3.5 g/dL (3.5-5.0); TOTAL PROTEIN, SERUM 7.9 g/dL (6.0-8.3)
[2021-12-10 12:45] LABS: APPEARANCE,URINE CLEAR (CLEAR); BILIRUBIN,URINE NEGATIVE (NEGATIVE); COLOR,URINE LIGHT-YELLOW (YELLOW); GLUCOSE, URINE (UA) NEGATIVE (NEGATIVE); KETONES,URINE NEGATIVE (NEGATIVE); LEUKOCYTE ESTERASE ,URINE 75 Leu/uL (NEGATIVE); NITRATE,URINE NEGATIVE (NEGATIVE); OCCULT BLOOD,URINE NEGATIVE (NEGATIVE); PH,URINE 7.5 (5.0-8.0); PROTEIN,URINE 10 mg/dL (NEGATIVE); UROBILINOGEN,URINE 0.2 mg/dL (0.2-1.0)
[2021-12-10 13:07] LABS: BACTERIA,URINE RARE /HPF (None Seen); MUCUS,URINE RARE LPF (None Seen); SQUAMOUS EPITHELIAL CELL,UR RARE /HPF (0-2)
[2021-12-10] MEDS ORDERED: ACET-2079 PO (13:30)
[2021-12-10] MEDS ORDERED: MACR100 PO (13:30)
== END 2021-12-10 13:52 | disposition home or self-care (01) ==
LOC: EDH 11:12
DX: N39.0 Urinary tract infection, site not specified (principal); M54.6 Pain in thoracic spine; F32.A Depression, unspecified; F41.9 Anxiety disorder, unspecified; I10 Essential (primary) hypertension; J44.9 Chronic obstructive pulmonary disease, unspecified; Z86.16 Personal history of COVID-19; Z87.440 Personal history of urinary (tract) infections; Z87.442 Personal history of urinary calculi; Z90.49 Acquired absence of other specified parts of digestive tract; Z99.81 Dependence on supplemental oxygen
CPT/HCPCS: 36415; 80053; 81001; 85025; 87088

== ENCOUNTER → 2022-08-14 | Outpatient (CLI) | payer MEDICAID ==
[~2022-08-14] MED LIST changes: +ACET-2079 PO; +ALBU6.7H14 IH; -ALBU8.5H8 IH; +AMOX1TAB16 PO; +CARV12.511 PO; +CETI10TA57 PO; +CHLO25TA3 PO; -CITA-107 PO; +CITA-108 PO; +FLUT16H NASAL; -FLUT16H NS; +FURO20TA4 PO; +HONEY 1 APPL/ML TUBE TP ONE; +IBUP-2070 PO; +LIDOCAINE HCL 4% LTA SOL 4 ML VIAL TP ONE; +LOSA50TA64 PO; -METO50TA18 PO; +NIFE-79 PO; -NIFE60TA81 PO; -POLY17PO4 PO; -QUET50TA PO; -TRAZ-185 PO; +TRAZ-187 PO
== END | disposition home or self-care (01) ==
LOC: WHH 13:34
PROVIDERS: ATTEND Nurse Practitioner Family
DX: S81.852A Open bite, left lower leg, initial encounter (principal); I12.9 Hypertensive chronic kidney disease with stage 1 through stage 4 chronic kidney disease, or unspecified chronic kidney disease; N18.4 Chronic kidney disease, stage 4 (severe); I25.2 Old myocardial infarction; I25.10 Atherosclerotic heart disease of native coronary artery without angina pectoris; G47.33 Obstructive sleep apnea (adult) (pediatric); G43.909 Migraine, unspecified, not intractable, without status migrainosus; J45.909 Unspecified asthma, uncomplicated; E66.01 Morbid (severe) obesity due to excess calories; F32.A Depression, unspecified; F41.9 Anxiety disorder, unspecified; Z68.42 Body mass index [BMI] 45.0-49.9, adult; Z93.0 Tracheostomy status; Z90.49 Acquired absence of other specified parts of digestive tract; Z90.710 Acquired absence of both cervix and uterus; W54.0XXA Bitten by dog, initial encounter; Y99.8 Other external cause status; Y93.89 Activity, other specified; Y92.89 Other specified places as the place of occurrence of the external cause
CPT/HCPCS: 11042; A6197; A6022; A4450

== ENCOUNTER → 2022-08-21 | Outpatient (CLI) | payer MEDICAID ==
[~2022-08-21] MED LIST changes: -HONEY 1 APPL/ML TUBE TP ONE; -LIDOCAINE HCL 4% LTA SOL 4 ML VIAL TP ONE
== END | disposition home or self-care (01) ==
LOC: WHH 11:02
PROVIDERS: ATTEND Nurse Practitioner Family
DX: S81.852D Open bite, left lower leg, subsequent encounter (principal); I12.9 Hypertensive chronic kidney disease with stage 1 through stage 4 chronic kidney disease, or unspecified chronic kidney disease; N18.4 Chronic kidney disease, stage 4 (severe); I25.2 Old myocardial infarction; I25.10 Atherosclerotic heart disease of native coronary artery without angina pectoris; G47.33 Obstructive sleep apnea (adult) (pediatric); G43.909 Migraine, unspecified, not intractable, without status migrainosus; J45.909 Unspecified asthma, uncomplicated; E66.01 Morbid (severe) obesity due to excess calories; F32.A Depression, unspecified; F41.9 Anxiety disorder, unspecified; Z68.42 Body mass index [BMI] 45.0-49.9, adult; Z93.0 Tracheostomy status; Z90.49 Acquired absence of other specified parts of digestive tract; Z90.710 Acquired absence of both cervix and uterus; W54.0XXD Bitten by dog, subsequent encounter
CPT/HCPCS: 11042; A6197; A6022

== ENCOUNTER → 2022-09-04 | Outpatient (CLI) | payer MEDICAID ==
[~2022-09-04] MED LIST changes: +LIDOCAINE HCL 4% LTA SOL 4 ML VIAL TP ONE
== END | disposition home or self-care (01) ==
LOC: WHH 10:44
PROVIDERS: ATTEND Nurse Practitioner Family
DX: S81.852D Open bite, left lower leg, subsequent encounter (principal); I12.9 Hypertensive chronic kidney disease with stage 1 through stage 4 chronic kidney disease, or unspecified chronic kidney disease; N18.4 Chronic kidney disease, stage 4 (severe); I25.2 Old myocardial infarction; I25.10 Atherosclerotic heart disease of native coronary artery without angina pectoris; G47.33 Obstructive sleep apnea (adult) (pediatric); G43.909 Migraine, unspecified, not intractable, without status migrainosus; J45.909 Unspecified asthma, uncomplicated; E66.01 Morbid (severe) obesity due to excess calories; F32.A Depression, unspecified; F41.9 Anxiety disorder, unspecified; Z68.42 Body mass index [BMI] 45.0-49.9, adult; Z93.0 Tracheostomy status; Z90.49 Acquired absence of other specified parts of digestive tract; Z90.710 Acquired absence of both cervix and uterus; W54.0XXD Bitten by dog, subsequent encounter
CPT/HCPCS: 11042; A6197

== ENCOUNTER → 2022-10-02 | Outpatient (CLI) | payer MEDICAID | END | disposition home or self-care (01) | LOC: WHH 11:08 | PROVIDERS: ATTEND Nurse Practitioner Family | DX: S81.852D Open bite, left lower leg, subsequent encounter (principal); I12.9 Hypertensive chronic kidney disease with stage 1 through stage 4 chronic kidney disease, or unspecified chronic kidney disease; N18.4 Chronic kidney disease, stage 4 (severe); I25.2 Old myocardial infarction; I25.10 Atherosclerotic heart disease of native coronary artery without angina pectoris; G47.33 Obstructive sleep apnea (adult) (pediatric); G43.909 Migraine, unspecified, not intractable, without status migrainosus; J45.909 Unspecified asthma, uncomplicated; E66.01 Morbid (severe) obesity due to excess calories; F32.A Depression, unspecified; F41.9 Anxiety disorder, unspecified; Z68.42 Body mass index [BMI] 45.0-49.9, adult; Z93.0 Tracheostomy status; Z90.49 Acquired absence of other specified parts of digestive tract; Z90.710 Acquired absence of both cervix and uterus; W54.0XXD Bitten by dog, subsequent encounter | CPT/HCPCS: 11042; 87070; 87077; 87186; A6248; A6196; A6197; A4450 ==

== ENCOUNTER → 2022-10-09 | Outpatient (CLI) | payer MEDICAID | END | disposition home or self-care (01) | LOC: WHH 10:33 | PROVIDERS: ATTEND Nurse Practitioner Family | DX: S81.852D Open bite, left lower leg, subsequent encounter (principal); I12.9 Hypertensive chronic kidney disease with stage 1 through stage 4 chronic kidney disease, or unspecified chronic kidney disease; N18.4 Chronic kidney disease, stage 4 (severe); I25.2 Old myocardial infarction; I25.10 Atherosclerotic heart disease of native coronary artery without angina pectoris; G47.33 Obstructive sleep apnea (adult) (pediatric); G43.909 Migraine, unspecified, not intractable, without status migrainosus; J45.909 Unspecified asthma, uncomplicated; E66.01 Morbid (severe) obesity due to excess calories; F32.A Depression, unspecified; F41.9 Anxiety disorder, unspecified; Z68.42 Body mass index [BMI] 45.0-49.9, adult; Z93.0 Tracheostomy status; Z90.49 Acquired absence of other specified parts of digestive tract; Z90.710 Acquired absence of both cervix and uterus; W54.0XXD Bitten by dog, subsequent encounter | CPT/HCPCS: 11042; A6197 ==

== ENCOUNTER → 2022-10-16 | Outpatient (CLI) | payer MEDICAID | END | disposition home or self-care (01) | LOC: WHH 10:45 | PROVIDERS: ATTEND Nurse Practitioner Family | DX: S81.852D Open bite, left lower leg, subsequent encounter (principal); I12.9 Hypertensive chronic kidney disease with stage 1 through stage 4 chronic kidney disease, or unspecified chronic kidney disease; N18.4 Chronic kidney disease, stage 4 (severe); I25.2 Old myocardial infarction; I25.10 Atherosclerotic heart disease of native coronary artery without angina pectoris; G47.33 Obstructive sleep apnea (adult) (pediatric); G43.909 Migraine, unspecified, not intractable, without status migrainosus; J45.909 Unspecified asthma, uncomplicated; E66.01 Morbid (severe) obesity due to excess calories; F32.A Depression, unspecified; F41.9 Anxiety disorder, unspecified; Z68.42 Body mass index [BMI] 45.0-49.9, adult; Z93.0 Tracheostomy status; Z90.49 Acquired absence of other specified parts of digestive tract; Z90.710 Acquired absence of both cervix and uterus; W54.0XXD Bitten by dog, subsequent encounter | CPT/HCPCS: 99214; A6209; A4450 ==

== ENCOUNTER → 2022-10-23 | Outpatient (CLI) | payer MEDICAID | END | disposition home or self-care (01) | LOC: WHH 10:43 | PROVIDERS: ATTEND Nurse Practitioner Family | DX: S81.852D Open bite, left lower leg, subsequent encounter (principal); I12.9 Hypertensive chronic kidney disease with stage 1 through stage 4 chronic kidney disease, or unspecified chronic kidney disease; N18.4 Chronic kidney disease, stage 4 (severe); I25.2 Old myocardial infarction; I25.10 Atherosclerotic heart disease of native coronary artery without angina pectoris; G47.33 Obstructive sleep apnea (adult) (pediatric); G43.909 Migraine, unspecified, not intractable, without status migrainosus; J45.909 Unspecified asthma, uncomplicated; E66.01 Morbid (severe) obesity due to excess calories; F32.A Depression, unspecified; F41.9 Anxiety disorder, unspecified; Z68.42 Body mass index [BMI] 45.0-49.9, adult; Z93.0 Tracheostomy status; Z90.49 Acquired absence of other specified parts of digestive tract; Z90.710 Acquired absence of both cervix and uterus; W54.0XXD Bitten by dog, subsequent encounter | CPT/HCPCS: 11042; A6021 ==

== ENCOUNTER → 2022-11-13 | Outpatient (CLI) | payer MEDICAID ==
[~2022-11-13] MED LIST changes: -LIDOCAINE HCL 4% LTA SOL 4 ML VIAL TP ONE
== END | disposition home or self-care (01) ==
LOC: WHH 11:00
PROVIDERS: ATTEND Nurse Practitioner Family
DX: S81.802D Unspecified open wound, left lower leg, subsequent encounter (principal); I12.9 Hypertensive chronic kidney disease with stage 1 through stage 4 chronic kidney disease, or unspecified chronic kidney disease; N18.4 Chronic kidney disease, stage 4 (severe); I25.2 Old myocardial infarction; I25.10 Atherosclerotic heart disease of native coronary artery without angina pectoris; G47.33 Obstructive sleep apnea (adult) (pediatric); G43.909 Migraine, unspecified, not intractable, without status migrainosus; E66.01 Morbid (severe) obesity due to excess calories; F32.A Depression, unspecified; F41.9 Anxiety disorder, unspecified; Z68.42 Body mass index [BMI] 45.0-49.9, adult; Z93.0 Tracheostomy status; Z90.49 Acquired absence of other specified parts of digestive tract; Z90.710 Acquired absence of both cervix and uterus; W54.0XXD Bitten by dog, subsequent encounter
CPT/HCPCS: 99214; A6209; A4450

== ENCOUNTER → 2022-11-27 | Outpatient (CLI) | payer MEDICAID ==
[~2022-11-27] MED LIST changes: +LIDOCAINE HCL 4% LTA SOL 4 ML VIAL TP ONE
== END | disposition home or self-care (01) ==
LOC: WHH 10:04
PROVIDERS: ATTEND Nurse Practitioner Family
DX: S81.802D Unspecified open wound, left lower leg, subsequent encounter (principal); I12.9 Hypertensive chronic kidney disease with stage 1 through stage 4 chronic kidney disease, or unspecified chronic kidney disease; N18.4 Chronic kidney disease, stage 4 (severe); I25.2 Old myocardial infarction; I25.10 Atherosclerotic heart disease of native coronary artery without angina pectoris; G47.33 Obstructive sleep apnea (adult) (pediatric); G43.909 Migraine, unspecified, not intractable, without status migrainosus; E66.01 Morbid (severe) obesity due to excess calories; F32.A Depression, unspecified; F41.9 Anxiety disorder, unspecified; Z68.42 Body mass index [BMI] 45.0-49.9, adult; Z93.0 Tracheostomy status; Z90.49 Acquired absence of other specified parts of digestive tract; Z90.710 Acquired absence of both cervix and uterus; W54.0XXD Bitten by dog, subsequent encounter
CPT/HCPCS: 99214; A6209

== ENCOUNTER → 2022-12-04 | Outpatient (CLI) | payer MEDICAID ==
[~2022-12-04] MED LIST changes: -LIDOCAINE HCL 4% LTA SOL 4 ML VIAL TP ONE
== END | disposition home or self-care (01) ==
LOC: WHH 10:54
PROVIDERS: ATTEND Nurse Practitioner Family
DX: S81.802D Unspecified open wound, left lower leg, subsequent encounter (principal); I12.9 Hypertensive chronic kidney disease with stage 1 through stage 4 chronic kidney disease, or unspecified chronic kidney disease; N18.4 Chronic kidney disease, stage 4 (severe); I25.2 Old myocardial infarction; I25.10 Atherosclerotic heart disease of native coronary artery without angina pectoris; G47.33 Obstructive sleep apnea (adult) (pediatric); G43.909 Migraine, unspecified, not intractable, without status migrainosus; J45.909 Unspecified asthma, uncomplicated; E66.01 Morbid (severe) obesity due to excess calories; F32.A Depression, unspecified; F41.9 Anxiety disorder, unspecified; Z68.42 Body mass index [BMI] 45.0-49.9, adult; Z93.0 Tracheostomy status; Z90.49 Acquired absence of other specified parts of digestive tract; Z90.710 Acquired absence of both cervix and uterus; W54.0XXD Bitten by dog, subsequent encounter
CPT/HCPCS: 99214

== ENCOUNTER 2023-05-05 15:06 | Emergency (ER) | payer MEDICAID ==
[~2023-05-05] VITALS: Ht 157.5 cm; Wt 133.4 kg
[2023-05-05 16:05] LABS: BASOPHILS # (AUTO) 0.03 K/uL (0.00-0.20); BASOPHILS % (AUTO) 0.3 % (0.0-5.0); EOSINOPHILS # (AUTO) 0.02 K/uL (0.00-0.70); EOSINOPHILS % (AUTO) 0.2 % (0.0-8.0); HEMATOCRIT 42.8 % (36-48); IMMATURE GRANULOCYTE ABSOLUTE 0.19 K/uL (0-1); LYMPHOCYTES # (AUTO) 0.8 K/uL (1.0-4.8); LYMPHOCYTES % (AUTO) 7.2 % (21.0-51.0); MEAN CORPUSCULAR HEMOGLOBIN 28.8 pg (27.0-33.0); MEAN CORPUSCULAR HGB CONC 31.3 g/dL (32.0-36.0); MONOCYTES # (AUTO) 0.4 K/uL (0.1-1.0); MONOCYTES % (AUTO) 3.4 % (3.0-13.0); NEUTROPHILS # (AUTO) 9.7 K/uL (1.8-7.7); NEUTROPHILS % (AUTO) 87.2 % (40.0-77.0); PLATELET COUNT (AUTO) 229 K/uL (130-400); RED BLOOD CELL COUNT(AUTO) 4.65 MIL/uL (4.00-5.50); RED CELL DISTRIBUTION WIDTH 15.4 % (11.0-15.5); WHITE BLOOD COUNT (AUTO) 11.1 K/uL (4.8-10.8)
[2023-05-05 16:09] LABS: CREATININE 0.8 mg/dL (0.5-1.0); POTASSIUM 3.3 mmol/L (3.5-5.1)
[2023-05-05 16:14] LABS: ALBUMIN 3.3 g/dL (3.5-5.0); BILIRUBIN,TOTAL 0.3 mg/dL (0.2-1.0); TOTAL PROTEIN, SERUM 7.3 g/dL (6.0-8.3)
[2023-05-05] MEDS: 0.9%NACL 1000ML 1,000 ML IV ONE (16:37)
[2023-05-05] MEDS: KETOROLAC 30MG VIAL (30MG/ML) IVP ONE (16:40)
[2023-05-05 17:13] LABS: HCG,QUALITATIVE URINE NEGATIVE (NEGATIVE)
[2023-05-05 17:16] LABS: ADD UA MICROSCOPIC YES; APPEARANCE,URINE HAZY (CLEAR); BILIRUBIN,URINE NEGATIVE (NEGATIVE); COLOR,URINE YELLOW (YELLOW); GLUCOSE, URINE (UA) NEGATIVE (NEGATIVE); KETONES,URINE NEGATIVE (NEGATIVE); LEUKOCYTE ESTERASE ,URINE SMALL Leu/uL (NEGATIVE); NITRATE,URINE NEGATIVE (NEGATIVE); OCCULT BLOOD,URINE NEGATIVE (NEGATIVE); PROTEIN,URINE NEGATIVE (NEGATIVE); UROBILINOGEN,URINE 0.2 mg/dL (0.2-1.0)
[2023-05-05] MEDS: KCL 20 MEQ ERTAB PO ONE (17:20)
[2023-05-05 17:34] LABS: SQUAMOUS EPITHELIAL CELL,UR Rare /HPF (0-2)
[2023-05-05 17:35] LABS: BACTERIA,URINE Rare /HPF (None Seen); RBC,URINE 0-1 /HPF (0-1)
[2023-05-05 17:36] LABS: TRIPLE PHOSPHATE CRYSTAL,UR Few /LPF (None Seen)
[2023-05-05] MEDS ORDERED: MACR100 PO (17:53)
[2023-05-05] MEDS ORDERED: IBUP-2077 PO (17:54)
[2023-05-05 18:14] VITALS: BP 161/92; PULSE 87; RESP 16; O2SAT 97
== END 2023-05-05 18:21 | disposition home or self-care (01) ==
LOC: EDH 15:06
DX: N20.0 Calculus of kidney (principal); M54.50 Low back pain, unspecified; F41.9 Anxiety disorder, unspecified; J45.909 Unspecified asthma, uncomplicated; J44.9 Chronic obstructive pulmonary disease, unspecified; I10 Essential (primary) hypertension; G43.909 Migraine, unspecified, not intractable, without status migrainosus; Z90.49 Acquired absence of other specified parts of digestive tract; Z90.710 Acquired absence of both cervix and uterus
CPT/HCPCS: 99285; 74176; 96374; 96361; 80053; 83690; 85025; 81001; 81025; 36415; J7030; J1885

== ENCOUNTER → 2024-04-25 | Outpatient (CLI) | payer MEDICAID ==
[~2024-04-25] MED LIST changes: -ACET-2079 PO; -AMOX1TAB16 PO; +IBUP-2077 PO; +LIDOCAINE HCL 4% LTA SOL 4 ML VIAL TP ONE; +MACR100 PO
== END | disposition home or self-care (01) ==
LOC: WHH 10:04
PROVIDERS: ATTEND Family Medicine
DX: T81.31XA Disruption of external operation (surgical) wound, not elsewhere classified, initial encounter (principal); S81.802A Unspecified open wound, left lower leg, initial encounter; S80.812D Abrasion, left lower leg, subsequent encounter; L02.416 Cutaneous abscess of left lower limb; I10 Essential (primary) hypertension; E66.09 Other obesity due to excess calories; E27.1 Primary adrenocortical insufficiency; J45.909 Unspecified asthma, uncomplicated; F32.A Depression, unspecified; Z90.49 Acquired absence of other specified parts of digestive tract; Z79.899 Other long term (current) drug therapy; X58.XXXA Exposure to other specified factors, initial encounter; Y83.8 Other surgical procedures as the cause of abnormal reaction of the patient, or of later complication, without mention of misadventure at the time of the procedure; Y92.89 Other specified places as the place of occurrence of the external cause; Y99.8 Other external cause status; Y93.89 Activity, other specified
CPT/HCPCS: 87070; 87086; 87186; 99215; A4450

== ENCOUNTER → 2024-05-02 | Outpatient (CLI) | payer MEDICAID | END | disposition home or self-care (01) | LOC: WHH 09:56 | PROVIDERS: ATTEND Family Medicine | DX: T81.31XD Disruption of external operation (surgical) wound, not elsewhere classified, subsequent encounter (principal); S81.802D Unspecified open wound, left lower leg, subsequent encounter; L02.416 Cutaneous abscess of left lower limb; I10 Essential (primary) hypertension; E66.09 Other obesity due to excess calories; E27.1 Primary adrenocortical insufficiency; J45.909 Unspecified asthma, uncomplicated; F32.A Depression, unspecified; Z90.49 Acquired absence of other specified parts of digestive tract; Z79.899 Other long term (current) drug therapy; X58.XXXD Exposure to other specified factors, subsequent encounter; Y83.8 Other surgical procedures as the cause of abnormal reaction of the patient, or of later complication, without mention of misadventure at the time of the procedure | CPT/HCPCS: 11042 ==

== ENCOUNTER → 2024-05-09 | Outpatient (CLI) | payer MEDICAID | END | disposition home or self-care (01) | LOC: WHH 10:02 | PROVIDERS: ATTEND Family Medicine | DX: T81.31XD Disruption of external operation (surgical) wound, not elsewhere classified, subsequent encounter (principal); S81.802D Unspecified open wound, left lower leg, subsequent encounter; L02.416 Cutaneous abscess of left lower limb; I10 Essential (primary) hypertension; E66.09 Other obesity due to excess calories; E27.1 Primary adrenocortical insufficiency; J45.909 Unspecified asthma, uncomplicated; F32.A Depression, unspecified; Z68.43 Body mass index [BMI] 50.0-59.9, adult; Z79.899 Other long term (current) drug therapy; Z90.49 Acquired absence of other specified parts of digestive tract; X58.XXXD Exposure to other specified factors, subsequent encounter; Y83.8 Other surgical procedures as the cause of abnormal reaction of the patient, or of later complication, without mention of misadventure at the time of the procedure | CPT/HCPCS: 11042 ==

== ENCOUNTER → 2024-05-16 | Outpatient (CLI) | payer MEDICAID ==
[~2024-05-16] MED LIST changes: +ALEN70TA80 PO; +AMLO-257 PO; +BUSP10TA3 PO; +FLUT1BLS3 PO; +HYDR-4060 PO; +LOSA100T59 PO; +MAGN100T6 PO; +MELO-108 PO; +METO50 PO; +MONT-39 PO; +MULT-1247 PO; +ONDA-105 PO; +POTA-202 PO; +PRED-409 PO; +ROSU10TA72 PO; +SULF1TAB42 PO
== END | disposition home or self-care (01) ==
LOC: WHH 09:57
PROVIDERS: ATTEND Family Medicine
DX: T81.89XD Other complications of procedures, not elsewhere classified, subsequent encounter (principal); S81.802D Unspecified open wound, left lower leg, subsequent encounter; L02.416 Cutaneous abscess of left lower limb; I10 Essential (primary) hypertension; E66.09 Other obesity due to excess calories; E27.1 Primary adrenocortical insufficiency; J45.909 Unspecified asthma, uncomplicated; F32.A Depression, unspecified; Z68.43 Body mass index [BMI] 50.0-59.9, adult; Z79.899 Other long term (current) drug therapy; Z90.710 Acquired absence of both cervix and uterus; Z90.49 Acquired absence of other specified parts of digestive tract; X58.XXXD Exposure to other specified factors, subsequent encounter; Y83.8 Other surgical procedures as the cause of abnormal reaction of the patient, or of later complication, without mention of misadventure at the time of the procedure
CPT/HCPCS: 11042; A4450

== ENCOUNTER → 2024-05-19 | Outpatient (CLI) | payer MEDICAID ==
[~2024-05-19] MED LIST changes: +CEFP200T14 PO
== END | disposition home or self-care (01) ==
LOC: WHH 11:59
PROVIDERS: ATTEND Family Medicine
DX: T81.31XD Disruption of external operation (surgical) wound, not elsewhere classified, subsequent encounter (principal); S81.802D Unspecified open wound, left lower leg, subsequent encounter; L02.416 Cutaneous abscess of left lower limb; I10 Essential (primary) hypertension; E66.09 Other obesity due to excess calories; J45.909 Unspecified asthma, uncomplicated; F32.A Depression, unspecified; Z68.43 Body mass index [BMI] 50.0-59.9, adult; Z79.899 Other long term (current) drug therapy; Z90.710 Acquired absence of both cervix and uterus; Z90.49 Acquired absence of other specified parts of digestive tract; X58.XXXD Exposure to other specified factors, subsequent encounter; Y83.8 Other surgical procedures as the cause of abnormal reaction of the patient, or of later complication, without mention of misadventure at the time of the procedure; E66.01 Morbid (severe) obesity due to excess calories
CPT/HCPCS: 87070; 87086; 87186; 99214

== ENCOUNTER → 2024-06-02 | Outpatient (CLI) | payer MEDICAID ==
[~2024-06-02] MED LIST changes: -BUSP5TAB3 PO; -CARV12.511 PO; -IBUP-2070 PO; -IBUP-2077 PO; -LOSA50TA64 PO; -MACR100 PO; -MAGN400T40 PO; -NIFE-79 PO; -SULF1TAB42 PO
== END | disposition home or self-care (01) ==
LOC: WHH 09:45
PROVIDERS: ATTEND Family Medicine
DX: T81.31XD Disruption of external operation (surgical) wound, not elsewhere classified, subsequent encounter (principal); S81.802D Unspecified open wound, left lower leg, subsequent encounter; L02.416 Cutaneous abscess of left lower limb; I10 Essential (primary) hypertension; E66.09 Other obesity due to excess calories; J45.909 Unspecified asthma, uncomplicated; E66.01 Morbid (severe) obesity due to excess calories; F32.A Depression, unspecified; Z68.43 Body mass index [BMI] 50.0-59.9, adult; Z79.899 Other long term (current) drug therapy; Z90.710 Acquired absence of both cervix and uterus; Z90.49 Acquired absence of other specified parts of digestive tract; X58.XXXD Exposure to other specified factors, subsequent encounter; Y83.8 Other surgical procedures as the cause of abnormal reaction of the patient, or of later complication, without mention of misadventure at the time of the procedure
CPT/HCPCS: 11042

== ENCOUNTER → 2024-06-16 | Outpatient (CLI) | payer MEDICAID | END | disposition home or self-care (01) | LOC: WHH 09:59 | PROVIDERS: ATTEND Family Medicine | DX: T81.31XD Disruption of external operation (surgical) wound, not elsewhere classified, subsequent encounter (principal); S81.802D Unspecified open wound, left lower leg, subsequent encounter; L02.416 Cutaneous abscess of left lower limb; I10 Essential (primary) hypertension; E66.09 Other obesity due to excess calories; J45.909 Unspecified asthma, uncomplicated; E66.01 Morbid (severe) obesity due to excess calories; F32.A Depression, unspecified; Z68.43 Body mass index [BMI] 50.0-59.9, adult; Z79.899 Other long term (current) drug therapy; Z90.710 Acquired absence of both cervix and uterus; Z90.49 Acquired absence of other specified parts of digestive tract; X58.XXXD Exposure to other specified factors, subsequent encounter; Y83.8 Other surgical procedures as the cause of abnormal reaction of the patient, or of later complication, without mention of misadventure at the time of the procedure | CPT/HCPCS: 99214; A4450 ==

== ENCOUNTER → 2024-06-23 | Outpatient (CLI) | payer MEDICAID | END | disposition home or self-care (01) | LOC: WHH 10:04 | PROVIDERS: ATTEND Family Medicine | DX: T81.31XD Disruption of external operation (surgical) wound, not elsewhere classified, subsequent encounter (principal); S81.802D Unspecified open wound, left lower leg, subsequent encounter; L02.416 Cutaneous abscess of left lower limb; I10 Essential (primary) hypertension; E66.09 Other obesity due to excess calories; J45.909 Unspecified asthma, uncomplicated; E66.01 Morbid (severe) obesity due to excess calories; F32.A Depression, unspecified; Z68.43 Body mass index [BMI] 50.0-59.9, adult; Z79.899 Other long term (current) drug therapy; Z90.710 Acquired absence of both cervix and uterus; Z90.49 Acquired absence of other specified parts of digestive tract; X58.XXXD Exposure to other specified factors, subsequent encounter; Y83.8 Other surgical procedures as the cause of abnormal reaction of the patient, or of later complication, without mention of misadventure at the time of the procedure | CPT/HCPCS: 11042; 87086; 87186; 87070; A6260 ==

== ENCOUNTER → 2024-06-30 | Outpatient (CLI) | payer MEDICAID | END | disposition home or self-care (01) | LOC: WHH 09:55 | PROVIDERS: ATTEND Family Medicine | DX: T81.31XD Disruption of external operation (surgical) wound, not elsewhere classified, subsequent encounter (principal); S81.802D Unspecified open wound, left lower leg, subsequent encounter; L02.416 Cutaneous abscess of left lower limb; I10 Essential (primary) hypertension; E66.09 Other obesity due to excess calories; J45.909 Unspecified asthma, uncomplicated; E66.01 Morbid (severe) obesity due to excess calories; F32.A Depression, unspecified; Z68.43 Body mass index [BMI] 50.0-59.9, adult; Z79.899 Other long term (current) drug therapy; Z90.710 Acquired absence of both cervix and uterus; Z90.49 Acquired absence of other specified parts of digestive tract; X58.XXXD Exposure to other specified factors, subsequent encounter; Y83.8 Other surgical procedures as the cause of abnormal reaction of the patient, or of later complication, without mention of misadventure at the time of the procedure | CPT/HCPCS: 99214 ==

== ENCOUNTER → 2024-07-07 | Outpatient (CLI) | payer MEDICAID | END | disposition home or self-care (01) | LOC: WHH 09:45 | PROVIDERS: ATTEND Family Medicine | DX: T81.31XD Disruption of external operation (surgical) wound, not elsewhere classified, subsequent encounter (principal); S81.802D Unspecified open wound, left lower leg, subsequent encounter; I10 Essential (primary) hypertension; E66.09 Other obesity due to excess calories; J45.909 Unspecified asthma, uncomplicated; E66.01 Morbid (severe) obesity due to excess calories; F32.A Depression, unspecified; Z68.43 Body mass index [BMI] 50.0-59.9, adult; Z79.899 Other long term (current) drug therapy; Z90.710 Acquired absence of both cervix and uterus; Z90.49 Acquired absence of other specified parts of digestive tract; X58.XXXD Exposure to other specified factors, subsequent encounter; Y83.8 Other surgical procedures as the cause of abnormal reaction of the patient, or of later complication, without mention of misadventure at the time of the procedure | CPT/HCPCS: 99214 ==

== ENCOUNTER → 2024-07-14 | Outpatient (CLI) | payer MEDICAID | END | disposition home or self-care (01) | LOC: WHH 10:01 | PROVIDERS: ATTEND Family Medicine | DX: T81.31XD Disruption of external operation (surgical) wound, not elsewhere classified, subsequent encounter (principal); S81.802D Unspecified open wound, left lower leg, subsequent encounter; I10 Essential (primary) hypertension; J45.909 Unspecified asthma, uncomplicated; E66.01 Morbid (severe) obesity due to excess calories; F32.A Depression, unspecified; Z68.43 Body mass index [BMI] 50.0-59.9, adult; Z79.899 Other long term (current) drug therapy; Z90.710 Acquired absence of both cervix and uterus; Z90.49 Acquired absence of other specified parts of digestive tract; X58.XXXD Exposure to other specified factors, subsequent encounter; Y83.8 Other surgical procedures as the cause of abnormal reaction of the patient, or of later complication, without mention of misadventure at the time of the procedure | CPT/HCPCS: 11042; A4450 ==

== ENCOUNTER → 2024-07-28 | Outpatient (CLI) | payer MEDICAID | END | disposition home or self-care (01) | LOC: WHH 09:59 | PROVIDERS: ATTEND Family Medicine | DX: T81.31XD Disruption of external operation (surgical) wound, not elsewhere classified, subsequent encounter (principal); S81.802D Unspecified open wound, left lower leg, subsequent encounter; I10 Essential (primary) hypertension; J45.909 Unspecified asthma, uncomplicated; E66.01 Morbid (severe) obesity due to excess calories; F32.A Depression, unspecified; Z68.43 Body mass index [BMI] 50.0-59.9, adult; Z79.899 Other long term (current) drug therapy; Z90.710 Acquired absence of both cervix and uterus; Z90.49 Acquired absence of other specified parts of digestive tract; X58.XXXA Exposure to other specified factors, initial encounter; Y83.8 Other surgical procedures as the cause of abnormal reaction of the patient, or of later complication, without mention of misadventure at the time of the procedure | CPT/HCPCS: 11042; A6010; A4450 ==

== ENCOUNTER → 2024-08-11 | Outpatient (CLI) | payer MEDICAID | END | disposition home or self-care (01) | LOC: WHH 10:13 | PROVIDERS: ATTEND Family Medicine | DX: T81.31XD Disruption of external operation (surgical) wound, not elsewhere classified, subsequent encounter (principal); S81.802D Unspecified open wound, left lower leg, subsequent encounter; I10 Essential (primary) hypertension; J45.909 Unspecified asthma, uncomplicated; E66.01 Morbid (severe) obesity due to excess calories; F32.A Depression, unspecified; Z68.43 Body mass index [BMI] 50.0-59.9, adult; Z79.899 Other long term (current) drug therapy; Z90.710 Acquired absence of both cervix and uterus; Z90.49 Acquired absence of other specified parts of digestive tract; X58.XXXD Exposure to other specified factors, subsequent encounter; Y83.8 Other surgical procedures as the cause of abnormal reaction of the patient, or of later complication, without mention of misadventure at the time of the procedure | CPT/HCPCS: 99214; A6010; A4450 ==

== ENCOUNTER → 2024-08-22 | Outpatient (CLI) | payer MEDICAID | END | disposition home or self-care (01) | LOC: WHH 09:00 | PROVIDERS: ATTEND Family Medicine | DX: T81.31XD Disruption of external operation (surgical) wound, not elsewhere classified, subsequent encounter (principal); S81.802D Unspecified open wound, left lower leg, subsequent encounter; I10 Essential (primary) hypertension; J45.909 Unspecified asthma, uncomplicated; E66.01 Morbid (severe) obesity due to excess calories; F32.A Depression, unspecified; Z68.43 Body mass index [BMI] 50.0-59.9, adult; Z79.899 Other long term (current) drug therapy; Z90.710 Acquired absence of both cervix and uterus; Z90.49 Acquired absence of other specified parts of digestive tract; X58.XXXD Exposure to other specified factors, subsequent encounter; Y83.8 Other surgical procedures as the cause of abnormal reaction of the patient, or of later complication, without mention of misadventure at the time of the procedure | CPT/HCPCS: 11042; A6010 ==

== ENCOUNTER → 2024-09-05 | Outpatient (CLI) | payer MEDICAID ==
[~2024-09-05] MED LIST changes: +ALBU18HF7 IH; +CHOL500045 PO; +DIPH25TA22 PO; +FLUT1BLS11 IH; +MAGN500C4 PO; +SULF1TAB42 PO; +VITAMIN C PO
== END | disposition home or self-care (01) ==
LOC: WHH 09:09
PROVIDERS: ATTEND Family Medicine
DX: T81.31XD Disruption of external operation (surgical) wound, not elsewhere classified, subsequent encounter (principal); S80.822A Blister (nonthermal), left lower leg, initial encounter; S81.802D Unspecified open wound, left lower leg, subsequent encounter; I10 Essential (primary) hypertension; J45.909 Unspecified asthma, uncomplicated; E66.01 Morbid (severe) obesity due to excess calories; F32.A Depression, unspecified; Z68.43 Body mass index [BMI] 50.0-59.9, adult; Z79.899 Other long term (current) drug therapy; Z90.710 Acquired absence of both cervix and uterus; Z90.49 Acquired absence of other specified parts of digestive tract; X58.XXXD Exposure to other specified factors, subsequent encounter; X58.XXXA Exposure to other specified factors, initial encounter; Y93.89 Activity, other specified; Y92.89 Other specified places as the place of occurrence of the external cause; Y99.8 Other external cause status; Y83.8 Other surgical procedures as the cause of abnormal reaction of the patient, or of later complication, without mention of misadventure at the time of the procedure
CPT/HCPCS: 11042; A6010

== ENCOUNTER 2024-09-06 18:45 | Inpatient (IN) | payer MEDICAID ==
[~2024-09-06] VITALS: Ht 152.4 cm; Wt 138.7 kg
[~2024-09-06 18:45] MED LIST changes: -ALBU18HF7 IH; -CHOL500045 PO; -DIPH25TA22 PO; -FLUT1BLS11 IH; -LIDOCAINE HCL 4% LTA SOL 4 ML VIAL TP ONE; -MAGN500C4 PO; -SULF1TAB42 PO; -VITAMIN C PO
[2024-09-06 19:52] LABS: IMMATURE GRANULOCYTE ABSOLUTE 0.22 K/uL (0-1); NUCLEATED RED BLOOD CELLS 0.0 % (0.0-0.19); PLATELET COUNT (AUTO) 245 K/uL (130-400); RED BLOOD CELL COUNT(AUTO) 4.42 MIL/uL (4.00-5.50); RED CELL DISTRIBUTION WIDTH 16.8 % (11.0-15.5); WHITE BLOOD COUNT (AUTO) 21.1 K/uL (4.8-10.8)
[2024-09-06 20:00] LABS: CREATININE 1.5 mg/dL (0.5-1.0); GLOMERULAR FILTR. RATE CALC 44.0 mL/min (>90); GLUCOSE,RANDOM 129.0 mg/dL (70-105); SODIUM SERUM 141.0 mmol/L (136-145); UREA NITROGEN, BLOOD 40.0 mg/dL (7-18)
[2024-09-06] MEDS ORDERED: VANCOMYCIN PROTOCOL PER PHARMACY IV SCH (21:00)
--- NOTE | 2024-09-06 21:05 | HMCIMG ---
EXAM: Left tibia/fibula radiograph 2 view HISTORY: Infection COMPARISON: None TECHNIQUE: AP and lateral views FINDINGS: No fracture or dislocation. Mild soft tissue swelling. No erosive changes seen. Degenerative changes of the left knee. IMPRESSION: No evidence of osteomyelitis /[place]
--- NOTE | 2024-09-06 21:07 | HP ---
History of Present Illness Reason for Visit: wound History of Present Illness Ms. Burch is a 43-year-old female that was seen and examined today on 09/06/2024. Patient is a good historian of personal health Patient reports that she came to the emergency department with a chief complaint of left lower extremity wound. Onset was February 2024. Location is left anterior tibial area. Duration is constant. Character is described as red and draining. There was no alleviating factors. Patient states symptoms are not improved with outpatient wound care treatment. There was no aggravating factors. Patient denies any associated fever or chills. Today in the emergency department WBCs 21.1, left shift neutrophils 90.4%, creatinine 1.5, Past Medical History Patient History: Asthma MOTHER BROTHER SISTER Cardiovascular disease Chronic obstructive pulmonary disease MOTHER Hypertension MOTHER SISTER ADDITIONAL PAST MEDICAL HISTORY: [htn, elliot, addisons disease, asthma] SOCIAL HISTORY: [negative for smoking, alcohol, and drug use. patient lives with her aunt Stephanie Berger. Patient is typically independent of her ADLs. Patient denies difficulty paying her bills.] SURGICAL HISTORY: [cholecystectomy, appendectomy, tosillectomy, adenoidectomy, sinus surgey, hysterectomy] Review of Systems General: No Fever, No Chills, No Night Sweats, No Fatigue, No Malaise, No Appetite, No Other HEENT: No Head Aches, No Visual Changes, No Eye Pain, No Ear Pain, No Dysphasia, No Sinus Congestion, No Post Nasal Drip, No Sore Throat, No Other Pulmonary: No Dyspnea, No Cough, No Pleuritic Chest Pain, No Other Cardiovascular: No: Chest Pain, Palpitations, Orthopnea, Paroxysmal Noc. Dyspnea, Edema, Lt Headedness, Other Gastrointestinal: No: Nausea, Vomiting, Abdominal Pain, Diarrhea, Constipation, Melena, Hematochezia, Other Genitourinary: No Dysuria, No Frequency, No Incontinence, No Hematuria, No Retention, No Other Musculoskeletal: No: other, neck pain, shoulder pain, arm pain, back pain, hand pain, leg pain, foot pain Skin: No Urticaria, No Rash; Other (wound) Neurological: No: Weakness, Numbness, Incoordination, Change in speech, Confusion, Seizures, Other Allergies: Coded Allergies: cephalexin (Unverified Allergy, Unknown, 05/21/24) Scheduled Alendronate Sodium (Alendronate Sodium), 1 TAB PO QWEEK, (Reported) Amlodipine Besylate (Amlodipine Besylate), 1 TAB PO DAILY, (Reported) Buspirone HCl (Buspirone HCl), 1 TAB PO BID, (Reported) Cefpodoxime Proxetil (Cefpodoxime Proxetil), 1 TAB PO BID Cetirizine HCl (Cetirizine HCl), 10 MG PO DAILY, (Reported) Chlorthalidone (Chlorthalidone), 25 MG PO DAILY, (Reported) Citalopram Hydrobromide (Citalopram HBr), 40 MG PO DAILY, (Reported) Famotidine (Famotidine), 20 MG PO BID Fluticasone Propionate (Flonase Nasal [place]), 50 MCG NASAL HS, (Reported) Fluticasone/Umeclidin/Vilanter (Trelegy Ellipta 100-62.5-25), 1 PUFF PO DAILY, (Reported) Furosemide (Furosemide), 20 MG PO DAILY, (Reported) Losartan Potassium (Losartan Potassium), 1 TAB PO DAILY, (Reported) Magnesium Citrate (Magnesium Citrate), 2 TAB PO HS, (Reported) Metoprolol Tartrate (Lopressor 50Mg Tab), 1 TAB PO BID, (Reported) Montelukast Sodium (Montelukast Sodium), 1 TAB PO DAILY, (Reported) Multivits-Min/Folic Acid/Biot (Hair, Skin & Nails Caplet), 3 TAB PO DAILY, (Reported) Potassium Chloride (Potassium Chloride), 1 TAB PO DAILY, (Reported) Prednisone (Deltasone / Orasone), 1 TAB PO DAILY, (Reported) Rosuvastatin Calcium (Rosuvastatin Calcium), 1 TAB PO HS, (Reported) Trazodone HCl (Trazodone HCl), 100 MG PO HS, (Reported) Scheduled PRN Albuterol Sulfate (Proventil Hfa), 8.5 GM IH Q4PRN PRN for SHORTNESS OF BREATH/WHEEZING, (Reported) Hydrocodone/Acetaminophen (Hydrocodon-Acetaminophen 5-325), 1 TAB PO Q6HPRN PRN for MODERATE PAIN (4-6), (Reported) Meloxicam (Meloxicam), 1 TAB PO DAILY PRN for BACK PAIN, (Reported) Ondansetron HCl (Ondansetron HCl), 1 TAB PO BID PRN for NAUSEA/VOMITING, (Reported) Exam Vital Signs Vital Signs Date Time Temp Pulse Resp B/P (MAP) Pulse Ox O2 Delivery O2 Flow Rate FiO2 09/06/24 19:15 99.5 94 18 114/65 95 Room Air* 0 21 General Appearance: Alert, Oriented X3, Cooperative, No acute distress HEENT: Atraumatic, EOMI Respiratory: Clear to auscultation, Normal air movement, NL respiratory effort Cardiovascular: Regular rate, Regular rhythm, Normal S1, Normal S2 Abdominal: Normal bowel sounds, Soft, No tenderness Extremities: No edema Skin: No significant lesion Neuro: Normal speech, Strength at 5/5 X4 ext, Sensation intact, Cranial nerves 3-12 NL Psych/Mental Status: Mental status NL, Mood NL, Thoughts/Content NL Assessment/Plan ASSESSMENT: [ left lower extremity cellulitis, poa left lower extremity wound, poa del, poa leukocytosis, poa htn elliot addisons disease asthma] PLAN: [ Admit patient to medical floor as inpatient status. Place patient on telemetry monitoring. Empiric antibiotic therapy with vancomycin, Zosyn, clindamycin Fluid resuscitation with lactated Ringer's 30 mL/kg Check blood culture, follow up with the results Check wound culture, follow up with the results Check urinalysis, follow up with the results. Lactated Ringer's at 75 mL/HR Calculate FENA Check urine sodium, creatinine, osmolality Avoid nephrotoxic agents when possible Renally dose all medications when possible Consider consulting Nephrology service if any worsening renal function or evidence of ATN. Monitor patient's labs. Weight patient daily. Monitor intake and output. Consider resuming home medications once they have been reconciled For now: Hydralazine 10 mg IV every 4 hours for systolic blood pressure greater than 160 mmHg CPAP per home settings As-needed albuterol for wheezing, asthma exacerbation As needed analgesia with morphine GI prophylaxis, Protonix DVT prophylaxis, heparin ADVANCED CARE PLANNING 1. Which of the following were discussed? Hospice Care - Yes Therapeutic options - yes Advance Directives - Yes - patient states she does not have any advance directives in place at this time Other discussions - patient wishes to remain a full code 2. Discussed with who? Patient 3. Voluntary nature of this service was explained to the patient? Yes 4. Amount of time spent - ___16 minutes____ 5. Reviewed by Physician? (if this service was performed by NPP) Yes This document was generated in part using voice recognition software, occasional wrong word or sound alike substitutions may have occurred due to the inherent limitations of voice recognition software. Read the chart carefully and recognize using context, where the substitutions have occurred. Although every effort was made to edit the content, flyer maker and typing errors may occur ATTESTATION BY PHYSICIAN I have seen and examined the patient. I reviewed the documentation, medical decision making, and treatment plan as noted by the mid-level provider above. I agree with the findings and plan of care. RONALD WALDRON [facility] Sep 06, 2024 21:07
--- NOTE | 2024-09-06 21:15 | ERN ---
General Chief Complaint: Lower Extremity Pain/Injury Stated Complaint: LT LOWER LEG WOUND Time Seen by MD: 19:01 Time Seen by Midlevel: 19:01 Source: patient History of Present Illness Initial Comments 43-year-old female presents to the emergency department for wound evaluation of her left lower extremity. Patient states initial wound occurred multiple months ago, debridement of the wound had to be performed back in February 2024. Patient has been receiving wound care since. Patient was initiated on antibiotics three weeks ago due to purulent drainage from the wounds. The patient stating she noticed redness to the left lower leg today. Denies any fever or further associated symptoms. PMHx HTN, [place], asthma, anxiety, depression Allergies: Coded Allergies: cephalexin (Unverified Allergy, Unknown, 05/21/24) Home Meds Active Scripts Cefpodoxime Proxetil (Cefpodoxime Proxetil) 200 Mg Tablet, 1 TAB PO BID for 10 Days, #20 TAB 0 Refills Prov:DAMON SIDHU MD 05/26/24 Famotidine (Famotidine) 20 Mg Tablet, 20 MG PO BID for 30 Days, #60 TAB 2 Refills Prov:MIRLANDE TOWNSENDP 06/20/21 Reported Medications Hydrocodone/Acetaminophen (Hydrocodon-Acetaminophen 5-325) 5 Mg-325 Mg Tablet, 1 TAB PO Q6HPRN PRN for MODERATE PAIN (4-6) 05/22/24 Multivits-Min/Folic Acid/Biot (Hair, Skin & Nails Caplet) 66.7 Mcg-1,000 Mcg Tablet, 3 TAB PO DAILY for 30 Days, #30 TAB 0 Refills 05/22/24 Magnesium Citrate (Magnesium Citrate) 100 Mg Tablet, 2 TAB PO HS for 30 Days, #30 TAB 0 Refills 05/22/24 Alendronate Sodium (Alendronate Sodium) 70 Mg Tablet, 1 TAB PO QWEEK Mondays05/22/24 Prednisone (Deltasone / Orasone) 5 Mg Tablet, 1 TAB PO DAILY 05/22/24 Losartan Potassium (Losartan Potassium) 100 Mg Tablet, 1 TAB PO DAILY 05/22/24 Meloxicam (Meloxicam) 15 Mg Tablet, 1 TAB PO DAILY PRN for BACK PAIN 05/22/24 Fluticasone/Umeclidin/Vilanter (Trelegy Ellipta 100-62.5-25) 100-62.5 Blst.w.dev, 1 PUFF PO DAILY 05/22/24 Potassium Chloride (Potassium Chloride) 20 Meq Tab.er.prt, 1 TAB PO DAILY 05/22/24 Ondansetron HCl (Ondansetron HCl) 8 Mg Tablet, 1 TAB PO BID PRN for NAUSEA/VOMITING 05/22/24 Metoprolol Tartrate (Lopressor 50Mg Tab) 50 Mg Tab, 1 TAB PO BID 05/22/24 Buspirone HCl (Buspirone HCl) 10 Mg Tablet, 1 TAB PO BID 05/22/24 Rosuvastatin Calcium (Rosuvastatin Calcium) 10 Mg Tablet, 1 TAB PO HS 05/22/24 Montelukast Sodium (Montelukast Sodium) 10 Mg Tablet, 1 TAB PO DAILY 05/22/24 Amlodipine Besylate (Amlodipine Besylate) 5 Mg Tablet, 1 TAB PO DAILY 05/22/24 Albuterol Sulfate (Proventil Hfa) 6.7 Gm Hfa.aer.ad, 8.5 GM IH Q4PRN PRN for SHORTNESS OF BREATH/WHEEZING 07/30/22 Fluticasone Propionate (Flonase Nasal [place]) 50 Mcg/Actuation [place], 50 MCG NASAL HS, SPRAY 07/30/22 Furosemide (Furosemide) 20 Mg Tablet, 20 MG PO DAILY, TAB 07/30/22 Cetirizine HCl (Cetirizine HCl) 10 Mg Tablet, 10 MG PO DAILY, TAB 07/30/22 Trazodone HCl (Trazodone HCl) 100 Mg Tablet, 100 MG PO HS, TAB 07/30/22 Chlorthalidone (Chlorthalidone) 25 Mg Tablet, 25 MG PO DAILY, TAB 07/30/22 Citalopram Hydrobromide (Citalopram HBr) 40 Mg Tablet, 40 MG PO DAILY, TAB 07/30/22 Past Medical History Past Medical History: Anxiety, Asthma, Depression, High Cholesterol, Hypertension Medical History Other: THORACIC VERTEBRAL FX, , NEUROPATHY, ENDOMETRIOSIS, ADDISONS Past Surgical History: Appendectomy, Hysterectomy, Tonsillectomy, Cholecystec tiburcio, Other Surgical History Other: SINUS SX, KIDNEY STONE REMOVALX3 Social History Social History: Negative Female( History) History: Not Applicable ROS Dictation Constitutional: Negative for fever,chills, and weight loss Eyes: Negative for injury, pain,redness, and discharge ENT: Negative for injury,pain or swelling Cardiovascular: Negative for chest pain, palpitations, and edema Respiratory: Negative for shortness of breath, cough, and wheezing, Abdomen/GI: Negative for abdominal pain, nausea, vomiting, diarrhea, and constipation Back: Negative for injury and pain : Negative for painful urination, bleeding or discharge MS/Extremity: Negative for injury and deformity Skin: Positive for left lower extremity wound redness and drainage Negative for rash, and discoloration Neuro: Negative for headache, weakness, numbness, tingling, and seizure Psych: Negative for suicide ideation, homicidal ideation, and hallucinations Physical Exam Physical Exam Dictation General: awake, alert, no acute distress Head/Face: Normocephalic, atraumatic Eyes: PERRL, EOMI, normal conjunctiva ENT: oral cavity clear, oral mucosa moist Neck: Supple, normal range of motion Cardiovascular: RRR, normal S1/S2 Respiratory: CTAB, no respiratory distress Skin: Warm, dry, normal turgor, no rash. Cellulitis noted to the anterior aspect of the left lower extremity, erythema and induration, three ulcerative wounds on the anterior aspect with purulent drainage MS/Extremity: Pulses equal, no cyanosis, neurovascular intact, FROM Neuro: COAx4, GCS 15, strength 5/5, CN 2-12 intact, normal cerebellar exam, normal gait Psych: Normal behavior, mood, and affect normal Results Laboratory and Microbiology Lab and Micro Result Laboratory Tests Test 09/06/24 19:30 White Blood Count 21.1 K/uL (4.8-10.8) H Red Blood Count 4.42 MIL/uL (4.00-5.50) Hemoglobin 11.8 g/dL (12.0-16.0) L Hematocrit 38.4 % (36-48) Mean Corpuscular Volume 86.9 fL (79-99) Mean Corpuscular Hemoglobin 26.7 pg (27.0-33.0) L Mean Corpuscular Hemoglobin Concent 30.7 g/dL (32.0-36.0) L Red Cell Distribution Width 16.8 % (11.0-15.5) H Platelet Count 245 K/uL (130-400) Mean Platelet Volume 10.5 fL (7.5-10.5) Immature Granulocyte % (Auto) 1.0 % (0-1) Neutrophils (%) (Auto) 90.4 % (40.0-77.0) H Lymphocytes (%) (Auto) 5.5 % (21.0-51.0) L Monocytes (%) (Auto) 2.8 % (3.0-13.0) L Eosinophils (%) (Auto) 0.1 % (0.0-8.0) Basophils (%) (Auto) 0.2 % (0.0-5.0) Neutrophils # (Auto) 19.0 K/uL (1.8-7.7) H Lymphocytes # (Auto) 1.2 K/uL (1.0-4.8) Monocytes # (Auto) 0.6 K/uL (0.1-1.0) Eosinophils # (Auto) 0.02 K/uL (0.00-0.70) Basophils # (Auto) 0.05 K/uL (0.00-0.20) Absolute Immature Granulocyte (auto 0.22 K/uL (0-1) Nucleated Red Blood Cells 0.0 % (0.0-0.19) White Cell Morphology Comment See comments Red Blood Cell Morphology ANISO 1+ Erythrocyte Sedimentation Rate 5 MM/HR (0-20) Sodium Level 141 mmol/L (136-145) Potassium Level 3.9 mmol/L (3.5-5.1) Chloride Level 103 mmol/L (101-111) Carbon Dioxide Level 29 mmol/L (21-32) Blood Urea Nitrogen 40 mg/dL (7-18) H Creatinine 1.5 mg/dL (0.5-1.0) H Glomerular Filtration Rate Calc 44 mL/min (>90) Random Glucose 129 mg/dL (70-105) H Total Calcium 8.7 mg/dL (8.5-10.1) Labs Reviewed?: Yes EKG/XRAY/US/CT/MRI X-RAY Comment REASON: R/o osteomyelitis ORDERING PHYSICIAN: ZORAIDA MORRISON PROCEDURE: TIBFIB LT - TIBIA/FIBULA 2VWS LT EXAM: Left tibia/fibula radiograph 2 view HISTORY: Infection COMPARISON: None TECHNIQUE: AP and lateral views FINDINGS: No fracture or dislocation. Mild soft tissue swelling. No erosive changes seen. Degenerative changes of the left knee. IMPRESSION: No evidence of osteomyelitis /[place] DICTATED BY: BARON LORENZ MD DATE: 09/06/242203 MDM MDM: Differential diagnosis: Osteomyelitis, infected wound Rationale: 43-year-old female presents to the emergency department for wound evaluation of her left lower extremity. Patient states initial wound occurred multiple months ago, debridement of the wound had to be performed back in February 2024. Patient has been receiving wound care since. Patient was initiated on antibiotics three weeks ago due to purulent drainage from the wounds. The patient stating she noticed redness to the left lower leg today. Denies any fever or further associated symptoms. PMHx HTN, Julien's, asthma, anxiety, depression Per physical examination cellulitis noted to the anterior aspect of the left lower extremity with three open wounds and purulent drainage. Pending wound cultures. Labs obtained showed leukocytosis of 21, BUN 40 and creatinine 1.5. Compared with previous labs consistent with ESTRELLA. X-ray of the left lower extremity obtained with no indications of osteomyelitis. Patient received vancomycin and morphine in the ED. patient was educated on findings, diagnosis, decision for admission. Patient verbalized understanding agrees with admission. Case discussed with hospitalist who accepted admission. Previous outside records reviewed: Old ER visits. Risk of complication and/or morbidity or mortality of patient management: None Medications-Per medication reconciliation Need for hospitalization: Patient does meet criteria for hospitalization. Need for emergency major/minor surgery: No There are no social concerns with this patient. Prescription drug management Prescriptions will include symptomatic care Patient's prior external medical records from other ER visits were reviewed by me as indicated. Prior testing and results from previous visits were reviewed. Prior tests were taken into account with medical decision making and resource utilization, independent historian/historians were used to obtain complete medical history. I independently interpreted the test that were performed, results were reviewed by me and considered findings on radiology if ordered. Medical management and examination interpretation discussions were had by me with other qualified healthcare professionals as indicated for the patient's care. ED Course Orders Procedure Category Date Status Time Cbc With Differential LAB 09/06/24 Complete 19:03 Basic Metabolic Panel LAB 09/06/24 Complete 19:03 Erythrocyte LAB 09/06/24 Complete Sedimentation Rate 19:18 Tibia/Fibula 2vws Lt RAD 09/06/24 Taken 19:18 Anaerobic Culture FIFI 09/06/24 In Process 19:18 Aerobic Culture FIFI 09/06/24 In Process 19:18 Vancomycin 1g/250ml PHA 09/06/24 Complete Kit (Vancomycin 1g/2 21:00 Morphine 4mg Syg PHA 09/06/24 Complete (Morphine 4mg Syg) 21:00 Current Medications Medications (Trade) Dose Ordered Sig/Michael Route PRN Reason Start Time Stop Time Status Last Admin Dose Admin Morphine Sulfate (morPHINE 4MG SYG) 4 mg ONCE ONCE IVP 09/06/24 21:00 09/06/24 21:01 DC Vancomycin HCl (Vancomycin 1g/ 250ml Kit) 1 gm ONCE ONCE IV 09/06/24 21:00 09/06/24 21:01 DC Vital Signs Date Time Temp Pulse Resp B/P (MAP) Pulse Ox O2 Delivery O2 Flow Rate FiO2 09/06/24 19:15 99.5 94 18 114/65 95 Room Air* 0 21 09/06/24 18:49 98.8 88 18 177/72 98 Critical Care Note Critical Time: 30 minutes Comments Total critical care time was 33 minutes. Excluding time for procedures. Management of critically ill patient with concern for acute decompensation. Management included interpretation of laboratory values and imaging, hemodynamics, time for consultation with consultants and admitting physician. DX & DISP Disposition: Inpatient Decision to Admit Date: Sep 06, 2024 Departure Impression: Primary Impression: Cellulitis of left lower extremity Additional Impressions: Wound infection, Leukocytosis, ESTRELLA (acute kidney injury) Condition: Stable Referrals: SELF,REFERRAL (PCP) I performed the substantive portion of the visit. I have reviewed and personall y made and approve the management plan that is documented in the notes by myself or the MELITON. I acknowledge full responsibility for the patient's management plan. ZORAIDA MORRISON Sep 06, 2024 21:15
[2024-09-06] MEDS: VANCOMYCIN KIT 1 GM/250 ML IV.KIT IV ONE (21:27)
[2024-09-06] MEDS: CLINDAMYCIN IVPB 900MG/50ML 50 ML IV SCH (21:27)
--- NOTE | 2024-09-06 23:13 | NUR ---
PATIENT ASSESSMENT NOTE: NEW ONSET RIGHT SIDED RIB PAIN WITH NAUSEA. PATIENT WAS REPOSITIONED AND TYLENOL WAS ADMINISTERED ORDERED PRN. PATIENT EPISODE REPORTED TO JEWEL HOLE DRILLER RONALD SHELL CORE AND MOLDING SUPERVISOR WITH HOSPITALIST. ORDERS GIVEN AND TRANSCRIBED.
[2024-09-07] VITALS (13 sets, daily range): BP systolic 99–136; BP diastolic 50–75; PULSE 92–115; RESP 18–22; TEMP 97.6–99.1; O2SAT 93–100
--- NOTE | 2024-09-07 00:18 | HMCIMG ---
EXAM: CR Chest, 1 view. CLINICAL HISTORY: Right rib pain. COMPARISON: Chest x-ray dated 07/29/2022. FINDINGS: The lungs show no infiltrate or other acute findings. No pleural effusion or pneumothorax. The cardiomediastinal silhouette is within normal limits. No acute osseous abnormality. IMPRESSION: No acute cardiopulmonary pathology is evident. No gross interval changes. /[place]
[2024-09-07 01:09] LABS: APPEARANCE,URINE CLEAR (CLEAR); GLUCOSE, URINE (UA) NEGATIVE (NEGATIVE); LEUKOCYTE ESTERASE ,URINE 75 Leu/uL (NEGATIVE); NITRATE,URINE NEGATIVE (NEGATIVE); OCCULT BLOOD,URINE NEGATIVE (NEGATIVE)
[2024-09-07 01:13] LABS: ADD UA MICROSCOPIC YES
[2024-09-07 01:14] LABS: CREATININE,URINE RANDOM 126.25 mg/dL (30-135)
[2024-09-07 01:16] LABS: SQUAMOUS EPITHELIAL CELL,UR RARE /HPF (0-2)
[2024-09-07] MEDS: LACTATED RINGERS 1000ML 1,365 ML IV ONE (03:04)
[2024-09-07] MEDS: LACTATED RINGERS 1000ML 1,000 ML IV SCH (03:04)
--- NOTE | 2024-09-07 05:02 | NUR ---
REPORT GIVEN TO DIANE SINGLETON.
--- NOTE | 2024-09-07 05:06 | NUR ---
PATIENT TRANSPORTED TO [facility].
[2024-09-07] MEDS ORDERED: ALBU18HF7 IH (06:04)
[2024-09-07] MEDS ORDERED: SULF1TAB42 PO (06:04)
[2024-09-07] MEDS ORDERED: DIPH25TA22 PO (06:04)
[2024-09-07] MEDS ORDERED: AMLO-257 PO (06:04)
[2024-09-07] MEDS ORDERED: CHOL500045 PO (06:04)
[2024-09-07] MEDS ORDERED: VITAMIN C PO (06:04)
[2024-09-07] MEDS ORDERED: MAGN500C4 PO (06:04)
[2024-09-07] MEDS ORDERED: FLUT1BLS11 IH (06:04)
[2024-09-07 06:36] LABS: IMMATURE GRANULOCYTE ABSOLUTE 0.08 K/uL (0-1); NUCLEATED RED BLOOD CELLS 0.0 % (0.0-0.19); PLATELET COUNT (AUTO) 208 K/uL (130-400); RED BLOOD CELL COUNT(AUTO) 4.49 MIL/uL (4.00-5.50); RED CELL DISTRIBUTION WIDTH 17.5 % (11.0-15.5); WHITE BLOOD COUNT (AUTO) 13.2 K/uL (4.8-10.8)
[2024-09-07 06:50] LABS: CREATININE 1.0 mg/dL (0.5-1.0); GLOMERULAR FILTR. RATE CALC 71.0 mL/min (>90); GLUCOSE,RANDOM 89.0 mg/dL (70-105); PHOSPHORUS 2.8 mg/dL (2.5-4.9); SODIUM SERUM 134.0 mmol/L (136-145); UREA NITROGEN, BLOOD 26.0 mg/dL (7-18)
[2024-09-07] MEDS: ALBUTEROL 0.083% 2.5 MG/3 ML INH IH SCH (07:15)
[2024-09-07] MEDS ORDERED: (Albuterol Sulfate (Ventolin Hfa) 2 PUFF) IH PRN (10:30)
[2024-09-07] MEDS ORDERED: MELOXICAM PO PRN (10:30)
--- NOTE | 2024-09-07 11:15 | PN ---
[facility] PROGRESS NOTE Date of Service: Sep 07, 2024 Time of Service: 11:11 SUBJECTIVE: 09/07 patient remains admitted to medical floor, hemodynamically stable, afebrile, saturating normal on room air, WBC trending down 13.2, hemoglobin stable 12.0, hematocrit 40.1, platelet count of 208. X-ray of the left tibia/fibula, no evidence of osteomyelitis. Patient to continue broad-spectrum antibiotics to include vancomycin and clindamycin, we will request Infectious Disease consultation, continue wound care, follow results of wound culture, due to swollen to the left lower extremity with the extensive cellulitis, we will order ultrasound soft tissue to rule out the possibility of underlying abscess, Doppler of the lower extremities, rule out DVT. Home medications has been reviewed and reconciled. At The time of my visit the patient is comfortably bed, alert oriented x3, getting IV antibiotics, getting good pain control with current medical management. Plan of action discussed, all questions answered, in agreement. REVIEW OF SYSTEMS CONSTITUTIONAL: Denies fevers, chills, or night sweats. No unintentional weight loss reported. NEUROLOGICAL: Denies headache, amaurosis fugax, motor weakness, sensory de ficit, vertigo/spinning sensation, gait abnormalities, or tremors. ENT: No hearing loss, otalgia, otorrhea, rhinitis, rhinorrhea, hoarseness, or sore throat. CARDIOVASCULAR: Denies any exertional angina, dyspnea on exertion, orthopnea, paroxysmal nocturnal dyspnea, palpitations, life-threatening arrhythmias, claudication. PULMONARY: Denies any shortness of breath, cough, phlegm/sputum, hemoptysis, pleuritic chest pain. SLEEP: Denies morning headaches, daytime somnolence or napping. Denies difficulty falling asleep, staying asleep, waking from sleep. Denies knowledge of snoring. GASTROINTESTINAL: Denies any type of dysphagia to either liquids or solids. Denies nausea, vomiting, pyrosis, early satiety, abdominal pain, diarrhea, constipation, or changes in stool consistency or caliber. Denies coffee-ground emesis, hematemesis, hematochezia, or melanotic stools. GENITOURINARY: Denies frequency, urgency, nocturia, hematuria or incontinence (Storage/Irritative symptoms.) Low urinary stream, straining to void, urinary intermittency or hesitancy, splitting of the voiding stream, terminal dribbling. ENDOCRINOLOGIC: Denies polyuria, polydipsia, polyphagia or heat/cold intolerances. HEMATOLOGIC: Denies thrombophilia/previous clots, or coagulopathy/bleeding disorders. ONCOLOGIC: Denies personal history of malignancy. DERMATOLOGIC: Denies rashes or pruritus. PSYCHIATRIC: Denies any suicidal or homicidal ideation. Denies hallucinations. PHYSICAL EXAM GENERAL APPEARANCE: The patient is awake, alert, and oriented, in no acute cardiopulmonary distress. NEUROLOGICAL: Cranial nerves II-XII grossly intact. Motor is 5/5 in bilateral upper and lower extremities proximal to distal. No sensory deficits. HEENT: Face is symmetric. Pupils are equal and reactive. Extraocular movements are intact. NECK: Supple. No JVD. No thyromegaly. No submental, submandibular, pre- /postauricular, occipital or supraclavicular lymphadenopathy. CHEST: Normal chest expansion. No Telemetry. LUNGS: Absence of any rales, rhonchi or any wheezing. CARDIOVASCULAR: Regular. S1 and S2 normal. No appreciable rubs, murmurs or gallops. ABDOMEN: Soft, nontender, and nondistended. There is no rebound, voluntary guarding, or rigidity. : Deferred. No Enamorado. EXTREMITIES: Extensive erythema from the left ankle to the knee area, swollen to the left lower extremity, can not exclude possibility of underlying abscess. SKIN: No skin breakdown. Vital Signs (last 8hr) Date Time Temp Pulse Resp B/P (MAP) Pulse Ox O2 Delivery O2 Flow Rate FiO2 09/07/24 07:37 105 19 136/70 93 Room Air 09/07/24 07:17 18 N/A Room Air 21 09/07/24 07:12 101 18 09/07/24 06:19 93 Room Air* 0 21 09/07/24 05:15 99.1 104 20 121/69 93 Room Air 09/07/24 04:11 98.4 98 18 101/74 98 Room Air* 0 21 LABS: Laboratory: Test 09/07/24 06:14 09/07/24 00:38 09/06/24 22:17 09/06/24 19:30 Range/Units White Blood Count 13.2 #H 4.8-10.8 K/uL Red Blood Count 4.49 4.00-5.50 MIL/uL Hemoglobin 12.0 12.0-16.0 g/dL Hematocrit 40.1 36-48 % Mean Corpuscular Volume 89.3 79-99 fL Mean Corpuscular Hemoglobin 26.7 L 27.0-33.0 pg Mean Corpuscular Hemoglobin Concent 29.9 L 32.0-36.0 g/dL Red Cell Distribution Width 17.5 H 11.0-15.5 % Platelet Count 208 130-400 K/uL Mean Platelet Volume 10.2 7.5-10.5 fL Immature Granulocyte % (Auto) 0.6 0-1 % Neutrophils (%) (Auto) 85.9 H 40.0-77.0 % Lymphocytes (%) (Auto) 9.3 L 21.0-51.0 % Monocytes (%) (Auto) 3.6 3.0-13.0 % Eosinophils (%) (Auto) 0.2 0.0-8.0 % Basophils (%) (Auto) 0.4 0.0-5.0 % Neutrophils # (Auto) 11.3 H 1.8-7.7 K/uL Lymphocytes # (Auto) 1.2 1.0-4.8 K/uL Monocytes # (Auto) 0.5 0.1-1.0 K/uL Eosinophils # (Auto) 0.03 0.00-0.70 K/uL Basophils # (Auto) 0.05 0.00-0.20 K/uL Absolute Immature Granulocyte (auto 0.08 0-1 K/uL Nucleated Red Blood Cells 0.0 0.0-0.19 % Sodium Level 134 L 136-145 mmol/L Potassium Level 3.8 3.5-5.1 mmol/L Chloride Level 102 101-111 mmol/L Carbon Dioxide Level 24 21-32 mmol/L Blood Urea Nitrogen 26 H 7-18 mg/dL Creatinine 1.0 0.5-1.0 mg/dL Glomerular Filtration Rate Calc 71 >90 mL/min Random Glucose 89 70-105 mg/dL Total Calcium 9.2 8.5-10.1 mg/dL Phosphorus Level 2.8 2.5-4.9 mg/dL Magnesium Level 1.80 1.80-2.40 mg/dL Urine Color LIGHT-YELLOW YELLOW Urine Appearance CLEAR CLEAR Urine pH 6.5 5.0-8.0 Urine Specific [place] 1.022 1.001-1.031 Urine Protein 10 H NEGATIVE mg/dL Urine Glucose (UA) NEGATIVE NEGATIVE mg/dL Urine Ketones NEGATIVE NEGATIVE mg/dL Urine Occult Blood NEGATIVE NEGATIVE Urine Nitrate NEGATIVE NEGATIVE Urine Bilirubin NEGATIVE NEGATIVE mg/dL Urine Urobilinogen 0.2 0.2-1.0 mg/dL Urine Leukocyte Esterase 75 H NEGATIVE Kristen/uL Urine RBC 2-5 H 0-1 /HPF Urine WBC 26-50 H 0-1 /HPF Urine Squamous Epithelial Cells RARE 0-2 /HPF Urine Bacteria RARE None Seen /HPF Urine Hyaline Casts 2-5 H 0-1 /LPF /LPF Urine Random Creatinine 126.25 30-135 mg/dL Urine Random Sodium 110 40-220 mmol/l Lactic Acid Level 1.4 0.8-2.5 mmol/L Procalcitonin 1.47 H 0.05-0.5 ng/mL White Cell Morphology Comment See comments Red Blood Cell Morphology ANISO 1+ Erythrocyte Sedimentation Rate 5 0-20 MM/HR Current Medications Medications (Trade) Dose Ordered Sig/Michael Route PRN Reason Start Time Stop Time Status Last Admin Dose Admin Acetaminophen (TYLenol 325MG TAB) 650 mg Q6H PRN PO TEMPERATURE GREATER THAN 101.5 09/06/24 21:00 10/06/24 20:59 09/06/24 23:00 650 MG Acetaminophen/ Hydrocodone Bitart (NORco 5/325MG) 1 tab Q6H PRN PO MODERATE PAIN (4-6) 09/07/24 10:30 09/12/24 10:29 Albuterol Sulfate (Proventil 0.083% 2.5mg/3ml) 2.5 mg [id number] IH 09/07/24 06:00 10/07/24 05:59 09/07/24 11:05 2.5 MG Alendronate Sodium (Fosamax 35mg Tab) 70 mg QWEEK@0630 PO 09/14/24 06:30 10/14/24 06:29 Amlodipine Besylate (NorvASC 5MG TAB) 5 mg DAILY PO 09/08/24 09:00 10/08/24 08:59 Atorvastatin Calcium (LIPItor 20MG) 20 mg HS PO 09/07/24 21:00 10/07/24 20:59 Buspirone HCl (BUspar) 10 mg BID PO 09/07/24 21:00 10/07/24 20:59 Cetirizine HCl (ZYRtec 5 MG TABLET) 10 mg HS PO 09/08/24 21:00 10/08/24 20:59 Citalopram Hydrobromide (CeleXA 20MG TAB) 40 mg DAILY PO 09/08/24 09:00 10/08/24 08:59 Clindamycin HCl/ Dextrose 50 ml @ 100 mls/hr Q8H IV 09/06/24 21:00 09/16/24 20:59 09/07/24 05:34 100 MLS/HR Diphenhydramine HCl (BENAdryl CAP) 50 mg HS PO 09/07/24 21:00 10/07/24 20:59 Famotidine (Pepcid 20mg Tab) 20 mg BID PO 09/07/24 21:00 10/07/24 20:59 Furosemide (LASix 20MG TAB) 20 mg DAILY PO 09/08/24 09:00 10/08/24 08:59 Heparin Sodium (Porcine) (HEParin 5,000 UNIT VIAL) 5,000 unit BID SQ 09/06/24 21:00 10/06/24 20:59 09/07/24 09:05 5,000 UNIT Home Med (Home Medication) (Albuterol Sulfate (Leila... Q6H PRN IH wheezing 09/07/24 10:30 10/07/24 10:29 Home Med (Home Medication) (Chlorthalidone 25 MG) DAILY PO 09/08/24 09:00 10/08/24 08:59 Home Med (Home Medication) (Cholecalciferol (Vitamin D3) (Vitamin D3... DAILY PO 09/08/24 09:00 10/08/24 08:59 Home Med (Home Medication) (Fluticasone Propion/ [place]... HS IH 09/07/24 21:00 10/07/24 20:59 Home Med (Home Medication) (Fluticasone/ Umeclidin/ [place]... DAILY PO 09/08/24 09:00 10/08/24 08:59 Home Med (Home Medication) (Magnesium Oxide (Magnesi... HS PO 09/07/24 21:00 10/07/24 20:59 Hydralazine HCl (APRESOLine 20MG INJ) 10 mg Q6H PRN IV For:SBP above 160;DBP above 90 09/06/24 21:00 10/06/24 20:59 Lactated Ringer's 1,000 ml @ 75 mls/hr [id number] IV 09/07/24 02:00 10/07/24 01:59 09/07/24 03:04 75 MLS/HR Losartan Potassium (CozAAR 100MG TAB) 100 mg DAILY PO 09/08/24 09:00 10/08/24 08:59 Metoprolol Tartrate (loprESSOR) 50 mg BID PO 09/07/24 21:00 10/07/24 20:59 Miscellaneous Medication (Meloxicam ) 1 tab DAILY PRN PO BP 09/07/24 10:30 09/07/24 10:16 DC Montelukast Sodium (SinguLAIR) 10 mg DAILY PO 09/08/24 09:00 10/08/24 08:59 Morphine Sulfate (morPHINE 2MG SYG) 2 mg Q4H PRN IVP SEVERE PAIN (7-10) 09/06/24 21:30 09/13/24 21:29 09/07/24 00:31 2 MG Ondansetron HCl (zoFRAN 4MG INJ) 4 mg Q6H PRN IV NAUSEA/VOMITING 09/06/24 21:00 10/06/24 20:59 Pantoprazole Sodium (PROTonix 40MG TAB) 40 mg DAILY PO 09/07/24 09:00 09/07/24 10:04 DC 09/07/24 09:08 40 MG Potassium Chloride (K-Dur/Klor-Con 20meq) 20 meq DAILY PO 09/08/24 09:00 10/08/24 08:59 Prednisone (deltaSONE/ oraSONE 5MG) 5 mg DAILY PO 09/08/24 09:00 10/08/24 08:59 Trazodone HCl (DesyREL/OlepTRO) 100 mg HS PO 09/07/24 21:00 10/07/24 20:59 Vancomycin HCl 250 ml @ 125 mls/hr Q24H IV 09/07/24 21:00 09/17/24 20:59 Vancomycin HCl (Vancomycin Protocol) 1 each AD IV 09/06/24 21:00 09/20/24 20:59 DIAGNOSTICS / RADIOLOGY: [ ] ASSESSMENT: Sepsis, POA Extensive left lower extremity cellulitis, POA Anterior tibial left lower extremity wound, can not exclude underlying abscess POA ESTRELLA prerenal, POA Leukocytosis, POA Essential hypertension, POA ROCKY, POA History of Fowler's disease, POA History of bronchial asthma, POA PLAN: Patient to continue broad-spectrum antibiotics to include vancomycin and clindamycin, we will request Infectious Disease consultation, continue wound care, follow results of wound culture, due to swollen to the left lower extremity with the extensive cellulitis, we will order ultrasound soft tissue to rule out the possibility of underlying abscess, Doppler of the lower extremities, rule out DVT. Home medications has been reviewed and reconciled. NEURO: Minimize central acting medications as possible. Fall Precautions. Well lighted room through the day and minimize interruptions through the night to prevent acute delirium. PULMONARY: Supplemental 02 as needed BiPAP as necessary, for respiratory distress Titrate Fio2 to keep Spo2 > or = 90% DuoNebs and CPT as needed IS hourly while awake for pulmonary hygiene prn Out of bed to chair as tolerated Maintain aspiration precautions at all times CARDIOVASCULAR: Follow hemodynamics. Vital signs per facility protocol GI & NUTRITION: Continue nutritional support Aspirations precautions Prokinetic agents and laxatives as needed KIDNEYS & ELECTROLYTES: Strict monitoring of intake and output Daily weights Avoid nephrotoxic agents Monitor electrolytes and replace as needed Goal urine output of 30mL/hr or 0.5mL/kg/hr Medications to be dosed according to renal function. Avoid contrast if possible ENDOCRINE: Maintain blood glucose between 100-180 at all times. Insulin sliding scale for blood glucose management Hypoglycemia and hyperglycemia protocol in place INFECTIOUS DISEASE: Trend temperature, WBC and procalcitonin level Follow cultures, deescalate antibiotics as soon as possible. Panculture if new onset fever HEMATOLOGY & COAGULATION: Monitor H&H. Keep Hgb > 7 Transfuse 1 unit of PRBC for Hgb < 7 Transfuse 1 pack of platelets of platelets < 20, 000 Watch for any signs and symptoms of bleeding SKIN: Pressure ulcer prevention per facility protocol Specialty mattress as needed ORTHO/REHAB Continue PT/OT PRN: MEDICATIONS Tylenol 650 mg po every 4 hrs for fever zofran 4 mg IV every 6 hrs for n/v Hydralazine 5 mg IV every 4 hrs systolic pressure > 160 bowel regiment: lactulose 20 gm PO BID PRN constipation Supportive measures: Continue GI and DVT prophylaxis Disposition: Pending improvement in clinical condition All questions answered time spent: > 35 min TRICIA AC MD Sep 07, 2024 11:15
--- NOTE | 2024-09-07 11:37 | NUR ---
DCP: HOME Pt currently lives with her aunt Alma Berger [phone]. Pt receives $290 in [employer] benefits. Pt does have a cane, walker, wheelchair, and commode at home. Pt has a provider that assists her daily for 4hrs a day and assist with all ADLs, home management, and meals. Pt also has Home Health through [facility] that go to her home daily for wound care. PCP is Mohini benson and uses [facility] for any RX needs. At [place] pt will want to go home and family can assist with transportation. Addendum: 09/07/24 at 1140 by NILDA CASTRO SS Amended: Links added.
[2024-09-07] MEDS: HYDROcodone/APAP 5/325 1 TAB TABLET PO PRN (13:29)
--- NOTE | 2024-09-07 13:55 | NUR ---
[facility] Consult: Patient assessed by wound healing team. See wound assessment. Assessment and recommendations provided. Education provided. Addendum: 09/07/24 at 1555 by BRITTNY WHITESIDE RN RN/YANICK Amended: Links added.
--- NOTE | 2024-09-07 15:33 | CONS ---
CONSULTATION NOTE Date of Service: Sep 07, 2024 Reason for Consultation: [ WOUND TO LEFT LOWER EXTREMITY ] Requesting Physician: [ Ced WALDRON SENIOR DEVELOPER ] HISTORY OF PRESENT ILLNESS: Ms. Burch is a 43-year-old female that was seen and examined today at bedside in room 405. 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 Patient reports that she came to the emergency department with a chief complaint of worsening left lower extremity wound. Patient reports she sustained wound to her left lower extremity on February 2024 due to trauma from a scratch from her dog. Patient reports she is followed as outpatient wound care treatment and reports wound was improved but 1 day ago patient noted redness and swelling to left lower leg with wounds worsening with drainage from wounds. Patient was instructed to go to the emergency department for further evaluation by wound care group. Patient reports erythema to left lower leg spread within hours of swelling developing. Patient reports she has been having fever and chills. Wound culture has been collected and pending results. REVIEW OF SYSTEMS CONSTITUTIONAL: Reports fever, chills, no fatigue. HEAD/FACE: No signs of trauma. EENT: Denies eye pain, blurred vision, double vision, or light sensitivity. RESPIRATORY: Denies shortness of breath, cough, wheezing CARDIOVASCULAR: Denies chest pain, palpitation, syncope GASTROINTESTINAL/ABDOMINAL: Denies abdominal pain, constipation, diarrhea, nausea or vomiting GENITOURINARY: Denies dysuria or hematuria. MUSCULOSKELETAL: Denies joint pain, tenderness, or trauma. INTEGUMENTARY: open wound to left lower leg with erythema and edema NEUROLOGICAL/PSYCH: Denies anxiety, depression, heat or cold intolerance. Past Medical History Patient History: Asthma MOTHER BROTHER SISTER Cardiovascular disease Chronic obstructive pulmonary disease MOTHER Hypertension MOTHER SISTER ADDITIONAL PAST MEDICAL HISTORY: [htn, elliot, addisons disease, asthma] SOCIAL HISTORY: [negative for smoking, alcohol, and drug use. patient lives with her aunt Stephanie Berger. Patient is typically independent of her ADLs. Patient denies difficulty paying her bills.] SURGICAL HISTORY: [cholecystectomy, appendectomy, tosillectomy, adenoidectomy, sinus surgey, hysterectomy] Coded Allergies: cephalexin (Unverified Allergy, Unknown, 05/21/24) PHYSICAL EXAM EYES: Anicteric. Pupils equal and reactive. HENT: No oral thrush seen, moist Oral mucosa NECK: Supple, no JVD or thyromegaly. LUNGS: Good air entry. No rales, no rhonchi. CARDIOVASCULAR: S1, S2 regular. No murmur heard. ABDOMEN: Soft, non tender, bowel sounds present, no organomegaly CENTRAL NERVOUS SYSTEM: Awake, alert, oriented x 3. No focal deficits. SKIN: left anterior lateral wound and left anterior medial wound noted with slough with serous drainage. Left lower leg noted erythema and edema. LYMPHATICS: No peripheral lymphadenopathy MUSCULOSKELETAL: No joint swelling, erythema or tenderness. EXTREMITIES: No cyanosis or clubbing BACK: No deformity, no pressure ulcer. GENITOURINARY: No dysuria or hematuria Vital Sign (Last 24 Hours) 09/07/24 09/07/24 09:30 12:00 Temp 97.5 Pulse 101 Resp 19 B/P (MAP) 99/50 Pulse Ox 94 O2 Delivery Room Air O2 Flow Rate 0 FiO2 21 Intake & Output (last 24hrs) 09/06/24 09/06/24 09/07/24 15:00 23:00 07:00 Intake Total 100 ml Balance 100 ml LABS: Laboratory: Test 09/07/24 15:14 09/07/24 06:14 09/07/24 00:38 09/06/24 22:17 Range/Units Whole Blood Glucose 124 H 70-110 MG/DL White Blood Count 13.2 #H 4.8-10.8 K/uL Red Blood Count 4.49 4.00-5.50 MIL/uL Hemoglobin 12.0 12.0-16.0 g/dL Hematocrit 40.1 36-48 % Mean Corpuscular Volume 89.3 79-99 fL Mean Corpuscular Hemoglobin 26.7 L 27.0-33.0 pg Mean Corpuscular Hemoglobin Concent 29.9 L 32.0-36.0 g/dL Red Cell Distribution Width 17.5 H 11.0-15.5 % Platelet Count 208 130-400 K/uL Mean Platelet Volume 10.2 7.5-10.5 fL Immature Granulocyte % (Auto) 0.6 0-1 % Neutrophils (%) (Auto) 85.9 H 40.0-77.0 % Lymphocytes (%) (Auto) 9.3 L 21.0-51.0 % Monocytes (%) (Auto) 3.6 3.0-13.0 % Eosinophils (%) (Auto) 0.2 0.0-8.0 % Basophils (%) (Auto) 0.4 0.0-5.0 % Neutrophils # (Auto) 11.3 H 1.8-7.7 K/uL Lymphocytes # (Auto) 1.2 1.0-4.8 K/uL Monocytes # (Auto) 0.5 0.1-1.0 K/uL Eosinophils # (Auto) 0.03 0.00-0.70 K/uL Basophils # (Auto) 0.05 0.00-0.20 K/uL Absolute Immature Granulocyte (auto 0.08 0-1 K/uL Nucleated Red Blood Cells 0.0 0.0-0.19 % Sodium Level 134 L 136-145 mmol/L Potassium Level 3.8 3.5-5.1 mmol/L Chloride Level 102 101-111 mmol/L Carbon Dioxide Level 24 21-32 mmol/L Blood Urea Nitrogen 26 H 7-18 mg/dL Creatinine 1.0 0.5-1.0 mg/dL Glomerular Filtration Rate Calc 71 >90 mL/min Random Glucose 89 70-105 mg/dL Total Calcium 9.2 8.5-10.1 mg/dL Phosphorus Level 2.8 2.5-4.9 mg/dL Magnesium Level 1.80 1.80-2.40 mg/dL Urine Color LIGHT-YELLOW YELLOW Urine Appearance CLEAR CLEAR Urine pH 6.5 5.0-8.0 Urine Specific [place] 1.022 1.001-1.031 Urine Protein 10 H NEGATIVE mg/dL Urine Glucose (UA) NEGATIVE NEGATIVE mg/dL Urine Ketones NEGATIVE NEGATIVE mg/dL Urine Occult Blood NEGATIVE NEGATIVE Urine Nitrate NEGATIVE NEGATIVE Urine Bilirubin NEGATIVE NEGATIVE mg/dL Urine Urobilinogen 0.2 0.2-1.0 mg/dL Urine Leukocyte Esterase 75 H NEGATIVE Kristen/uL Urine RBC 2-5 H 0-1 /HPF Urine WBC 26-50 H 0-1 /HPF Urine Squamous Epithelial Cells RARE 0-2 /HPF Urine Bacteria RARE None Seen /HPF Urine Hyaline Casts 2-5 H 0-1 /LPF /LPF Urine Osmolality 713 50-1200 mOsm/kg Urine Random Creatinine 126.25 30-135 mg/dL Urine Random Sodium 110 40-220 mmol/l Lactic Acid Level 1.4 0.8-2.5 mmol/L Procalcitonin 1.47 H 0.05-0.5 ng/mL Test 09/06/24 19:30 Range/Units White Cell Morphology Comment See comments Red Blood Cell Morphology ANISO 1+ Erythrocyte Sedimentation Rate 5 0-20 MM/HR DIAGNOSTICS / RADIOLOGY: [ ] PROBLEM LIST : Medical Problems: (1) ESTRELLA (acute kidney injury) ICD Codes: N17.9 - Acute kidney failure, unspecified; L08.9 - Local infection of the skin and subcutaneous tissue, unspecified (2) Cellulitis of left lower extremity ICD Codes: L03.116 - Cellulitis of left lower limb (3) Leukocytosis ICD Codes: D72.829 - Elevated white blood cell count, unspecified (4) Wound infection ICD Codes: T14.8XXA - Other injury of unspecified body region, initial encounter; L08.9 - Local infection of the skin and subcutaneous tissue, unspecified (5) 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 Antibiotic therapy as per Infectious Disease Team. Further management per hospital course. Thank you for the consult and allowing us to participate in the care of this patient. Yoan Green [facility] [employer] SENIOR DEVELOPER Sep 07, 2024 15:33
[2024-09-07] MEDS: SODIUM HYPOCHLORITE 0.25% [HALF STRENGTH] 473 ML TOPICAL SOLN TP SCH (19:37)
[2024-09-07] MEDS: (Fluticasone Propion/Salmeterol (Fluticasone-Salmeterol 10 IH SCH (21:00)
[2024-09-07] MEDS: MAGNESIUM OXIDE PO SCH (21:00)
--- NOTE | 2024-09-07 21:21 | CONS ---
INFECTIOUS DISEASE CONSULTATION NOTE Date of Service: Sep 07, 2024 Reason for Consultation: Sepsis. Requesting Physician: Herbert Haddad. HISTORY OF PRESENT ILLNESS: This is a 43-year-old female patient with history of hypertension, high cholesterol, asthma, Arco's disease, obstructive sleep apnea and left lower extremity debridement who presented to the hospital for evaluation of left lower extremity pain, redness and draining, open wounds. Patient reported that it all started with a dog scratch back in February of this year. The wound was debrided at [facility] back in March of this year but seems that new wounds keep opening. Stated that the redness started yesterday. Denied fever or chills. Patient follows up with Dr. Zhou for wound care and is currently on the 6th day of Bactrim p.o as outpatient. She did not see improvement with the Bactrim and decided to come to the emergency room for evaluation. On admission patient had a WBC of 21.1, lactic acid was 1.4 but no fever. On examination today in room 405 the left lower extremity is very tender, warm to touch, swollen and with cellulitis. The 3 open wounds on the left anterior lower extremity are draining yellowish drainage. Wound cultures have been collected and patient has been started on vancomycin and clindamycin. We will start patient on cefepime 1 g IV every 8 hours, discontinue clindamycin and continue with vancomycin per pharmacy protocol. We will follow up on the wound cultures results and change antibiotics if necessary once the cultures are updated on finalized. REVIEW OF SYSTEMS CONSTITUTIONAL: Denies fever, chills, or fatigue. HEAD/FACE: No signs of trauma. EENT: Denies eye pain, blurred vision, double vision, or light sensitivity. RESPIRATORY: Denies shortness of breath, wheezing. Chronic productive cough. CARDIOVASCULAR: Denies chest pain, palpitation, syncope GASTROINTESTINAL/ABDOMINAL: Denies abdominal pain, constipation, diarrhea, nausea or vomiting GENITOURINARY: Denies dysuria or hematuria. MUSCULOSKELETAL: Denies joint pain, tenderness, or trauma. INTEGUMENTARY: Denies rash or itchiness. Left lower extremity draining, open wounds. NEUROLOGICAL/PSYCH: Denies anxiety, depression, heat or cold intolerance. PAST MEDICAL HISTORY: Hypertension, Hypercholesterolemia. Asthma. Obstructive sleep apnea. Arco's disease. Endometriosis. COVID-19 infection. Chronic productive cough since COVID-19 infection. PAST SURGICAL HISTORY: Tracheostomy in 2021 status post removal. Peg tube placement in 2021, s/p removal. Cholecystectomy. Appendectomy. Tonsillectomy. Hysterectomy. Sinus surgery. Adenoidectomy. Kidney stones removal x 3. Left lower extremity wound debridement. PAST SOCIAL HISTORY: Denies the use of tobacco, alcohol or any other illicit drug. FAMILY HISTORY: Father had hypertension. Coded Allergies: amoxicillin (Unverified Allergy, Unknown, RASH, 09/09/24) cephalexin (Unverified Allergy, Unknown, 05/21/24) clavulanic acid (Unverified Allergy, Unknown, RASH, 09/09/24) PHYSICAL EXAM EYES: Anicteric. Pupils equal and reactive. HENT: No oral thrush seen, moist Oral mucosa NECK: Supple, no JVD or thyromegaly. LUNGS: Good air entry. no rhonchi. Crackles bilateral lower lobes. CARDIOVASCULAR: S1, S2 regular. No murmur heard. ABDOMEN: Soft, non tender, bowel sounds present, no organomegaly. CENTRAL NERVOUS SYSTEM: Awake, alert, oriented x 3. SKIN: No rashes, no swelling. Draining open wounds to the left lower ex tremity. LYMPHATICS: No peripheral lymphadenopathy MUSCULOSKELETAL: No joint swelling, erythema or tenderness. EXTREMITIES: No cyanosis or clubbing. Left lower extremity swelling and redness. BACK: No deformity, no pressure ulcer. GENITOURINARY: No dysuria or hematuria Vital Sign (Last 24 Hours) 09/07/24 09/07/24 09/07/24 09:30 16:00 19:04 Temp 98.1 Pulse 115 Resp 18 B/P (MAP) 120/75 Pulse Ox 95 O2 Delivery N/A Room Air O2 Flow Rate 0 FiO2 21 Intake & Output (last 24hrs) 09/06/24 09/06/24 09/07/24 15:00 23:00 07:00 Intake Total 100 ml Balance 100 ml LABS: Laboratory: Test 09/07/24 15:14 09/07/24 06:14 09/07/24 00:38 09/06/24 22:17 Range/Units Whole Blood Glucose 124 H 70-110 MG/DL White Blood Count 13.2 #H 4.8-10.8 K/uL Red Blood Count 4.49 4.00-5.50 MIL/uL Hemoglobin 12.0 12.0-16.0 g/dL Hematocrit 40.1 36-48 % Mean Corpuscular Volume 89.3 79-99 fL Mean Corpuscular Hemoglobin 26.7 L 27.0-33.0 pg Mean Corpuscular Hemoglobin Concent 29.9 L 32.0-36.0 g/dL Red Cell Distribution Width 17.5 H 11.0-15.5 % Platelet Count 208 130-400 K/uL Mean Platelet Volume 10.2 7.5-10.5 fL Immature Granulocyte % (Auto) 0.6 0-1 % Neutrophils (%) (Auto) 85.9 H 40.0-77.0 % Lymphocytes (%) (Auto) 9.3 L 21.0-51.0 % Monocytes (%) (Auto) 3.6 3.0-13.0 % Eosinophils (%) (Auto) 0.2 0.0-8.0 % Basophils (%) (Auto) 0.4 0.0-5.0 % Neutrophils # (Auto) 11.3 H 1.8-7.7 K/uL Lymphocytes # (Auto) 1.2 1.0-4.8 K/uL Monocytes # (Auto) 0.5 0.1-1.0 K/uL Eosinophils # (Auto) 0.03 0.00-0.70 K/uL Basophils # (Auto) 0.05 0.00-0.20 K/uL Absolute Immature Granulocyte (auto 0.08 0-1 K/uL Nucleated Red Blood Cells 0.0 0.0-0.19 % Sodium Level 134 L 136-145 mmol/L Potassium Level 3.8 3.5-5.1 mmol/L Chloride Level 102 101-111 mmol/L Carbon Dioxide Level 24 21-32 mmol/L Blood Urea Nitrogen 26 H 7-18 mg/dL Creatinine 1.0 0.5-1.0 mg/dL Glomerular Filtration Rate Calc 71 >90 mL/min Random Glucose 89 70-105 mg/dL Total Calcium 9.2 8.5-10.1 mg/dL Phosphorus Level 2.8 2.5-4.9 mg/dL Magnesium Level 1.80 1.80-2.40 mg/dL Urine Color LIGHT-YELLOW YELLOW Urine Appearance CLEAR CLEAR Urine pH 6.5 5.0-8.0 Urine Specific [place] 1.022 1.001-1.031 Urine Protein 10 H NEGATIVE mg/dL Urine Glucose (UA) NEGATIVE NEGATIVE mg/dL Urine Ketones NEGATIVE NEGATIVE mg/dL Urine Occult Blood NEGATIVE NEGATIVE Urine Nitrate NEGATIVE NEGATIVE Urine Bilirubin NEGATIVE NEGATIVE mg/dL Urine Urobilinogen 0.2 0.2-1.0 mg/dL Urine Leukocyte Esterase 75 H NEGATIVE Kristen/uL Urine RBC 2-5 H 0-1 /HPF Urine WBC 26-50 H 0-1 /HPF Urine Squamous Epithelial Cells RARE 0-2 /HPF Urine Bacteria RARE None Seen /HPF Urine Hyaline Casts 2-5 H 0-1 /LPF /LPF Urine Osmolality 713 50-1200 mOsm/kg Urine Random Creatinine 126.25 30-135 mg/dL Urine Random Sodium 110 40-220 mmol/l Lactic Acid Level 1.4 0.8-2.5 mmol/L Procalcitonin 1.47 H 0.05-0.5 ng/mL Test 09/06/24 19:30 Range/Units White Cell Morphology Comment See comments Red Blood Cell Morphology ANISO 1+ Erythrocyte Sedimentation Rate 5 0-20 MM/HR ASSESSMENT: Left lower extremity wounds, possible pyoderma gangrenosum. Left lower extremity edema and cellulitis. Leukocytosis. Urinary tract infection. Morbid Obesity. Arco's disease. PLAN: Discontinue clindamycin. Start cefepime 1 g IV every 8 hours. Continue vancomycin per pharmacy protocol. Continue GI prophylaxis. Continue diuretics. Continue pain management. We will follow up on the wound cultures collected. Thank you for allowing ID to participate in the care of this patient. This case was reviewed and discussed with my supervising physician and the above assessment and plan was formulated and agreed upon. ATTESTATION BY PHYSICIAN I have seen and examined the patient. I reviewed the documentation, medical decision making, and treatment plan as noted by the mid-level provider above. I agree with the findings and plan of care. FRANNY STERN MD, MIRTA L [employer] Sep 07, 2024 21:21
[2024-09-07] MEDS: VANCOMYCIN 1.75 GM/250 ML BAG 250 ML IV SCH (21:26)
[2024-09-07] MEDS: FAMOTIDINE 20MG TAB PO SCH (21:27)
[2024-09-08] VITALS (13 sets, daily range): BP systolic 98–141; BP diastolic 65–79; PULSE 84–98; RESP 18–22; TEMP 98.2–99; O2SAT 94–99
[2024-09-08 04:46] LABS: NUCLEATED RED BLOOD CELLS 0.0 % (0.0-0.19); PLATELET COUNT (AUTO) 209.0 K/uL (130-400); RED BLOOD CELL COUNT(AUTO) 3.98 MIL/uL (4.00-5.50); RED CELL DISTRIBUTION WIDTH 17.3 % (11.0-15.5); WHITE BLOOD COUNT (AUTO) 11.7 K/uL (4.8-10.8)
[2024-09-08 05:08] LABS: ASPARTATE AMINOTRANSFERASE 46.0 U/L (10-37); CREATININE 0.8 mg/dL (0.5-1.0); GLOMERULAR FILTR. RATE CALC 93.0 mL/min (>90); GLUCOSE,RANDOM 118.0 mg/dL (70-105); SODIUM SERUM 140.0 mmol/L (136-145); TOTAL PROTEIN, SERUM 6.6 g/dL (6.0-8.3); UREA NITROGEN, BLOOD 19.0 mg/dL (7-18)
--- NOTE | 2024-09-08 07:30 | HMCIMG ---
EXAMINATION: SPECTRAL DOPPLER ULTRASOUND EXAMINATION OF THE LEFT LOWER EXTREMITY VEINS. CLINICAL HISTORY: To rule out DVT. COMPARISON: Bilateral lower extremity venous doppler dated 05/21/2024. TECHNIQUE: Real-time ultrasound scan of the veins of the left lower extremity with color Doppler flow, spectral waveform analysis and compression. FINDINGS: DEEP VEINS: The common femoral, superficial femoral, and popliteal veins are echolucent and compressible. There is normal color Doppler flow throughout. The visualized calf veins appear patent. SUPERFICIAL VEINS: The greater and lesser saphenous veins are patent and compressible. SOFT TISSUES: No popliteal fossa cyst or other abnormalities. IMPRESSION: No deep venous thrombosis evident in the left lower extremity. No superficial thrombophlebitis in the left lower extremity. /Randy
--- NOTE | 2024-09-08 07:37 | HMCIMG ---
EXAMINATION: SOFT TISSUE ULTRASOUND OF THE LEFT LOWER LEG. CLINICAL HISTORY: Palpable swelling. COMPARISON: CT lower extremity with contrast dated 05/22/2024. TECHNIQUE: Transverse and longitudinal images were obtained in the left lower leg. FINDINGS: There are hypoechoic irregular areas in the left lower leg anterior and medial region that measure 1.2 x 0.4 x 1.0 cm and 1.4 x 2.0 x 1.4 cm in craniocaudal, AP, and transverse dimensions respectively. There is minimal peripheral vascularity. IMPRESSION: Features may reflect phlegmon in the left lower leg. /Dulac
[2024-09-08] MEDS: PoTASSium chloRIDE 20MEQ ER 20 MEQ ERTAB PO SCH (08:20)
[2024-09-08] MEDS: amLODIPine 5 MG TAB PO SCH (08:21)
[2024-09-08] MEDS: (Fluticasone/Umeclidin/Vilanter (Trelegy Ellipta 100-62.5- PO SCH (08:24)
[2024-09-08] MEDS: (Chlorthalidone 25 MG) PO SCH (08:24)
[2024-09-08] MEDS: (Cholecalciferol (Vitamin D3) (Vitamin D3) 1 TAB) PO SCH (08:24)
[2024-09-08] MEDS: PoTASSium chloRIDE 20MEQ ER 20 MEQ ERTAB PO ONE (10:06)
--- NOTE | 2024-09-08 11:40 | PN ---
[facility] PROGRESS NOTE Date of Service: Sep 08, 2024 Time of Service: 11:38 SUBJECTIVE: 09/07 patient remains admitted to medical floor, hemodynamically stable, afebrile, saturating normal on room air, WBC trending down 13.2, hemoglobin stable 12.0, hematocrit 40.1, platelet count of 208. X-ray of the left tibia/fibula, no evidence of osteomyelitis. Patient to continue broad-spectrum antibiotics to include vancomycin and clindamycin, we will request Infectious Disease consultation, continue wound care, follow results of wound culture, due to swollen to the left lower extremity with the extensive cellulitis, we will order ultrasound soft tissue to rule out the possibility of underlying abscess, Doppler of the lower extremities, rule out DVT. Home medications has been reviewed and reconciled. At The time of my visit the patient is comfortably bed, alert oriented x3, getting IV antibiotics, getting good pain control with current medical management. Plan of action discussed, all questions answered, in agreement. 09/08 43-year-old female, presented to hospital with a chief complaint of extensive erythema and swelling to the left lower extremity. Patient placed on broad-spectrum IV antibiotics, infectious disease consultation requested. Do ppler of the lower extremities negative for DVT. Ultrasound soft tissue possible abscess, surgical consultation requested, follow input and recommendation. At the time of my visit patient is comfortably in bed, alert oriented x3, getting IV antibiotics, case discussed with the RN, no acute events overnight. REVIEW OF SYSTEMS CONSTITUTIONAL: Denies fevers, chills, or night sweats. No unintentional weight loss reported. NEUROLOGICAL: Denies headache, amaurosis fugax, motor weakness, sensory deficit, vertigo/spinning sensation, gait abnormalities, or tremors. ENT: No hearing loss, otalgia, otorrhea, rhinitis, rhinorrhea, hoarseness, or sore throat. CARDIOVASCULAR: Denies any exertional angina, dyspnea on exertion, orthopnea, paroxysmal nocturnal dyspnea, palpitations, life-threatening arrhythmias, claudication. PULMONARY: Denies any shortness of breath, cough, phlegm/sputum, hemoptysis, pleuritic chest pain. SLEEP: Denies morning headaches, daytime somnolence or napping. Denies difficulty falling asleep, staying asleep, waking from sleep. Denies knowledge of snoring. GASTROINTESTINAL: Denies any type of dysphagia to either liquids or solids. Denies nausea, vomiting, pyrosis, early satiety, abdominal pain, diarrhea, constipation, or changes in stool consistency or caliber. Denies coffee-ground emesis, hematemesis, hematochezia, or melanotic stools. GENITOURINARY: Denies frequency, urgency, nocturia, hematuria or incontinence (Storage/Irritative symptoms.) Low urinary stream, straining to void, urinary intermittency or hesitancy, splitting of the voiding stream, terminal dribbling. ENDOCRINOLOGIC: Denies polyuria, polydipsia, polyphagia or heat/cold intolerances. HEMATOLOGIC: Denies thrombophilia/previous clots, or coagulopathy/bleeding disorders. ONCOLOGIC: Denies personal history of malignancy. DERMATOLOGIC: Denies rashes or pruritus. PSYCHIATRIC: Denies any suicidal or homicidal ideation. Denies hallucinations. PHYSICAL EXAM GENERAL APPEARANCE: The patient is awake, alert, and oriented, in no acute cardiopulmonary distress. NEUROLOGICAL: Cranial nerves II-XII grossly intact. Motor is 5/5 in bilateral upper and lower extremities proximal to distal. No sensory deficits. HEENT: Face is symmetric. Pupils are equal and reactive. Extraocular movements are intact. NECK: Supple. No JVD. No thyromegaly. No submental, submandibular, pre- /postauricular, occipital or supraclavicular lymphadenopathy. CHEST: Normal chest expansion. No Telemetry. LUNGS: Absence of any rales, rhonchi or any wheezing. CARDIOVASCULAR: Regular. S1 and S2 normal. No appreciable rubs, murmurs or gallops. ABDOMEN: Soft, nontender, and nondistended. There is no rebound, voluntary guarding, or rigidity. : Deferred. No Enamorado. EXTREMITIES: Extensive erythema from the left ankle to the knee area, swollen to the left lower extremity, can not exclude possibility of underlying abscess. SKIN: No skin breakdown. Vital Signs (last 8hr) Date Time Temp Pulse Resp B/P (MAP) Pulse Ox O2 Delivery O2 Flow Rate FiO2 09/08/24 11:24 93 18 N/A Room Air 21 09/08/24 11:24 93 18 09/08/24 08:00 99 Room Air* 0 21 09/08/24 08:00 98.2 96 18 113/78 95 Room Air 09/08/24 06:20 85 18 09/08/24 06:19 85 18 N/A Room Air 21 09/08/24 04:00 98.2 90 20 135/65 95 CPAP 09/08/24 03:40 20 21 LABS: Laboratory: Test 09/08/24 11:06 09/08/24 04:29 09/07/24 06:14 09/07/24 00:38 Range/Units Whole Blood Glucose 105 70-110 MG/DL White Blood Count 11.7 H 4.8-10.8 K/uL Red Blood Count 3.98 L 4.00-5.50 MIL/uL Hemoglobin 10.7 L 12.0-16.0 g/dL Hematocrit 34.2 L 36-48 % Mean Corpuscular Volume 85.9 79-99 fL Mean Corpuscular Hemoglobin 26.9 L 27.0-33.0 pg Mean Corpuscular Hemoglobin Concent 31.3 L 32.0-36.0 g/dL Red Cell Distribution Width 17.3 H 11.0-15.5 % Platelet Count 209 130-400 K/uL Mean Platelet Volume 10.2 7.5-10.5 fL Nucleated Red Blood Cells 0.0 0.0-0.19 % Sodium Level 140 136-145 mmol/L Potassium Level 3.5 3.5-5.1 mmol/L Chloride Level 104 101-111 mmol/L Carbon Dioxide Level 30 21-32 mmol/L Blood Urea Nitrogen 19 H 7-18 mg/dL Creatinine 0.8 0.5-1.0 mg/dL Glomerular Filtration Rate Calc 93 >90 mL/min Random Glucose 118 H 70-105 mg/dL Total Calcium 8.8 8.5-10.1 mg/dL Magnesium Level 1.80 1.80-2.40 mg/dL Total Bilirubin 0.4 0.2-1.0 mg/dL Aspartate Amino Transf (AST/SGOT) 46 H 10-37 U/L Alanine Aminotransferase (ALT/SGPT) 123 H 12-78 U/L Alkaline Phosphatase 79 50-136 U/L Total Protein 6.6 6.0-8.3 g/dL Albumin 2.7 L 3.5-5.0 g/dL Immature Granulocyte % (Auto) 0.6 0-1 % Neutrophils (%) (Auto) 85.9 H 40.0-77.0 % Lymphocytes (%) (Auto) 9.3 L 21.0-51.0 % Monocytes (%) (Auto) 3.6 3.0-13.0 % Eosinophils (%) (Auto) 0.2 0.0-8.0 % Basophils (%) (Auto) 0.4 0.0-5.0 % Neutrophils # (Auto) 11.3 H 1.8-7.7 K/uL Lymphocytes # (Auto) 1.2 1.0-4.8 K/uL Monocytes # (Auto) 0.5 0.1-1.0 K/uL Eosinophils # (Auto) 0.03 0.00-0.70 K/uL Basophils # (Auto) 0.05 0.00-0.20 K/uL Absolute Immature Granulocyte (auto 0.08 0-1 K/uL Phosphorus Level 2.8 2.5-4.9 mg/dL Urine Color LIGHT-YELLOW YELLOW Urine Appearance CLEAR CLEAR Urine pH 6.5 5.0-8.0 Urine Specific [place] 1.022 1.001-1.031 Urine Protein 10 H NEGATIVE mg/dL Urine Glucose (UA) NEGATIVE NEGATIVE mg/dL Urine Ketones NEGATIVE NEGATIVE mg/dL Urine Occult Blood NEGATIVE NEGATIVE Urine Nitrate NEGATIVE NEGATIVE Urine Bilirubin NEGATIVE NEGATIVE mg/dL Urine Urobilinogen 0.2 0.2-1.0 mg/dL Urine Leukocyte Esterase 75 H NEGATIVE Kristen/uL Urine RBC 2-5 H 0-1 /HPF Urine WBC 26-50 H 0-1 /HPF Urine Squamous Epithelial Cells RARE 0-2 /HPF Urine Bacteria RARE None Seen /HPF Urine Hyaline Casts 2-5 H 0-1 /LPF /LPF Urine Osmolality 713 50-1200 mOsm/kg Urine Random Creatinine 126.25 30-135 mg/dL Urine Random Sodium 110 40-220 mmol/l Test 09/06/24 22:17 09/06/24 19:30 Range/Units Lactic Acid Level 1.4 0.8-2.5 mmol/L Procalcitonin 1.47 H 0.05-0.5 ng/mL White Cell Morphology Comment See comments Red Blood Cell Morphology ANISO 1+ Erythrocyte Sedimentation Rate 5 0-20 MM/HR Current Medications Medications (Trade) Dose Ordered Sig/Michael Route PRN Reason Start Time Stop Time Status Last Admin Dose Admin Acetaminophen (TYLenol 325MG TAB) 650 mg Q6H PRN PO TEMPERATURE GREATER THAN 101.5 09/06/24 21:00 10/06/24 20:59 09/06/24 23:00 650 MG Acetaminophen/ Hydrocodone Bitart (NORco 5/325MG) 1 tab Q6H PRN PO MODERATE PAIN (4-6) 09/07/24 10:30 09/12/24 10:29 09/08/24 06:43 1 TAB Albuterol Sulfate (Proventil 0.083% 2.5mg/3ml) 2.5 mg [id number] IH 09/07/24 06:00 10/07/24 05:59 09/08/24 11:23 2.5 MG Alendronate Sodium (Fosamax 35mg Tab) 70 mg QWEEK@0630 PO 09/14/24 06:30 10/14/24 06:29 Amlodipine Besylate (NorvASC 5MG TAB) 5 mg DAILY PO 09/08/24 09:00 10/08/24 08:59 09/08/24 08:21 5 MG Atorvastatin Calcium (LIPItor 20MG) 20 mg HS PO 09/07/24 21:00 10/07/24 20:59 09/07/24 21:27 20 MG Buspirone HCl (BUspar) 10 mg BID PO 09/07/24 21:00 10/07/24 20:59 09/08/24 08:21 10 MG Cefepime HCl (MAXipime 1 GM vial) 1 gm Q12H IVPB 09/07/24 15:00 09/17/24 14:59 09/08/24 02:11 1 GM Cetirizine HCl (ZYRtec 5 MG TABLET) 10 mg HS PO 09/08/24 21:00 10/08/24 20:59 Citalopram Hydrobromide (CeleXA 20MG TAB) 40 mg DAILY PO 09/08/24 09:00 10/08/24 08:59 09/08/24 08:21 40 MG Clindamycin HCl/ Dextrose 50 ml @ 100 mls/hr Q8H IV 09/06/24 21:00 09/07/24 13:35 DC 09/07/24 13:16 100 MLS/HR Diphenhydramine HCl (BENAdryl CAP) 50 mg HS PO 09/07/24 21:00 10/07/24 20:59 09/07/24 21:27 50 MG Famotidine (Pepcid 20mg Tab) 20 mg BID PO 09/07/24 21:00 10/07/24 20:59 09/08/24 08:22 20 MG Furosemide (LASix 20MG TAB) 20 mg DAILY PO 09/08/24 09:00 10/08/24 08:59 09/08/24 08:22 20 MG Heparin Sodium (Porcine) (HEParin 5,000 UNIT VIAL) 5,000 unit BID SQ 09/06/24 21:00 10/06/24 20:59 09/08/24 08:30 5,000 UNIT Home Med (Home Medication) (Albuterol Sulfate (Leila... Q6H PRN IH wheezing 09/07/24 10:30 10/07/24 10:29 Home Med (Home Medication) (Chlorthalidone 25 MG) DAILY PO 09/08/24 09:00 10/08/24 08:59 Home Med (Home Medication) (Cholecalciferol (Vitamin D3) (Vitamin D3... DAILY PO 09/08/24 09:00 10/08/24 08:59 Home Med (Home Medication) (Fluticasone Propion/ [place]... HS IH 09/07/24 21:00 10/07/24 20:59 Home Med (Home Medication) (Fluticasone/ Umeclidin/ Vilan... DAILY PO 09/08/24 09:00 10/08/24 08:59 Home Med (Home Medication) (Magnesium Oxide (Magnesi... HS PO 09/07/24 21:00 10/07/24 20:59 Hydralazine HCl (APRESOLine 20MG INJ) 10 mg Q6H PRN IV For:SBP above 160;DBP above 90 09/06/24 21:00 10/06/24 20:59 Lactated Ringer's 1,000 ml @ 75 mls/hr [id number] IV 09/07/24 02:00 10/07/24 01:59 09/07/24 03:04 75 MLS/HR Losartan Potassium (CozAAR 100MG TAB) 100 mg DAILY PO 09/08/24 09:00 10/08/24 08:59 09/08/24 08:23 100 MG Metoprolol Tartrate (loprESSOR) 50 mg BID PO 09/07/24 21:00 10/07/24 20:59 09/08/24 08:23 50 MG Miscellaneous Medication (Meloxicam ) 1 tab DAILY PRN PO BP 09/07/24 10:30 09/07/24 10:16 DC Montelukast Sodium (SinguLAIR) 10 mg DAILY PO 09/08/24 09:00 10/08/24 08:59 09/08/24 08:22 10 MG Morphine Sulfate (morPHINE 2MG SYG) 2 mg Q4H PRN IVP SEVERE PAIN (7-10) 09/06/24 21:30 09/13/24 21:29 09/07/24 00:31 2 MG Ondansetron HCl (zoFRAN 4MG INJ) 4 mg Q6H PRN IV NAUSEA/VOMITING 09/06/24 21:00 10/06/24 20:59 Pantoprazole Sodium (PROTonix 40MG TAB) 40 mg DAILY PO 09/07/24 09:00 09/07/24 10:04 DC 09/07/24 09:08 40 MG Potassium Chloride (K-Dur/Klor-Con 20meq) 20 meq DAILY PO 09/08/24 09:00 10/08/24 08:59 09/08/24 08:20 20 MEQ Prednisone (deltaSONE/ oraSONE 5MG) 5 mg DAILY PO 09/08/24 09:00 10/08/24 08:59 09/08/24 08:22 5 MG Sodium Hypochlorite (Dakin'S 0.25% Half Strength) DAILY17 TP 09/07/24 17:00 10/07/24 16:59 09/07/24 19:37 1 APPL Trazodone HCl (DesyREL/OlepTRO) 100 mg HS PO 09/07/24 21:00 10/07/24 20:59 09/07/24 21:27 100 MG Vancomycin HCl 250 ml @ 125 mls/hr Q24H IV 09/07/24 21:00 09/17/24 20:59 09/07/24 21:26 125 MLS/HR Vancomycin HCl (Vancomycin Protocol) 1 each AD IV 09/06/24 21:00 09/20/24 20:59 DIAGNOSTICS / RADIOLOGY: [ ] ASSESSMENT: Sepsis, POA Extensive left lower extremity cellulitis, POA Anterior tibial left lower extremity wound, can not exclude underlying abscess POA ESTRELLA prerenal, POA Leukocytosis, POA Essential hypertension, POA ROCKY, POA History of Julien's disease, POA History of bronchial asthma, POA PLAN: 43-year-old female, presented to hospital with a chief complaint of extensive erythema and swelling to the left lower extremity. Patient placed on broad- spectrum IV antibiotics, infectious disease consultation requested. Doppler of the lower extremities negative for DVT. Ultrasound soft tissue possible abscess, surgical consultation requested, follow input and recommendation. At the time of my visit patient is comfortably in bed, alert oriented x3, getting IV antibiotics, case discussed with the RN, no acute events overnight. NEURO: Minimize central acting medications as possible. Fall Precautions. Well lighted room through the day and minimize interruptions through the night to prevent acute delirium. PULMONARY: Supplemental 02 as needed BiPAP as necessary, for respiratory distress Titrate Fio2 to keep Spo2 > or = 90% DuoNebs and CPT as needed IS hourly while awake for pulmonary hygiene prn Out of bed to chair as tolerated Maintain aspiration precautions at all times CARDIOVASCULAR: Follow hemodynamics. Vital signs per facility protocol GI & NUTRITION: Continue nutritional support Aspirations precautions Prokinetic agents and laxatives as needed KIDNEYS & ELECTROLYTES: Strict monitoring of intake and output Daily weights Avoid nephrotoxic agents Monitor electrolytes and replace as needed Goal urine output of 30mL/hr or 0.5mL/kg/hr Medications to be dosed according to renal function. Avoid contrast if possible ENDOCRINE: Maintain blood glucose between 100-180 at all times. Insulin sliding scale for blood glucose management Hypoglycemia and hyperglycemia protocol in place INFECTIOUS DISEASE: Trend temperature, WBC and procalcitonin level Follow cultures, deescalate antibiotics as soon as possible. Panculture if new onset fever HEMATOLOGY & COAGULATION: Monitor H&H. Keep Hgb > 7 Transfuse 1 unit of PRBC for Hgb < 7 Transfuse 1 pack of platelets of platelets < 20, 000 Watch for any signs and symptoms of bleeding SKIN: Pressure ulcer prevention per facility protocol Specialty mattress as needed ORTHO/REHAB Continue PT/OT PRN: MEDICATIONS Tylenol 650 mg po every 4 hrs for fever zofran 4 mg IV every 6 hrs for n/v Hydralazine 5 mg IV every 4 hrs systolic pressure > 160 bowel regiment: lactulose 20 gm PO BID PRN constipation Supportive measures: Continue GI and DVT prophylaxis Disposition: Pending improvement in clinical condition All questions answered time spent: > 35 min TRICIA AC MD Sep 08, 2024 11:40
[2024-09-08] MEDS ORDERED: IOHEXOL 350 MG/ML 100ML INFUS..BTL IV ONE (15:33)
--- NOTE | 2024-09-08 15:49 | CONS ---
GENERAL SURGERY CONSULTATION NOTE Date/Time Patient Seen: [ ] Requesting Physician: [ ] Reason for Consultation: [ ] History of Present Illness: This is a pleasant 43-year-old morbidly obese female who has a past medical history significant for Largo's disease and takes chronic steroids. 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 There was a remote history of trauma and the past prior to that and she had it debrided and [facility] earlier this year. She has since then had chronic wound care issues. This past week her left lower leg developed worsening cellulitis. There was increased drainage from the chronic wounds and she has had fevers as well at home. PAST MEDICAL HISTORY: Morbid obesity Hypertension, Hypercholesterolemia. Asthma. Obstructive sleep apnea. Julien's disease. Endometriosis. COVID-19 infection. Chronic productive cough since COVID-19 infection. PAST SURGICAL HISTORY: Tracheostomy in 2021 status post removal. Peg tube placement in 2021, s/p removal. Cholecystectomy. Appendectomy. Tonsillectomy. Hysterectomy. Sinus surgery. Adenoidectomy. Kidney stones removal x 3. Left lower extremity wound debridement. PAST SOCIAL HISTORY: Denies the use of tobacco, alcohol or any other illicit drug. FAMILY HISTORY: Father had hypertension. Coded Allergies: cephalexin (Unverified Allergy, Unknown, 05/21/24) Current Medications Medications (Trade) Dose Ordered Sig/Michael Route Start Time Stop Time Status Last Admin Dose Admin Albuterol Sulfate (Proventil 0.083% 2.5mg/3ml) 2.5 mg [id number] IH 09/07/24 06:00 10/07/24 05:59 09/08/24 11:23 2.5 MG Alendronate Sodium (Fosamax 35mg Tab) 70 mg QWEEK@0630 PO 09/14/24 06:30 10/14/24 06:29 Amlodipine Besylate (NorvASC 5MG TAB) 5 mg DAILY PO 09/08/24 09:00 10/08/24 08:59 09/08/24 08:21 5 MG Atorvastatin Calcium (LIPItor 20MG) 20 mg HS PO 09/07/24 21:00 10/07/24 20:59 09/07/24 21:27 20 MG Buspirone HCl (BUspar) 10 mg BID PO 09/07/24 21:00 10/07/24 20:59 09/08/24 08:21 10 MG Cefepime HCl (MAXipime 1 GM vial) 1 gm Q12H IVPB 09/07/24 15:00 09/17/24 14:59 09/08/24 02:11 1 GM Cetirizine HCl (ZYRtec 5 MG TABLET) 10 mg HS PO 09/08/24 21:00 10/08/24 20:59 Citalopram Hydrobromide (CeleXA 20MG TAB) 40 mg DAILY PO 09/08/24 09:00 10/08/24 08:59 09/08/24 08:21 40 MG Clindamycin HCl/ Dextrose 50 ml @ 100 mls/hr Q8H IV 09/06/24 21:00 09/07/24 13:35 DC 09/07/24 13:16 100 MLS/HR Diphenhydramine HCl (BENAdryl CAP) 50 mg HS PO 09/07/24 21:00 10/07/24 20:59 09/07/24 21:27 50 MG Famotidine (Pepcid 20mg Tab) 20 mg BID PO 09/07/24 21:00 10/07/24 20:59 09/08/24 08:22 20 MG Furosemide (LASix 20MG TAB) 20 mg DAILY PO 09/08/24 09:00 10/08/24 08:59 09/08/24 08:22 20 MG Heparin Sodium (Porcine) (HEParin 5,000 UNIT VIAL) 5,000 unit BID SQ 09/06/24 21:00 10/06/24 20:59 09/08/24 08:30 5,000 UNIT Home Med (Home Medication) (Chlorthalidone 25 MG) DAILY PO 09/08/24 09:00 10/08/24 08:59 Home Med (Home Medication) (Cholecalciferol (Vitamin D3) (Vitamin D3... DAILY PO 09/08/24 09:00 10/08/24 08:59 Home Med (Home Medication) (Fluticasone Propion/ [place]... HS IH 09/07/24 21:00 10/07/24 20:59 Home Med (Home Medication) (Fluticasone/ Umeclidin/ Vilan... DAILY PO 09/08/24 09:00 10/08/24 08:59 Home Med (Home Medication) (Magnesium Oxide (Magnesi... HS PO 09/07/24 21:00 10/07/24 20:59 Lactated Ringer's 1,000 ml @ 75 mls/hr [id number] IV 09/07/24 02:00 10/07/24 01:59 09/07/24 03:04 75 MLS/HR Losartan Potassium (CozAAR 100MG TAB) 100 mg DAILY PO 09/08/24 09:00 10/08/24 08:59 09/08/24 08:23 100 MG Metoprolol Tartrate (loprESSOR) 50 mg BID PO 09/07/24 21:00 10/07/24 20:59 09/08/24 08:23 50 MG Montelukast Sodium (SinguLAIR) 10 mg DAILY PO 09/08/24 09:00 10/08/24 08:59 09/08/24 08:22 10 MG Pantoprazole Sodium (PROTonix 40MG TAB) 40 mg DAILY PO 09/07/24 09:00 09/07/24 10:04 DC 09/07/24 09:08 40 MG Potassium Chloride (K-Dur/Klor-Con 20meq) 20 meq DAILY PO 09/08/24 09:00 10/08/24 08:59 09/08/24 08:20 20 MEQ Prednisone (deltaSONE/ oraSONE 5MG) 5 mg DAILY PO 09/08/24 09:00 10/08/24 08:59 09/08/24 08:22 5 MG Sodium Hypochlorite (Dakin'S 0.25% Half Strength) DAILY17 TP 09/07/24 17:00 10/07/24 16:59 09/07/24 19:37 1 APPL Trazodone HCl (DesyREL/OlepTRO) 100 mg HS PO 09/07/24 21:00 10/07/24 20:59 09/07/24 21:27 100 MG Vancomycin HCl 250 ml @ 125 mls/hr Q24H IV 09/07/24 21:00 09/17/24 20:59 09/07/24 21:26 125 MLS/HR Vancomycin HCl (Vancomycin Protocol) 1 each AD IV 09/06/24 21:00 09/20/24 20:59 Review of Systems: CONST: Positive for fevers EYES: [No recent vision problems.] ENT: [No congestion, ear pain, or sore throat.] C/V: [No chest pain, palpitations, or edema.] RESP: [No cough, congestion, wheezing or shortness of breath.] GI: [No abdominal pain, nausea, vomiting, constipation, or diarrhea.] : [No incontinence or dysuria.] SKIN: [Left lower leg redness with drainage NEURO: [No headache, focal numbness or weakness, dizziness, or seizures.] PSYCH: [No depression or anxiety.] HEME: [No abnormal bruising or bleeding.] LYMPH: [No swollen glands.] Physical Examination: GENERAL: [No acute distress obese.] HEAD: [Normal with no signs of head trauma.] EYES: [PERRLA, EOMI, conjunctiva and sclera normal.] ENT: [Hearing grossly intact, normal oropharynx.] NECK: [Supple without JVD. There is no tenderness, lymphadenopathy, or masses. No thyromegaly. Normal carotid upstrokes without bruits.] LUNGS: [Clear breath sounds bilaterally. There are right basilar rales one third of the way up the chest. No wheezes, or rhonchi.] HEART: [Normal rate and rhythm. Normal S1 and S2 without mumurs, gallop or rub.] VASC: [Peripheral pulses +2 bilaterally.] ABD: [Bowel sounds normal, soft, nontender, no masses, no organomegaly. No audible bruits.] : [Not examined] LYMPH: [No lymphadenopathy noted.] EXT: Left lower leg with significant circumferential cellulitis. There are t hree small areas on the anterior baeza surface. There is some drainage they look like chronic wounds. There might be a fluctuance. SKIN: [No rashes or lesions noted.] NEURO: [Awake, alert, and oriented x3. No focal sensory or strength deficits noted.] Vital Signs (last 8hr) Date Time Temp Pulse Resp B/P (MAP) Pulse Ox O2 Delivery O2 Flow Rate FiO2 09/08/24 12:00 98.4 91 18 141/66 92 Room Air 09/08/24 11:24 93 18 N/A Room Air 21 09/08/24 11:24 93 18 09/08/24 08:00 99 Room Air* 0 21 09/08/24 08:00 98.2 96 18 113/78 95 Room Air Laboratory: [ ] Hematology Labs: Test 09/08/24 04:29 09/07/24 06:14 09/06/24 19:30 Range/Units White Blood Count 11.7 H 4.8-10.8 K/uL Red Blood Count 3.98 L 4.00-5.50 MIL/uL Hemoglobin 10.7 L 12.0-16.0 g/dL Hematocrit 34.2 L 36-48 % Mean Corpuscular Volume 85.9 79-99 fL Mean Corpuscular Hemoglobin 26.9 L 27.0-33.0 pg Mean Corpuscular Hemoglobin Concent 31.3 L 32.0-36.0 g/dL Red Cell Distribution Width 17.3 H 11.0-15.5 % Platelet Count 209 130-400 K/uL Mean Platelet Volume 10.2 7.5-10.5 fL Nucleated Red Blood Cells 0.0 0.0-0.19 % Immature Granulocyte % (Auto) 0.6 0-1 % Neutrophils (%) (Auto) 85.9 H 40.0-77.0 % Lymphocytes (%) (Auto) 9.3 L 21.0-51.0 % Monocytes (%) (Auto) 3.6 3.0-13.0 % Eosinophils (%) (Auto) 0.2 0.0-8.0 % Basophils (%) (Auto) 0.4 0.0-5.0 % Neutrophils # (Auto) 11.3 H 1.8-7.7 K/uL Lymphocytes # (Auto) 1.2 1.0-4.8 K/uL Monocytes # (Auto) 0.5 0.1-1.0 K/uL Eosinophils # (Auto) 0.03 0.00-0.70 K/uL Basophils # (Auto) 0.05 0.00-0.20 K/uL Absolute Immature Granulocyte (auto 0.08 0-1 K/uL White Cell Morphology Comment See comments Red Blood Cell Morphology ANISO 1+ Erythrocyte Sedimentation Rate 5 0-20 MM/HR Chemistry Labs: Test 09/08/24 11:06 09/08/24 04:29 09/07/24 06:14 09/06/24 22:17 Range/Units Whole Blood Glucose 105 70-110 MG/DL Sodium Level 140 136-145 mmol/L Potassium Level 3.5 3.5-5.1 mmol/L Chloride Level 104 101-111 mmol/L Carbon Dioxide Level 30 21-32 mmol/L Blood Urea Nitrogen 19 H 7-18 mg/dL Creatinine 0.8 0.5-1.0 mg/dL Glomerular Filtration Rate Calc 93 >90 mL/min Random Glucose 118 H 70-105 mg/dL Total Calcium 8.8 8.5-10.1 mg/dL Magnesium Level 1.80 1.80-2.40 mg/dL Total Bilirubin 0.4 0.2-1.0 mg/dL Aspartate Amino Transf (AST/SGOT) 46 H 10-37 U/L Alanine Aminotransferase (ALT/SGPT) 123 H 12-78 U/L Alkaline Phosphatase 79 50-136 U/L Total Protein 6.6 6.0-8.3 g/dL Albumin 2.7 L 3.5-5.0 g/dL Phosphorus Level 2.8 2.5-4.9 mg/dL Lactic Acid Level 1.4 0.8-2.5 mmol/L Procalcitonin 1.47 H 0.05-0.5 ng/mL Diagnostics / Radiology: Left lower extremity ultrasound: There are hypoechoic irregular areas in the left lower leg anterior and medial region that measure 1.2 x 0.4 x 1.0 cm and 1.4 x 2.0 x 1.4 cm in craniocaudal, AP, and transverse dimensions respectively. There is minimal peripheral vascularity. IMPRESSION: Features may reflect phlegmon in the left lower leg. Venous Dopplers are negative for DVT Assessment: 43-year-old female with chronic nonhealing left lower extremity wound with significant cellulitis. Plan: We will get a CT scan of the left lower extremity to evaluate for any underlying abscess. The ultrasound of the leg did reference a phlegmon. We will consider taking her to surgery tomorrow for possible drainage and debr idement of the left lower extremity. This is pending results of the CT scan. If she goes to surgery she will need a stress dose of steroids because she takes prednisone daily for her Largo's disease VANDA ANDRE MD Sep 08, 2024 15:49
--- NOTE | 2024-09-08 17:18 | PN ---
INFECTIOUS DISEASE PROGRESS NOTE Date of Service: Sep 08, 2024 SUBJECTIVE: Patient was seen at bedside in room 405. WBC improving, today is 11.7 and no fever, temperature 98.2. No growth reported on the urine culture yet. The left lower extremity wound cultures is growing Gram-negative rods, coagulase-negative Staphylococcus. The left lower extremity ultrasound showed possible phlegmon and general surgeon has been cons ulted. We will continue vancomycin and cefepime. No reports of nausea or vomiting. PHYSICAL EXAM EYES: Anicteric. Pupils equal and reactive. HENT: No oral thrush seen, moist Oral mucosa NECK: Supple, no JVD or thyromegaly. LUNGS: Good air entry. no rhonchi. Crackles bilateral lower lobes. CARDIOVASCULAR: S1, S2 regular. No murmur heard. ABDOMEN: Soft, non tender, bowel sounds present, no organomegaly. CENTRAL NERVOUS SYSTEM: Awake, alert, oriented x 3. SKIN: No rashes, no swelling. Draining open wounds to the left lower extremity. LYMPHATICS: No peripheral lymphadenopathy MUSCULOSKELETAL: No joint swelling, erythema or tenderness. EXTREMITIES: No cyanosis or clubbing. Left lower extremity swelling and redness. BACK: No deformity, no pressure ulcer. GENITOURINARY: No dysuria or hematuria Vital Sign (Last 12 Hours) 09/08/24 09/08/24 09/08/24 09/08/24 06:19 06:20 08:00 08:00 Temp 98.2 Pulse 85 85 96 Resp 18 18 18 B/P (MAP) 113/78 Pulse Ox 95 99 O2 Delivery N/A Room Air Room Air Room Air* O2 Flow Rate 0 FiO2 21 21 09/08/24 09/08/24 09/08/24 09/08/24 11:24 11:24 12:00 16:00 Temp 98.4 98.6 Pulse 93 93 91 84 Resp 18 18 18 18 B/P (MAP) 141/66 132/77 Pulse Ox 92 95 O2 Delivery N/A Room Air Room Air Room Air FiO2 21 Intake & Output (last 24hrs) 09/07/24 09/07/24 09/08/24 15:00 23:00 07:00 Intake Total 480 ml Balance 480 ml LABS: Laboratory: Test 09/08/24 16:11 09/08/24 04:29 09/07/24 06:14 09/07/24 00:38 Range/Units Whole Blood Glucose 124 H 70-110 MG/DL White Blood Count 11.7 H 4.8-10.8 K/uL Red Blood Count 3.98 L 4.00-5.50 MIL/uL Hemoglobin 10.7 L 12.0-16.0 g/dL Hematocrit 34.2 L 36-48 % Mean Corpuscular Volume 85.9 79-99 fL Mean Corpuscular Hemoglobin 26.9 L 27.0-33.0 pg Mean Corpuscular Hemoglobin Concent 31.3 L 32.0-36.0 g/dL Red Cell Distribution Width 17.3 H 11.0-15.5 % Platelet Count 209 130-400 K/uL Mean Platelet Volume 10.2 7.5-10.5 fL Nucleated Red Blood Cells 0.0 0.0-0.19 % Sodium Level 140 136-145 mmol/L Potassium Level 3.5 3.5-5.1 mmol/L Chloride Level 104 101-111 mmol/L Carbon Dioxide Level 30 21-32 mmol/L Blood Urea Nitrogen 19 H 7-18 mg/dL Creatinine 0.8 0.5-1.0 mg/dL Glomerular Filtration Rate Calc 93 >90 mL/min Random Glucose 118 H 70-105 mg/dL Total Calcium 8.8 8.5-10.1 mg/dL Magnesium Level 1.80 1.80-2.40 mg/dL Total Bilirubin 0.4 0.2-1.0 mg/dL Aspartate Amino Transf (AST/SGOT) 46 H 10-37 U/L Alanine Aminotransferase (ALT/SGPT) 123 H 12-78 U/L Alkaline Phosphatase 79 50-136 U/L Total Protein 6.6 6.0-8.3 g/dL Albumin 2.7 L 3.5-5.0 g/dL Immature Granulocyte % (Auto) 0.6 0-1 % Neutrophils (%) (Auto) 85.9 H 40.0-77.0 % Lymphocytes (%) (Auto) 9.3 L 21.0-51.0 % Monocytes (%) (Auto) 3.6 3.0-13.0 % Eosinophils (%) (Auto) 0.2 0.0-8.0 % Basophils (%) (Auto) 0.4 0.0-5.0 % Neutrophils # (Auto) 11.3 H 1.8-7.7 K/uL Lymphocytes # (Auto) 1.2 1.0-4.8 K/uL Monocytes # (Auto) 0.5 0.1-1.0 K/uL Eosinophils # (Auto) 0.03 0.00-0.70 K/uL Basophils # (Auto) 0.05 0.00-0.20 K/uL Absolute Immature Granulocyte (auto 0.08 0-1 K/uL Phosphorus Level 2.8 2.5-4.9 mg/dL Urine Color LIGHT-YELLOW YELLOW Urine Appearance CLEAR CLEAR Urine pH 6.5 5.0-8.0 Urine Specific [place] 1.022 1.001-1.031 Urine Protein 10 H NEGATIVE mg/dL Urine Glucose (UA) NEGATIVE NEGATIVE mg/dL Urine Ketones NEGATIVE NEGATIVE mg/dL Urine Occult Blood NEGATIVE NEGATIVE Urine Nitrate NEGATIVE NEGATIVE Urine Bilirubin NEGATIVE NEGATIVE mg/dL Urine Urobilinogen 0.2 0.2-1.0 mg/dL Urine Leukocyte Esterase 75 H NEGATIVE Kristen/uL Urine RBC 2-5 H 0-1 /HPF Urine WBC 26-50 H 0-1 /HPF Urine Squamous Epithelial Cells RARE 0-2 /HPF Urine Bacteria RARE None Seen /HPF Urine Hyaline Casts 2-5 H 0-1 /LPF /LPF Urine Osmolality 713 50-1200 mOsm/kg Urine Random Creatinine 126.25 30-135 mg/dL Urine Random Sodium 110 40-220 mmol/l Test 09/06/24 22:17 09/06/24 19:30 Range/Units Lactic Acid Level 1.4 0.8-2.5 mmol/L Procalcitonin 1.47 H 0.05-0.5 ng/mL White Cell Morphology Comment See comments Red Blood Cell Morphology ANISO 1+ Erythrocyte Sedimentation Rate 5 0-20 MM/HR ASSESSMENT: Left lower extremity wounds, possible abscess. Left lower extremity cellulitis. Leukocytosis. Urinary tract infection. Morbid Obesity. [place]'s disease. PLAN: Continue vancomycin per pharmacy protocol. Continue cefepime. Continue pain management. Continue GI prophylaxis. Continue diuretics. Continue wound care. We will follow up on the final wound culture results. General surgeon has been consulted for possible abscess. This case was reviewed and discussed with my supervising physician and the above assessment and plan was formulated and agreed upon. ATTESTATION BY PHYSICIAN I have seen and examined the patient. I reviewed the documentation, medical decision making, and treatment plan as noted by the mid-level provider above. I agree with the findings and plan of care. FRANNY STERN MD, MIRTA L [facility] Sep 08, 2024 17:18
--- NOTE | 2024-09-08 17:43 | HMCIMG ---
EXAM: CT Right Lower Extremity, With IV contrast CLINICAL HISTORY: 43-year-old female with a nonhealing chronic wound and cellulitis, assess for abscess TECHNIQUE: Axial images were acquired through the right lower extremity with IV contrast. Reformatted images were reviewed. Dose reduction technique was used including one or more of the following: automated exposure control, adjustment of mA and kV according to patient size, and/or iterative reconstruction. CONTRAST: 98 mL of IV contrast COMPARISON: CT Lower Extremity 05/22/2024 FINDINGS: BONES: No acute fracture. No CT evidence for osteomyelitis. JOINTS: Large knee joint effusion. Moderate osteoarthritis of the knee. SOFT TISSUES: Extensive soft tissue edema of the anterior tibial soft tissues. There is a pretibial anterior fluid collection measuring 4.0 cm by 1.4 cm by 5.6 cm with enhancing shaw consistent with abscess with surrounding cellulitis. Diffuse subcutaneous soft tissue edema of the leg and around the ankle suggesting cellulitis. No other focal fluid collection. Swelling is water density and the patient's habitus is obese. The pre-tibial soft tissue abscess is slightly enlarged compared to the prior CT Lower Extremity 05/22/2024. Multiple chronic findings similar to prior CT Lower Extremity 05/22/2024. IMPRESSION: 1. Pretibial anterior fluid collection with enhancing shaw consistent with abscess, slightly enlarged compared to prior study, with surrounding cellulitis. 2. Extensive soft tissue edema of the anterior tibial soft tissues and diffuse subcutaneous soft tissue edema of the leg and around the ankle, suggesting cellulitis. 3. Large knee joint effusion and moderate osteoarthritis of the knee. 4. No CT evidence for osteomyelitis. /[facility]
[2024-09-09] VITALS (38 sets, daily range): BP systolic 107–152; BP diastolic 50–92; PULSE 86–105; RESP 15–22; TEMP 97.3–98.7; O2SAT 95–100
[2024-09-09 04:34] LABS: NUCLEATED RED BLOOD CELLS 0.0 % (0.0-0.19); PLATELET COUNT (AUTO) 224.0 K/uL (130-400); RED BLOOD CELL COUNT(AUTO) 3.84 MIL/uL (4.00-5.50); RED CELL DISTRIBUTION WIDTH 17.0 % (11.0-15.5); WHITE BLOOD COUNT (AUTO) 11.3 K/uL (4.8-10.8)
[2024-09-09 04:56] LABS: ASPARTATE AMINOTRANSFERASE 27.0 U/L (10-37); CREATININE 0.6 mg/dL (0.5-1.0); GLOMERULAR FILTR. RATE CALC 113.0 mL/min (>90); GLUCOSE,RANDOM 104.0 mg/dL (70-105); SODIUM SERUM 141.0 mmol/L (136-145); TOTAL PROTEIN, SERUM 6.5 g/dL (6.0-8.3); UREA NITROGEN, BLOOD 18.0 mg/dL (7-18)
--- NOTE | 2024-09-09 10:34 | NUR ---
MEDICATION ADMINISTRATION HEPARIN HELD PT GOING FOR I&D WITH DR. ANDRE.
--- NOTE | 2024-09-09 10:59 | PN ---
INFECTIOUS DISEASE PROGRESS NOTE Date of Service: Sep 09, 2024 SUBJECTIVE: Patient was seen at bedside in room 405. Patient is awake, alert and oriented x3. A CT of the left lower extremity showed fluid collection consistent with abscess on the pretibial area and patient is currently NPO for scheduled incision and drainage and possible debridement. The left lower extremity preliminary wound cultures is growing E coli. The WBC is 11.3. No fever, temperature is 98.1. We will continue on vancomycin and cefepime. PHYSICAL EXAM EYES: Anicteric. Pupils equal and reactive. HENT: No oral thrush seen, moist Oral mucosa NECK: Supple, no JVD or thyromegaly. LUNGS: Good air entry. no rhonchi. Chronic cough. CARDIOVASCULAR: S1, S2 regular. No murmur heard. ABDOMEN: Soft, non tender, bowel sounds present, no organomegaly. CENTRAL NERVOUS SYSTEM: Awake, alert, oriented x 3. SKIN: No rashes, no swelling. Draining open wounds to the left lower extremity. LYMPHATICS: No peripheral lymphadenopathy MUSCULOSKELETAL: No joint swelling, erythema or tenderness. EXTREMITIES: No cyanosis or clubbing. Left lower extremity swelling and redness. BACK: No deformity, no pressure ulcer. GENITOURINARY: No dysuria or hematuria Vital Sign (Last 12 Hours) 09/08/24 09/08/24 09/09/24 09/09/24 23:32 23:42 00:00 04:00 Temp 98.8 98.4 Pulse 96 98 87 92 Resp 18 22 20 22 B/P (MAP) 118/50 111/84 Pulse Ox 96 94 O2 Delivery Room Air CPAP FiO2 21 09/09/24 09/09/24 09/09/24 09/09/24 04:33 06:43 06:44 08:00 Temp 98.1 Pulse 93 93 93 90 Resp 20 17 18 18 B/P (MAP) 118/82 Pulse Ox 96 O2 Delivery N/A Room Air Room Air FiO2 21 21 Intake & Output (last 24hrs) 09/08/24 09/08/24 09/09/24 15:00 23:00 07:00 Intake Total 800 ml 400 ml Output Total 800 ml Balance 800 ml -400 ml LABS: Laboratory: Test 09/09/24 05:17 09/09/24 04:27 Range/Units Whole Blood Glucose 99 70-110 MG/DL White Blood Count 11.3 H 4.8-10.8 K/uL Red Blood Count 3.84 L 4.00-5.50 MIL/uL Hemoglobin 10.2 L 12.0-16.0 g/dL Hematocrit 32.9 L 36-48 % Mean Corpuscular Volume 85.7 79-99 fL Mean Corpuscular Hemoglobin 26.6 L 27.0-33.0 pg Mean Corpuscular Hemoglobin Concent 31.0 L 32.0-36.0 g/dL Red Cell Distribution Width 17.0 H 11.0-15.5 % Platelet Count 224 130-400 K/uL Mean Platelet Volume 10.5 7.5-10.5 fL Nucleated Red Blood Cells 0.0 0.0-0.19 % Sodium Level 141 136-145 mmol/L Potassium Level 3.6 3.5-5.1 mmol/L Chloride Level 106 101-111 mmol/L Carbon Dioxide Level 31 21-32 mmol/L Blood Urea Nitrogen 18 7-18 mg/dL Creatinine 0.6 0.5-1.0 mg/dL Glomerular Filtration Rate Calc 113 >90 mL/min Random Glucose 104 70-105 mg/dL Total Calcium 9.0 8.5-10.1 mg/dL Magnesium Level 1.90 1.80-2.40 mg/dL Total Bilirubin 0.3 # 0.2-1.0 mg/dL Aspartate Amino Transf (AST/SGOT) 27 10-37 U/L Alanine Aminotransferase (ALT/SGPT) 93 #H 12-78 U/L Alkaline Phosphatase 77 50-136 U/L Total Protein 6.5 6.0-8.3 g/dL Albumin 2.6 L 3.5-5.0 g/dL ASSESSMENT: Left anterior lower extremity wounds with abscess per CT. Left lower extremity cellulitis. Leukocytosis. Urinary tract infection. Morbid Obesity. Julien's disease. PLAN: Continue vancomycin per pharmacy protocol. Continue cefepime. Continue pain management. Continue GI prophylaxis. Continue diuretics. Continue wound care. We will follow up on the final wound culture results. General surgeon has evaluated patient and scheduled for incision and drainage with possible debridement. This case was reviewed and discussed with my supervising physician and the above assessment and plan was formulated and agreed upon. ATTESTATION BY PHYSICIAN I have seen and examined the patient. I reviewed the documentation, medical decision making, and treatment plan as noted by the mid-level provider above. I agree with the findings and plan of care. FRANNY STERN MD, MIRTA L [facility] Sep 09, 2024 10:59
--- NOTE | 2024-09-09 11:30 | NUR ---
[facility] Follow-up: Patient re-assessed by wound healing team. Pending surgery to left lower leg. Assessment and recommendations provided to primary nurse. Education provided. Addendum: 09/09/24 at 1434 by BRITTNY WHITESIDE RN RN/ Amended: Links added.
--- NOTE | 2024-09-09 11:49 | PN ---
[facility] PROGRESS NOTE Date of Service: Sep 09, 2024 Time of Service: 11:48 SUBJECTIVE: 09/07 patient remains admitted to medical floor, hemodynamically stable, afebrile, saturating normal on room air, WBC trending down 13.2, hemoglobin stable 12.0, hematocrit 40.1, platelet count of 208. X-ray of the left tibia/fibula, no evidence of osteomyelitis. Patient to continue broad-spectrum antibiotics to include vancomycin and clindamycin, we will request Infectious Disease consultation, continue wound care, follow results of wound culture, due to swollen to the left lower extremity with the extensive cellulitis, we will order ultrasound soft tissue to rule out the possibility of underlying abscess, Doppler of the lower extremities, rule out DVT. Home medications has been reviewed and reconciled. At The time of my visit the patient is comfortably bed, alert oriented x3, getting IV antibiotics, getting good pain control with current medical management. Plan of action discussed, all questions answered, in agreement. 09/08 43-year-old female, presented to hospital with a chief complaint of extensive erythema and swelling to the left lower extremity. Patient placed on broad-spectrum IV antibiotics, infectious disease consultation requested. Dop pler of the lower extremities negative for DVT. Ultrasound soft tissue possible abscess, surgical consultation requested, follow input and recommendation. At the time of my visit patient is comfortably in bed, alert oriented x3, getting IV antibiotics, case discussed with the RN, no acute events overnight. 09/09/24 patient was seen earlier. Patient is scheduled for I and D per Dr. Mayes. Answer all questions appropriately. She denied chest pain or shortness for breath REVIEW OF SYSTEMS CONSTITUTIONAL: Denies fevers, chills, or night sweats. No unintentional weight loss reported. NEUROLOGICAL: Denies headache, amaurosis fugax, motor weakness, sensory deficit, vertigo/spinning sensation, gait abnormalities, or tremors. ENT: No hearing loss, otalgia, otorrhea, rhinitis, rhinorrhea, hoarseness, or sore throat. CARDIOVASCULAR: Denies any exertional angina, dyspnea on exertion, orthopnea, paroxysmal nocturnal dyspnea, palpitations, life-threatening arrhythmias, claudication. PULMONARY: Denies any shortness of breath, cough, phlegm/sputum, hemoptysis, pleuritic chest pain. SLEEP: Denies morning headaches, daytime somnolence or napping. Denies difficulty falling asleep, staying asleep, waking from sleep. Denies knowledge of snoring. GASTROINTESTINAL: Denies any type of dysphagia to either liquids or solids. Denies nausea, vomiting, pyrosis, early satiety, abdominal pain, diarrhea, constipation, or changes in stool consistency or caliber. Denies coffee-ground emesis, hematemesis, hematochezia, or melanotic stools. GENITOURINARY: Denies frequency, urgency, nocturia, hematuria or incontinence (Storage/Irritative symptoms.) Low urinary stream, straining to void, urinary intermittency or hesitancy, splitting of the voiding stream, terminal dribbling. ENDOCRINOLOGIC: Denies polyuria, polydipsia, polyphagia or heat/cold intolerances. HEMATOLOGIC: Denies thrombophilia/previous clots, or coagulopathy/bleeding disorders. ONCOLOGIC: Denies personal history of malignancy. DERMATOLOGIC: Denies rashes or pruritus. PSYCHIATRIC: Denies any suicidal or homicidal ideation. Denies hallucinations. PHYSICAL EXAM GENERAL APPEARANCE: The patient is awake, alert, and oriented, in no acute cardiopulmonary distress. NEUROLOGICAL: Cranial nerves II-XII grossly intact. Motor is 5/5 in bilateral upper and lower extremities proximal to distal. No sensory deficits. HEENT: Face is symmetric. Pupils are equal and reactive. Extraocular movements are intact. NECK: Supple. No JVD. No thyromegaly. No submental, submandibular, pre- /postauricular, occipital or supraclavicular lymphadenopathy. CHEST: Normal chest expansion. No Telemetry. LUNGS: Absence of any rales, rhonchi or any wheezing. CARDIOVASCULAR: Regular. S1 and S2 normal. No appreciable rubs, murmurs or gallops. ABDOMEN: Soft, nontender, and nondistended. There is no rebound, voluntary guarding, or rigidity. : Deferred. No Enamorado. EXTREMITIES: Extensive erythema from the left ankle to the knee area, swollen to the left lower extremity, can not exclude possibility of underlying abscess. SKIN: No skin breakdown. Vital Signs (last 8hr) Date Time Temp Pulse Resp B/P (MAP) Pulse Ox O2 Delivery O2 Flow Rate FiO2 09/09/24 11:17 101 18 N/A Room Air 21 09/09/24 11:14 101 18 09/09/24 09:22 96 Room Air* 0 09/09/24 08:00 98.1 90 18 118/82 96 Room Air 09/09/24 06:44 93 18 N/A Room Air 09/09/24 06:43 93 17 09/09/24 04:33 93 20 09/09/24 04:00 98.4 92 22 111/84 94 CPAP LABS: Laboratory: Test 09/09/24 05:17 09/09/24 04:27 Range/Units Whole Blood Glucose 99 70-110 MG/DL White Blood Count 11.3 H 4.8-10.8 K/uL Red Blood Count 3.84 L 4.00-5.50 MIL/uL Hemoglobin 10.2 L 12.0-16.0 g/dL Hematocrit 32.9 L 36-48 % Mean Corpuscular Volume 85.7 79-99 fL Mean Corpuscular Hemoglobin 26.6 L 27.0-33.0 pg Mean Corpuscular Hemoglobin Concent 31.0 L 32.0-36.0 g/dL Red Cell Distribution Width 17.0 H 11.0-15.5 % Platelet Count 224 130-400 K/uL Mean Platelet Volume 10.5 7.5-10.5 fL Nucleated Red Blood Cells 0.0 0.0-0.19 % Sodium Level 141 136-145 mmol/L Potassium Level 3.6 3.5-5.1 mmol/L Chloride Level 106 101-111 mmol/L Carbon Dioxide Level 31 21-32 mmol/L Blood Urea Nitrogen 18 7-18 mg/dL Creatinine 0.6 0.5-1.0 mg/dL Glomerular Filtration Rate Calc 113 >90 mL/min Random Glucose 104 70-105 mg/dL Total Calcium 9.0 8.5-10.1 mg/dL Magnesium Level 1.90 1.80-2.40 mg/dL Total Bilirubin 0.3 # 0.2-1.0 mg/dL Aspartate Amino Transf (AST/SGOT) 27 10-37 U/L Alanine Aminotransferase (ALT/SGPT) 93 #H 12-78 U/L Alkaline Phosphatase 77 50-136 U/L Total Protein 6.5 6.0-8.3 g/dL Albumin 2.6 L 3.5-5.0 g/dL Current Medications Medications (Trade) Dose Ordered Sig/Michael Route PRN Reason Start Time Stop Time Status Last Admin Dose Admin Acetaminophen (TYLenol 325MG TAB) 650 mg Q6H PRN PO TEMPERATURE GREATER THAN 101.5 09/06/24 21:00 10/06/24 20:59 09/06/24 23:00 650 MG Acetaminophen/ Hydrocodone Bitart (NORco 5/325MG) 1 tab Q6H PRN PO MODERATE PAIN (4-6) 09/07/24 10:30 09/12/24 10:29 09/08/24 16:36 1 TAB Albuterol Sulfate (Proventil 0.083% 2.5mg/3ml) 2.5 mg [id number] IH 09/07/24 06:00 10/07/24 05:59 09/09/24 11:16 2.5 MG Alendronate Sodium (Fosamax 35mg Tab) 70 mg QWEEK@0630 PO 09/14/24 06:30 10/14/24 06:29 Amlodipine Besylate (NorvASC 5MG TAB) 5 mg DAILY PO 09/08/24 09:00 10/08/24 08:59 09/08/24 08:21 5 MG Atorvastatin Calcium (LIPItor 20MG) 20 mg HS PO 09/07/24 21:00 10/07/24 20:59 09/08/24 20:42 20 MG Buspirone HCl (BUspar) 10 mg BID PO 09/07/24 21:00 10/07/24 20:59 09/08/24 20:42 10 MG Cefepime HCl (MAXipime 1 GM vial) 1 gm Q12H IVPB 09/07/24 15:00 09/17/24 14:59 09/09/24 02:42 1 GM Cetirizine HCl (ZYRtec 5 MG TABLET) 10 mg HS PO 09/08/24 21:00 10/08/24 20:59 Citalopram Hydrobromide (CeleXA 20MG TAB) 40 mg DAILY PO 09/08/24 09:00 10/08/24 08:59 09/08/24 08:21 40 MG Clindamycin HCl/ Dextrose 50 ml @ 100 mls/hr Q8H IV 09/06/24 21:00 09/07/24 13:35 DC 09/07/24 13:16 100 MLS/HR Diphenhydramine HCl (BENAdryl CAP) 50 mg HS PO 09/07/24 21:00 10/07/24 20:59 09/08/24 20:42 50 MG Famotidine (Pepcid 20mg Tab) 20 mg BID PO 09/07/24 21:00 10/07/24 20:59 09/08/24 20:42 20 MG Furosemide (LASix 20MG TAB) 20 mg DAILY PO 09/08/24 09:00 10/08/24 08:59 09/08/24 08:22 20 MG Heparin Sodium (Porcine) (HEParin 5,000 UNIT VIAL) 5,000 unit BID SQ 09/06/24 21:00 10/06/24 20:59 09/08/24 08:30 5,000 UNIT Home Med (Home Medication) (Albuterol Sulfate (Leila... Q6H PRN IH wheezing 09/07/24 10:30 10/07/24 10:29 Home Med (Home Medication) (Chlorthalidone 25 MG) DAILY PO 09/08/24 09:00 10/08/24 08:59 Home Med (Home Medication) (Cholecalciferol (Vitamin D3) (Vitamin D3... DAILY PO 09/08/24 09:00 10/08/24 08:59 Home Med (Home Medication) (Fluticasone Propion/ [place]... HS IH 09/07/24 21:00 10/07/24 20:59 Home Med (Home Medication) (Fluticasone/ Umeclidin/ Vilan... DAILY PO 09/08/24 09:00 10/08/24 08:59 Home Med (Home Medication) (Magnesium Oxide (Magnesi... HS PO 09/07/24 21:00 10/07/24 20:59 Hydralazine HCl (APRESOLine 20MG INJ) 10 mg Q6H PRN IV For:SBP above 160;DBP above 90 09/06/24 21:00 10/06/24 20:59 Lactated Ringer's 1,000 ml @ 75 mls/hr [id number] IV 09/07/24 02:00 10/07/24 01:59 09/08/24 18:49 75 MLS/HR Losartan Potassium (CozAAR 100MG TAB) 100 mg DAILY PO 09/08/24 09:00 10/08/24 08:59 09/08/24 08:23 100 MG Metoprolol Tartrate (loprESSOR) 50 mg BID PO 09/07/24 21:00 10/07/24 20:59 09/09/24 11:35 50 MG Miscellaneous Medication (Meloxicam ) 1 tab DAILY PRN PO BP 09/07/24 10:30 09/07/24 10:16 DC Montelukast Sodium (SinguLAIR) 10 mg DAILY PO 09/08/24 09:00 10/08/24 08:59 09/08/24 08:22 10 MG Morphine Sulfate (morPHINE 2MG SYG) 2 mg Q4H PRN IVP SEVERE PAIN (7-10) 09/06/24 21:30 09/13/24 21:29 09/07/24 00:31 2 MG Ondansetron HCl (zoFRAN 4MG INJ) 4 mg Q6H PRN IV NAUSEA/VOMITING 09/06/24 21:00 10/06/24 20:59 Pantoprazole Sodium (PROTonix 40MG TAB) 40 mg DAILY PO 09/07/24 09:00 09/07/24 10:04 DC 09/07/24 09:08 40 MG Potassium Chloride (K-Dur/Klor-Con 20meq) 20 meq DAILY PO 09/08/24 09:00 10/08/24 08:59 09/08/24 08:20 20 MEQ Prednisone (deltaSONE/ oraSONE 5MG) 5 mg DAILY PO 09/08/24 09:00 10/08/24 08:59 09/08/24 08:22 5 MG Sodium Hypochlorite (Dakin'S 0.25% Half Strength) DAILY17 TP 09/07/24 17:00 10/07/24 16:59 09/08/24 16:41 1 APPL Trazodone HCl (DesyREL/OlepTRO) 100 mg HS PO 09/07/24 21:00 10/07/24 20:59 09/08/24 20:42 100 MG Vancomycin HCl 250 ml @ 125 mls/hr Q24H IV 09/07/24 21:00 09/17/24 20:59 09/08/24 20:43 125 MLS/HR Vancomycin HCl (Vancomycin Protocol) 1 each AD IV 09/06/24 21:00 09/20/24 20:59 DIAGNOSTICS / RADIOLOGY: [ ] ASSESSMENT: Sepsis, POA Extensive left lower extremity cellulitis, POA Anterior tibial left lower extremity wound, can not exclude underlying abscess P OA ESTRELLA prerenal, POA Leukocytosis, POA Essential hypertension, POA ROCKY, POA History of Boone's disease, POA History of bronchial asthma, POA PLAN: Patient is scheduled for I and D of left lower extremity per Dr. Mayes. Patient is tolerating broad-spectrum IV antibiotics infectious disease following denies diarrhea. NEURO: Minimize central acting medications as possible. Fall Precautions. Well lighted room through the day and minimize interruptions through the night to prevent acute delirium. PULMONARY: Supplemental 02 as needed BiPAP as necessary, for respiratory distress Titrate Fio2 to keep Spo2 > or = 90% DuoNebs and CPT as needed IS hourly while awake for pulmonary hygiene prn Out of bed to chair as tolerated Maintain aspiration precautions at all times CARDIOVASCULAR: Follow hemodynamics. Vital signs per facility protocol GI & NUTRITION: Continue nutritional support Aspirations precautions Prokinetic agents and laxatives as needed KIDNEYS & ELECTROLYTES: Strict monitoring of intake and output Daily weights Avoid nephrotoxic agents Monitor electrolytes and replace as needed Goal urine output of 30mL/hr or 0.5mL/kg/hr Medications to be dosed according to renal function. Avoid contrast if possible ENDOCRINE: Maintain blood glucose between 100-180 at all times. Insulin sliding scale for blood glucose management Hypoglycemia and hyperglycemia protocol in place INFECTIOUS DISEASE: Trend temperature, WBC and procalcitonin level Follow cultures, deescalate antibiotics as soon as possible. Panculture if new onset fever HEMATOLOGY & COAGULATION: Monitor H&H. Keep Hgb > 7 Transfuse 1 unit of PRBC for Hgb < 7 Transfuse 1 pack of platelets of platelets < 20, 000 Watch for any signs and symptoms of bleeding SKIN: Pressure ulcer prevention per facility protocol Specialty mattress as needed ORTHO/REHAB Continue PT/OT PRN: MEDICATIONS Tylenol 650 mg po every 4 hrs for fever zofran 4 mg IV every 6 hrs for n/v Hydralazine 5 mg IV every 4 hrs systolic pressure > 160 bowel regiment: lactulose 20 gm PO BID PRN constipation Supportive measures: Continue GI and DVT prophylaxis Disposition: Pending improvement in clinical condition All questions answered time spent: > 35 min ATTESTATION BY PHYSICIAN I have seen and examined the patient. I reviewed the documentation, medical decision making, and treatment plan as noted by the mid-level provider above. I agree with the findings and plan of care. LENNOX ABBASI MD, ELIZABETH NP Sep 09, 2024 11:49
--- NOTE | 2024-09-09 14:27 | NUR ---
PATIENT OFF UNIT PATIENT OFF UNIT FOR PROCEDURE.
[2024-09-09] MEDS ORDERED: MIDAZOLAM HCL 1 MG/ML 2ML VIAL ONE (14:54)
[2024-09-09] MEDS: SUGAMMADEX SODIUM 200 MG/2 ML VIAL IV ONE (16:10)
--- NOTE | 2024-09-09 16:30 | OP ---
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 I and D of the left lower extremity as well as possible debridement was indicated. She has Julien's disease and takes chronic steroids. And we plan to give her a stress dose of steroids at surgery. DESCRIPTION OF PROCEDURE: The patient was taken to the operating room and placed on the operating table in supine position. Next general anesthesia was induced and the patient was intubated. Her left lower extremity was prepped and draped in sterile fashion. A time-out was called and the patient's identity, procedure, preoperative antibiotics and stress steroids were all confirmed. I initially attempted to aspirate where I thought the abscess cavity would be. I was unable to aspirate any purulent contents. There left lower extremity was so brawny edematous that I only was able to aspirate serous fluid. I tried multiple areas near and above the chronic nonhealing wounds. Next I made a generous excision using electrocautery to encompass the three chronic nonhealing wounds. I did not see any pus. I was unable to send any fluid cultures. Hemostasis was obtained with electrocautery and packing. I irrigated the wound with normal saline. The final wound measured 8.5 x 6 x 1 cm in size. A wound VAC was placed for negative pressure therapy. Sponge, needle instrument counts were accurate. The patient's anesthesia was reversed and she was taken to recovery room in stable condition. VANDA ANDRE MD Sep 09, 2024 16:30
--- NOTE | 2024-09-09 16:33 | NUR ---
NURSING OBSERVATION PATIENT OFF UNIT FOR PROCEDURE UNABLE TO ASSESS. Addendum: 09/09/24 at 1634 by STAR MONREAL RN RN Amended: Links added.
--- NOTE | 2024-09-09 17:30 | NUR ---
UNIT ARRIVAL RECEIVED PATIENT FROM PACU NURSE DARIUS. PATIENT AWAKE ALERT AND ORIENTED. WOUND VAC TO LEFT LEG NOTED. VITAL SIGNS STABLE, PATIENT REPORTS NO PAIN AT THIS TIME.
[2024-09-09] MEDS: VANCOMYCIN 1.75 GM/250 ML BAG 250 ML IV SCH (21:08)
[2024-09-10] VITALS (15 sets, daily range): BP systolic 107–127; BP diastolic 65–87; PULSE 70–102; RESP 16–20; TEMP 98–98.7; O2SAT 94–99
--- NOTE | 2024-09-10 10:59 | PN ---
[facility] PROGRESS NOTE Date of Service: Sep 10, 2024 Time of Service: 10:56 SUBJECTIVE: 09/07 patient remains admitted to medical floor, hemodynamically stable, afebrile, saturating normal on room air, WBC trending down 13.2, hemoglobin stable 12.0, hematocrit 40.1, platelet count of 208. X-ray of the left tibia/fibula, no evidence of osteomyelitis. Patient to continue broad-spectrum antibiotics to include vancomycin and clindamycin, we will request Infectious Disease consultation, continue wound care, follow results of wound culture, due to swollen to the left lower extremity with the extensive cellulitis, we will order ultrasound soft tissue to rule out the possibility of underlying abscess, Doppler of the lower extremities, rule out DVT. Home medications has been reviewed and reconciled. At The time of my visit the patient is comfortably bed, alert oriented x3, getting IV antibiotics, getting good pain control with current medical management. Plan of action discussed, all questions answered, in agreement. 09/08 43-year-old female, presented to hospital with a chief complaint of extensive erythema and swelling to the left lower extremity. Patient placed on broad-spectrum IV antibiotics, infectious disease consultation requested. Dop pler of the lower extremities negative for DVT. Ultrasound soft tissue possible abscess, surgical consultation requested, follow input and recommendation. At the time of my visit patient is comfortably in bed, alert oriented x3, getting IV antibiotics, case discussed with the RN, no acute events overnight. 09/09/24 patient was seen earlier. Patient is scheduled for I and D per Dr. Mayes. Answer all questions appropriately. She denied chest pain or shortness for breath 09/10/24 patient is lying in bed patient has a wound VAC to her right lower extremity status post I&D day #1 recuperating well. She is tolerating IV antibiotics denies fever chills reports semi loose stools. All questions were addressed REVIEW OF SYSTEMS CONSTITUTIONAL: Denies fevers, chills, or night sweats. No unintentional weight loss reported. NEUROLOGICAL: Denies headache, amaurosis fugax, motor weakness, sensory deficit, vertigo/spinning sensation, gait abnormalities, or tremors. ENT: No hearing loss, otalgia, otorrhea, rhinitis, rhinorrhea, hoarseness, or sore throat. CARDIOVASCULAR: Denies any exertional angina, dyspnea on exertion, orthopnea, paroxysmal nocturnal dyspnea, palpitations, life-threatening arrhythmias, claudication. PULMONARY: Denies any shortness of breath, cough, phlegm/sputum, hemoptysis, pleuritic chest pain. SLEEP: Denies morning headaches, daytime somnolence or napping. Denies difficulty falling asleep, staying asleep, waking from sleep. Denies knowledge of snoring. GASTROINTESTINAL: Denies any type of dysphagia to either liquids or solids. Denies nausea, vomiting, pyrosis, early satiety, abdominal pain, diarrhea, constipation, or changes in stool consistency or caliber. Denies coffee-ground emesis, hematemesis, hematochezia, or melanotic stools. GENITOURINARY: Denies frequency, urgency, nocturia, hematuria or incontinence (Storage/Irritative symptoms.) Low urinary stream, straining to void, urinary intermittency or hesitancy, splitting of the voiding stream, terminal dribbling. ENDOCRINOLOGIC: Denies polyuria, polydipsia, polyphagia or heat/cold intolerances. HEMATOLOGIC: Denies thrombophilia/previous clots, or coagulopathy/bleeding disorders. ONCOLOGIC: Denies personal history of malignancy. DERMATOLOGIC: Denies rashes or pruritus. PSYCHIATRIC: Denies any suicidal or homicidal ideation. Denies hallucinations. PHYSICAL EXAM GENERAL APPEARANCE: The patient is awake, alert, and oriented, in no acute cardiopulmonary distress. NEUROLOGICAL: Cranial nerves II-XII grossly intact. Motor is 5/5 in bilateral upper and lower extremities proximal to distal. No sensory deficits. HEENT: Face is symmetric. Pupils are equal and reactive. Extraocular movements are intact. NECK: Supple. No JVD. No thyromegaly. No submental, submandibular, pre- /postauricular, occipital or supraclavicular lymphadenopathy. CHEST: Normal chest expansion. No Telemetry. LUNGS: Absence of any rales, rhonchi or any wheezing. CARDIOVASCULAR: Regular. S1 and S2 normal. No appreciable rubs, murmurs or gallops. ABDOMEN: Soft, nontender, and nondistended. There is no rebound, voluntary guarding, or rigidity. : Deferred. No Enamorado. EXTREMITIES: Extensive erythema from the left ankle to the knee area, swollen to the left lower extremity, can not exclude possibility of underlying abscess. SKIN: No skin breakdown. Vital Signs (last 8hr) Date Time Temp Pulse Resp B/P (MAP) Pulse Ox O2 Delivery O2 Flow Rate FiO2 09/10/24 08:52 98 Room Air* 0 21 09/10/24 08:00 98.1 102 18 125/87 98 Room Air 09/10/24 06:09 87 18 N/A Room Air 09/10/24 06:09 87 19 09/10/24 04:10 91 20 21 09/10/24 03:43 98.8 78 16 127/85 93 CPAP LABS: Laboratory: Test 09/10/24 05:04 09/09/24 20:08 09/09/24 04:27 Range/Units Whole Blood Glucose 103 70-110 MG/DL Vancomycin Level Trough 4.4 #L 10.0-20.0 UG/ML White Blood Count 11.3 H 4.8-10.8 K/uL Red Blood Count 3.84 L 4.00-5.50 MIL/uL Hemoglobin 10.2 L 12.0-16.0 g/dL Hematocrit 32.9 L 36-48 % Mean Corpuscular Volume 85.7 79-99 fL Mean Corpuscular Hemoglobin 26.6 L 27.0-33.0 pg Mean Corpuscular Hemoglobin Concent 31.0 L 32.0-36.0 g/dL Red Cell Distribution Width 17.0 H 11.0-15.5 % Platelet Count 224 130-400 K/uL Mean Platelet Volume 10.5 7.5-10.5 fL Nucleated Red Blood Cells 0.0 0.0-0.19 % Sodium Level 141 136-145 mmol/L Potassium Level 3.6 3.5-5.1 mmol/L Chloride Level 106 101-111 mmol/L Carbon Dioxide Level 31 21-32 mmol/L Blood Urea Nitrogen 18 7-18 mg/dL Creatinine 0.6 0.5-1.0 mg/dL Glomerular Filtration Rate Calc 113 >90 mL/min Random Glucose 104 70-105 mg/dL Total Calcium 9.0 8.5-10.1 mg/dL Magnesium Level 1.90 1.80-2.40 mg/dL Total Bilirubin 0.3 # 0.2-1.0 mg/dL Aspartate Amino Transf (AST/SGOT) 27 10-37 U/L Alanine Aminotransferase (ALT/SGPT) 93 #H 12-78 U/L Alkaline Phosphatase 77 50-136 U/L Total Protein 6.5 6.0-8.3 g/dL Albumin 2.6 L 3.5-5.0 g/dL Current Medications Medications (Trade) Dose Ordered Sig/Michael Route PRN Reason Start Time Stop Time Status Last Admin Dose Admin Acetaminophen (TYLenol 325MG TAB) 650 mg Q6H PRN PO TEMPERATURE GREATER THAN 101.5 09/06/24 21:00 10/06/24 20:59 09/06/24 23:00 650 MG Acetaminophen/ Hydrocodone Bitart (NORco 5/325MG) 1 tab Q6H PRN PO MODERATE PAIN (4-6) 09/07/24 10:30 09/12/24 10:29 09/10/24 08:50 1 TAB Albuterol Sulfate (Proventil 0.083% 2.5mg/3ml) 2.5 mg [id number] IH 09/07/24 06:00 10/07/24 05:59 09/10/24 06:06 2.5 MG Alendronate Sodium (Fosamax 35mg Tab) 70 mg QWEEK@0630 PO 09/14/24 06:30 10/14/24 06:29 Amlodipine Besylate (NorvASC 5MG TAB) 5 mg DAILY PO 09/08/24 09:00 10/08/24 08:59 09/10/24 08:38 5 MG Atorvastatin Calcium (LIPItor 20MG) 20 mg HS PO 09/07/24 21:00 10/07/24 20:59 09/09/24 20:55 20 MG Buspirone HCl (BUspar) 10 mg BID PO 09/07/24 21:00 10/07/24 20:59 09/10/24 08:37 10 MG Cefepime HCl (MAXipime 1 GM vial) 1 gm Q12H IVPB 09/07/24 15:00 09/17/24 14:59 09/10/24 03:15 1 GM Cetirizine HCl (ZYRtec 5 MG TABLET) 10 mg HS PO 09/08/24 21:00 10/08/24 20:59 Citalopram Hydrobromide (CeleXA 20MG TAB) 40 mg DAILY PO 09/08/24 09:00 10/08/24 08:59 09/10/24 08:36 40 MG Clindamycin HCl/ Dextrose 50 ml @ 100 mls/hr Q8H IV 09/06/24 21:00 09/07/24 13:35 DC 09/07/24 13:16 100 MLS/HR Diphenhydramine HCl (BENAdryl CAP) 50 mg HS PO 09/07/24 21:00 10/07/24 20:59 09/09/24 20:35 50 MG Famotidine (Pepcid 20mg Tab) 20 mg BID PO 09/07/24 21:00 10/07/24 20:59 09/10/24 08:38 20 MG Furosemide (LASix 20MG TAB) 20 mg DAILY PO 09/08/24 09:00 10/08/24 08:59 09/10/24 08:38 20 MG Heparin Sodium (Porcine) (HEParin 5,000 UNIT VIAL) 5,000 unit BID SQ 09/06/24 21:00 10/06/24 20:59 09/10/24 08:46 5,000 UNIT Home Med (Home Medication) (Albuterol Sulfate (Leila... Q6H PRN IH wheezing 09/07/24 10:30 10/07/24 10:29 Home Med (Home Medication) (Chlorthalidone 25 MG) DAILY PO 09/08/24 09:00 10/08/24 08:59 Home Med (Home Medication) (Cholecalciferol (Vitamin D3) (Vitamin D3... DAILY PO 09/08/24 09:00 10/08/24 08:59 Home Med (Home Medication) (Fluticasone Propion/ [place]... HS IH 09/07/24 21:00 10/07/24 20:59 09/09/24 20:55 1 EACH Home Med (Home Medication) (Fluticasone/ Umeclidin/ Vilan... DAILY PO 09/08/24 09:00 10/08/24 08:59 Home Med (Home Medication) (Magnesium Oxide (Magnesi... HS PO 09/07/24 21:00 10/07/24 20:59 09/09/24 20:55 1 EACH Hydralazine HCl (APRESOLine 20MG INJ) 10 mg Q6H PRN IV For:SBP above 160;DBP above 90 09/06/24 21:00 10/06/24 20:59 Hydromorphone HCl (DiLAUDid 1MG INJ) 1 mg Q6H PRN IVP SEVERE PAIN (7-10) 09/09/24 16:30 09/14/24 16:29 Lactated Ringer's 1,000 ml @ 75 mls/hr [id number] IV 09/07/24 02:00 10/07/24 01:59 09/09/24 20:54 75 MLS/HR Losartan Potassium (CozAAR 100MG TAB) 100 mg DAILY PO 09/08/24 09:00 10/08/24 08:59 09/10/24 08:38 100 MG Metoprolol Tartrate (loprESSOR) 50 mg BID PO 09/07/24 21:00 10/07/24 20:59 09/10/24 08:36 50 MG Miscellaneous Medication (Meloxicam ) 1 tab DAILY PRN PO BP 09/07/24 10:30 09/07/24 10:16 DC Montelukast Sodium (SinguLAIR) 10 mg DAILY PO 09/08/24 09:00 10/08/24 08:59 09/10/24 08:38 10 MG Morphine Sulfate (morPHINE 2MG SYG) 2 mg Q4H PRN IVP SEVERE PAIN (7-10) 09/06/24 21:30 09/09/24 16:36 DC 09/07/24 00:31 2 MG Ondansetron HCl (zoFRAN 4MG INJ) 4 mg Q6H PRN IV NAUSEA/VOMITING 09/06/24 21:00 10/06/24 20:59 Pantoprazole Sodium (PROTonix 40MG TAB) 40 mg DAILY PO 09/07/24 09:00 09/07/24 10:04 DC 09/07/24 09:08 40 MG Potassium Chloride (K-Dur/Klor-Con 20meq) 20 meq DAILY PO 09/08/24 09:00 10/08/24 08:59 09/10/24 08:39 20 MEQ Prednisone (deltaSONE/ oraSONE 5MG) 5 mg DAILY PO 09/08/24 09:00 10/08/24 08:59 09/10/24 08:38 5 MG Sodium Hypochlorite (Dakin'S 0.25% Half Strength) DAILY17 TP 09/07/24 17:00 8/29/25 16:59 09/08/24 16:41 1 APPL Trazodone HCl (DesyREL/OlepTRO) 100 mg HS PO 09/07/24 21:00 10/07/24 20:59 09/09/24 20:35 100 MG Vancomycin HCl 250 ml @ 125 mls/hr Q12H IV 09/09/24 21:00 09/17/24 20:59 09/10/24 10:44 125 MLS/HR Vancomycin HCl 250 ml @ 125 mls/hr Q24H IV 09/07/24 21:00 09/09/24 21:01 DC 09/08/24 20:43 125 MLS/HR Vancomycin HCl (Vancomycin Protocol) 1 each AD IV 09/06/24 21:00 09/20/24 20:59 DIAGNOSTICS / RADIOLOGY: [ ] ASSESSMENT: Sepsis, POA Extensive left lower extremity cellulitis, POA Anterior tibial left lower extremity wound, can not exclude underlying abscess POA s/p ID requiring wound vac. ESTRELLA prerenal, POA Leukocytosis, POA Essential hypertension, POA ROCKY, POA History of Julien's disease, POA History of bronchial asthma, POA PLAN: POST OP Day #1 I and D with Wound Vac to left lower extremity. Continues with broad-spectrum antibiotics. Wound management on board for wound care management. Case management for discharge planning. NEURO: Minimize central acting medications as possible. Fall Precautions. Well lighted room through the day and minimize interruptions through the night to prevent acute delirium. PULMONARY: Supplemental 02 as needed BiPAP as necessary, for respiratory distress Titrate Fio2 to keep Spo2 > or = 90% DuoNebs and CPT as needed IS hourly while awake for pulmonary hygiene prn Out of bed to chair as tolerated Maintain aspiration precautions at all times CARDIOVASCULAR: Follow hemodynamics. Vital signs per facility protocol GI & NUTRITION: Continue nutritional support Aspirations precautions Prokinetic agents and laxatives as needed KIDNEYS & ELECTROLYTES: Strict monitoring of intake and output Daily weights Avoid nephrotoxic agents Monitor electrolytes and replace as needed Goal urine output of 30mL/hr or 0.5mL/kg/hr Medications to be dosed according to renal function. Avoid contrast if possible ENDOCRINE: Maintain blood glucose between 100-180 at all times. Insulin sliding scale for blood glucose management Hypoglycemia and hyperglycemia protocol in place INFECTIOUS DISEASE: Trend temperature, WBC and procalcitonin level Follow cultures, deescalate antibiotics as soon as possible. Panculture if new onset fever HEMATOLOGY & COAGULATION: Monitor H&H. Keep Hgb > 7 Transfuse 1 unit of PRBC for Hgb < 7 Transfuse 1 pack of platelets of platelets < 20, 000 Watch for any signs and symptoms of bleeding SKIN: Pressure ulcer prevention per facility protocol Specialty mattress as needed ORTHO/REHAB Continue PT/OT PRN: MEDICATIONS Tylenol 650 mg po every 4 hrs for fever zofran 4 mg IV every 6 hrs for n/v Hydralazine 5 mg IV every 4 hrs systolic pressure > 160 bowel regiment: lactulose 20 gm PO BID PRN constipation Supportive measures: Continue GI and DVT prophylaxis Disposition: Pending improvement in clinical condition All questions answered ATTESTATION BY PHYSICIAN I have seen and examined the patient. I reviewed the documentation, medical decision making, and treatment plan as noted by the mid-level provider above. I agree with the findings and plan of care. Yoanna Alford MD, ELIZABETH NP Sep 10, 2024 10:59
--- NOTE | 2024-09-10 14:47 | PN ---
INFECTIOUS DISEASE PROGRESS NOTE Date of Service: Sep 10, 2024 SUBJECTIVE: Patient was seen at bedside in room 405. Patient is awake, alert and oriented x3. Patient is s/p I&D with debridement and placement of a wound VAC day # 1. Patient reported she feels less pain and less pressure that she felt from the swelling. Very minimal improvement on the erythema. No fever, temperature is 98.4. Continues on vancomycin and ce fepime. We will follow up on the intraoperative wound cultures. PHYSICAL EXAM EYES: Anicteric. Pupils equal and reactive. HENT: No oral thrush seen, moist Oral mucosa NECK: Supple, no JVD or thyromegaly. LUNGS: Good air entry. no rhonchi. Chronic cough. CARDIOVASCULAR: S1, S2 regular. No murmur heard. ABDOMEN: Soft, non tender, bowel sounds present, no organomegaly. CENTRAL NERVOUS SYSTEM: Awake, alert, oriented x 3. SKIN: No rashes, no swelling. Draining open wounds with abscess to the left lower extremity, s/p I&D and debridement and wound VAC placement. LYMPHATICS: No peripheral lymphadenopathy MUSCULOSKELETAL: No joint swelling, erythema or tenderness. EXTREMITIES: No cyanosis or clubbing. Left lower extremity swelling and redness. BACK: No deformity, no pressure ulcer. GENITOURINARY: No dysuria or hematuria Vital Sign (Last 12 Hours) 09/10/24 09/10/24 09/10/24 09/10/24 03:43 04:10 06:09 06:09 Temp 98.8 Pulse 78 91 87 87 Resp 16 20 19 18 B/P (MAP) 127/85 Pulse Ox 93 O2 Delivery CPAP N/A Room Air FiO2 21 21 09/10/24 09/10/24 09/10/24 09/10/24 08:00 08:52 10:58 12:00 Temp 98.1 98.4 Pulse 102 78 70 Resp 18 19 18 B/P (MAP) 125/87 107/65 Pulse Ox 98 98 93 O2 Delivery Room Air Room Air* Room Air O2 Flow Rate 0 FiO2 21 21 Intake & Output (last 24hrs) 09/09/24 09/09/24 09/10/24 15:00 23:00 07:00 Intake Total 35.0 ml 900.0 ml Output Total 0 ml Balance 35.0 ml 900.0 ml LABS: Laboratory: Test 09/10/24 11:53 09/09/24 20:08 09/09/24 04:27 Range/Units Whole Blood Glucose 98 70-110 MG/DL Bedside Glucose Comment Notified Nurse Vancomycin Level Trough 4.4 #L 10.0-20.0 UG/ML White Blood Count 11.3 H 4.8-10.8 K/uL Red Blood Count 3.84 L 4.00-5.50 MIL/uL Hemoglobin 10.2 L 12.0-16.0 g/dL Hematocrit 32.9 L 36-48 % Mean Corpuscular Volume 85.7 79-99 fL Mean Corpuscular Hemoglobin 26.6 L 27.0-33.0 pg Mean Corpuscular Hemoglobin Concent 31.0 L 32.0-36.0 g/dL Red Cell Distribution Width 17.0 H 11.0-15.5 % Platelet Count 224 130-400 K/uL Mean Platelet Volume 10.5 7.5-10.5 fL Nucleated Red Blood Cells 0.0 0.0-0.19 % Sodium Level 141 136-145 mmol/L Potassium Level 3.6 3.5-5.1 mmol/L Chloride Level 106 101-111 mmol/L Carbon Dioxide Level 31 21-32 mmol/L Blood Urea Nitrogen 18 7-18 mg/dL Creatinine 0.6 0.5-1.0 mg/dL Glomerular Filtration Rate Calc 113 >90 mL/min Random Glucose 104 70-105 mg/dL Total Calcium 9.0 8.5-10.1 mg/dL Magnesium Level 1.90 1.80-2.40 mg/dL Total Bilirubin 0.3 # 0.2-1.0 mg/dL Aspartate Amino Transf (AST/SGOT) 27 10-37 U/L Alanine Aminotransferase (ALT/SGPT) 93 #H 12-78 U/L Alkaline Phosphatase 77 50-136 U/L Total Protein 6.5 6.0-8.3 g/dL Albumin 2.6 L 3.5-5.0 g/dL ASSESSMENT: Left anterior lower extremity wounds with abscess, s/p I&D with debridement and placement of a wound VAC. Left lower extremity cellulitis. Leukocytosis. Urinary tract infection. Morbid Obesity. Julien's disease. PLAN: Continue vancomycin per pharmacy protocol. Continue cefepime. Continue pain management. Continue GI prophylaxis. Continue diuretics. Continue wound care. We will follow up on the final wound culture results. This case was reviewed and discussed with my supervising physician and the above assessment and plan was formulated and agreed upon. ATTESTATION BY PHYSICIAN I have seen and examined the patient. I reviewed the documentation, medical decision making, and treatment plan as noted by the mid-level provider above. I agree with the findings and plan of care. FRANNY STERN MD, [facility] Sep 10, 2024 14:47
--- NOTE | 2024-09-10 23:09 | PN ---
GENERAL SURGERY PROGRESS NOTE Date/Time Patient Seen: [ ] Problem List: Left lower extremity nonhealing wounds and cellulitis Postop day 1 status post debridement of chronic left lower extremity wounds Interval History: Patient says that her leg is feeling better. She has better sensation today Current Medications Medications (Trade) Dose Ordered Sig/Micheal Route Start Time Stop Time Status Last Admin Dose Admin Albuterol Sulfate (Proventil 0.083% 2.5mg/3ml) 2.5 mg [id number] IH 09/07/24 06:00 10/07/24 05:59 09/10/24 18:39 2.5 MG Alendronate Sodium (Fosamax 35mg Tab) 70 mg QWEEK@0630 PO 09/14/24 06:30 10/14/24 06:29 Amlodipine Besylate (NorvASC 5MG TAB) 5 mg DAILY PO 09/08/24 09:00 10/08/24 08:59 09/10/24 08:38 5 MG Atorvastatin Calcium (LIPItor 20MG) 20 mg HS PO 09/07/24 21:00 10/07/24 20:59 09/10/24 20:57 20 MG Buspirone HCl (BUspar) 10 mg BID PO 09/07/24 21:00 10/07/24 20:59 09/10/24 20:57 10 MG Cefepime HCl (MAXipime 1 GM vial) 1 gm Q12H IVPB 09/07/24 15:00 09/17/24 14:59 09/10/24 15:16 1 GM Cetirizine HCl (ZYRtec 5 MG TABLET) 10 mg HS PO 09/08/24 21:00 10/08/24 20:59 09/10/24 20:57 10 MG Citalopram Hydrobromide (CeleXA 20MG TAB) 40 mg DAILY PO 09/08/24 09:00 10/08/24 08:59 09/10/24 08:36 40 MG Clindamycin HCl/ Dextrose 50 ml @ 100 mls/hr Q8H IV 09/06/24 21:00 09/07/24 13:35 DC 09/07/24 13:16 100 MLS/HR Diphenhydramine HCl (BENAdryl CAP) 50 mg HS PO 09/07/24 21:00 10/07/24 20:59 09/10/24 20:57 50 MG Famotidine (Pepcid 20mg Tab) 20 mg BID PO 09/07/24 21:00 10/07/24 20:59 09/10/24 20:57 20 MG Furosemide (LASix 20MG TAB) 20 mg DAILY PO 09/08/24 09:00 10/08/24 08:59 09/10/24 08:38 20 MG Heparin Sodium (Porcine) (HEParin 5,000 UNIT VIAL) 5,000 unit BID SQ 09/06/24 21:00 10/06/24 20:59 09/10/24 20:58 5,000 UNIT Home Med (Home Medication) (Chlorthalidone 25 MG) DAILY PO 09/08/24 09:00 10/08/24 08:59 Home Med (Home Medication) (Cholecalciferol (Vitamin D3) (Vitamin D3... DAILY PO 09/08/24 09:00 10/08/24 08:59 Home Med (Home Medication) (Fluticasone Propion/ [place]... HS IH 09/07/24 21:00 10/07/24 20:59 09/09/24 20:55 1 EACH Home Med (Home Medication) (Fluticasone/ Umeclidin/ Vilan... DAILY PO 09/08/24 09:00 10/08/24 08:59 Home Med (Home Medication) (Magnesium Oxide (Magnesi... HS PO 09/07/24 21:00 10/07/24 20:59 09/09/24 20:55 1 EACH Lactated Ringer's 1,000 ml @ 75 mls/hr [id number] IV 09/07/24 02:00 10/07/24 01:59 09/09/24 20:54 75 MLS/HR Losartan Potassium (CozAAR 100MG TAB) 100 mg DAILY PO 09/08/24 09:00 10/08/24 08:59 09/10/24 08:38 100 MG Metoprolol Tartrate (loprESSOR) 50 mg BID PO 09/07/24 21:00 10/07/24 20:59 09/10/24 20:57 50 MG Montelukast Sodium (SinguLAIR) 10 mg DAILY PO 09/08/24 09:00 10/08/24 08:59 09/10/24 08:38 10 MG Pantoprazole Sodium (PROTonix 40MG TAB) 40 mg DAILY PO 09/07/24 09:00 09/07/24 10:04 DC 09/07/24 09:08 40 MG Potassium Chloride (K-Dur/Klor-Con 20meq) 20 meq DAILY PO 09/08/24 09:00 10/08/24 08:59 09/10/24 08:39 20 MEQ Prednisone (deltaSONE/ oraSONE 5MG) 5 mg DAILY PO 09/08/24 09:00 10/08/24 08:59 09/10/24 08:38 5 MG Sodium Hypochlorite (Dakin'S 0.25% Half Strength) DAILY17 TP 09/07/24 17:00 10/07/24 16:59 09/10/24 18:08 1 APPL Trazodone HCl (DesyREL/OlepTRO) 100 mg HS PO 09/07/24 21:00 10/07/24 20:59 09/10/24 20:57 100 MG Vancomycin HCl 250 ml @ 125 mls/hr Q12H IV 09/09/24 21:00 09/17/24 20:59 09/10/24 21:02 125 MLS/HR Vancomycin HCl 250 ml @ 125 mls/hr Q24H IV 09/07/24 21:00 09/09/24 21:01 DC 09/08/24 20:43 125 MLS/HR Vancomycin HCl (Vancomycin Protocol) 1 each AD IV 09/06/24 21:00 09/20/24 20:59 Physical Examination: GENERAL: [No acute distress.] HEAD: [Normal with no signs of head trauma.] EYES: [PERRLA, EOMI, conjunctiva and sclera normal.] ENT: [Hearing grossly intact, normal oropharynx.] NECK: [Supple without JVD. There is no tenderness, lymphadenopathy, or masses. No thyromegaly. Normal carotid upstrokes without bruits.] LUNGS: [Clear breath sounds bilaterally. There are right basilar rales one third of the way up the chest. No wheezes, or rhonchi.] HEART: [Normal rate and rhythm. Normal S1 and S2 without mumurs, gallop or rub.] VASC: [Peripheral pulses +2 bilaterally.] ABD: [Bowel sounds normal, soft, nontender, no masses, no organomegaly. No audible bruits.] : [Not examined] LYMPH: [No lymphadenopathy noted.] EXT: Left lower extremity: Markedly decreased cellulitis and edema of the lower left lower extremity. Wound VAC is intact. SKIN: [No rashes or lesions noted.] NEURO: [Awake, alert, and oriented x3. No focal sensory or strength deficits noted.] Vital Signs (last 8hr) Date Time Temp Pulse Resp B/P (MAP) Pulse Ox O2 Delivery O2 Flow Rate FiO2 09/10/24 20:00 98.2 94 20 122/83 95 Room Air 09/10/24 20:00 95 Room Air* 0 21 09/10/24 18:41 102 18 N/A Room Air 21 09/10/24 18:39 99 19 09/10/24 16:00 98.1 96 18 111/71 95 Room Air 21 Laboratory: [ ] Hematology Labs: Test 09/09/24 04:27 Range/Units White Blood Count 11.3 H 4.8-10.8 K/uL Red Blood Count 3.84 L 4.00-5.50 MIL/uL Hemoglobin 10.2 L 12.0-16.0 g/dL Hematocrit 32.9 L 36-48 % Mean Corpuscular Volume 85.7 79-99 fL Mean Corpuscular Hemoglobin 26.6 L 27.0-33.0 pg Mean Corpuscular Hemoglobin Concent 31.0 L 32.0-36.0 g/dL Red Cell Distribution Width 17.0 H 11.0-15.5 % Platelet Count 224 130-400 K/uL Mean Platelet Volume 10.5 7.5-10.5 fL Nucleated Red Blood Cells 0.0 0.0-0.19 % Chemistry Labs: Test 09/10/24 19:38 09/10/24 16:32 09/09/24 04:27 Range/Units Whole Blood Glucose 128 H 70-110 MG/DL Bedside Glucose Comment Notified Nurse Sodium Level 141 136-145 mmol/L Potassium Level 3.6 3.5-5.1 mmol/L Chloride Level 106 101-111 mmol/L Carbon Dioxide Level 31 21-32 mmol/L Blood Urea Nitrogen 18 7-18 mg/dL Creatinine 0.6 0.5-1.0 mg/dL Glomerular Filtration Rate Calc 113 >90 mL/min Random Glucose 104 70-105 mg/dL Total Calcium 9.0 8.5-10.1 mg/dL Magnesium Level 1.90 1.80-2.40 mg/dL Total Bilirubin 0.3 # 0.2-1.0 mg/dL Aspartate Amino Transf (AST/SGOT) 27 10-37 U/L Alanine Aminotransferase (ALT/SGPT) 93 #H 12-78 U/L Alkaline Phosphatase 77 50-136 U/L Total Protein 6.5 6.0-8.3 g/dL Albumin 2.6 L 3.5-5.0 g/dL Diagnostics / Radiology: [Copy/Paste Echos/Imaging Report here] Impression and Plan: 43-year-old female postop day one status post debridement of left lower extremity. She is clinically improving. Continue IV antibiotics Continue wound VAC Left Leg needs to be elevated VANDA ANDRE MD Sep 10, 2024 23:09
[2024-09-11] VITALS (15 sets, daily range): BP systolic 107–136; BP diastolic 68–88; PULSE 70–101; RESP 16–20; TEMP 98–98.5; O2SAT 92–98
[2024-09-11 05:11] LABS: IMMATURE GRANULOCYTE ABSOLUTE 0.48 K/uL (0-1); NUCLEATED RED BLOOD CELLS 0.0 % (0.0-0.19); PLATELET COUNT (AUTO) 255 K/uL (130-400); RED BLOOD CELL COUNT(AUTO) 3.74 MIL/uL (4.00-5.50); RED CELL DISTRIBUTION WIDTH 17.2 % (11.0-15.5); WHITE BLOOD COUNT (AUTO) 8.0 K/uL (4.8-10.8)
[2024-09-11 05:31] LABS: ASPARTATE AMINOTRANSFERASE 18.0 U/L (10-37); CREATININE 0.8 mg/dL (0.5-1.0); GLOMERULAR FILTR. RATE CALC 93.0 mL/min (>90); GLUCOSE,RANDOM 98.0 mg/dL (70-105); SODIUM SERUM 141.0 mmol/L (136-145); TOTAL PROTEIN, SERUM 6.2 g/dL (6.0-8.3); UREA NITROGEN, BLOOD 18.0 mg/dL (7-18)
--- NOTE | 2024-09-11 08:07 | NUR ---
MD NOTIFICATION CALLED DR. STERN BECAUSE PATIENT IS REFUSING TO BE POKED FOR ANOTHER IV. INFORMED HIM SHE HAS POOR VENOUS ACCESS AND HE ORDERED MIDLINE. [employer] MA[employer]GER INFORMED AND FAXED ORDER TO [facility] WELL.
[2024-09-11 08:38] LABS: INR <= 0.93 (0.85-1.15)
--- NOTE | 2024-09-11 11:34 | PN ---
[facility] PROGRESS NOTE Date of Service: Sep 11, 2024 Time of Service: 11:33 SUBJECTIVE: 09/07 patient remains admitted to medical floor, hemodynamically stable, afebrile, saturating normal on room air, WBC trending down 13.2, hemoglobin stable 12.0, hematocrit 40.1, platelet count of 208. X-ray of the left tibia/fibula, no evidence of osteomyelitis. Patient to continue broad-spectrum antibiotics to include vancomycin and clindamycin, we will request Infectious Disease consultation, continue wound care, follow results of wound culture, due to swollen to the left lower extremity with the extensive cellulitis, we will order ultrasound soft tissue to rule out the possibility of underlying abscess, Doppler of the lower extremities, rule out DVT. Home medications has been reviewed and reconciled. At The time of my visit the patient is comfortably bed, alert oriented x3, getting IV antibiotics, getting good pain control with current medical management. Plan of action discussed, all questions answered, in agreement. 09/08 43-year-old female, presented to hospital with a chief complaint of extensive erythema and swelling to the left lower extremity. Patient placed on broad-spectrum IV antibiotics, infectious disease consultation requested. Dop pler of the lower extremities negative for DVT. Ultrasound soft tissue possible abscess, surgical consultation requested, follow input and recommendation. At the time of my visit patient is comfortably in bed, alert oriented x3, getting IV antibiotics, case discussed with the RN, no acute events overnight. 09/09/24 patient was seen earlier. Patient is scheduled for I and D per Dr. Mayes. Answer all questions appropriately. She denied chest pain or shortness for breath 09/10/24 patient is lying in bed patient has a wound VAC to her right lower extremity status post I&D day #1 recuperating well. She is tolerating IV antibiotics denies fever chills reports semi loose stools. All questions were addressed 09/11/24 patient is lying in bed recuperating well postop day 2. She continues with wound VAC tolerating well. Wound cultures Gram-negative E coli continues on IV Zosyn. Patient denied chest pain or shortness for breath REVIEW OF SYSTEMS CONSTITUTIONAL: Denies fevers, chills, or night sweats. No unintentional weight loss reported. NEUROLOGICAL: Denies headache, amaurosis fugax, motor weakness, sensory deficit, vertigo/spinning sensation, gait abnormalities, or tremors. ENT: No hearing loss, otalgia, otorrhea, rhinitis, rhinorrhea, hoarseness, or sore throat. CARDIOVASCULAR: Denies any exertional angina, dyspnea on exertion, orthopnea, paroxysmal nocturnal dyspnea, palpitations, life-threatening arrhythmias, claudication. PULMONARY: Denies any shortness of breath, cough, phlegm/sputum, hemoptysis, pleuritic chest pain. SLEEP: Denies morning headaches, daytime somnolence or napping. Denies difficulty falling asleep, staying asleep, waking from sleep. Denies knowledge of snoring. GASTROINTESTINAL: Denies any type of dysphagia to either liquids or solids. Denies nausea, vomiting, pyrosis, early satiety, abdominal pain, diarrhea, constipation, or changes in stool consistency or caliber. Denies coffee-ground emesis, hematemesis, hematochezia, or melanotic stools. GENITOURINARY: Denies frequency, urgency, nocturia, hematuria or incontinence (Storage/Irritative symptoms.) Low urinary stream, straining to void, urinary intermittency or hesitancy, splitting of the voiding stream, terminal dribbling. ENDOCRINOLOGIC: Denies polyuria, polydipsia, polyphagia or heat/cold intolerances. HEMATOLOGIC: Denies thrombophilia/previous clots, or coagulopathy/bleeding disorders. ONCOLOGIC: Denies personal history of malignancy. DERMATOLOGIC: Denies rashes or pruritus. PSYCHIATRIC: Denies any suicidal or homicidal ideation. Denies hallucinations. PHYSICAL EXAM GENERAL APPEARANCE: The patient is awake, alert, and oriented, in no acute cardiopulmonary distress. NEUROLOGICAL: Cranial nerves II-XII grossly intact. Motor is 5/5 in bilateral upper and lower extremities proximal to distal. No sensory deficits. HEENT: Face is symmetric. Pupils are equal and reactive. Extraocular movements are intact. NECK: Supple. No JVD. No thyromegaly. No submental, submandibular, pre-/postauricular, occipital or supraclavicular lymphadenopathy. CHEST: Normal chest expansion. No Telemetry. LUNGS: Absence of any rales, rhonchi or any wheezing. CARDIOVASCULAR: Regular. S1 and S2 normal. No appreciable rubs, murmurs or gallops. ABDOMEN: Soft, nontender, and nondistended. There is no rebound, voluntary guarding, or rigidity. : Deferred. No Enamorado. EXTREMITIES: Extensive erythema from the left ankle to the knee area, swollen to the left lower extremity, can not exclude possibility of underlying abscess. SKIN: No skin breakdown. Vital Signs (last 8hr) Date Time Temp Pulse Resp B/P (MAP) Pulse Ox O2 Delivery O2 Flow Rate FiO2 09/11/24 11:02 80 19 09/11/24 08:27 98.1 82 20 136/88 98 Room Air 09/11/24 08:00 98 Room Air* 0 21 09/11/24 07:26 80 18 N/A Room Air 09/11/24 07:26 78 19 LABS: Laboratory: Test 09/11/24 08:21 09/11/24 05:08 09/11/24 04:29 09/10/24 16:32 Range/Units Prothrombin Time 9.8 9.6-11.6 SEC Prothromb Time International Ratio <= 0.93 0.85-1.15 Vancomycin Level Trough 21.1 #H 10.0-20.0 UG/ML Whole Blood Glucose 93 70-110 MG/DL White Blood Count 8.0 4.8-10.8 K/uL Red Blood Count 3.74 L 4.00-5.50 MIL/uL Hemoglobin 9.9 L 12.0-16.0 g/dL Hematocrit 33.2 L 36-48 % Mean Corpuscular Volume 88.8 79-99 fL Mean Corpuscular Hemoglobin 26.5 L 27.0-33.0 pg Mean Corpuscular Hemoglobin Concent 29.8 L 32.0-36.0 g/dL Red Cell Distribution Width 17.2 H 11.0-15.5 % Platelet Count 255 130-400 K/uL Mean Platelet Volume 10.2 7.5-10.5 fL Immature Granulocyte % (Auto) 6.0 H 0-1 % Neutrophils (%) (Auto) 53.7 40.0-77.0 % Lymphocytes (%) (Auto) 28.7 21.0-51.0 % Monocytes (%) (Auto) 9.1 3.0-13.0 % Eosinophils (%) (Auto) 1.6 0.0-8.0 % Basophils (%) (Auto) 0.9 0.0-5.0 % Neutrophils # (Auto) 4.3 1.8-7.7 K/uL Lymphocytes # (Auto) 2.3 1.0-4.8 K/uL Monocytes # (Auto) 0.7 0.1-1.0 K/uL Eosinophils # (Auto) 0.13 0.00-0.70 K/uL Basophils # (Auto) 0.07 0.00-0.20 K/uL Absolute Immature Granulocyte (auto 0.48 0-1 K/uL Nucleated Red Blood Cells 0.0 0.0-0.19 % Sodium Level 141 136-145 mmol/L Potassium Level 3.9 3.5-5.1 mmol/L Chloride Level 106 101-111 mmol/L Carbon Dioxide Level 30 21-32 mmol/L Blood Urea Nitrogen 18 7-18 mg/dL Creatinine 0.8 0.5-1.0 mg/dL Glomerular Filtration Rate Calc 93 >90 mL/min Random Glucose 98 70-105 mg/dL Total Calcium 8.8 8.5-10.1 mg/dL Magnesium Level 1.90 1.80-2.40 mg/dL Total Bilirubin 0.2 0.2-1.0 mg/dL Aspartate Amino Transf (AST/SGOT) 18 10-37 U/L Alanine Aminotransferase (ALT/SGPT) 63 12-78 U/L Alkaline Phosphatase 71 50-136 U/L Total Protein 6.2 6.0-8.3 g/dL Albumin 2.3 L 3.5-5.0 g/dL Bedside Glucose Comment Notified Nurse Current Medications Medications (Trade) Dose Ordered Sig/Michael Route PRN Reason Start Time Stop Time Status Last Admin Dose Admin Acetaminophen (TYLenol 325MG TAB) 650 mg Q6H PRN PO TEMPERATURE GREATER THAN 101.5 09/06/24 21:00 10/06/24 20:59 09/06/24 23:00 650 MG Acetaminophen/ Hydrocodone Bitart (NORco 5/325MG) 1 tab Q6H PRN PO MODERATE PAIN (4-6) 09/07/24 10:30 09/12/24 10:29 09/11/24 08:10 1 TAB Albuterol Sulfate (Proventil 0.083% 2.5mg/3ml) 2.5 mg [id number] IH 09/07/24 06:00 10/07/24 05:59 09/11/24 11:00 2.5 MG Alendronate Sodium (Fosamax 35mg Tab) 70 mg QWEEK@0630 PO 09/14/24 06:30 10/14/24 06:29 Amlodipine Besylate (NorvASC 5MG TAB) 5 mg DAILY PO 09/08/24 09:00 10/08/24 08:59 09/11/24 07:55 5 MG Atorvastatin Calcium (LIPItor 20MG) 20 mg HS PO 09/07/24 21:00 10/07/24 20:59 09/10/24 20:57 20 MG Buspirone HCl (BUspar) 10 mg BID PO 09/07/24 21:00 10/07/24 20:59 09/11/24 07:54 10 MG Cefepime HCl (MAXipime 1 GM vial) 1 gm Q12H IVPB 09/07/24 15:00 09/17/24 14:59 09/11/24 03:28 1 GM Cetirizine HCl (ZYRtec 5 MG TABLET) 10 mg HS PO 09/08/24 21:00 10/08/24 20:59 09/10/24 20:57 10 MG Citalopram Hydrobromide (CeleXA 20MG TAB) 40 mg DAILY PO 09/08/24 09:00 10/08/24 08:59 09/11/24 07:54 40 MG Clindamycin HCl/ Dextrose 50 ml @ 100 mls/hr Q8H IV 09/06/24 21:00 09/07/24 13:35 DC 09/07/24 13:16 100 MLS/HR Diphenhydramine HCl (BENAdryl CAP) 50 mg HS PO 09/07/24 21:00 10/07/24 20:59 09/10/24 20:57 50 MG Famotidine (Pepcid 20mg Tab) 20 mg BID PO 09/07/24 21:00 10/07/24 20:59 09/11/24 07:53 20 MG Furosemide (LASix 20MG TAB) 20 mg DAILY PO 09/08/24 09:00 10/08/24 08:59 09/11/24 07:54 20 MG Heparin Sodium (Porcine) (HEParin 5,000 UNIT VIAL) 5,000 unit BID SQ 09/06/24 21:00 10/06/24 20:59 09/11/24 07:53 5,000 UNIT Home Med (Home Medication) (Albuterol Sulfate (Leila... Q6H PRN IH wheezing 09/07/24 10:30 10/07/24 10:29 Home Med (Home Medication) (Chlorthalidone 25 MG) DAILY PO 09/08/24 09:00 10/08/24 08:59 Home Med (Home Medication) (Cholecalciferol (Vitamin D3) (Vitamin D3... DAILY PO 09/08/24 09:00 10/08/24 08:59 Home Med (Home Medication) (Fluticasone Propion/ [place]... HS IH 09/07/24 21:00 10/07/24 20:59 09/09/24 20:55 1 EACH Home Med (Home Medication) (Fluticasone/ Umeclidin/ Vilan... DAILY PO 09/08/24 09:00 10/08/24 08:59 Home Med (Home Medication) (Magnesium Oxide (Magnesi... HS PO 09/07/24 21:00 10/07/24 20:59 09/09/24 20:55 1 EACH Hydralazine HCl (APRESOLine 20MG INJ) 10 mg Q6H PRN IV For:SBP above 160;DBP above 90 09/06/24 21:00 10/06/24 20:59 Hydromorphone HCl (DiLAUDid 1MG INJ) 1 mg Q6H PRN IVP SEVERE PAIN (7-10) 09/09/24 16:30 09/14/24 16:29 09/10/24 15:27 1 MG Lactated Ringer's 1,000 ml @ 75 mls/hr [id number] IV 09/07/24 02:00 10/07/24 01:59 09/11/24 03:31 75 MLS/HR Losartan Potassium (CozAAR 100MG TAB) 100 mg DAILY PO 09/08/24 09:00 10/08/24 08:59 09/11/24 07:53 100 MG Metoprolol Tartrate (loprESSOR) 50 mg BID PO 09/07/24 21:00 10/07/24 20:59 09/11/24 07:53 50 MG Miscellaneous Medication (Meloxicam ) 1 tab DAILY PRN PO BP 09/07/24 10:30 09/07/24 10:16 DC Montelukast Sodium (SinguLAIR) 10 mg DAILY PO 09/08/24 09:00 10/08/24 08:59 09/11/24 07:53 10 MG Morphine Sulfate (morPHINE 2MG SYG) 2 mg Q4H PRN IVP SEVERE PAIN (7-10) 09/06/24 21:30 09/09/24 16:36 DC 09/07/24 00:31 2 MG Ondansetron HCl (zoFRAN 4MG INJ) 4 mg Q6H PRN IV NAUSEA/VOMITING 09/06/24 21:00 10/06/24 20:59 Pantoprazole Sodium (PROTonix 40MG TAB) 40 mg DAILY PO 09/07/24 09:00 09/07/24 10:04 DC 09/07/24 09:08 40 MG Potassium Chloride (K-Dur/Klor-Con 20meq) 20 meq DAILY PO 09/08/24 09:00 10/08/24 08:59 09/11/24 07:55 20 MEQ Prednisone (deltaSONE/ oraSONE 5MG) 5 mg DAILY PO 09/08/24 09:00 10/08/24 08:59 09/11/24 07:53 5 MG Sodium Hypochlorite (Dakin'S 0.25% Half Strength) DAILY17 TP 09/07/24 17:00 10/07/24 16:59 09/10/24 18:08 1 APPL Trazodone HCl (DesyREL/OlepTRO) 100 mg HS PO 09/07/24 21:00 10/07/24 20:59 09/10/24 20:57 100 MG Vancomycin HCl 250 ml @ 125 mls/hr Q12H IV 09/09/24 21:00 09/11/24 09:01 DC 09/10/24 21:02 125 MLS/HR Vancomycin HCl 250 ml @ 125 mls/hr Q24H IV 09/07/24 21:00 09/09/24 21:01 DC 09/08/24 20:43 125 MLS/HR Vancomycin HCl (Vancomycin Protocol) 1 each AD IV 09/06/24 21:00 09/20/24 20:59 DIAGNOSTICS / RADIOLOGY: [ ] ASSESSMENT: Sepsis, POA Extensive left lower extremity cellulitis, POA Anterior tibial left lower extremity wound, can not exclude underlying abscess POA s/p ID requiring wound vac. gram negative Ecoli to infected wounds: POA ESTRELLA prerenal, POA Leukocytosis, POA Essential hypertension, POA ROCKY, POA History of [place]'s disease, POA History of bronchial asthma, POA PLAN: POST OP Day #2 I and D with Wound Vac to left lower extremity. Continues with broad-spectrum antibiotics Zosyn wound cultures Gram-negative E coli.. Wound management on board for wound care management. Case management for discharge planning. NEURO: Minimize central acting medications as possible. Fall Precautions. Well lighted room through the day and minimize interruptions through the night to prevent acute delirium. PULMONARY: Supplemental 02 as needed BiPAP as necessary, for respiratory distress Titrate Fio2 to keep Spo2 > or = 90% DuoNebs and CPT as needed IS hourly while awake for pulmonary hygiene prn Out of bed to chair as tolerated Maintain aspiration precautions at all times CARDIOVASCULAR: Follow hemodynamics. Vital signs per facility protocol GI & NUTRITION: Continue nutritional support Aspirations precautions Prokinetic agents and laxatives as needed KIDNEYS & ELECTROLYTES: Strict monitoring of intake and output Daily weights Avoid nephrotoxic agents Monitor electrolytes and replace as needed Goal urine output of 30mL/hr or 0.5mL/kg/hr Medications to be dosed according to renal function. Avoid contrast if possible ENDOCRINE: Maintain blood glucose between 100-180 at all times. Insulin sliding scale for blood glucose management Hypoglycemia and hyperglycemia protocol in place INFECTIOUS DISEASE: Trend temperature, WBC and procalcitonin level Follow cultures, deescalate antibiotics as soon as possible. Panculture if new onset fever HEMATOLOGY & COAGULATION: Monitor H&H. Keep Hgb > 7 Transfuse 1 unit of PRBC for Hgb < 7 Transfuse 1 pack of platelets of platelets < 20, 000 Watch for any signs and symptoms of bleeding SKIN: Pressure ulcer prevention per facility protocol Specialty mattress as needed ORTHO/REHAB Continue PT/OT PRN: MEDICATIONS Tylenol 650 mg po every 4 hrs for fever zofran 4 mg IV every 6 hrs for n/v Hydralazine 5 mg IV every 4 hrs systolic pressure > 160 bowel regiment: lactulose 20 gm PO BID PRN constipation Supportive measures: Continue GI and DVT prophylaxis Disposition: Pending improvement in clinical condition All questions answered ATTESTATION BY PHYSICIAN I have seen and examined the patient. I reviewed the documentation, medical decision making, and treatment plan as noted by the mid-level provider above. I agree with the findings and plan of care. Yoanna Alford MD, [facility] NP Sep 11, 2024 11:34
--- NOTE | 2024-09-11 14:11 | PN ---
INFECTIOUS DISEASE PROGRESS NOTE Date of Service: Sep 11, 2024 SUBJECTIVE: This 43 year old female patient is being seen today at bedside. Patient denies pain at this time. Awake, alert and oriented x3. Patient continues with woud vac therapy to left lower extremity. She is status post I&D to left leg. no fever or chills. No nausea or vomiting.. Patient continues with antibiotics tolerating well. she is pending midline placement. no acute events over night reported at this visit. PHYSICAL EXAM EYES: Anicteric. Pupils equal and reactive. HENT: No oral thrush seen, moist Oral mucosa NECK: Supple, no JVD or thyromegaly. LUNGS: Good air entry. no rhonchi. Chronic cough. CARDIOVASCULAR: S1, S2 regular. No murmur heard. ABDOMEN: Soft, non tender, bowel sounds present, no organomegaly. CENTRAL NERVOUS SYSTEM: Awake, alert, oriented x 3. SKIN: No rashes, no swelling. Draining open wounds with abscess to the left lower extremity, s/p I&D and debridement and wound VAC placement. LYMPHATICS: No peripheral lymphadenopathy MUSCULOSKELETAL: No joint swelling, erythema or tenderness. EXTREMITIES: No cyanosis or clubbing. Left lower extremity swelling and redness. BACK: No deformity, no pressure ulcer. GENITOURINARY: No dysuria or hematuria Vital Sign (Last 12 Hours) 09/11/24 09/11/24 09/11/24 09/11/24 03:26 03:32 07:26 07:26 Temp 98.1 Pulse 78 95 78 80 Resp 20 16 19 18 B/P (MAP) 111/68 Pulse Ox 97 O2 Delivery Room Air N/A Room Air FiO2 21 21 09/11/24 09/11/24 09/11/24 09/11/24 08:00 08:27 11:02 13:11 Temp 98.1 98.4 Pulse 82 80 76 Resp 20 19 20 B/P (MAP) 136/88 131/79 Pulse Ox 98 98 98 O2 Delivery Room Air* Room Air Room Air O2 Flow Rate 0 FiO2 21 Intake & Output (last 24hrs) 09/10/24 09/10/24 09/11/24 15:00 23:00 07:00 Intake Total 700 ml Balance 700 ml LABS: Laboratory: Test 09/11/24 11:33 09/11/24 08:21 09/11/24 04:29 09/10/24 16:32 Range/Units Whole Blood Glucose 118 H 70-110 MG/DL Prothrombin Time 9.8 9.6-11.6 SEC Prothromb Time International Ratio <= 0.93 0.85-1.15 Vancomycin Level Trough 21.1 #H 10.0-20.0 UG/ML White Blood Count 8.0 4.8-10.8 K/uL Red Blood Count 3.74 L 4.00-5.50 MIL/uL Hemoglobin 9.9 L 12.0-16.0 g/dL Hematocrit 33.2 L 36-48 % Mean Corpuscular Volume 88.8 79-99 fL Mean Corpuscular Hemoglobin 26.5 L 27.0-33.0 pg Mean Corpuscular Hemoglobin Concent 29.8 L 32.0-36.0 g/dL Red Cell Distribution Width 17.2 H 11.0-15.5 % Platelet Count 255 130-400 K/uL Mean Platelet Volume 10.2 7.5-10.5 fL Immature Granulocyte % (Auto) 6.0 H 0-1 % Neutrophils (%) (Auto) 53.7 40.0-77.0 % Lymphocytes (%) (Auto) 28.7 21.0-51.0 % Monocytes (%) (Auto) 9.1 3.0-13.0 % Eosinophils (%) (Auto) 1.6 0.0-8.0 % Basophils (%) (Auto) 0.9 0.0-5.0 % Neutrophils # (Auto) 4.3 1.8-7.7 K/uL Lymphocytes # (Auto) 2.3 1.0-4.8 K/uL Monocytes # (Auto) 0.7 0.1-1.0 K/uL Eosinophils # (Auto) 0.13 0.00-0.70 K/uL Basophils # (Auto) 0.07 0.00-0.20 K/uL Absolute Immature Granulocyte (auto 0.48 0-1 K/uL Nucleated Red Blood Cells 0.0 0.0-0.19 % Sodium Level 141 136-145 mmol/L Potassium Level 3.9 3.5-5.1 mmol/L Chloride Level 106 101-111 mmol/L Carbon Dioxide Level 30 21-32 mmol/L Blood Urea Nitrogen 18 7-18 mg/dL Creatinine 0.8 0.5-1.0 mg/dL Glomerular Filtration Rate Calc 93 >90 mL/min Random Glucose 98 70-105 mg/dL Total Calcium 8.8 8.5-10.1 mg/dL Magnesium Level 1.90 1.80-2.40 mg/dL Total Bilirubin 0.2 0.2-1.0 mg/dL Aspartate Amino Transf (AST/SGOT) 18 10-37 U/L Alanine Aminotransferase (ALT/SGPT) 63 12-78 U/L Alkaline Phosphatase 71 50-136 U/L Total Protein 6.2 6.0-8.3 g/dL Albumin 2.3 L 3.5-5.0 g/dL Bedside Glucose Comment Notified Nurse ASSESSMENT: Left anterior lower extremity wounds with abscess, s/p I&D with debridement and placement of a wound VAC. Left lower extremity cellulitis. Leukocytosis. Urinary tract infection. Morbid Obesity. [place]'s disease. PLAN: Continue vancomycin per pharmacy protocol. Continue cefepime. Continue pain management. Continue GI prophylaxis. Continue diuretics. Continue wound care. We will follow up on the final wound culture results. This case was reviewed and discussed with my supervising physician and the above assessment and plan was formulated and agreed upon. [facility] Sep 11, 2024 14:11
--- NOTE | 2024-09-11 15:04 | PN ---
GENERAL SURGERY PROGRESS NOTE Date/Time Patient Seen: September 11, 2024 2:40 p.m. Problem List: Left lower extremity nonhealing wounds and cellulitis Postop day 2 status post debridement of chronic left lower extremity wounds Interval History: Patient says that her leg is feeling better. Her leg has been elevated Current Medications Medications (Trade) Dose Ordered Sig/Michael Route Start Time Stop Time Status Last Admin Dose Admin Albuterol Sulfate (Proventil 0.083% 2.5mg/3ml) 2.5 mg [id number] IH 09/07/24 06:00 10/07/24 05:59 09/11/24 11:00 2.5 MG Alendronate Sodium (Fosamax 35mg Tab) 70 mg QWEEK@0630 PO 09/14/24 06:30 10/14/24 06:29 Amlodipine Besylate (NorvASC 5MG TAB) 5 mg DAILY PO 09/08/24 09:00 10/08/24 08:59 09/11/24 07:55 5 MG Atorvastatin Calcium (LIPItor 20MG) 20 mg HS PO 09/07/24 21:00 10/07/24 20:59 09/10/24 20:57 20 MG Buspirone HCl (BUspar) 10 mg BID PO 09/07/24 21:00 10/07/24 20:59 09/11/24 07:54 10 MG Cefepime HCl (MAXipime 1 GM vial) 1 gm Q12H IVPB 09/07/24 15:00 09/17/24 14:59 09/11/24 03:28 1 GM Cetirizine HCl (ZYRtec 5 MG TABLET) 10 mg HS PO 09/08/24 21:00 10/08/24 20:59 09/10/24 20:57 10 MG Citalopram Hydrobromide (CeleXA 20MG TAB) 40 mg DAILY PO 09/08/24 09:00 10/08/24 08:59 09/11/24 07:54 40 MG Clindamycin HCl/ Dextrose 50 ml @ 100 mls/hr Q8H IV 09/06/24 21:00 09/07/24 13:35 DC 09/07/24 13:16 100 MLS/HR Diphenhydramine HCl (BENAdryl CAP) 50 mg HS PO 09/07/24 21:00 10/07/24 20:59 09/10/24 20:57 50 MG Famotidine (Pepcid 20mg Tab) 20 mg BID PO 09/07/24 21:00 10/07/24 20:59 09/11/24 07:53 20 MG Furosemide (LASix 20MG TAB) 20 mg DAILY PO 09/08/24 09:00 10/08/24 08:59 09/11/24 07:54 20 MG Heparin Sodium (Porcine) (HEParin 5,000 UNIT VIAL) 5,000 unit BID SQ 09/06/24 21:00 10/06/24 20:59 09/11/24 07:53 5,000 UNIT Home Med (Home Medication) (Chlorthalidone 25 MG) DAILY PO 09/08/24 09:00 10/08/24 08:59 Home Med (Home Medication) (Cholecalciferol (Vitamin D3) (Vitamin D3... DAILY PO 09/08/24 09:00 10/08/24 08:59 Home Med (Home Medication) (Fluticasone Propion/ [place]... HS IH 09/07/24 21:00 10/07/24 20:59 09/09/24 20:55 1 EACH Home Med (Home Medication) (Fluticasone/ Umeclidin/ Vilan... DAILY PO 09/08/24 09:00 10/08/24 08:59 Home Med (Home Medication) (Magnesium Oxide (Magnesi... HS PO 09/07/24 21:00 10/07/24 20:59 09/09/24 20:55 1 EACH Lactated Ringer's 1,000 ml @ 75 mls/hr [id number] IV 09/07/24 02:00 10/07/24 01:59 09/11/24 12:20 75 MLS/HR Losartan Potassium (CozAAR 100MG TAB) 100 mg DAILY PO 09/08/24 09:00 10/08/24 08:59 09/11/24 07:53 100 MG Metoprolol Tartrate (loprESSOR) 50 mg BID PO 09/07/24 21:00 10/07/24 20:59 09/11/24 07:53 50 MG Montelukast Sodium (SinguLAIR) 10 mg DAILY PO 09/08/24 09:00 10/08/24 08:59 09/11/24 07:53 10 MG Pantoprazole Sodium (PROTonix 40MG TAB) 40 mg DAILY PO 09/07/24 09:00 09/07/24 10:04 DC 09/07/24 09:08 40 MG Potassium Chloride (K-Dur/Klor-Con 20meq) 20 meq DAILY PO 09/08/24 09:00 10/08/24 08:59 09/11/24 07:55 20 MEQ Prednisone (deltaSONE/ oraSONE 5MG) 5 mg DAILY PO 09/08/24 09:00 10/08/24 08:59 09/11/24 07:53 5 MG Sodium Hypochlorite (Dakin'S 0.25% Half Strength) DAILY17 TP 09/07/24 17:00 10/07/24 16:59 09/10/24 18:08 1 APPL Trazodone HCl (DesyREL/OlepTRO) 100 mg HS PO 09/07/24 21:00 10/07/24 20:59 09/10/24 20:57 100 MG Vancomycin HCl 250 ml @ 125 mls/hr Q12H IV 09/09/24 21:00 09/11/24 09:01 DC 09/10/24 21:02 125 MLS/HR Vancomycin HCl 250 ml @ 125 mls/hr Q24H IV 09/07/24 21:00 09/09/24 21:01 DC 09/08/24 20:43 125 MLS/HR Vancomycin HCl (Vancomycin Protocol) 1 each AD IV 09/06/24 21:00 09/20/24 20:59 Physical Examination: GENERAL: [No acute distress.] HEAD: [Normal with no signs of head trauma.] EYES: [PERRLA, EOMI, conjunctiva and sclera normal.] ENT: [Hearing grossly intact, normal oropharynx.] NECK: [Supple without JVD. There is no tenderness, lymphadenopathy, or masses. No thyromegaly. Normal carotid upstrokes without bruits.] LUNGS: [Clear breath sounds bilaterally. There are right basilar rales one third of the way up the chest. No wheezes, or rhonchi.] HEART: [Normal rate and rhythm. Normal S1 and S2 without mumurs, gallop or rub.] VASC: [Peripheral pulses +2 bilaterally.] ABD: [Bowel sounds normal, soft, nontender, no masses, no organomegaly. No audible bruits.] : [Not examined] LYMPH: [No lymphadenopathy noted.] EXT: Decreasing erythema of lower left extremity. Wound VAC is intact SKIN: [No rashes or lesions noted.] NEURO: [Awake, alert, and oriented x3. No focal sensory or strength deficits noted.] Vital Signs (last 8hr) Date Time Temp Pulse Resp B/P (MAP) Pulse Ox O2 Delivery O2 Flow Rate FiO2 09/11/24 13:11 98.4 76 20 131/79 98 Room Air 09/11/24 11:02 80 19 09/11/24 08:27 98.1 82 20 136/88 98 Room Air 09/11/24 08:00 98 Room Air* 0 21 09/11/24 07:26 80 18 N/A Room Air 21 09/11/24 07:26 78 19 Laboratory: [ ] Hematology Labs: Test 09/11/24 04:29 Range/Units White Blood Count 8.0 4.8-10.8 K/uL Red Blood Count 3.74 L 4.00-5.50 MIL/uL Hemoglobin 9.9 L 12.0-16.0 g/dL Hematocrit 33.2 L 36-48 % Mean Corpuscular Volume 88.8 79-99 fL Mean Corpuscular Hemoglobin 26.5 L 27.0-33.0 pg Mean Corpuscular Hemoglobin Concent 29.8 L 32.0-36.0 g/dL Red Cell Distribution Width 17.2 H 11.0-15.5 % Platelet Count 255 130-400 K/uL Mean Platelet Volume 10.2 7.5-10.5 fL Immature Granulocyte % (Auto) 6.0 H 0-1 % Neutrophils (%) (Auto) 53.7 40.0-77.0 % Lymphocytes (%) (Auto) 28.7 21.0-51.0 % Monocytes (%) (Auto) 9.1 3.0-13.0 % Eosinophils (%) (Auto) 1.6 0.0-8.0 % Basophils (%) (Auto) 0.9 0.0-5.0 % Neutrophils # (Auto) 4.3 1.8-7.7 K/uL Lymphocytes # (Auto) 2.3 1.0-4.8 K/uL Monocytes # (Auto) 0.7 0.1-1.0 K/uL Eosinophils # (Auto) 0.13 0.00-0.70 K/uL Basophils # (Auto) 0.07 0.00-0.20 K/uL Absolute Immature Granulocyte (auto 0.48 0-1 K/uL Nucleated Red Blood Cells 0.0 0.0-0.19 % Chemistry Labs: Test 09/11/24 11:33 09/11/24 04:29 09/10/24 16:32 Range/Units Whole Blood Glucose 118 H 70-110 MG/DL Sodium Level 141 136-145 mmol/L Potassium Level 3.9 3.5-5.1 mmol/L Chloride Level 106 101-111 mmol/L Carbon Dioxide Level 30 21-32 mmol/L Blood Urea Nitrogen 18 7-18 mg/dL Creatinine 0.8 0.5-1.0 mg/dL Glomerular Filtration Rate Calc 93 >90 mL/min Random Glucose 98 70-105 mg/dL Total Calcium 8.8 8.5-10.1 mg/dL Magnesium Level 1.90 1.80-2.40 mg/dL Total Bilirubin 0.2 0.2-1.0 mg/dL Aspartate Amino Transf (AST/SGOT) 18 10-37 U/L Alanine Aminotransferase (ALT/SGPT) 63 12-78 U/L Alkaline Phosphatase 71 50-136 U/L Total Protein 6.2 6.0-8.3 g/dL Albumin 2.3 L 3.5-5.0 g/dL Bedside Glucose Comment Notified Nurse Coagulation Labs: Test 09/11/24 08:21 Range/Units Prothrombin Time 9.8 9.6-11.6 SEC Prothromb Time International Ratio <= 0.93 0.85-1.15 Diagnostics / Radiology: [Copy/Paste Echos/Imaging Report here] Impression and Plan: 43-year-old female postop day one status post debridement of left lower extremity. She is clinically improving. Continue IV antibiotics per ID recommendations Continue wound VAC Wound care nurse order placed for wound care nurse to change wound VAC tomorrow Please have case management set up home health for home wound VAC VANDA ANDRE MD Sep 11, 2024 15:04
[2024-09-11] MEDS ORDERED: VANCOMYCIN 1.75 GM/250 ML BAG 250 ML IV SCH (21:00)
[2024-09-11] MEDS: VANCOMYCIN 1.75 GM/250 ML BAG 250 ML IV SCH (22:05)
[2024-09-12] VITALS (14 sets, daily range): BP systolic 126–138; BP diastolic 69–91; PULSE 60–91; RESP 18–20; TEMP 97.6–98.5; O2SAT 95–98
--- NOTE | 2024-09-12 11:14 | PN ---
INFECTIOUS DISEASE PROGRESS NOTE Date of Service: Sep 12, 2024 SUBJECTIVE: This 43 year old female patient is being seen today at bedside. Awake, alert and oriented x3. Patient denies chest pain or shortness of breath. she continues with Vancomycin and Cefepime, he is status post I&D to left leg with wound vac placement. Patient's wound vac will be changed today. No acute events over night. No issues or concerns at this time. PHYSICAL EXAM EYES: Anicteric. Pupils equal and reactive. HENT: No oral thrush seen, moist Oral mucosa NECK: Supple, no JVD or thyromegaly. LUNGS: Good air entry. no rhonchi. Chronic cough. CARDIOVASCULAR: S1, S2 regular. No murmur heard. ABDOMEN: Soft, non tender, bowel sounds present, no organomegaly. CENTRAL NERVOUS SYSTEM: Awake, alert, oriented x 3. SKIN: No rashes, no swelling. Draining open wounds with abscess to the left lower extremity, s/p I&D and debridement and wound VAC placement. LYMPHATICS: No peripheral lymphadenopathy MUSCULOSKELETAL: No joint swelling, erythema or tenderness. EXTREMITIES: No cyanosis or clubbing. Left lower extremity swelling and redness, has improved. BACK: No deformity, no pressure ulcer. GENITOURINARY: No dysuria or hematuria Vital Sign (Last 12 Hours) 09/11/24 09/11/24 09/12/24 09/12/24 23:27 23:50 03:43 03:50 Temp 98.4 98.2 Pulse 97 86 60 91 Resp 18 16 20 18 B/P (MAP) 121/78 136/85 Pulse Ox 95 94 O2 Delivery CPAP CPAP FiO2 21 21 09/12/24 09/12/24 09/12/24 09/12/24 06:22 06:22 07:48 11:06 Temp 98.1 Pulse 77 77 79 82 Resp 18 19 19 19 B/P (MAP) 130/91 Pulse Ox 98 O2 Delivery N/A Room Air Room Air FiO2 21 Intake & Output (last 24hrs) 09/11/24 09/11/24 09/12/24 15:00 23:00 07:00 Intake Total 240 ml 120 ml Balance 240 ml 120 ml LABS: Laboratory: Test 09/12/24 10:30 09/11/24 19:52 09/11/24 08:21 09/11/24 04:29 Range/Units Whole Blood Glucose 125 #H 70-110 MG/DL Vancomycin Level 9.8 L 20.0-30.0 mcg/mL Prothrombin Time 9.8 9.6-11.6 SEC Prothromb Time International Ratio <= 0.93 0.85-1.15 Vancomycin Level Trough 21.1 #H 10.0-20.0 UG/ML White Blood Count 8.0 4.8-10.8 K/uL Red Blood Count 3.74 L 4.00-5.50 MIL/uL Hemoglobin 9.9 L 12.0-16.0 g/dL Hematocrit 33.2 L 36-48 % Mean Corpuscular Volume 88.8 79-99 fL Mean Corpuscular Hemoglobin 26.5 L 27.0-33.0 pg Mean Corpuscular Hemoglobin Concent 29.8 L 32.0-36.0 g/dL Red Cell Distribution Width 17.2 H 11.0-15.5 % Platelet Count 255 130-400 K/uL Mean Platelet Volume 10.2 7.5-10.5 fL Immature Granulocyte % (Auto) 6.0 H 0-1 % Neutrophils (%) (Auto) 53.7 40.0-77.0 % Lymphocytes (%) (Auto) 28.7 21.0-51.0 % Monocytes (%) (Auto) 9.1 3.0-13.0 % Eosinophils (%) (Auto) 1.6 0.0-8.0 % Basophils (%) (Auto) 0.9 0.0-5.0 % Neutrophils # (Auto) 4.3 1.8-7.7 K/uL Lymphocytes # (Auto) 2.3 1.0-4.8 K/uL Monocytes # (Auto) 0.7 0.1-1.0 K/uL Eosinophils # (Auto) 0.13 0.00-0.70 K/uL Basophils # (Auto) 0.07 0.00-0.20 K/uL Absolute Immature Granulocyte (auto 0.48 0-1 K/uL Nucleated Red Blood Cells 0.0 0.0-0.19 % Sodium Level 141 136-145 mmol/L Potassium Level 3.9 3.5-5.1 mmol/L Chloride Level 106 101-111 mmol/L Carbon Dioxide Level 30 21-32 mmol/L Blood Urea Nitrogen 18 7-18 mg/dL Creatinine 0.8 0.5-1.0 mg/dL Glomerular Filtration Rate Calc 93 >90 mL/min Random Glucose 98 70-105 mg/dL Total Calcium 8.8 8.5-10.1 mg/dL Magnesium Level 1.90 1.80-2.40 mg/dL Total Bilirubin 0.2 0.2-1.0 mg/dL Aspartate Amino Transf (AST/SGOT) 18 10-37 U/L Alanine Aminotransferase (ALT/SGPT) 63 12-78 U/L Alkaline Phosphatase 71 50-136 U/L Total Protein 6.2 6.0-8.3 g/dL Albumin 2.3 L 3.5-5.0 g/dL Test 09/10/24 16:32 Range/Units Bedside Glucose Comment Notified Nurse ASSESSMENT: Left anterior lower extremity wounds with abscess, s/p I&D with debridement and placement of a wound VAC. Left lower extremity cellulitis. Leukocytosis. Urinary tract infection. Morbid Obesity. Julien's disease. PLAN: Continue vancomycin per pharmacy protocol. Continue cefepime. Continue pain management. Continue GI prophylaxis. Continue diuretics. Continue wound care. Case management to arrange placement to SNF for continuation of antibiotics. This case was reviewed and discussed with my supervising physician and the above assessment and plan was formulated and agreed upon. ELMER ALVAREZP Sep 12, 2024 11:14
--- NOTE | 2024-09-12 13:15 | NUR ---
[facility] Follow-up: Patient re-assessed by wound healing team. See wound assessment. Assessment and recommendations provided to primary nurse. Education provided. Wound vac changed. Addendum: 09/13/24 at 1627 by BRITTNY WHITESIDE RN RN/ Amended: Links added.
--- NOTE | 2024-09-12 14:20 | PN ---
[facility] PROGRESS NOTE Date of Service: Sep 12, 2024 Time of Service: 14:18 SUBJECTIVE: 09/07 patient remains admitted to medical floor, hemodynamically stable, afebrile, saturating normal on room air, WBC trending down 13.2, hemoglobin stable 12.0, hematocrit 40.1, platelet count of 208. X-ray of the left tibia/fibula, no evidence of osteomyelitis. Patient to continue broad-spectrum antibiotics to include vancomycin and clindamycin, we will request Infectious Disease consultation, continue wound care, follow results of wound culture, due to swollen to the left lower extremity with the extensive cellulitis, we will order ultrasound soft tissue to rule out the possibility of underlying abscess, Doppler of the lower extremities, rule out DVT. Home medications has been reviewed and reconciled. At The time of my visit the patient is comfortably bed, alert oriented x3, getting IV antibiotics, getting good pain control with current medical management. Plan of action discussed, all questions answered, in agreement. 09/08 43-year-old female, presented to hospital with a chief complaint of extensive erythema and swelling to the left lower extremity. Patient placed on broad-spectrum IV antibiotics, infectious disease consultation requested. Dop pler of the lower extremities negative for DVT. Ultrasound soft tissue possible abscess, surgical consultation requested, follow input and recommendation. At the time of my visit patient is comfortably in bed, alert oriented x3, getting IV antibiotics, case discussed with the RN, no acute events overnight. 09/09/24 patient was seen earlier. Patient is scheduled for I and D per Dr. Mayes. Answer all questions appropriately. She denied chest pain or shortness for breath 09/10/24 patient is lying in bed patient has a wound VAC to her right lower extremity status post I&D day #1 recuperating well. She is tolerating IV antibiotics denies fever chills reports semi loose stools. All questions were addressed 09/11/24 patient is lying in bed recuperating well postop day 2. She continues with wound VAC tolerating well. Wound cultures Gram-negative E coli continues on IV Zosyn. Patient denied chest pain or shortness for breath 09/12/24 PATIENT WAS SEEN EARLIER PATIENT IS LYING IN BED. PATIENT WILL NEED LONG-TERM IV ANTIBIOTICS AND WOUND CARE MANAGEMENT CASE MANAGEMENT TO ARRANGE PLACEMENT [facility] PATIENT DENIED CHEST PAIN OR SHORTNESS FOR BREATH. REVIEW OF SYSTEMS CONSTITUTIONAL: Denies fevers, chills, or night sweats. No unintentional weight loss reported. NEUROLOGICAL: Denies headache, amaurosis fugax, motor weakness, sensory deficit, vertigo/spinning sensation, gait abnormalities, or tremors. ENT: No hearing loss, otalgia, otorrhea, rhinitis, rhinorrhea, hoarseness, or sore throat. CARDIOVASCULAR: Denies any exertional angina, dyspnea on exertion, orthopnea, paroxysmal nocturnal dyspnea, palpitations, life-threatening arrhythmias, claudication. PULMONARY: Denies any shortness of breath, cough, phlegm/sputum, hemoptysis, pleuritic chest pain. SLEEP: Denies morning headaches, daytime somnolence or napping. Denies difficulty falling asleep, staying asleep, waking from sleep. Denies knowledge of snoring. GASTROINTESTINAL: Denies any type of dysphagia to either liquids or solids. Denies nausea, vomiting, pyrosis, early satiety, abdominal pain, diarrhea, constipation, or changes in stool consistency or caliber. Denies coffee-ground emesis, hematemesis, hematochezia, or melanotic stools. GENITOURINARY: Denies frequency, urgency, nocturia, hematuria or incontinence (Storage/Irritative symptoms.) Low urinary stream, straining to void, urinary intermittency or hesitancy, splitting of the voiding stream, terminal dribbling. ENDOCRINOLOGIC: Denies polyuria, polydipsia, polyphagia or heat/cold intolerances. HEMATOLOGIC: Denies thrombophilia/previous clots, or coagulopathy/bleeding disorders. ONCOLOGIC: Denies personal history of malignancy. DERMATOLOGIC: Denies rashes or pruritus. PSYCHIATRIC: Denies any suicidal or homicidal ideation. Denies hallucinations. PHYSICAL EXAM GENERAL APPEARANCE: The patient is awake, alert, and oriented, in no acute cardiopulmonary distress. NEUROLOGICAL: Cranial nerves II-XII grossly intact. Motor is 5/5 in bilateral upper and lower extremities proximal to distal. No sensory deficits. HEENT: Face is symmetric. Pupils are equal and reactive. Extraocular movements are intact. NECK: Supple. No JVD. No thyromegaly. No submental, submandibular, pre- /postauricular, occipital or supraclavicular lymphadenopathy. CHEST: Normal chest expansion. No Telemetry. LUNGS: Absence of any rales, rhonchi or any wheezing. CARDIOVASCULAR: Regular. S1 and S2 normal. No appreciable rubs, murmurs or gallops. ABDOMEN: Soft, nontender, and nondistended. There is no rebound, voluntary guarding, or rigidity. : Deferred. No Enamorado. EXTREMITIES: Extensive erythema from the left ankle to the knee area, swollen t o the left lower extremity, can not exclude possibility of underlying abscess. SKIN: No skin breakdown. Vital Signs (last 8hr) Date Time Temp Pulse Resp B/P (MAP) Pulse Ox O2 Delivery O2 Flow Rate FiO2 09/12/24 11:18 98.4 81 18 132/69 96 Room Air 09/12/24 11:06 82 19 09/12/24 08:00 98 Room Air* 0 21 09/12/24 07:48 98.1 79 19 130/91 98 Room Air 09/12/24 06:22 77 19 09/12/24 06:22 77 18 N/A Room Air 21 LABS: Laboratory: Test 09/12/24 10:30 09/11/24 19:52 09/11/24 08:21 09/11/24 04:29 Range/Units Whole Blood Glucose 125 #H 70-110 MG/DL Vancomycin Level 9.8 L 20.0-30.0 mcg/mL Prothrombin Time 9.8 9.6-11.6 SEC Prothromb Time International Ratio <= 0.93 0.85-1.15 Vancomycin Level Trough 21.1 #H 10.0-20.0 UG/ML White Blood Count 8.0 4.8-10.8 K/uL Red Blood Count 3.74 L 4.00-5.50 MIL/uL Hemoglobin 9.9 L 12.0-16.0 g/dL Hematocrit 33.2 L 36-48 % Mean Corpuscular Volume 88.8 79-99 fL Mean Corpuscular Hemoglobin 26.5 L 27.0-33.0 pg Mean Corpuscular Hemoglobin Concent 29.8 L 32.0-36.0 g/dL Red Cell Distribution Width 17.2 H 11.0-15.5 % Platelet Count 255 130-400 K/uL Mean Platelet Volume 10.2 7.5-10.5 fL Immature Granulocyte % (Auto) 6.0 H 0-1 % Neutrophils (%) (Auto) 53.7 40.0-77.0 % Lymphocytes (%) (Auto) 28.7 21.0-51.0 % Monocytes (%) (Auto) 9.1 3.0-13.0 % Eosinophils (%) (Auto) 1.6 0.0-8.0 % Basophils (%) (Auto) 0.9 0.0-5.0 % Neutrophils # (Auto) 4.3 1.8-7.7 K/uL Lymphocytes # (Auto) 2.3 1.0-4.8 K/uL Monocytes # (Auto) 0.7 0.1-1.0 K/uL Eosinophils # (Auto) 0.13 0.00-0.70 K/uL Basophils # (Auto) 0.07 0.00-0.20 K/uL Absolute Immature Granulocyte (auto 0.48 0-1 K/uL Nucleated Red Blood Cells 0.0 0.0-0.19 % Sodium Level 141 136-145 mmol/L Potassium Level 3.9 3.5-5.1 mmol/L Chloride Level 106 101-111 mmol/L Carbon Dioxide Level 30 21-32 mmol/L Blood Urea Nitrogen 18 7-18 mg/dL Creatinine 0.8 0.5-1.0 mg/dL Glomerular Filtration Rate Calc 93 >90 mL/min Random Glucose 98 70-105 mg/dL Total Calcium 8.8 8.5-10.1 mg/dL Magnesium Level 1.90 1.80-2.40 mg/dL Total Bilirubin 0.2 0.2-1.0 mg/dL Aspartate Amino Transf (AST/SGOT) 18 10-37 U/L Alanine Aminotransferase (ALT/SGPT) 63 12-78 U/L Alkaline Phosphatase 71 50-136 U/L Total Protein 6.2 6.0-8.3 g/dL Albumin 2.3 L 3.5-5.0 g/dL Test 09/10/24 16:32 Range/Units Bedside Glucose Comment Notified Nurse Current Medications Medications (Trade) Dose Ordered Sig/Michael Route PRN Reason Start Time Stop Time Status Last Admin Dose Admin Acetaminophen (TYLenol 325MG TAB) 650 mg Q6H PRN PO TEMPERATURE GREATER THAN 101.5 09/06/24 21:00 10/06/24 20:59 09/06/24 23:00 650 MG Acetaminophen/ Hydrocodone Bitart (NORco 5/325MG) 1 tab Q6H PRN PO MODERATE PAIN (4-6) 09/07/24 10:30 09/12/24 10:29 DC 09/12/24 08:17 1 TAB Albuterol Sulfate (Proventil 0.083% 2.5mg/3ml) 2.5 mg [id number] IH 09/07/24 06:00 10/07/24 05:59 09/12/24 11:04 2.5 MG Alendronate Sodium (Fosamax 35mg Tab) 70 mg QWEEK@0630 PO 09/14/24 06:30 10/14/24 06:29 Amlodipine Besylate (NorvASC 5MG TAB) 5 mg DAILY PO 09/08/24 09:00 10/08/24 08:59 09/12/24 08:16 5 MG Atorvastatin Calcium (LIPItor 20MG) 20 mg HS PO 09/07/24 21:00 10/07/24 20:59 09/11/24 20:52 20 MG Buspirone HCl (BUspar) 10 mg BID PO 09/07/24 21:00 10/07/24 20:59 09/12/24 08:16 10 MG Cefepime HCl (MAXipime 1 GM vial) 1 gm Q12H IVPB 09/07/24 15:00 09/17/24 14:59 09/12/24 03:25 1 GM Cetirizine HCl (ZYRtec 5 MG TABLET) 10 mg HS PO 09/08/24 21:00 10/08/24 20:59 09/10/24 20:57 10 MG Citalopram Hydrobromide (CeleXA 20MG TAB) 40 mg DAILY PO 09/08/24 09:00 10/08/24 08:59 09/12/24 08:17 40 MG Clindamycin HCl/ Dextrose 50 ml @ 100 mls/hr Q8H IV 09/06/24 21:00 09/07/24 13:35 DC 09/07/24 13:16 100 MLS/HR Diphenhydramine HCl (BENAdryl CAP) 50 mg HS PO 09/07/24 21:00 10/07/24 20:59 09/11/24 20:52 50 MG Famotidine (Pepcid 20mg Tab) 20 mg BID PO 09/07/24 21:00 10/07/24 20:59 09/12/24 08:16 20 MG Furosemide (LASix 20MG TAB) 20 mg DAILY PO 09/08/24 09:00 10/08/24 08:59 09/12/24 08:17 20 MG Heparin Sodium (Porcine) (HEParin 5,000 UNIT VIAL) 5,000 unit BID SQ 09/06/24 21:00 10/06/24 20:59 09/12/24 08:24 5,000 UNIT Home Med (Home Medication) (Albuterol Sulfate (Leila... Q6H PRN IH wheezing 09/07/24 10:30 10/07/24 10:29 Home Med (Home Medication) (Chlorthalidone 25 MG) DAILY PO 09/08/24 09:00 10/08/24 08:59 Home Med (Home Medication) (Cholecalciferol (Vitamin D3) (Vitamin D3... DAILY PO 09/08/24 09:00 10/08/24 08:59 Home Med (Home Medication) (Fluticasone Propion/ [place]... HS IH 09/07/24 21:00 10/07/24 20:59 09/09/24 20:55 1 EACH Home Med (Home Medication) (Fluticasone/ Umeclidin/ Vilan... DAILY PO 09/08/24 09:00 10/08/24 08:59 Home Med (Home Medication) (Magnesium Oxide (Magnesi... HS PO 09/07/24 21:00 10/07/24 20:59 09/09/24 20:55 1 EACH Hydralazine HCl (APRESOLine 20MG INJ) 10 mg Q6H PRN IV For:SBP above 160;DBP above 90 09/06/24 21:00 10/06/24 20:59 Hydromorphone HCl (DiLAUDid 1MG INJ) 1 mg Q6H PRN IVP SEVERE PAIN (7-10) 09/09/24 16:30 09/14/24 16:29 09/10/24 15:27 1 MG Lactated Ringer's 1,000 ml @ 75 mls/hr [id number] IV 09/07/24 02:00 10/07/24 01:59 09/11/24 12:20 75 MLS/HR Losartan Potassium (CozAAR 100MG TAB) 100 mg DAILY PO 09/08/24 09:00 10/08/24 08:59 09/12/24 08:16 100 MG Metoprolol Tartrate (loprESSOR) 50 mg BID PO 09/07/24 21:00 10/07/24 20:59 09/12/24 08:16 50 MG Miscellaneous Medication (Meloxicam ) 1 tab DAILY PRN PO BP 09/07/24 10:30 09/07/24 10:16 DC Montelukast Sodium (SinguLAIR) 10 mg DAILY PO 09/08/24 09:00 10/08/24 08:59 09/12/24 08:17 10 MG Morphine Sulfate (morPHINE 2MG SYG) 2 mg Q4H PRN IVP SEVERE PAIN (7-10) 09/06/24 21:30 09/09/24 16:36 DC 09/07/24 00:31 2 MG Ondansetron HCl (zoFRAN 4MG INJ) 4 mg Q6H PRN IV NAUSEA/VOMITING 09/06/24 21:00 10/06/24 20:59 Pantoprazole Sodium (PROTonix 40MG TAB) 40 mg DAILY PO 09/07/24 09:00 09/07/24 10:04 DC 09/07/24 09:08 40 MG Potassium Chloride (K-Dur/Klor-Con 20meq) 20 meq DAILY PO 09/08/24 09:00 10/08/24 08:59 09/12/24 08:16 20 MEQ Prednisone (deltaSONE/ oraSONE 5MG) 5 mg DAILY PO 09/08/24 09:00 10/08/24 08:59 09/12/24 08:17 5 MG Sodium Hypochlorite (Dakin'S 0.25% Half Strength) DAILY17 TP 09/07/24 17:00 10/07/24 16:59 09/10/24 18:08 1 APPL Trazodone HCl (DesyREL/OlepTRO) 100 mg HS PO 09/07/24 21:00 10/07/24 20:59 09/11/24 20:52 100 MG Vancomycin HCl 250 ml @ 125 mls/hr Q12H IV 09/09/24 21:00 09/11/24 09:01 DC 09/10/24 21:02 125 MLS/HR Vancomycin HCl 250 ml @ 125 mls/hr Q12H IV 09/11/24 21:00 09/11/24 20:41 DC Vancomycin HCl 250 ml @ 125 mls/hr Q24H IV 09/07/24 21:00 09/09/24 21:01 DC 09/08/24 20:43 125 MLS/HR Vancomycin HCl 250 ml @ 125 mls/hr Q24H IV 09/11/24 21:00 09/12/24 13:22 DC 09/11/24 22:05 125 MLS/HR Vancomycin HCl (Vancomycin Protocol) 1 each AD IV 09/06/24 21:00 09/20/24 20:59 DIAGNOSTICS / RADIOLOGY: [ ] ASSESSMENT: Sepsis, POA Extensive left lower extremity cellulitis, POA Anterior tibial left lower extremity wound, can not exclude underlying abscess POA s/p ID requiring wound vac. gram negative Ecoli to infected wounds: POA ESTRELLA prerenal, POA Leukocytosis, POA Essential hypertension, POA ROCKY, POA History of Stuart's disease, POA History of bronchial asthma, POA PLAN: POST OP Day #3 I and D with Wound Vac to left lower extremity. Continues with broad-spectrum antibiotics Zosyn wound cultures Gram-negative E coli.. Wound management on board for wound care management. Case management for discharge planning. [facility] FOR WOUND CARE MANAGEMENT AND IV ANTIBIOTICS IN PROCESS NEURO: Minimize central acting medications as possible. Fall Precautions. Well lighted room through the day and minimize interruptions through the night to prevent acute delirium. PULMONARY: Supplemental 02 as needed BiPAP as necessary, for respiratory distress Titrate Fio2 to keep Spo2 > or = 90% DuoNebs and CPT as needed IS hourly while awake for pulmonary hygiene prn Out of bed to chair as tolerated Maintain aspiration precautions at all times CARDIOVASCULAR: Follow hemodynamics. Vital signs per facility protocol GI & NUTRITION: Continue nutritional support Aspirations precautions Prokinetic agents and laxatives as needed KIDNEYS & ELECTROLYTES: Strict monitoring of intake and output Daily weights Avoid nephrotoxic agents Monitor electrolytes and replace as needed Goal urine output of 30mL/hr or 0.5mL/kg/hr Medications to be dosed according to renal function. Avoid contrast if possible ENDOCRINE: Maintain blood glucose between 100-180 at all times. Insulin sliding scale for blood glucose management Hypoglycemia and hyperglycemia protocol in place INFECTIOUS DISEASE: Trend temperature, WBC and procalcitonin level Follow cultures, deescalate antibiotics as soon as possible. Panculture if new onset fever HEMATOLOGY & COAGULATION: Monitor H&H. Keep Hgb > 7 Transfuse 1 unit of PRBC for Hgb < 7 Transfuse 1 pack of platelets of platelets < 20, 000 Watch for any signs and symptoms of bleeding SKIN: Pressure ulcer prevention per facility protocol Specialty mattress as needed ORTHO/REHAB Continue PT/OT PRN: MEDICATIONS Tylenol 650 mg po every 4 hrs for fever zofran 4 mg IV every 6 hrs for n/v Hydralazine 5 mg IV every 4 hrs systolic pressure > 160 bowel regiment: lactulose 20 gm PO BID PRN constipation Supportive measures: Continue GI and DVT prophylaxis Disposition: Pending improvement in clinical condition All questions answered ATTESTATION BY PHYSICIAN I have seen and examined the patient. I reviewed the documentation, medical decision making, and treatment plan as noted by the mid-level provider above. I agree with the findings and plan of care. Yoanna Alford MD, ELIZABETH NP Sep 12, 2024 14:20
--- NOTE | 2024-09-12 14:47 | NUR ---
DC [facility]AN [facility] ASKED WHICH FACILITY WOULD BE MORE WILLING TO TAKE MEDICAID PATIENT PER REP IT WOULD BE [facility]. Addendum: 09/12/24 at 1448 by TU WALSH RN CM Amended: Links added.
--- NOTE | 2024-09-12 16:24 | PN ---
This is a 43-year-old female postop day one for I and D with debridement to left lower extremity Interval history: This 43-year-old female seen in her resting Wound care's just change the wound VAC with no issues or complications No reports of need for debridement at this time Photos taken by patient reviewed Patient's pain controlled Labs and vitals unremarkable Physical exam General: Awake alert and oriented Heart: Regular rate and rhythm} Lungs: Clear to auscultation no distress Abdomen: [Soft, nontender, nondistended Wound VAC to left lower extremity Assessment : This is a 43-year-old female status post I and D with debridement to left lower extremity Plan: From surgical standpoint we will continue to follow patient in outpatient setting Patient will need multiple weeks of IV antibiotics Case management to work with potential placement and wound VAC management Surgical team to follow patient closely while hospital Dr. Mayes to be updated in patient's status Vitals/Labs Vital Signs Date Time Temp Pulse Resp B/P (MAP) Pulse Ox O2 Delivery O2 Flow Rate FiO2 09/12/24 15:42 98.4 85 18 138/77 94 Room Air 09/12/24 08:00 0 21 Medications Current Medications Vancomycin HCl 1 gm ONCE ONCE IV Last administered on 09/06/24at 21:27; Start 09/06/24 at 21:00; Stop 09/06/24 at 21:01; Status DC Morphine Sulfate 4 mg ONCE ONCE IVP Last administered on 09/06/24at 21:27; Start 09/06/24 at 21:00; Stop 09/06/24 at 21:01; Status DC Acetaminophen 650 mg Q6H PRN PO Last administered on 09/06/24at 23:00; Start 09/06/24 at 21:00; Stop 10/06/24 at 20:59 Heparin Sodium (Porcine) 5,000 unit BID SQ Last administered on 09/12/24at 08:24; Start 09/06/24 at 21:00; Stop 10/06/24 at 20:59 Hydralazine HCl 10 mg Q6H PRN IV; Start 09/06/24 at 21:00; Stop 10/06/24 at 20:59 Morphine Sulfate 2 mg Q4H PRN IVP Last administered on 09/07/24at 00:31; Start 09/06/24 at 21:30; Stop 09/09/24 at 16:36; Status DC Ondansetron HCl 4 mg Q6H PRN IV; Start 09/06/24 at 21:00; Stop 10/06/24 at 20:59 Pantoprazole Sodium 40 mg DAILY PO Last administered on 09/07/24at 09:08; Start 09/07/24 at 09:00; Stop 09/07/24 at 10:04; Status DC Clindamycin HCl/ Dextrose 50 ml @ 100 mls/hr Q8H IV Last administered on 09/07/24at 13:16; Start 09/06/24 at 21:00; Stop 09/07/24 at 13:35; Status DC Vancomycin HCl 1 each AD IV; Start 09/06/24 at 21:00; Stop 09/20/24 at 20:59 Vancomycin HCl 250 ml @ 125 mls/hr Q24H IV Last administered on 09/08/24at 20:43; Start 09/07/24 at 21:00; Stop 09/09/24 at 21:01; Status DC Albuterol Sulfate 2.5 mg [id number] IH Last administered on 09/12/24at 11:04; Start 09/07/24 at 06:00; Stop 10/07/24 at 05:59 Lactated Ringer's 1,365 ml @ 455 mls/hr ONCE ONCE IV Last administered on 09/07/24at 03:04; Start 09/07/24 at 02:00; Stop 09/07/24 at 04:59; Status DC Lactated Ringer's 1,000 ml @ 75 mls/hr [id number] IV Last administered on 09/11/24at 12:20; Start 09/07/24 at 02:00; Stop 10/07/24 at 01:59 Amlodipine Besylate 5 mg DAILY PO Last administered on 09/12/24at 08:16; Start 09/08/24 at 09:00; Stop 10/08/24 at 08:59 Diphenhydramine HCl 50 mg HS PO Last administered on 09/11/24at 20:52; Start 09/07/24 at 21:00; Stop 10/07/24 at 20:59 Famotidine 20 mg BID PO Last administered on 09/12/24at 08:16; Start 09/07/24 at 21:00; Stop 10/07/24 at 20:59 Furosemide 20 mg DAILY PO Last administered on 09/12/24 08:17; Start 09/08/24 at 09:00; Stop 10/08/24 at 08:59 Acetaminophen/ Hydrocodone Bitart 1 tab Q6H PRN PO Last administered on 09/12/24at 08:17; Start 09/07/24 at 10:30; Stop 09/12/24 at 10:29; Status DC Losartan Potassium 100 mg DAILY PO Last administered on 09/12/24at 08:16; Start 09/08/24 at 09:00; Stop 10/08/24 at 08:59 Metoprolol Tartrate 50 mg BID PO Last administered on 09/12/24at 08:16; Start 09/07/24 at 21:00; Stop 10/07/24 at 20:59 Montelukast Sodium 10 mg DAILY PO Last administered on 09/12/24at 08:17; Start 09/08/24 at 09:00; Stop 10/08/24 at 08:59 Potassium Chloride 20 meq DAILY PO Last administered on 09/12/24at 08:16; Start 09/08/24 at 09:00; Stop 10/08/24 at 08:59 Prednisone 5 mg DAILY PO Last administered on 09/12/24at 08:17; Start 09/08/24 at 09:00; Stop 10/08/24 at 08:59 Trazodone HCl 100 mg HS PO Last administered on 09/11/24at 20:52; Start 09/07/24 at 21:00; Stop 10/07/24 at 20:59 Home Med (Albuterol Sulfate (Leila... Q6H PRN IH; Start 09/07/24 at 10:30; Stop 10/07/24 at 10:29 Alendronate Sodium 70 mg QWEEK@0630 PO; Start 09/14/24 at 06:30; Stop 10/14/24 at 06:29 Buspirone HCl 10 mg BID PO Last administered on 09/12/24at 08:16; Start 09/07/24 at 21:00; Stop 10/07/24 at 20:59 Cetirizine HCl 10 mg HS PO Last administered on 09/10/24at 20:57; Start 09/08/24 at 21:00; Stop 10/08/24 at 20:59 Home Med (Chlorthalidone 25 MG) DAILY PO; Start 09/08/24 at 09:00; Stop 10/08/24 at 08:59 Home Med (Cholecalciferol (Vitamin D3) (Vitamin D3... DAILY PO; Start 09/08/24 at 09:00; Stop 10/08/24 at 08:59 Citalopram Hydrobromide 40 mg DAILY PO Last administered on 09/12/24at 08:17; Start 09/08/24 at 09:00; Stop 10/08/24 at 08:59 Home Med (Fluticasone Propion/ [place]... HS IH Last administered on 09/09/24at 20:55; Start 09/07/24 at 21:00; Stop 10/07/24 at 20:59 Home Med (Fluticasone/ Umeclidin/ Vilan... DAILY PO; Start 09/08/24 at 09:00; Stop 10/08/24 at 08:59 Home Med (Magnesium Oxide (Magnesi... HS PO Last administered on 09/09/24at 20:55; Start 09/07/24 at 21:00; Stop 10/07/24 at 20:59 Miscellaneous Medication 1 tab DAILY PRN PO; Start 09/07/24 at 10:30; Stop 09/07/24 at 10:16; Status DC Atorvastatin Calcium 20 mg HS PO Last administered on 09/11/24at 20:52; Start 09/07/24 at 21:00; Stop 10/07/24 at 20:59 Cefepime HCl 1 gm Q12H IVPB Last administered on 09/12/24at 14:48; Start 09/07/24 at 15:00; Stop 09/17/24 at 14:59 Sodium Hypochlorite DAILY17 TP Last administered on 09/10/24at 18:08; Start 09/07/24 at 17:00; Stop 10/07/24 at 16:59 Potassium Chloride 40 meq ONCE ONCE PO; Start 09/08/24 at 09:30; Stop 09/08/24 at 09:31; Status DC Iohexol 35,000 mg STK-MED ONCE IV; Start 09/08/24 at 15:33; Stop 09/08/24 at 15:33; Status DC Midazolam HCl 2 mg STK-MED ONCE .ROUTE; Start 09/09/24 at 14:54; Stop 09/09/24 at 14:58; Status DC Fentanyl Citrate 100 mcg STK-MED ONCE .ROUTE; Start 09/09/24 at 14:54; Stop 09/09/24 at 14:58; Status DC Hydrocortisone Sodium Succinate 100 mg STK-MED ONCE .ROUTE; Start 09/09/24 at 14:59; Stop 09/09/24 at 14:59; Status DC Propofol 200 mg STK-MED ONCE IV; Start 09/09/24 at 15:17; Stop 09/09/24 at 15:18; Status DC Rocuronium [place] 50 mg STK-MED ONCE .ROUTE; Start 09/09/24 at 15:18; Stop 09/09/24 at 15:18; Status DC Phenylephrine HCl 10 mg STK-MED ONCE IV; Start 09/09/24 at 15:47; Stop 09/09/24 at 15:47; Status DC Fentanyl Citrate 250 mcg STK-MED ONCE IV; Start 09/09/24 at 15:47; Stop 09/09/24 at 15:48; Status DC Acetaminophen 100 ml @ As Directed STK-MED ONCE .ROUTE; Start 09/09/24 at 16:21; Stop 09/09/24 at 16:22; Status DC Albuterol 1 udvial STK-MED ONCE IH; Start 09/09/24 at 16:29; Stop 09/09/24 at 16:30; Status DC Albuterol 1 UDVIAL ONCE ONCE IH Last administered on 09/09/24at 16:58; Start 09/09/24 at 17:00; Stop 09/09/24 at 17:01; Status DC Hydromorphone HCl 1 mg STK-MED ONCE .ROUTE Last administered on 09/09/24at 16:38; Start 09/09/24 at 16:34; Stop 09/09/24 at 16:34; Status DC Hydromorphone HCl 1 mg Q6H PRN IVP Last administered on 09/12/24at 14:48; Start 09/09/24 at 16:30; Stop 09/14/24 at 16:29 Fentanyl Citrate 100 mcg STK-MED ONCE .ROUTE Last administered on 09/09/24at 16:52; Start 09/09/24 at 16:47; Stop 09/09/24 at 16:47; Status DC Vancomycin HCl 250 ml @ 125 mls/hr Q12H IV Last administered on 09/10/24at 21:02; Start 09/09/24 at 21:00; Stop 09/11/24 at 09:01; Status DC Vancomycin HCl 250 ml @ 125 mls/hr Q12H IV; Start 09/11/24 at 21:00; Stop 09/11/24 at 20:41; Status DC Vancomycin HCl 250 ml @ 125 mls/hr Q24H IV Last administered on 09/11/24at 22:05; Start 09/11/24 at 21:00; Stop 09/12/24 at 13:22; Status DC WILBER DAVIS Jr. Sep 12, 2024 16:24
[2024-09-12] MEDS: HYDROcodone/APAP 5/325 1 TAB TABLET PO PRN (21:10)
[2024-09-13] VITALS (11 sets, daily range): BP systolic 114–129; BP diastolic 76–97; PULSE 77–95; RESP 16–21; TEMP 98–98.8; O2SAT 95–97
--- NOTE | 2024-09-13 11:01 | PN ---
INFECTIOUS DISEASE PROGRESS NOTE Date of Service: Sep 13, 2024 SUBJECTIVE: This 43 year old female patient is being seen today at bedside. She is awake, alert and oriented x3. Has no fever or chills. No nausea or vomiting. Patient is calm, laying in bed. Wound vac to left lower extremity was changed yesterday. She denies any pain at this time. States she has not had bowel movement for few days. Patient has been approved for SNF. PHYSICAL EXAM EYES: Anicteric. Pupils equal and reactive. HENT: No oral thrush seen, moist Oral mucosa NECK: Supple, no JVD or thyromegaly. LUNGS: Good air entry. no rhonchi. Chronic cough. CARDIOVASCULAR: S1, S2 regular. No murmur heard. ABDOMEN: Soft, non tender, bowel sounds present, no organomegaly. CENTRAL NERVOUS SYSTEM: Awake, alert, oriented x 3. SKIN: No rashes, no swelling. Draining open wounds with abscess to the left lower extremity, s/p I&D and debridement and wound VAC placement. LYMPHATICS: No peripheral lymphadenopathy MUSCULOSKELETAL: No joint swelling, erythema or tenderness. EXTREMITIES: No cyanosis or clubbing. Left lower extremity swelling and redness, has improved. BACK: No deformity, no pressure ulcer. GENITOURINARY: No dysuria or hematuria Vital Sign (Last 12 Hours) 09/12/24 09/13/24 09/13/24 09/13/24 23:02 00:00 02:27 04:00 Temp 98.1 98.1 Pulse 84 77 77 77 Resp 18 20 20 20 B/P (MAP) 121/76 121/86 Pulse Ox 94 95 O2 Delivery CPAP CPAP FiO2 21 21 09/13/24 09/13/24 09/13/24 09/13/24 06:59 07:00 07:52 08:00 Temp 98.8 Pulse 95 95 92 Resp 18 21 16 B/P (MAP) 129/94 Pulse Ox 97 97 O2 Delivery N/A Room Air Room Air Room Air* O2 Flow Rate 0 FiO2 21 21 Intake & Output (last 24hrs) 09/12/24 09/12/24 09/13/24 15:00 23:00 07:00 Intake Total 50.0 ml Output Total 345 ml Balance -295.0 ml LABS: Laboratory: Test 09/13/24 10:43 8/3/25 19:52 Range/Units Whole Blood Glucose 102 70-110 MG/DL Vancomycin Level 9.8 L 20.0-30.0 mcg/mL ASSESSMENT: Left anterior lower extremity wounds with abscess, s/p I&D with debridement and placement of a wound VAC. Left lower extremity cellulitis. Leukocytosis. Urinary tract infection. Morbid Obesity. Julien's disease. PLAN: Continue vancomycin per pharmacy protocol. Continue cefepime. Continue pain management. Continue GI prophylaxis. Continue diuretics. Continue wound care. Case management to arrange placement to SNF for continuation of antibiotics. Lactulose every 6 hours PRN for constipation This case was reviewed and discussed with my supervising physician and the above assessment and plan was formulated and agreed upon. ELMER ALVAREZ Sep 13, 2024 11:01
--- NOTE | 2024-09-13 13:21 | DS ---
Discharge Summary Hospital Course Summary: 09/07 patient remains admitted to medical floor, hemodynamically stable, afebrile, saturating normal on room air, WBC trending down 13.2, hemoglobin stable 12.0, hematocrit 40.1, platelet count of 208. X-ray of the left tibia/fibula, no evidence of osteomyelitis. Patient to continue broad-spectrum antibiotics to include vancomycin and clindamycin, we will request Infectious Disease consultation, continue wound care, follow results of wound culture, due to swollen to the left lower extremity with the extensive cellulitis, we will order ultrasound soft tissue to rule out the possibility of underlying abscess, Doppler of the lower extremities, rule out DVT. Home medications has been reviewed and reconciled. At The time of my visit the patient is comfortably bed, alert oriented x3, getting IV antibiotics, getting good pain control with current medical management. Plan of action discussed, all questions answered, in agreement. 09/08 43-year-old female, presented to hospital with a chief complaint of extensive erythema and swelling to the left lower extremity. Patient placed on broad-spectrum IV antibiotics, infectious disease consultation requested. Doppler of the lower extremities negative for DVT. Ultrasound soft tissue possible abscess, surgical consultation requested, follow input and recommendation. At the time of my visit patient is comfortably in bed, alert oriented x3, getting IV antibiotics, case discussed with the RN, no acute events overnight. 09/09/24 patient was seen earlier. Patient is scheduled for I and D per Dr. Andre. Answer all questions appropriately. She denied chest pain or shortness for breath 09/10/24 patient is lying in bed patient has a wound VAC to her right lower extremity status post I&D day #1 recuperating well. She is tolerating IV antibiotics denies fever chills reports semi loose stools. All questions were addressed 09/11/24 patient is lying in bed recuperating well postop day 2. She continues with wound VAC tolerating well. Wound cultures Gram-negative E coli continues on IV Zosyn. Patient denied chest pain or shortness for breath 09/12/24 PATIENT WAS SEEN EARLIER PATIENT IS LYING IN BED. PATIENT WILL NEED LONG-TERM IV ANTIBIOTICS AND WOUND CARE MANAGEMENT CASE MANAGEMENT TO ARRANGE PLACEMENT [facility] PATIENT DENIED CHEST PAIN OR SHORTNESS FOR BREATH. 09/13/24 patient was accepted to [facility] for long-term IV [id number] days in wound care management with wound VAC. Patient to follow-up with General surgeon one-week Dr. Andre. As per ID patient will continue with IV antibiotics as directed for 14 days. Patient is clinically stable for discharge. No chest pain, shortness for breath she is alert oriented x3. Lumber Straightened(s): REASON: rule out abscess ORDERING PHYSICIAN: TRICIA AC MD PROCEDURE: SOFT LOW E - US SOFT TISSUE LOWER EXTREMITY EXAMINATION: SOFT TISSUE ULTRASOUND OF THE LEFT LOWER LEG. CLINICAL HISTORY: Palpable swelling. COMPARISON: CT lower extremity with contrast dated 05/22/2024. TECHNIQUE: Transverse and longitudinal images were obtained in the left lower leg. FINDINGS: There are hypoechoic irregular areas in the left lower leg anterior and medial region that measure 1.2 x 0.4 x 1.0 cm and 1.4 x 2.0 x 1.4 cm in craniocaudal, AP, and transverse dimensions respectively. There is minimal peripheral vascularity. IMPRESSION: Features may reflect phlegmon in the left lower leg. /[place] REASON: rule out dvt ORDERING PHYSICIAN: TRICIA AC MD PROCEDURE: VENOUS UNI - US VENOUS DOPPLER UNILATERAL EXAMINATION: SPECTRAL DOPPLER ULTRASOUND EXAMINATION OF THE LEFT LOWER EXTREMITY VEINS. CLINICAL HISTORY: To rule out DVT. COMPARISON: Bilateral lower extremity venous doppler dated 05/21/2024. TECHNIQUE: Real-time ultrasound scan of the veins of the left lower extremity with color Doppler flow, spectral waveform analysis and compression. FINDINGS: DEEP VEINS: The common femoral, superficial femoral, and popliteal veins are echolucent and compressible. There is normal color Doppler flow throughout. The visualized calf veins appear patent. SUPERFICIAL VEINS: The greater and lesser saphenous veins are patent and compressible. SOFT TISSUES: No popliteal fossa cyst or other abnormalities. IMPRESSION: No deep venous thrombosis evident in the left lower extremity. No superficial thrombophlebitis in the left lower extremity. REASON: NON HEALING CHRONIC WOUND WITH CELLULITIS ASSESS FOR ABCESS ORDERING PHYSICIAN: VANDA ANDRE MD PROCEDURE: LOW EXT W - CT LOW EXT W/CONTRAST ADDENDUM REPORT ADDENDUM: Results were shared by telephone at 7:11 pm on 09-08-24 and acknowledged by patient's nurse RicciSofía,Jazmine. /[place] EXAM: CT Right Lower Extremity, With IV contrast CLINICAL HISTORY: 43-year-old female with a nonhealing chronic wound and cellulitis, assess for abscess TECHNIQUE: Axial images were acquired through the right lower extremity with IV contrast. Reformatted images were reviewed. Dose reduction technique was used including one or more of the following: automated exposure control, adjustment of mA and kV according to patient size, and/or iterative reconstruction. CONTRAST: 98 mL of IV contrast COMPARISON: CT Lower Extremity 05/22/2024 FINDINGS: BONES: No acute fracture. No CT evidence for osteomyelitis. JOINTS: Large knee joint effusion. Moderate osteoarthritis of the knee. SOFT TISSUES: Extensive soft tissue edema of the anterior tibial soft tissues. There is a pretibial anterior fluid collection measuring 4.0 cm by 1.4 cm by 5.6 cm with enhancing shaw consistent with abscess with surrounding cellulitis. Diffuse subcutaneous soft tissue edema of the leg and around the ankle suggesting cellulitis. No other focal fluid collection. Swelling is water density and the patient's habitus is obese. The pre-tibial soft tissue abscess is slightly enlarged compared to the prior CT Lower Extremity 05/22/2024. Multiple chronic findings similar to prior CT Lower Extremity 05/22/2024. IMPRESSION: 1. Pretibial anterior fluid collection with enhancing shaw consistent with abscess, slightly enlarged compared to prior study, with surrounding cellulitis. 2. Extensive soft tissue edema of the anterior tibial soft tissues and diffuse subcutaneous soft tissue edema of the leg and around the ankle, suggesting cellulitis. 3. Large knee joint effusion and moderate osteoarthritis of the knee. 4. No CT evidence for osteomyelitis. REASON: R/o osteomyelitis ORDERING PHYSICIAN: ZORAIDA MORRISON PROCEDURE: TIBFIB LT - TIBIA/FIBULA 2VWS LT EXAM: Left tibia/fibula radiograph 2 view HISTORY: Infection COMPARISON: None TECHNIQUE: AP and lateral views FINDINGS: No fracture or dislocation. Mild soft tissue swelling. No erosive changes seen. Degenerative changes of the left knee. IMPRESSION: No evidence of osteomyelitis Procedure(s): Operative Note: DATE OF PROCEDURE: 09/09/24 SURGEON: VANDA ANDRE MD PROJECT SCIENTIST: 1st manuel Hutchins ANESTHESIA: General ANESTHESIOLOGIST/SOLID WASTE TRUCK DRIVER: JAQUAN Davenport PREOPERATIVE DIAGNOSIS: Chronic nonhealing left lower extremity wounds with abscess and cellulitis POSTOPERATIVE DIAGNOSIS: Chronic nonhealing left lower extremity wounds with abscess and cellulitis SYNOPSIS: Three nonhealing wounds present, cellulitis PROCEDURE: Sharp Debridement of chronic nonhealing wounds of the left lower extremity (8.5 x 6 x 1 cm; skin and subcutaneous tissue) and wound VAC placement ESTIMATED BLOOD LOSS: 100 mL INDICATIONS: 43-year-old female with a several month history of a chronic nonhealing wound that subsequently developed significant cellulitis with a underlying abscess. I and D of the left lower extremity as well as possible debridement was indicated. She has Montour's disease and takes chronic steroids. And we plan to give her a stress dose of steroids at surgery. DESCRIPTION OF PROCEDURE: The patient was taken to the operating room and placed on the operating table in supine position. Next general anesthesia was induced and the patient was intubated. Her left lower extremity was prepped and draped in sterile fashion. A time-out was called and the patient's identity, procedure, preoperative antibiotics and stress steroids were all confirmed. I initially attempted to aspirate where I thought the abscess cavity would be. I was unable to aspirate any purulent contents. There left lower extremity was so brawny edematous that I only was able to aspirate serous fluid. I tried multiple areas near and above the chronic nonhealing wounds. Next I made a generous excision using electrocautery to encompass the three chronic nonhealing wounds. I did not see any pus. I was unable to send any fluid cultures. Hemostasis was obtained with electrocautery and packing. I irrigated the wound with normal saline. The final wound measured 8.5 x 6 x 1 cm in size. A wound VAC was placed for negative pressure therapy. Sponge, needle instrument counts were accurate. The patient's anesthesia was reversed and she was taken to recovery room in stable condition. JES A Assessment/Plan: discharged dx's; Sepsis, POA Extensive left lower extremity cellulitis, POA Suspecting osteo myelitis ruled out POA Anterior tibial left lower extremity wound, can not exclude underlying abscess POA s/p ID requiring wound vac. gram negative Ecoli to infected wounds: POA ESTRELLA prerenal, POA Leukocytosis, POA Essential hypertension, POA ROCKY, POA History of Julien's disease, POA History of bronchial asthma, POA PLAN: ADMISSION DATE: 09/06/2024 DISCHARGE DATE: 09/13/24 DISPOSITION: SNF: [facility] for [facility] IV antibiotic x14 days and Wound care management with WOUND VAC CONDITION: stable NAIL GALVANIZER(S): General surgeon: DR Andre, ID: Dr Trudi JOSEPH FOLLOW UP APPOINTMENT(S): Dr Andre one wk PROCEDURES: I/D left lower ext with wound vac IMAGING (S) report attached to summary : Lower extremity CT, venous Doppler study, soft tissue ultrasound, tibia fibula x-ray MICROBIOLOGY: report attached to summary; ACTIVITY: abl ib as tolerated HOME MEDICATIONS reviewed see below CHANGES ON HOME MEDICATIONS; [facility] Hospitalization reconciliation medications reviewed and we will continue upon discharge. Home Medications: Active Scripts Famotidine (Famotidine) 20 Mg Tablet, 20 MG PO BID for 30 Days, #60 TAB 2 Refills Prov:MIRLANDE TOWNSEND COTTON ROLL PACKER 06/20/21 Reported Medications Albuterol Sulfate (Ventolin Hfa) 90 Mcg Hfa.aer.ad, 2 PUFF IH Q6HPRN PRN for wheezing for 30 Days, #18 GM 0 Refills 09/07/24 [Vitamin C] No Conflict Check, 2 CAP PO DAILY 09/07/24 Cholecalciferol (Vitamin D3) (Vitamin D3) 125 Mcg (5000 Unit) Tablet, 1 TAB PO DAILY for 30 Days, #30 TAB 0 Refills 09/07/24 Fluticasone Propion/Salmeterol (Fluticasone-Salmeterol 100-50) 100 Mcg-50 Mcg/Dose Blst.w.dev, 1 PUFF IH HS for 30 Days, #60 EACH 0 Refills 09/07/24 Diphenhydramine HCl (Diphenhydramine HCl) 25 Mg Tablet, 2 TAB PO HS for allergy symptoms for 30 Days, #30 TAB 0 Refills 09/07/24 Amlodipine Besylate (Amlodipine Besylate) 5 Mg Tablet, 1 TAB PO DAILY for 30 Days, #30 TAB 0 Refills 09/07/24 Sulfamethoxazole/Trimethoprim (Bactrim Ds Tablet) 800 Mg-160 Mg Tablet, 1 TAB PO BID for 10 Days, #20 TAB 0 Refills 09/07/24 Magnesium Oxide (Magnesium) 500 Mg Capsule, 1 CAP PO HS for 30 Days, #60 CAP 0 Refills 7/30/25 Hydrocodone/Acetaminophen (Hydrocodon-Acetaminophen 5-325) 5 Mg-325 Mg Tablet, 1 TAB PO Q6HPRN PRN for MODERATE PAIN (4-6) 05/22/24 Alendronate Sodium (Alendronate Sodium) 70 Mg Tablet, 1 TAB PO QWEEK Mondays05/22/24 Prednisone (Deltasone / Orasone) 5 Mg Tablet, 1 TAB PO DAILY 05/22/24 Losartan Potassium (Losartan Potassium) 100 Mg Tablet, 1 TAB PO DAILY 05/22/24 Meloxicam (Meloxicam) 15 Mg Tablet, 1 TAB PO DAILY PRN for BACK PAIN 05/22/24 Fluticasone/Umeclidin/Vilanter (Trelegy Ellipta 100-62.5-25) 100-62.5 Blst.w.dev, 1 PUFF PO DAILY 05/22/24 Potassium Chloride (Potassium Chloride) 20 Meq Tab.er.prt, 1 TAB PO DAILY 05/22/24 Metoprolol Tartrate (Lopressor 50Mg Tab) 50 Mg Tab, 1 TAB PO BID 05/22/24 Buspirone HCl (Buspirone HCl) 10 Mg Tablet, 1 TAB PO BID 05/22/24 Rosuvastatin Calcium (Rosuvastatin Calcium) 10 Mg Tablet, 1 TAB PO HS 05/22/24 Montelukast Sodium (Montelukast Sodium) 10 Mg Tablet, 1 TAB PO DAILY 05/22/24 Albuterol Sulfate (Proventil Hfa) 6.7 Gm Hfa.aer.ad, 8.5 GM IH Q4PRN PRN for SHORTNESS OF BREATH/WHEEZING 07/30/22 Furosemide (Furosemide) 20 Mg Tablet, 20 MG PO DAILY, TAB 07/30/22 Cetirizine HCl (Cetirizine HCl) 10 Mg Tablet, 10 MG PO HS, TAB 07/30/22 Trazodone HCl (Trazodone HCl) 100 Mg Tablet, 100 MG PO HS, TAB 07/30/22 Chlorthalidone (Chlorthalidone) 25 Mg Tablet, 25 MG PO DAILY, TAB 07/30/22 Citalopram Hydrobromide (Citalopram HBr) 40 Mg Tablet, 40 MG PO DAILY, TAB 07/30/22 Discontinued Reported Medications Multivits-Min/Folic Acid/Biot (Hair, Skin & Nails Caplet) 66.7 Mcg-1,000 Mcg Tablet, 3 TAB PO DAILY for 30 Days, #30 TAB 0 Refills 05/22/24 Magnesium Citrate (Magnesium Citrate) 100 Mg Tablet, 2 TAB PO HS for 30 Days, #30 TAB 0 Refills 05/22/24 Ondansetron HCl (Ondansetron HCl) 8 Mg Tablet, 1 TAB PO BID PRN for NAUSEA/VOMITING 05/22/24 Amlodipine Besylate (Amlodipine Besylate) 5 Mg Tablet, 1 TAB PO DAILY 05/22/24 Fluticasone Propionate (Flonase Nasal [place]) 50 Mcg/Actuation [place], 50 MCG NASAL HS, SPRAY 07/30/22 Discontinued Scripts Cefpodoxime Proxetil (Cefpodoxime Proxetil) 200 Mg Tablet, 1 TAB PO BID for 10 Days, #20 TAB 0 Refills Prov:DAMON SIDHU MD 05/26/24 Continued Medications: Albuterol Sulfate (Proventil Hfa) 6.7 Gm Hfa.aer.ad 8.5 GM IH Q4PRN PRN for SHORTNESS OF BREATH/WHEEZING Albuterol Sulfate (Ventolin Hfa) 90 Mcg Hfa.aer.ad 2 PUFF IH Q6HPRN PRN for wheezing for 30 Days, #18 GM 0 Refills Alendronate Sodium (Alendronate Sodium) 70 Mg Tablet 1 TAB PO QWEEK MONDAYS Amlodipine Besylate (Amlodipine Besylate) 5 Mg Tablet 1 TAB PO DAILY for 30 Days, #30 TAB 0 Refills Buspirone HCl (Buspirone HCl) 10 Mg Tablet 1 TAB PO BID Cetirizine HCl (Cetirizine HCl) 10 Mg Tablet 10 MG PO HS, TAB Chlorthalidone (Chlorthalidone) 25 Mg Tablet 25 MG PO DAILY, TAB Cholecalciferol (Vitamin D3) (Vitamin D3) 125 Mcg (5000 Unit) Tablet 1 TAB PO DAILY for 30 Days, #30 TAB 0 Refills Citalopram Hydrobromide (Citalopram HBr) 40 Mg Tablet 40 MG PO DAILY, TAB Diphenhydramine HCl (Diphenhydramine HCl) 25 Mg Tablet 2 TAB PO HS for allergy symptoms for 30 Days, #30 TAB 0 Refills Famotidine (Famotidine) 20 Mg Tablet 20 MG PO BID for 30 Days, #60 TAB 2 Refills Fluticasone Propion/Salmeterol (Fluticasone-Salmeterol 100-50) 100 Mcg-50 Mcg/Dose Blst.w.dev 1 PUFF IH HS for 30 Days, #60 EACH 0 Refills Fluticasone/Umeclidin/Vilanter (Trelegy Ellipta 100-62.5-25) 100-62.5 Blst.w.dev 1 PUFF PO DAILY Furosemide (Furosemide) 20 Mg Tablet 20 MG PO DAILY, TAB Hydrocodone/Acetaminophen (Hydrocodon-Acetaminophen 5-325) 5 Mg-325 Mg Tablet 1 TAB PO Q6HPRN PRN for MODERATE PAIN (4-6) Losartan Potassium (Losartan Potassium) 100 Mg Tablet 1 TAB PO DAILY Magnesium Oxide (Magnesium) 500 Mg Capsule 1 CAP PO HS for 30 Days, #60 CAP 0 Refills Meloxicam (Meloxicam) 15 Mg Tablet 1 TAB PO DAILY PRN for BACK PAIN Metoprolol Tartrate (Lopressor 50Mg Tab) 50 Mg Tab 1 TAB PO BID Montelukast Sodium (Montelukast Sodium) 10 Mg Tablet 1 TAB PO DAILY Potassium Chloride (Potassium Chloride) 20 Meq Tab.er.prt 1 TAB PO DAILY Prednisone (Deltasone / Orasone) 5 Mg Tablet 1 TAB PO DAILY Rosuvastatin Calcium (Rosuvastatin Calcium) 10 Mg Tablet 1 TAB PO HS Sulfamethoxazole/Trimethoprim (Bactrim Ds Tablet) 800 Mg-160 Mg Tablet 1 TAB PO BID for 10 Days, #20 TAB 0 Refills Trazodone HCl (Trazodone HCl) 100 Mg Tablet 100 MG PO HS, TAB [Vitamin C] () 2 CAP PO DAILY Time spent arranging discharge: 31-60 minutes ATTESTATION BY PHYSICIAN I have seen and examined the patient. I reviewed the documentation, medical decision making, and treatment plan as noted by the mid-level provider above. I agree with the findings and plan of care. Yoanna Alford MD, ELIZABETH NP Sep 13, 2024 13:21
[2024-09-13] MEDS: LACTULOSE 20 GM/30 ML UDCUP PO PRN (13:23)
--- NOTE | 2024-09-13 15:45 | NUR ---
discharged patient given printed discharge paperwork, educated patient regarding diet, activity, follow up visits, medications, signs and symptoms to report/return to ER. answered patient questions, patient understood. gave report to ARELI Elliott at [facility], advised that patient will be going with a wet-to-dry dressing with Daikin's solution until facility obtains wound vac to be placed to LLE. nurse understood
--- NOTE | 2024-09-13 15:50 | NUR ---
[facility] staff arrived for patient transport
--- NOTE | 2024-09-13 16:42 | PN ---
PROGRESS NOTE Date of Service: Sep 13, 2024 Time of Service: 14:00 SUBJECTIVE: Patient is resting in bed. Patient REVIEW OF SYSTEMS CONSTITUTIONAL: Reports fever, chills, no fatigue. HEAD/FACE: No signs of trauma. EENT: Denies eye pain, blurred vision, double vision, or light sensitivity. RESPIRATORY: Denies shortness of breath, cough, wheezing CARDIOVASCULAR: Denies chest pain, palpitation, syncope GASTROINTESTINAL/ABDOMINAL: Denies abdominal pain, constipation, diarrhea, nausea or vomiting GENITOURINARY: Denies dysuria or hematuria. MUSCULOSKELETAL: Denies joint pain, tenderness, or trauma. INTEGUMENTARY: open wound to left lower leg with erythema and edema NEUROLOGICAL/PSYCH: Denies anxiety, depression, heat or cold intolerance. PHYSICAL EXAM EYES: Anicteric. Pupils equal and reactive. HENT: No oral thrush seen, moist Oral mucosa NECK: Supple, no JVD or thyromegaly. LUNGS: Good air entry. No rales, no rhonchi. CARDIOVASCULAR: S1, S2 regular. No murmur heard. ABDOMEN: Soft, non tender, bowel sounds present, no organomegaly CENTRAL NERVOUS SYSTEM: Awake, alert, oriented x 3. No focal deficits. SKIN: left anterior lateral wound and left anterior medial wound noted with slough with serous drainage. Left lower leg noted erythema and edema. LYMPHATICS: No peripheral lymphadenopathy MUSCULOSKELETAL: No joint swelling, erythema or tenderness. EXTREMITIES: No cyanosis or clubbing BACK: No deformity, no pressure ulcer. GENITOURINARY: No dysuria or hematuria Vital Signs (last 8hr) Date Time Temp Pulse Resp B/P (MAP) Pulse Ox O2 Delivery O2 Flow Rate FiO2 09/13/24 11:08 98.2 78 16 114/97 100 Room Air 09/13/24 11:01 78 18 N/A Room Air 21 09/13/24 11:00 78 21 LABS: Laboratory: Test 09/13/24 10:43 09/11/24 19:52 Range/Units Whole Blood Glucose 102 70-110 MG/DL Vancomycin Level 9.8 L 20.0-30.0 mcg/mL DIAGNOSTICS / RADIOLOGY: [ ] PROBLEM LIST : Medical Problems: (1) ESTRELLA (acute kidney injury) ICD Codes: N17.9 - Acute kidney failure, unspecified; L08.9 - Local infection of the skin and subcutaneous tissue, unspecified (2) Cellulitis of left lower extremity ICD Codes: L03.116 - Cellulitis of left lower limb (3) Leukocytosis ICD Codes: D72.829 - Elevated white blood cell count, unspecified (4) Wound infection ICD Codes: T14.8XXA - Other injury of unspecified body region, initial encounter; L08.9 - Local infection of the skin and subcutaneous tissue, unspecified (5) 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 Antibiotic therapy as per Infectious Disease Team. Further management per hospital course. Thank you for the consult and allowing us to participate in the care of this patient. YOAN GREEN NP Sep 13, 2024 16:42
[2024-09-14] MEDS ORDERED: ALENDRONATE SODIUM 35 MG TAB PO SCH (06:30)
== END 2024-09-13 15:50 | DRG 720 ==
LOC: EDH 18:45 → EDHIP 18:46 → 4BH 09-07 04:58
PROVIDERS: ADMIT Internal Medicine; ATTEND Internal Medicine
PROC: 5A09357 Assistance with Respiratory Ventilation, Less than 24 Consecutive Hours, Continuous Positive Airway Pressure (ICD-10-PCS; 2024-09-08)
PROC: 5A09357 Assistance with Respiratory Ventilation, Less than 24 Consecutive Hours, Continuous Positive Airway Pressure (ICD-10-PCS; 2024-09-09)
PROC: 0JBP0ZZ Excision of Left Lower Leg Subcutaneous Tissue and Fascia, Open Approach (ICD-10-PCS; principal; 2024-09-09 18:10)
PROC: 5A09357 Assistance with Respiratory Ventilation, Less than 24 Consecutive Hours, Continuous Positive Airway Pressure (ICD-10-PCS; 2024-09-10)
PROC: 5A09357 Assistance with Respiratory Ventilation, Less than 24 Consecutive Hours, Continuous Positive Airway Pressure (ICD-10-PCS; 2024-09-11)
PROC: 05HB33Z Insertion of Infusion Device into Right Basilic Vein, Percutaneous Approach (ICD-10-PCS; 2024-09-11)
PROC: B54MZZA Ultrasonography of Right Upper Extremity Veins, Guidance (ICD-10-PCS; 2024-09-11)
PROC: 5A09357 Assistance with Respiratory Ventilation, Less than 24 Consecutive Hours, Continuous Positive Airway Pressure (ICD-10-PCS; 2024-09-12)
PROC: 5A09357 Assistance with Respiratory Ventilation, Less than 24 Consecutive Hours, Continuous Positive Airway Pressure (ICD-10-PCS; 2024-09-13)
DX: A41.9 Sepsis, unspecified organism (principal); N17.9 Acute kidney failure, unspecified; E27.1 Primary adrenocortical insufficiency; L02.416 Cutaneous abscess of left lower limb; L03.116 Cellulitis of left lower limb; L97.929 Non-pressure chronic ulcer of unspecified part of left lower leg with unspecified severity; N39.0 Urinary tract infection, site not specified; E66.01 Morbid (severe) obesity due to excess calories; E78.00 Pure hypercholesterolemia, unspecified; G47.33 Obstructive sleep apnea (adult) (pediatric); J45.909 Unspecified asthma, uncomplicated; I10 Essential (primary) hypertension; F32.A Depression, unspecified; N80.9 Endometriosis, unspecified; F41.9 Anxiety disorder, unspecified; I25.10 Atherosclerotic heart disease of native coronary artery without angina pectoris; Z79.52 Long term (current) use of systemic steroids; Z68.43 Body mass index [BMI] 50.0-59.9, adult; Z82.49 Family history of ischemic heart disease and other diseases of the circulatory system; Z90.49 Acquired absence of other specified parts of digestive tract; Z90.710 Acquired absence of both cervix and uterus
CPT/HCPCS: 36415; 36556; 71045; 73590; 73701; 76882; 80048; 80053; 80202; 81001; 82570; 82948; 83605; 83735; 83935; 84100; 84145; 84300; 85025; 85027; 85610; 85651; 87040; 87070; 87076; 87086; 87186; 93971; 94640; 94660; 94664; 96374; 96375; 99285; A4450; C1894; G0378; J0692; J1171; J1644; J1720; J2250; J2270; J2371; J2704; J3010; J3373; J3490; J7030; J7120; J7512; Q0163; Q9967; A4216; A4222; A4223; A4649; A6210; A9272; C1750; J3370

== ENCOUNTER → 2024-12-01 | Outpatient (CLI) | payer MEDICAID ==
[~2024-12-01] MED LIST changes: +ALBU18HF7 IH; -CEFP200T14 PO; +CHOL500045 PO; +DIPH25TA22 PO; -FLUT16H NASAL; +FLUT1BLS11 IH; +LIDOCAINE HCL 4% LTA SOL 4 ML VIAL TP ONE; -MAGN100T6 PO; +MAGN500C4 PO; -MULT-1247 PO; -ONDA-105 PO; -ROSU10TA72 PO; +ROSU10TA98 PO; +SULF1TAB42 PO; +VITAMIN C PO
== END | disposition home or self-care (01) ==
LOC: WHH 08:43
PROVIDERS: ATTEND Family Medicine
DX: T81.31XD Disruption of external operation (surgical) wound, not elsewhere classified, subsequent encounter (principal); S81.802D Unspecified open wound, left lower leg, subsequent encounter; I10 Essential (primary) hypertension; J45.909 Unspecified asthma, uncomplicated; E66.01 Morbid (severe) obesity due to excess calories; F32.A Depression, unspecified; Z68.43 Body mass index [BMI] 50.0-59.9, adult; Z79.899 Other long term (current) drug therapy; Z90.710 Acquired absence of both cervix and uterus; Z90.49 Acquired absence of other specified parts of digestive tract; X58.XXXD Exposure to other specified factors, subsequent encounter; Y83.8 Other surgical procedures as the cause of abnormal reaction of the patient, or of later complication, without mention of misadventure at the time of the procedure
CPT/HCPCS: 99214; A6209; A4450

== ENCOUNTER → 2024-12-12 | Outpatient (CLI) | payer MEDICAID ==
[~2024-12-12] MED LIST changes: -LIDOCAINE HCL 4% LTA SOL 4 ML VIAL TP ONE
== END | disposition home or self-care (01) ==
LOC: WHH 10:04
PROVIDERS: ATTEND Family Medicine
DX: T81.31XD Disruption of external operation (surgical) wound, not elsewhere classified, subsequent encounter (principal); S81.802D Unspecified open wound, left lower leg, subsequent encounter; I10 Essential (primary) hypertension; J45.909 Unspecified asthma, uncomplicated; E66.01 Morbid (severe) obesity due to excess calories; F32.A Depression, unspecified; Z68.43 Body mass index [BMI] 50.0-59.9, adult; Z79.899 Other long term (current) drug therapy; Z90.710 Acquired absence of both cervix and uterus; Z90.49 Acquired absence of other specified parts of digestive tract; X58.XXXD Exposure to other specified factors, subsequent encounter; Y83.8 Other surgical procedures as the cause of abnormal reaction of the patient, or of later complication, without mention of misadventure at the time of the procedure
CPT/HCPCS: 99214; A6212; A6209

== ENCOUNTER → 2024-12-19 | Outpatient (CLI) | payer MEDICAID ==
[~2024-12-19] MED LIST changes: +FLUC100T12 PO; +LIDOCAINE HCL 4% LTA SOL 4 ML VIAL TP ONE; +PANT40TA54 PO
== END | disposition home or self-care (01) ==
LOC: WHH 09:59
PROVIDERS: ATTEND Family Medicine
DX: T81.31XD Disruption of external operation (surgical) wound, not elsewhere classified, subsequent encounter (principal); S81.802D Unspecified open wound, left lower leg, subsequent encounter; I10 Essential (primary) hypertension; J45.909 Unspecified asthma, uncomplicated; E66.01 Morbid (severe) obesity due to excess calories; F32.A Depression, unspecified; Z68.43 Body mass index [BMI] 50.0-59.9, adult; Z79.899 Other long term (current) drug therapy; Z90.710 Acquired absence of both cervix and uterus; Z90.49 Acquired absence of other specified parts of digestive tract; X58.XXXD Exposure to other specified factors, subsequent encounter; Y83.8 Other surgical procedures as the cause of abnormal reaction of the patient, or of later complication, without mention of misadventure at the time of the procedure
CPT/HCPCS: 87070; 87086; 87186; 99214; A6197; A6260

== ENCOUNTER → 2024-12-26 | Outpatient (CLI) | payer MEDICAID ==
[~2024-12-26] MED LIST changes: -LIDOCAINE HCL 4% LTA SOL 4 ML VIAL TP ONE
== END | disposition home or self-care (01) ==
LOC: WHH 09:55
PROVIDERS: ATTEND Family Medicine
DX: T81.31XD Disruption of external operation (surgical) wound, not elsewhere classified, subsequent encounter (principal); S81.802D Unspecified open wound, left lower leg, subsequent encounter; I10 Essential (primary) hypertension; J45.909 Unspecified asthma, uncomplicated; E66.01 Morbid (severe) obesity due to excess calories; F32.A Depression, unspecified; Z68.43 Body mass index [BMI] 50.0-59.9, adult; Z79.899 Other long term (current) drug therapy; Z90.710 Acquired absence of both cervix and uterus; Z90.49 Acquired absence of other specified parts of digestive tract; X58.XXXD Exposure to other specified factors, subsequent encounter; Y83.8 Other surgical procedures as the cause of abnormal reaction of the patient, or of later complication, without mention of misadventure at the time of the procedure
CPT/HCPCS: 99214; A6212

== ENCOUNTER → 2025-01-17 | Outpatient (CLI) | payer MEDICAID | END | disposition home or self-care (01) | LOC: WHH 09:16 | PROVIDERS: ATTEND Family Medicine | DX: T81.31XD Disruption of external operation (surgical) wound, not elsewhere classified, subsequent encounter (principal); S81.802D Unspecified open wound, left lower leg, subsequent encounter; I10 Essential (primary) hypertension; J45.909 Unspecified asthma, uncomplicated; E66.01 Morbid (severe) obesity due to excess calories; F32.A Depression, unspecified; Z68.43 Body mass index [BMI] 50.0-59.9, adult; Z79.899 Other long term (current) drug therapy; Z90.710 Acquired absence of both cervix and uterus; Z90.49 Acquired absence of other specified parts of digestive tract; X58.XXXD Exposure to other specified factors, subsequent encounter; Y83.8 Other surgical procedures as the cause of abnormal reaction of the patient, or of later complication, without mention of misadventure at the time of the procedure | CPT/HCPCS: 99214; A6212 ==

== ENCOUNTER → 2025-01-24 | Outpatient (CLI) | payer MEDICAID ==
[~2025-01-24] MED LIST changes: -ALBU6.7H14 IH; +BACITRA TP; +BIOT1CAP3 PO; +COLL1CAP PO; +DIPH25CA85 PO; -DIPH25TA22 PO; +FLUT15.845 NS; -FLUT1BLS11 IH; +MAGN500C16 PO; -MAGN500C4 PO; -METO50 PO; +METO50TA18 PO; +MINO100C6 PO; +MVIT PO; +NEOMY SULF TP; +POLYMYXIN B TP; -SULF1TAB42 PO; +VIT1TAB.18 PO; -VITAMIN C PO
== END | disposition home or self-care (01) ==
LOC: WHH 08:56
PROVIDERS: ATTEND Family Medicine
DX: T81.31XD Disruption of external operation (surgical) wound, not elsewhere classified, subsequent encounter (principal); S81.802D Unspecified open wound, left lower leg, subsequent encounter; I10 Essential (primary) hypertension; J45.909 Unspecified asthma, uncomplicated; E66.01 Morbid (severe) obesity due to excess calories; F32.A Depression, unspecified; Z68.43 Body mass index [BMI] 50.0-59.9, adult; Z79.899 Other long term (current) drug therapy; Z90.710 Acquired absence of both cervix and uterus; Z90.49 Acquired absence of other specified parts of digestive tract; X58.XXXD Exposure to other specified factors, subsequent encounter; Y83.8 Other surgical procedures as the cause of abnormal reaction of the patient, or of later complication, without mention of misadventure at the time of the procedure
CPT/HCPCS: 29580; A4450; A6456

== ENCOUNTER → 2025-01-31 | Outpatient (CLI) | payer MEDICAID | END | disposition home or self-care (01) | LOC: WHH 09:00 | PROVIDERS: ATTEND Family Medicine | DX: T81.31XD Disruption of external operation (surgical) wound, not elsewhere classified, subsequent encounter (principal); S81.802D Unspecified open wound, left lower leg, subsequent encounter; J45.909 Unspecified asthma, uncomplicated; E66.01 Morbid (severe) obesity due to excess calories; F32.A Depression, unspecified; E11.22 Type 2 diabetes mellitus with diabetic chronic kidney disease; G47.33 Obstructive sleep apnea (adult) (pediatric); I12.0 Hypertensive chronic kidney disease with stage 5 chronic kidney disease or end stage renal disease; N18.6 End stage renal disease; J44.89 Other specified chronic obstructive pulmonary disease; Z68.43 Body mass index [BMI] 50.0-59.9, adult; Z79.899 Other long term (current) drug therapy; Z90.49 Acquired absence of other specified parts of digestive tract; Z90.710 Acquired absence of both cervix and uterus; Z99.2 Dependence on renal dialysis; Y83.8 Other surgical procedures as the cause of abnormal reaction of the patient, or of later complication, without mention of misadventure at the time of the procedure; X58.XXXD Exposure to other specified factors, subsequent encounter | CPT/HCPCS: 29580; A6456 ==

== ENCOUNTER → 2025-02-07 | Outpatient (CLI) | payer MEDICAID | END | disposition home or self-care (01) | LOC: WHH 09:10 | PROVIDERS: ATTEND Family Medicine | DX: T81.31XD Disruption of external operation (surgical) wound, not elsewhere classified, subsequent encounter (principal); S81.802D Unspecified open wound, left lower leg, subsequent encounter; J45.909 Unspecified asthma, uncomplicated; E66.01 Morbid (severe) obesity due to excess calories; F32.A Depression, unspecified; E11.22 Type 2 diabetes mellitus with diabetic chronic kidney disease; G47.33 Obstructive sleep apnea (adult) (pediatric); I12.0 Hypertensive chronic kidney disease with stage 5 chronic kidney disease or end stage renal disease; N18.6 End stage renal disease; J44.89 Other specified chronic obstructive pulmonary disease; Z68.43 Body mass index [BMI] 50.0-59.9, adult; Z79.899 Other long term (current) drug therapy; Z90.49 Acquired absence of other specified parts of digestive tract; Z90.710 Acquired absence of both cervix and uterus; Z99.2 Dependence on renal dialysis; X58.XXXD Exposure to other specified factors, subsequent encounter; Y83.8 Other surgical procedures as the cause of abnormal reaction of the patient, or of later complication, without mention of misadventure at the time of the procedure | CPT/HCPCS: 29580; A6456 ==